=== PATIENT | female | born 1940 | race Caucasian/White ===

== ENCOUNTER → 2016-09-11 | Outpatient (CLI) | payer MEDICARE ==
[~2016-09-11] MED LIST: /FERG32TA PO; /METO25TAB PO; /WARF2TA PO; ACET50TA PO; ASCO500T PO; ASPI81TA PO; CALCIUM PO; CLOP75TA2 PO; CRES5TAB PO; DOCU100C PO; DOXY-197 PO; ELOCON TOP; FOLI1TAB86 PO; LOSA25TA8 PO; LOVE0.8I SC; MAG 64 PO; MAGN64TASA PO; METFORMIN PO; MULTTAB4 PO; NORCOBULK PO; OMEP40CA2 PO; PRED20TA PO; ZETI10TA21 PO; [UNRECOGNIZED DRUG - OTHER] PO
--- NOTE | 2016-09-11 14:21 | REPMRS ---
Patient History The patient states she has not had a clinical breast exam in over a year. Patient is postmenopausal. Family history of colorectal cancer in mother at age 85. Benign excisional biopsy of the right breast, 1997. Digital Woman Screen Mammo: September 11, 2016 - Exam #: [id number] Bilateral CC and MLO view(s) were taken. Technologist: Belen Alva, Technologist Prior study comparison: September 08, 2015, digital woman screen mammo performed at [facility] to [facility]. September 08, 2014, digital woman screen mammo performed at [facility]. August 22, 2013, digital woman screen mammo performed at [facility]. FINDINGS: There are scattered fibroglandular densities. There has been no change in the appearance of the mammogram from the prior studies. There is a mild amount of scattered fibroglandular density which is fairly symmetric. There is no interval development of dominant mass, architectural distortion, or clustered microcalcification suggestive of malignancy. ASSESSMENT: BI-RADS/ACR category 1 mammogram. Negative. Recommendation Routine screening mammogram in 1 year (for women over age 40). This mammogram was interpreted with the aid of an FDA-approved computer-aided dectection system. Electronically Signed By: Eduardo Gonzalez MD 09/11/16 [id number]
== END ==
LOC: M WHC 12:47
PROVIDERS: ATTEND Family Medicine
DX: Z12.31 Encounter for screening mammogram for malignant neoplasm of breast (principal); Z78.0 Asymptomatic menopausal state

== ENCOUNTER → 2016-11-06 | Outpatient (REF) | payer MEDICARE | LOC: M LAB REF 17:01 | PROVIDERS: ATTEND Surgery | DX: L57.0 Actinic keratosis (principal) ==

== ENCOUNTER → 2016-12-04 | Outpatient (REF) | payer MEDICARE ==
[2016-12-04 13:48] LABS: MEAN CORPUSCULAR HGB CONC 31.5 g/dl (32.0-36.5); MEAN CORPUSCULAR VOLUME 88.9 fl (80.0-96.0); RED CELL DISTRIBUTION WIDTH 13.4 % (11.5-14.5); WHITE BLOOD COUNT 7.8 K/mm3 (4.0-10.0)
[2016-12-04 13:52] LABS: CALCIUM LEVEL 9.3 MG/DL (8.8-10.2); CREATININE FOR GFR 1.57 MG/DL (0.55-1.02); GLOMERULAR FILTRATION RATE 34.2 (>39); POTASSIUM SERUM 4.3 MEQ/L (3.5-5.1)
== END ==
LOC: M SFHCPLAZ 10:03
PROVIDERS: ATTEND Family Medicine
DX: N18.3 Chronic kidney disease, stage 3 (moderate) (principal); E11.9 Type 2 diabetes mellitus without complications

== ENCOUNTER → 2017-03-19 | Outpatient (REF) | payer MEDICARE ==
[2017-03-19 13:11] LABS: MEAN CORPUSCULAR HEMOGLOBIN 28.7 pg (27.0-33.0); MEAN CORPUSCULAR HGB CONC 31.9 g/dl (32.0-36.5); RED CELL DISTRIBUTION WIDTH 13.4 % (11.5-14.5); WHITE BLOOD COUNT 7.7 K/mm3 (4.0-10.0)
[2017-03-19 13:51] LABS: ALBUMIN 3.5 GM/DL (3.2-5.2); ALKALINE PHOSPHATASE 63 U/L (45-117); ALT/SGPT 17 U/L (12-78); ANION GAP 10 MEQ/L (8-16); AST/SGOT 13 U/L (15-37); BILIRUBIN,DIRECT < 0.1 MG/DL (0.0-0.2); BILIRUBIN,TOTAL 0.4 MG/DL (0.2-1.0); BLOOD UREA NITROGEN 22 MG/DL (7-18); CALCIUM LEVEL 9.2 MG/DL (8.8-10.2); CARBON DIOXIDE LEVEL 27 MEQ/L (21-32); CHLORIDE LEVEL 103 MEQ/L (98-107); CHOLESTEROL LEVEL 159 MG/DL (<200); CREATININE FOR GFR 1.32 MG/DL (0.55-1.02); GLOMERULAR FILTRATION RATE 41.8 (>39); GLUCOSE, FASTING 159 MG/DL (83-110); POTASSIUM SERUM 4.3 MEQ/L (3.5-5.1); SODIUM LEVEL 140 MEQ/L (136-145); TRIGLYCERIDES LEVEL 139 MG/DL (<150)
== END ==
LOC: M LABDRAWP 12:08
PROVIDERS: ATTEND Internal Medicine Cardiovascular Disease
DX: E78.00 Pure hypercholesterolemia, unspecified (principal); R60.0 Localized edema; N18.9 Chronic kidney disease, unspecified; E11.9 Type 2 diabetes mellitus without complications; I12.9 Hypertensive chronic kidney disease with stage 1 through stage 4 chronic kidney disease, or unspecified chronic kidney disease; Z95.5 Presence of coronary angioplasty implant and graft

== ENCOUNTER → 2017-04-20 | Outpatient (REF) | payer MEDICARE ==
[2017-04-20 12:10] LABS: CALCIUM LEVEL 9.8 MG/DL (8.8-10.2); CREATININE FOR GFR 1.6 MG/DL (0.55-1.02); GLOMERULAR FILTRATION RATE 33.5 (>39); POTASSIUM SERUM 4.3 MEQ/L (3.5-5.1)
== END ==
LOC: M SFHCPLAZ 09:58
PROVIDERS: ATTEND Family Medicine
DX: I50.32 Chronic diastolic (congestive) heart failure (principal)

== ENCOUNTER → 2017-07-11 | Outpatient (REF) | payer MEDICARE ==
[2017-07-11 16:32] LABS: ALBUMIN 3.6 GM/DL (3.2-5.2); ALBUMIN/GLOBULIN RATIO 0.97 (1.00-1.93); BILIRUBIN,DIRECT 0.1 MG/DL (0.0-0.2); BILIRUBIN,TOTAL 0.3 MG/DL (0.2-1.0); TOTAL PROTEIN 7.3 GM/DL (6.4-8.2)
== END ==
LOC: M LABDRAWP 15:35
PROVIDERS: ATTEND Internal Medicine Cardiovascular Disease
DX: R60.0 Localized edema (principal); R80.9 Proteinuria, unspecified

== ENCOUNTER → 2017-08-08 | Outpatient (REF) | payer MEDICARE ==
[2017-08-08 11:02] LABS: MEAN CORPUSCULAR HEMOGLOBIN 27.6 pg (27.0-33.0); MEAN CORPUSCULAR HGB CONC 30.8 g/dl (32.0-36.5); MEAN CORPUSCULAR VOLUME 89.5 fl (80.0-96.0); PLATELET COUNT, AUTOMATED 250 10^3/uL (150-450); RED CELL DISTRIBUTION WIDTH 13.3 % (11.5-14.5); WHITE BLOOD COUNT 7.4 10^3/uL (4.0-10.0)
[2017-08-08 11:26] LABS: ALBUMIN 3.4 GM/DL (3.2-5.2); ALBUMIN/GLOBULIN RATIO 0.89 (1.00-1.93); ALKALINE PHOSPHATASE 72 U/L (45-117); ALT/SGPT 16 U/L (12-78); ANION GAP 10 MEQ/L (8-16); AST/SGOT 9 U/L (7-37); BILIRUBIN,TOTAL 0.4 MG/DL (0.2-1.0); BLOOD UREA NITROGEN 27 MG/DL (7-18); CALCIUM LEVEL 9.1 MG/DL (8.8-10.2); CARBON DIOXIDE LEVEL 28 MEQ/L (21-32); CHLORIDE LEVEL 103 MEQ/L (98-107); CHOLESTEROL LEVEL 158 MG/DL (<200); CREATININE FOR GFR 1.41 MG/DL (0.55-1.02); GLOMERULAR FILTRATION RATE 38.6 (>39); GLUCOSE, FASTING 157 MG/DL (83-110); POTASSIUM SERUM 4.5 MEQ/L (3.5-5.1); SODIUM LEVEL 141 MEQ/L (136-145); TOTAL PROTEIN 7.2 GM/DL (6.4-8.2); TRIGLYCERIDES LEVEL 131 MG/DL (<150)
[2017-08-09 11:06] LABS: ALBUMIN 3.74 GM/DL (3.29-5.55); GAMMA GLOBULIN % 17.4 % (11.1-18.8)
== END ==
LOC: M SFHCPLAZ 08:58
PROVIDERS: ATTEND Family Medicine
DX: D47.2 Monoclonal gammopathy (principal); E11.9 Type 2 diabetes mellitus without complications; E78.2 Mixed hyperlipidemia; E55.9 Vitamin D deficiency, unspecified

== ENCOUNTER → 2017-08-14 | Outpatient (REF) | payer MEDICARE | LOC: M SFHCPLAZ 08:47 | PROVIDERS: ATTEND Family Medicine | DX: R35.0 Frequency of micturition (principal); Z53.8 Procedure and treatment not carried out for other reasons ==

== ENCOUNTER → 2017-08-17 | Outpatient (REF) | payer MEDICARE ==
[2017-08-17 18:09] LABS: MICROSCOPIC INDICATED? MAN YES (NO)
[2017-08-17 18:44] LABS: SQUAMOUS EPITHELIAL CELL URINE MOD AMOUNT /hpf (SMALL AMT); WBC, URINE TNTC /hpf (0-3)
[2017-08-17 18:45] LABS: BACTERIA, URINE MOD AMOUNT
[2017-08-17 18:46] LABS: HYALINE CAST, URINE NONE SEEN /lpf (0-1); MICROSCOPIC EXAM PERFORMED
== END ==
LOC: M SFHCPLAZ 16:28
PROVIDERS: ATTEND Family Medicine
DX: R35.0 Frequency of micturition (principal)

== ENCOUNTER 2017-08-31 23:44 | Inpatient (IN) | payer MEDICARE ==
[2017-09-01] MEDS: PANTOPRAZOLE 40MG INJ (PROTONIX) (C9113) IV (00:45)
[2017-09-01 01:02] LABS: BASO # 0.1 10^3/uL (0.0-0.2); BASO % 0.6 % (0.0-1.0); EOS # 0.3 10^3/uL (0.0-0.50); EOS % 3.3 % (0.0-3.0); HEMATOCRIT 40.5 % (36.0-47.0); HEMOGLOBIN 12.8 g/dl (12.0-16.0); IMMATURE GRANULOCYTE % 0.3 % (0-0); LYMPH # 2.1 10^3/uL (1.5-4.5); LYMPH % 21.1 % (24.0-44.0); MEAN CORPUSCULAR HEMOGLOBIN 27.8 pg (27.0-33.0); MEAN CORPUSCULAR HGB CONC 31.6 g/dl (32.0-36.5); MONO # 1.1 10^3/uL (0.0-0.8); MONO % 10.5 % (0.0-5.0); NEUTROPHILS # 6.5 10^3/uL (1.8-7.7); NEUTROPHILS % 64.2 % (36.0-66.0); PLATELET COUNT, AUTOMATED 258 10^3/uL (150-450); RED CELL DISTRIBUTION WIDTH 13.2 % (11.5-14.5); WHITE BLOOD COUNT 10.1 10^3/uL (4.0-10.0)
[2017-09-01 01:14] LABS: ALBUMIN 3.4 GM/DL (3.2-5.2); ALBUMIN/GLOBULIN RATIO 0.87 (1.00-1.93); ALKALINE PHOSPHATASE 72 U/L (45-117); ALT/SGPT 17 U/L (12-78); ANION GAP 7 MEQ/L (8-16); AST/SGOT 14 U/L (7-37); BILIRUBIN,DIRECT < 0.1 MG/DL (0.0-0.2); BILIRUBIN,TOTAL 0.2 MG/DL (0.2-1.0); BLOOD UREA NITROGEN 28 MG/DL (7-18); CALCIUM LEVEL 9.2 MG/DL (8.8-10.2); CARBON DIOXIDE LEVEL 28 MEQ/L (21-32); CHLORIDE LEVEL 104 MEQ/L (98-107); CREATININE FOR GFR 1.55 MG/DL (0.55-1.02); GLOMERULAR FILTRATION RATE 34.6 (>39); GLUCOSE, FASTING 174 MG/DL (83-110); LIPASE 105 U/L (73-393); POTASSIUM SERUM 4.2 MEQ/L (3.5-5.1); SODIUM LEVEL 139 MEQ/L (136-145); TOTAL PROTEIN 7.3 GM/DL (6.4-8.2)
[2017-09-01 01:24] LABS: INR 0.91; PROTHROMBIN TIME 12.4 SECONDS (12.4-14.5)
[2017-09-01] MEDS ORDERED: ISOVUE-370 76% 100ML VIAL (Q9967) As Ordered (01:35)
[2017-09-01 02:42] LABS: HEMATOCRIT 36.4 % (36.0-47.0); HEMOGLOBIN 11.5 g/dl (12.0-16.0)
[2017-09-01] MEDS: NS 1,000 ML IV ×2 (03:45→09:01)
[2017-09-01 04:39] LABS: HEMATOCRIT 35.5 % (36.0-47.0); HEMOGLOBIN 11.2 g/dl (12.0-16.0)
[2017-09-01] MEDS ORDERED: DEXTROSE 50% 50 ML SYRINGE IV (05:00)
[2017-09-01] MEDS ORDERED: GLUCAGON FOR INJ 1 MG VIAL (J1610) SC (05:00)
[2017-09-01] MEDS ORDERED: GLUCOSE 4 GM CHEW TABLET PO (05:00)
[2017-09-01] MEDS: CIPROFLOXACIN 250 MG TAB PO ×2 (06:05→17:38)
[2017-09-01 06:33] LABS: HEMATOCRIT 34.7 % (36.0-47.0); HEMOGLOBIN 11.1 g/dl (12.0-16.0); MEAN CORPUSCULAR HEMOGLOBIN 28.1 pg (27.0-33.0); MEAN CORPUSCULAR VOLUME 87.8 fl (80.0-96.0); PLATELET COUNT, AUTOMATED 212 10^3/uL (150-450); RED BLOOD COUNT 3.95 10^6/uL (4.00-5.40); RED CELL DISTRIBUTION WIDTH 13.3 % (11.5-14.5); WHITE BLOOD COUNT 8.5 10^3/uL (4.0-10.0)
[2017-09-01 06:38] LABS: BEDSIDE GLUCOSE 135 MG/DL (83-110)
[2017-09-01] MEDS: HumaLOG INSULIN (NovoLOG) PER UNIT SC ×4 (07:30→21:00)
[2017-09-01 07:41] LABS: ANION GAP 8 MEQ/L (8-16); BLOOD UREA NITROGEN 27 MG/DL (7-18); CALCIUM LEVEL 8.6 MG/DL (8.8-10.2); CARBON DIOXIDE LEVEL 27 MEQ/L (21-32); CHLORIDE LEVEL 107 MEQ/L (98-107); CREATININE FOR GFR 1.44 MG/DL (0.55-1.02); GLOMERULAR FILTRATION RATE 37.7 (>39); GLUCOSE, FASTING 132 MG/DL (83-110); POTASSIUM SERUM 4.3 MEQ/L (3.5-5.1); SODIUM LEVEL 142 MEQ/L (136-145)
[2017-09-01] MEDS: SPIRONOLACTONE 25 MG TAB PO (09:00)
[2017-09-01] MEDS ORDERED: LOSARTAN 50 MG TAB PO (09:00)
[2017-09-01] MEDS: PANTOPRAZOLE 40MG TAB (PROTONIX) PO (09:00)
[2017-09-01] MEDS: MULTIVITAMINS/MINERALS THERAP 1 TAB PO (09:00)
[2017-09-01] MEDS: DOCUSATE SODIUM 100 MG CAP PO ×2 (09:00→21:54)
[2017-09-01] MEDS: METOPROLOL TART 12.5 MG PER 1/2 TAB PO ×2 (09:01→21:53)
[2017-09-01] MEDS: hydroCHLOROthiazide 25 MG TAB PO (09:01)
[2017-09-01 12:38] LABS: HEMATOCRIT 33.7 % (36.0-47.0); HEMOGLOBIN 10.9 g/dl (12.0-16.0)
[2017-09-01 12:54] LABS: BEDSIDE GLUCOSE 158 MG/DL (83-110)
[2017-09-01] MEDS: ACETAMINOPHEN 500 MG TAB PO (17:38)
[2017-09-01 18:09] LABS: HEMATOCRIT 34.5 % (36.0-47.0); HEMOGLOBIN 11.1 g/dl (12.0-16.0)
[2017-09-01 19:18] LABS: BEDSIDE GLUCOSE 126 MG/DL (83-110)
[2017-09-01 21:15] LABS: BEDSIDE GLUCOSE 135 MG/DL (83-110)
[2017-09-01] MEDS: ROSUVASTATIN 10 MG TAB (CRESTOR) PO (21:52)
[2017-09-02 00:41] LABS: HEMATOCRIT 34.5 % (36.0-47.0)
[2017-09-02] MEDS: CIPROFLOXACIN 250 MG TAB PO (05:18)
[2017-09-02 06:15] LABS: HEMATOCRIT 37.1 % (36.0-47.0); HEMOGLOBIN 11.7 g/dl (12.0-16.0); MEAN CORPUSCULAR HEMOGLOBIN 27.7 pg (27.0-33.0); MEAN CORPUSCULAR HGB CONC 31.5 g/dl (32.0-36.5); MEAN CORPUSCULAR VOLUME 87.7 fl (80.0-96.0); PLATELET COUNT, AUTOMATED 216 10^3/uL (150-450); RED BLOOD COUNT 4.23 10^6/uL (4.00-5.40); RED CELL DISTRIBUTION WIDTH 13.3 % (11.5-14.5); WHITE BLOOD COUNT 6.5 10^3/uL (4.0-10.0)
[2017-09-02 06:33] LABS: ANION GAP 10 MEQ/L (8-16); BLOOD UREA NITROGEN 20 MG/DL (7-18); CALCIUM LEVEL 8.7 MG/DL (8.8-10.2); CARBON DIOXIDE LEVEL 27 MEQ/L (21-32); CHLORIDE LEVEL 105 MEQ/L (98-107); CREATININE FOR GFR 1.26 MG/DL (0.55-1.02); GLUCOSE, FASTING 159 MG/DL (83-110); SODIUM LEVEL 142 MEQ/L (136-145)
[2017-09-02] MEDS: DOCUSATE SODIUM 100 MG CAP PO (09:00)
[2017-09-02] MEDS: MULTIVITAMINS/MINERALS THERAP 1 TAB PO (09:28)
[2017-09-02] MEDS: HumaLOG INSULIN (NovoLOG) PER UNIT SC ×2 (09:28→13:11)
[2017-09-02] MEDS: PANTOPRAZOLE 40MG TAB (PROTONIX) PO (09:29)
[2017-09-02] MEDS: hydroCHLOROthiazide 25 MG TAB PO (09:30)
[2017-09-02] MEDS: SPIRONOLACTONE 25 MG TAB PO (09:31)
[2017-09-02] MEDS: METOPROLOL TART 12.5 MG PER 1/2 TAB PO (09:32)
[2017-09-02 11:54] LABS: BEDSIDE GLUCOSE 147 MG/DL (83-110)
[2017-09-02 12:05] LABS: HEMATOCRIT 38.4 % (36.0-47.0); HEMOGLOBIN 12.3 g/dl (12.0-16.0)
== END 2017-09-02 15:35 | disposition home or self-care (01) | DRG 372 ==
LOC: M ED 23:44 → M ED INP 09-01 05:54 → M MSPAV 09-01 06:19
DX: A04.4 Other intestinal Escherichia coli infections (principal); K62.5 Hemorrhage of anus and rectum; I50.32 Chronic diastolic (congestive) heart failure; Z68.41 Body mass index [BMI] 40.0-44.9, adult; I13.0 Hypertensive heart and chronic kidney disease with heart failure and stage 1 through stage 4 chronic kidney disease, or unspecified chronic kidney disease; E66.01 Morbid (severe) obesity due to excess calories; N18.3 Chronic kidney disease, stage 3 (moderate); E11.9 Type 2 diabetes mellitus without complications; E78.5 Hyperlipidemia, unspecified; I25.10 Atherosclerotic heart disease of native coronary artery without angina pectoris; K21.9 Gastro-esophageal reflux disease without esophagitis; Z79.82 Long term (current) use of aspirin; Z79.84 Long term (current) use of oral hypoglycemic drugs; Z79.899 Other long term (current) drug therapy; Z91.018 Allergy to other foods; Z88.1 Allergy status to other antibiotic agents; Z88.8 Allergy status to other drugs, medicaments and biological substances; Z88.6 Allergy status to analgesic agent; Z95.5 Presence of coronary angioplasty implant and graft; Z86.73 Personal history of transient ischemic attack (TIA), and cerebral infarction without residual deficits; Z90.710 Acquired absence of both cervix and uterus; Z90.722 Acquired absence of ovaries, bilateral; Z90.49 Acquired absence of other specified parts of digestive tract

== ENCOUNTER → 2017-09-13 | Outpatient (CLI) | payer MEDICARE | LOC: M WHC 13:23 | DX: Z12.31 Encounter for screening mammogram for malignant neoplasm of breast (principal) | CPT/HCPCS: 77067 ==

== ENCOUNTER → 2018-03-21 | Outpatient (REF) | payer MEDICARE ==
[2018-03-21 12:36] LABS: ALBUMIN 3.4 GM/DL (3.2-5.2); ALBUMIN/GLOBULIN RATIO 0.92 (1.00-1.93); ALKALINE PHOSPHATASE 65 U/L (45-117); ALT/SGPT 18 U/L (12-78); ANION GAP 9 MEQ/L (8-16); AST/SGOT 12 U/L (7-37); BILIRUBIN,TOTAL 0.4 MG/DL (0.2-1.0); BLOOD UREA NITROGEN 34 MG/DL (7-18); CALCIUM LEVEL 9.7 MG/DL (8.8-10.2); CARBON DIOXIDE LEVEL 27 MEQ/L (21-32); CHLORIDE LEVEL 106 MEQ/L (98-107); CHOLESTEROL LEVEL 139 MG/DL (<200); CHOLESTEROL RISK RATIO 2.622 (<5); CREATININE FOR GFR 1.39 MG/DL (0.55-1.30); GLOMERULAR FILTRATION RATE 39.2 (>39); GLUCOSE, FASTING 142 MG/DL (70-100); HDL CHOLESTEROL 53 MG/DL (>40); LDL CHOLESTEROL 67.4 MG/DL (<100); NON-HDL-C 86 MG/DL; POTASSIUM SERUM 4.7 MEQ/L (3.5-5.1); SODIUM LEVEL 142 MEQ/L (136-145); TOTAL PROTEIN 7.1 GM/DL (6.4-8.2); TRIGLYCERIDES LEVEL 93 MG/DL (<150)
[2018-03-21 13:52] LABS: ESTIMATED AVERAGE GLUCOSE 166 MG/DL (60-110); HEMOGLOBIN A1c 7.4 %
== END ==
LOC: M SFHCPLAZ 08:53
DX: E11.9 Type 2 diabetes mellitus without complications (principal); E78.2 Mixed hyperlipidemia
CPT/HCPCS: 80053

== ENCOUNTER → 2018-06-18 | Outpatient (REF) | payer MEDICARE ==
[2018-06-18 16:23] LABS: APPEARANCE, URINE HAZY (CLEAR); BACTERIA, URINE AUTO 1+ (NEGATIVE); BILIRUBIN, URINE AUTO NEGATIVE (NEGATIVE); BLOOD, URINE BLOOD NEGATIVE (NEGATIVE); COLOR, URINE YELLOW (YELLOW); GLUCOSE, URINE (UA) AUTO NEGATIVE (NEGATIVE); KETONE, URINE AUTO NEGATIVE (NEGATIVE); LEUKOCYTE ESTERASE, URINE AUTO 1+ (NEGATIVE); NITRITE, URINE AUTO NEGATIVE (NEGATIVE); PROTEIN, URINE AUTO NEGATIVE (NEGATIVE); RBC, URINE AUTO 3 /HPF (0-3); SPECIFIC GRAVITY URINE AUTO 1.009 (1.002-1.035); SQUAMOUS EPITHELIAL CELL UR AU 3 /HPF (0-6); UROBILINOGEN, URINE AUTO 0.2 mg/dL (0.0-2.0); WBC, URINE AUTO 3 /HPF (0-3)
== END ==
LOC: M SFHCPLAZ 13:07
DX: R30.0 Dysuria (principal)
CPT/HCPCS: 81001

== ENCOUNTER → 2018-07-29 | Outpatient (REF) | payer MEDICARE ==
[2018-07-29 12:51] LABS: ANION GAP 6 MEQ/L (8-16); BLOOD UREA NITROGEN 32 MG/DL (7-18); CALCIUM LEVEL 9.8 MG/DL (8.8-10.2); CARBON DIOXIDE LEVEL 31 MEQ/L (21-32); CHLORIDE LEVEL 101 MEQ/L (98-107); CREATININE FOR GFR 1.33 MG/DL (0.55-1.30); GLOMERULAR FILTRATION RATE 41.2 (>39); GLUCOSE, FASTING 180 MG/DL (70-100); POTASSIUM SERUM 4.5 MEQ/L (3.5-5.1); SODIUM LEVEL 138 MEQ/L (136-145)
[2018-07-29 12:55] LABS: MALB URINE SIEMENS 42.5 MG/L; MAU/CREAT RATIO 38.2 MCG/MG (0.0-30.0)
[2018-07-29 14:17] LABS: ESTIMATED AVERAGE GLUCOSE 163 MG/DL (60-110); HEMOGLOBIN A1c 7.3 %
== END ==
LOC: M SFHCPLAZ 09:05
DX: E11.9 Type 2 diabetes mellitus without complications (principal)
CPT/HCPCS: 83036

== ENCOUNTER 2018-08-10 08:53 | Inpatient (IN) | payer MEDICARE ==
[2018-08-10] MEDS: NS 1,000 ML IV ×3 (10:32→20:13)
[2018-08-10 10:42] LABS: BASO # 0.1 10^3/uL (0.0-0.2); BASO % 0.6 % (0.0-1.0); EOS # 0.2 10^3/uL (0.0-0.50); EOS % 1.9 % (0.0-3.0); HEMOGLOBIN 13.2 g/dl (12.0-15.5); IMMATURE GRANULOCYTE % 0.2 % (0-3.0); LYMPH # 1.4 10^3/uL (1.5-4.5); LYMPH % 16.2 % (24.0-44.0); MEAN CORPUSCULAR HEMOGLOBIN 27.3 pg (27.0-33.0); MEAN CORPUSCULAR HGB CONC 31.4 g/dl (32.0-36.5); MONO # 0.8 10^3/uL (0.0-0.8); MONO % 8.7 % (0.0-5.0); NEUTROPHILS # 6.3 10^3/uL (1.8-7.7); NEUTROPHILS % 72.4 % (36.0-66.0); PLATELET COUNT, AUTOMATED 258 10^3/uL (150-450); RED BLOOD COUNT 4.83 10^6/uL (4.00-5.40); RED CELL DISTRIBUTION WIDTH 13.4 % (11.5-14.5); WHITE BLOOD COUNT 8.7 10^3/uL (4.0-10.0)
[2018-08-10 10:52] LABS: INR 0.88
[2018-08-10 11:05] LABS: ALBUMIN 3.4 GM/DL (3.2-5.2); ALBUMIN/GLOBULIN RATIO 0.92 (1.00-1.93); ALKALINE PHOSPHATASE 82 U/L (45-117); ALT/SGPT 16 U/L (12-78); AMYLASE 42 U/L (25-115); ANION GAP 7 MEQ/L (8-16); AST/SGOT 14 U/L (7-37); BILIRUBIN,DIRECT < 0.1 MG/DL (0.0-0.2); BILIRUBIN,TOTAL 0.3 MG/DL (0.2-1.0); BLOOD UREA NITROGEN 25 MG/DL (7-18); CALCIUM LEVEL 9.4 MG/DL (8.8-10.2); CARBON DIOXIDE LEVEL 28 MEQ/L (21-32); CHLORIDE LEVEL 104 MEQ/L (98-107); CREATININE FOR GFR 1.33 MG/DL (0.55-1.30); GLOMERULAR FILTRATION RATE 41.2 (>39); GLUCOSE, FASTING 173 MG/DL (70-100); LIPASE 78 U/L (73-393); POTASSIUM SERUM 4.6 MEQ/L (3.5-5.1); SODIUM LEVEL 139 MEQ/L (136-145); TOTAL PROTEIN 7.1 GM/DL (6.4-8.2)
[2018-08-10] MEDS ORDERED: GLUCAGON FOR INJ 1 MG VIAL (J1610) SC (13:15)
[2018-08-10] MEDS ORDERED: DEXTROSE 50% 50 ML SYRINGE IV (13:15)
[2018-08-10] MEDS ORDERED: GLUCOSE 4 GM CHEW TABLET PO (13:15)
[2018-08-10] MEDS: SPIRONOLACTONE 25 MG TAB PO (13:47)
[2018-08-10 16:34] LABS: BEDSIDE GLUCOSE 155 MG/DL (83-110)
[2018-08-10 17:32] LABS: HEMATOCRIT 34.8 % (36.0-47.0); MEAN CORPUSCULAR HEMOGLOBIN 27.3 pg (27.0-33.0); MEAN CORPUSCULAR HGB CONC 31.3 g/dl (32.0-36.5); MEAN CORPUSCULAR VOLUME 87.2 fl (80.0-96.0); PLATELET COUNT, AUTOMATED 246 10^3/uL (150-450); RED BLOOD COUNT 3.99 10^6/uL (4.00-5.40); RED CELL DISTRIBUTION WIDTH 13.6 % (11.5-14.5); WHITE BLOOD COUNT 9.3 10^3/uL (4.0-10.0)
[2018-08-10 17:33] LABS: HEMOGLOBIN 10.9 g/dl (12.0-15.5)
[2018-08-10] MEDS: HumaLOG INSULIN (NovoLOG) PER UNIT SC ×2 (18:18→20:12)
[2018-08-10 20:09] LABS: BEDSIDE GLUCOSE 227 MG/DL (83-110)
[2018-08-10] MEDS: CALCIUM/VITAMIN D 500 MG TAB PO (20:10)
[2018-08-10] MEDS: OMEPRAZOLE 20 MG CAP PO (20:10)
[2018-08-10] MEDS: MAGNESIUM OXIDE 400 MG TAB (MAG-OX) PO (20:10)
[2018-08-10] MEDS: METOPROLOL TART 12.5 MG PER 1/2 TAB PO (20:11)
[2018-08-10] MEDS: ACETAMINOPHEN 325 MG TAB PO (20:12)
[2018-08-10] MEDS: DOCUSATE SODIUM 100 MG CAP PO (20:13)
[2018-08-10 22:21] LABS: HEMATOCRIT 30.3 % (36.0-47.0); HEMOGLOBIN 9.4 g/dl (12.0-15.5); MEAN CORPUSCULAR VOLUME 87.1 fl (80.0-96.0); PLATELET COUNT, AUTOMATED 215 10^3/uL (150-450); RED BLOOD COUNT 3.48 10^6/uL (4.00-5.40); RED CELL DISTRIBUTION WIDTH 13.6 % (11.5-14.5); WHITE BLOOD COUNT 8.2 10^3/uL (4.0-10.0)
[2018-08-11 05:00] LABS: HEMATOCRIT 29.4 % (36.0-47.0); HEMOGLOBIN 9.2 g/dl (12.0-15.5); MEAN CORPUSCULAR HEMOGLOBIN 26.5 pg (27.0-33.0); MEAN CORPUSCULAR HGB CONC 31.3 g/dl (32.0-36.5); MEAN CORPUSCULAR VOLUME 84.7 fl (80.0-96.0); PLATELET COUNT, AUTOMATED 205 10^3/uL (150-450); RED BLOOD COUNT 3.47 10^6/uL (4.00-5.40); RED CELL DISTRIBUTION WIDTH 13.5 % (11.5-14.5); WHITE BLOOD COUNT 6.6 10^3/uL (4.0-10.0)
[2018-08-11 05:28] LABS: ALBUMIN 2.4 GM/DL (3.2-5.2); ALKALINE PHOSPHATASE 54 U/L (45-117); ALT/SGPT 12 U/L (12-78); ANION GAP 8 MEQ/L (8-16); AST/SGOT 12 U/L (7-37); BILIRUBIN,TOTAL 0.3 MG/DL (0.2-1.0); BLOOD UREA NITROGEN 23 MG/DL (7-18); CALCIUM LEVEL 8.2 MG/DL (8.8-10.2); CARBON DIOXIDE LEVEL 25 MEQ/L (21-32); CHLORIDE LEVEL 109 MEQ/L (98-107); CREATININE FOR GFR 1.13 MG/DL (0.55-1.30); GLOMERULAR FILTRATION RATE 49.7 (>39); GLUCOSE, FASTING 167 MG/DL (70-100); MAGNESIUM LEVEL 1.5 MG/DL (1.8-2.4); POTASSIUM SERUM 3.8 MEQ/L (3.5-5.1); SODIUM LEVEL 142 MEQ/L (136-145); TOTAL PROTEIN 5.4 GM/DL (6.4-8.2)
[2018-08-11] MEDS: NS 1,000 ML IV (06:21)
[2018-08-11] MEDS: OMEPRAZOLE 20 MG CAP PO ×2 (06:30→20:32)
[2018-08-11] MEDS: HumaLOG INSULIN (NovoLOG) PER UNIT SC ×4 (08:13→21:37)
[2018-08-11] MEDS: METOPROLOL TART 12.5 MG PER 1/2 TAB PO ×2 (08:13→20:33)
[2018-08-11] MEDS: CALCIUM/VITAMIN D 500 MG TAB PO ×2 (08:14→20:36)
[2018-08-11] MEDS: MULTIVITAMINS/MINERALS THERAP 1 TAB PO (08:14)
[2018-08-11] MEDS: MAGNESIUM OXIDE 400 MG TAB (MAG-OX) PO ×2 (08:15→20:33)
[2018-08-11] MEDS: DOCUSATE SODIUM 100 MG CAP PO ×2 (08:15→20:33)
[2018-08-11] MEDS: SPIRONOLACTONE 25 MG TAB PO (08:15)
[2018-08-11 10:45] LABS: HEMATOCRIT 28.3 % (36.0-47.0); HEMOGLOBIN 8.9 g/dl (12.0-15.5); MEAN CORPUSCULAR HEMOGLOBIN 27.5 pg (27.0-33.0); MEAN CORPUSCULAR HGB CONC 31.4 g/dl (32.0-36.5); MEAN CORPUSCULAR VOLUME 87.3 fl (80.0-96.0); PLATELET COUNT, AUTOMATED 209 10^3/uL (150-450); RED BLOOD COUNT 3.24 10^6/uL (4.00-5.40); RED CELL DISTRIBUTION WIDTH 13.5 % (11.5-14.5); WHITE BLOOD COUNT 6.7 10^3/uL (4.0-10.0)
[2018-08-11 11:38] LABS: BEDSIDE GLUCOSE 150 MG/DL (83-110)
[2018-08-11 16:30] LABS: HEMATOCRIT 30.5 % (36.0-47.0); HEMOGLOBIN 9.5 g/dl (12.0-15.5); MEAN CORPUSCULAR HEMOGLOBIN 27.1 pg (27.0-33.0); MEAN CORPUSCULAR HGB CONC 31.1 g/dl (32.0-36.5); MEAN CORPUSCULAR VOLUME 86.9 fl (80.0-96.0); PLATELET COUNT, AUTOMATED 217 10^3/uL (150-450); RED BLOOD COUNT 3.51 10^6/uL (4.00-5.40); RED CELL DISTRIBUTION WIDTH 13.5 % (11.5-14.5); WHITE BLOOD COUNT 6.8 10^3/uL (4.0-10.0)
[2018-08-11 16:59] LABS: BEDSIDE GLUCOSE 174 MG/DL (83-110)
[2018-08-11] MEDS: ROSUVASTATIN 10 MG TAB (CRESTOR) PO (20:33)
[2018-08-11 21:34] LABS: BEDSIDE GLUCOSE 161 MG/DL (83-110)
[2018-08-12 05:57] LABS: HEMATOCRIT 29.2 % (36.0-47.0); HEMOGLOBIN 9.1 g/dl (12.0-15.5); MEAN CORPUSCULAR HEMOGLOBIN 26.5 pg (27.0-33.0); MEAN CORPUSCULAR HGB CONC 31.2 g/dl (32.0-36.5); MEAN CORPUSCULAR VOLUME 85.1 fl (80.0-96.0); PLATELET COUNT, AUTOMATED 219 10^3/uL (150-450); RED BLOOD COUNT 3.43 10^6/uL (4.00-5.40); RED CELL DISTRIBUTION WIDTH 13.3 % (11.5-14.5); WHITE BLOOD COUNT 7.3 10^3/uL (4.0-10.0)
[2018-08-12] MEDS: OMEPRAZOLE 20 MG CAP PO (06:20)
[2018-08-12 06:26] LABS: ANION GAP 7 MEQ/L (8-16); BLOOD UREA NITROGEN 15 MG/DL (7-18); CALCIUM LEVEL 8.6 MG/DL (8.8-10.2); CARBON DIOXIDE LEVEL 27 MEQ/L (21-32); CHLORIDE LEVEL 108 MEQ/L (98-107); CREATININE FOR GFR 1.14 MG/DL (0.55-1.30); GLOMERULAR FILTRATION RATE 49.2 (>39); GLUCOSE, FASTING 169 MG/DL (70-100); POTASSIUM SERUM 3.8 MEQ/L (3.5-5.1); SODIUM LEVEL 142 MEQ/L (136-145)
[2018-08-12] MEDS: HumaLOG INSULIN (NovoLOG) PER UNIT SC (08:50)
[2018-08-12] MEDS: SPIRONOLACTONE 25 MG TAB PO (08:51)
[2018-08-12] MEDS: CALCIUM/VITAMIN D 500 MG TAB PO (08:51)
[2018-08-12] MEDS: MAGNESIUM OXIDE 400 MG TAB (MAG-OX) PO (08:51)
[2018-08-12] MEDS: DOCUSATE SODIUM 100 MG CAP PO (08:51)
[2018-08-12] MEDS: MULTIVITAMINS/MINERALS THERAP 1 TAB PO (08:52)
[2018-08-12] MEDS: METOPROLOL TART 12.5 MG PER 1/2 TAB PO (08:52)
== END 2018-08-12 11:12 | disposition home or self-care (01) | DRG 378 ==
LOC: M ED 08:53 → M ED INP 13:14 → M MSPAV 14:10
DX: K92.2 Gastrointestinal hemorrhage, unspecified (principal); D62 Acute posthemorrhagic anemia; I50.32 Chronic diastolic (congestive) heart failure; I13.0 Hypertensive heart and chronic kidney disease with heart failure and stage 1 through stage 4 chronic kidney disease, or unspecified chronic kidney disease; I25.10 Atherosclerotic heart disease of native coronary artery without angina pectoris; K21.9 Gastro-esophageal reflux disease without esophagitis; E11.9 Type 2 diabetes mellitus without complications; N18.3 Chronic kidney disease, stage 3 (moderate); E78.5 Hyperlipidemia, unspecified; Z79.82 Long term (current) use of aspirin; Z79.84 Long term (current) use of oral hypoglycemic drugs; Z79.899 Other long term (current) drug therapy; Z91.018 Allergy to other foods; Z88.1 Allergy status to other antibiotic agents; Z88.6 Allergy status to analgesic agent; Z88.8 Allergy status to other drugs, medicaments and biological substances

== ENCOUNTER → 2018-08-15 | Outpatient (REF) | payer MEDICARE ==
[~2018-08-15] MED LIST changes: +ASPI1TAB PO; +BYET10IN2 SC; +CALC600T57 PO; +CALCTAB6 PO; +CIPR250T3 PO; +COCOOIL6 PO; +COQ1200C2 PO; +CRES10TA32 PO; +DOCU100C16 PO; +EPIN0.3I11 INJ; +GLIM2TAB; +GLIM2TAB PO; +INSULADS INJ; +IRON325T7 PO; +LASI20TA PO; +LOSA100T5 PO; +LUTE1CAP2 PO; +METF500T13 PO; +METO25TA4 PO; +OMEP20CA3 PO; +PROA1AER2 IN; +RANI1SYP PO; +ROSU10TA5 PO; +SITA50TAB PO; +SPIR-10 PO; +SYMB16INH INH; +VITACAP9 PO; +VITMTA PO; +[UNRECOGNIZED DRUG - CODE]
[2018-08-15 14:24] LABS: HEMATOCRIT 30.7 % (36.0-47.0); HEMOGLOBIN 9.4 g/dl (12.0-15.5); MEAN CORPUSCULAR HEMOGLOBIN 27.2 pg (27.0-33.0); MEAN CORPUSCULAR HGB CONC 30.6 g/dl (32.0-36.5); MEAN CORPUSCULAR VOLUME 88.7 fl (80.0-96.0); PLATELET COUNT, AUTOMATED 287 10^3/uL (150-450); RED BLOOD COUNT 3.46 10^6/uL (4.00-5.40); WHITE BLOOD COUNT 9.5 10^3/uL (4.0-10.0)
[2018-08-15 14:51] LABS: ALBUMIN 3.3 GM/DL (3.2-5.2); BILIRUBIN,TOTAL 0.4 MG/DL (0.2-1.0); CALCIUM LEVEL 9.1 MG/DL (8.8-10.2); CREATININE FOR GFR 1.37 MG/DL (0.55-1.30); GLOMERULAR FILTRATION RATE 39.8 (>39); POTASSIUM SERUM 4.5 MEQ/L (3.5-5.1); TOTAL PROTEIN 6.7 GM/DL (6.4-8.2)
== END ==
LOC: M SFHCADAM 10:31
PROVIDERS: ATTEND Family Medicine
DX: K92.2 Gastrointestinal hemorrhage, unspecified (principal); D62 Acute posthemorrhagic anemia; I11.0 Hypertensive heart disease with heart failure
CPT/HCPCS: 80053; 85027; 99496; G0463

== ENCOUNTER → 2018-09-25 | Outpatient (CLI) | payer MEDICARE ==
[~2018-09-25] MED LIST changes: +BYET10IN10 SC; -BYET10IN2 SC; -LASI20TA PO; +LASI20TA3 PO
--- NOTE | 2018-09-25 13:57 | REPMRS ---
Patient History The patient states she has not had a clinical breast exam in over a year. Patient is postmenopausal and is nulliparous. Family history of colorectal cancer at age 85 in mother. Benign excisional biopsy of the right breast, 1997. Digital Woman Screen Mammo: September 25, 2018 - Exam #: [id number] Bilateral CC and MLO view(s) were taken. Technologist: Kirti De Technologist Prior study comparison: September 13, 2017, digital woman screen mammo performed at [facility]. September 11, 2016, digital woman screen mammo performed at [facility]. September 08, 2015, digital woman screen mammo performed at [facility]. FINDINGS: There are scattered fibroglandular densities. There has been no change in the appearance of the mammogram from the prior studies. There is a mild amount of scattered fibroglandular density which is fairly symmetric. There is no interval development of dominant mass, architectural distortion, or clustered microcalcification suggestive of malignancy. 3-D tomosynthesis shows no additional findings. Assessment: BI-RADS/ACR category 1 mammogram. Negative Mammogram. Recommendation Routine screening mammogram of both breasts in 1 year (for women over age 40). This patient's Lifetime Breast Cancer RIsk is estimated at 3.5 %. This mammogram was interpreted with the aid of an FDA-approved computer-aided dectection system. Electronically Signed By: Eduardo Gonzalez MD 09/25/18 [id number]
== END ==
LOC: M WHC 12:40
PROVIDERS: ATTEND Family Medicine
DX: Z12.31 Encounter for screening mammogram for malignant neoplasm of breast (principal)

== ENCOUNTER → 2018-11-13 | Outpatient (REF) | payer MEDICARE ==
[2018-11-13 12:06] LABS: HEMATOCRIT 44.5 % (36.0-47.0); HEMOGLOBIN 13.7 g/dl (12.0-15.5); MEAN CORPUSCULAR HEMOGLOBIN 27.7 pg (27.0-33.0); MEAN CORPUSCULAR HGB CONC 30.8 g/dl (32.0-36.5); MEAN CORPUSCULAR VOLUME 89.9 fl (80.0-96.0); PLATELET COUNT, AUTOMATED 252 10^3/uL (150-450); RED BLOOD COUNT 4.95 10^6/uL (4.00-5.40); WHITE BLOOD COUNT 7.2 10^3/uL (4.0-10.0)
[2018-11-13 12:35] LABS: ALBUMIN 3.5 GM/DL (3.2-5.2); BILIRUBIN,TOTAL 0.3 MG/DL (0.2-1.0); CALCIUM LEVEL 9.5 MG/DL (8.8-10.2); CREATININE FOR GFR 1.34 MG/DL (0.55-1.30); GLOMERULAR FILTRATION RATE 40.8 (>39); POTASSIUM SERUM 4.5 MEQ/L (3.5-5.1)
[2018-11-13 13:48] LABS: HEMOGLOBIN A1c 7.6 %
== END ==
LOC: M SFHCPLAZ 08:39
PROVIDERS: ATTEND Family Medicine
DX: K92.2 Gastrointestinal hemorrhage, unspecified (principal); I11.0 Hypertensive heart disease with heart failure; E11.9 Type 2 diabetes mellitus without complications

== ENCOUNTER → 2019-01-17 | Outpatient (REF) | payer MEDICARE ==
[~2019-01-17] MED LIST changes: -/FERG32TA PO; -/METO25TAB PO; -/WARF2TA PO; -ACET50TA PO; -ASPI1TAB PO; -ASPI81TA PO; +ASPI81TA26 PO; +CHIL1CHW5 PO; +COUM1TAB16 PO; +CRES10TA PO; -CRES10TA32 PO; +FERR1TAB6 PO; +FERR325T82 PO; -IRON325T7 PO; -LUTE1CAP2 PO; +LUTE20CA8 PO; +MAPA500T17 PO; +METO1TAB87 PO
== END ==
LOC: M SFHCPLAZ 19:03
PROVIDERS: ATTEND Dermatology
DX: D23.4 Other benign neoplasm of skin of scalp and neck (principal)
CPT/HCPCS: 11102; 17000; 17003; 88305; G0463

== ENCOUNTER → 2019-04-01 | Outpatient (REF) | payer MEDICARE ==
[~2019-04-01] MED LIST changes: -GLIM2TAB; -GLIM2TAB PO; +GLIM2TAB4; +GLIM2TAB4 PO; +OMEP1CAP73 PO; -OMEP20CA3 PO; -ROSU10TA5 PO; +ROSU10TA6 PO
== END ==
LOC: M SFHCPLAZ 10:36
PROVIDERS: ATTEND Dermatology
DX: C44.629 Squamous cell carcinoma of skin of left upper limb, including shoulder (principal)

== ENCOUNTER → 2019-04-05 | Outpatient (REF) | payer MEDICARE ==
[~2019-04-05] MED LIST changes: +GLIM2TAB; +GLIM2TAB PO; -GLIM2TAB4; -GLIM2TAB4 PO; -OMEP1CAP73 PO; +OMEP20CA4 PO
[2019-04-05 10:40] LABS: HEMATOCRIT 45.5 % (36.0-47.0); HEMOGLOBIN 14.2 g/dl (12.0-15.5); MEAN CORPUSCULAR HEMOGLOBIN 28.9 pg (27.0-33.0); MEAN CORPUSCULAR HGB CONC 31.2 g/dl (32.0-36.5); MEAN CORPUSCULAR VOLUME 92.5 fl (80.0-96.0); PLATELET COUNT, AUTOMATED 222 10^3/uL (150-450); RED BLOOD COUNT 4.92 10^6/uL (4.00-5.40); WHITE BLOOD COUNT 8.2 10^3/uL (4.0-10.0)
[2019-04-05 11:22] LABS: ALBUMIN 3.6 GM/DL (3.2-5.2); ALT/SGPT 21 U/L (12-78); BILIRUBIN,TOTAL 0.3 MG/DL (0.2-1.0); BLOOD UREA NITROGEN 31 MG/DL (7-18); CARBON DIOXIDE LEVEL 35 MEQ/L (21-32); CHLORIDE LEVEL 100 MEQ/L (98-107); CHOLESTEROL LEVEL 162 MG/DL (<200); CHOLESTEROL RISK RATIO 2.842 (<5); CREATININE FOR GFR 1.37 MG/DL (0.55-1.30); FERRITIN 35 NG/ML (8-252); GLOMERULAR FILTRATION RATE 39.8 (>39); GLUCOSE, FASTING 157 MG/DL (70-100); HDL CHOLESTEROL 57 MG/DL (>40); IRON (FE) 57 UG/DL (50-170); LDL CHOLESTEROL 75 MG/DL (<100); NON-HDL-C 105 MG/DL; PERCENT SATURATION 16.5 % (13.2-45.0); POTASSIUM SERUM 4.3 MEQ/L (3.5-5.1); SODIUM LEVEL 141 MEQ/L (136-145); TOTAL IRON BINDING CAPACITY 346 UG/DL (250-450); TOTAL PROTEIN 7.4 GM/DL (6.4-8.2); TRIGLYCERIDES LEVEL 152 MG/DL (<150)
[2019-04-08 14:04] LABS: ALBUMIN 4.09 GM/DL (3.29-5.55); ALBUMIN % 55.3 % (55.8-66.1); ALPHA-1-GLOBULIN % 4.5 % (2.9-4.9); ALPHA-1-GLOBULINS 0.33 GM/DL (0.17-0.41); ALPHA-2-GLOBULINS 0.84 GM/DL (0.42-0.99); ALPHA-2-GLOBULINS % 11.3 % (7.1-11.8); BETA-1-GLOBULINS % 6.8 % (4.7-7.2); BETA-2-GLOBULINS 0.44 GM/DL (0.19-0.55); GAMMA GLOBULIN % 16.1 % (11.1-18.8); GAMMA GLOBULINS 1.19 GM/DL (0.65-1.58)
[2019-04-08 14:16] LABS: IMMUNOTYPING SERUM IGG ABNORMAL (NORMAL); IMMUNOTYPING SERUM LAMBDA ABNORMAL (NORMAL)
== END ==
LOC: M SFHCADAM 08:51
PROVIDERS: ATTEND Family Medicine
DX: N18.3 Chronic kidney disease, stage 3 (moderate) (principal); D62 Acute posthemorrhagic anemia; E78.2 Mixed hyperlipidemia; E11.9 Type 2 diabetes mellitus without complications; D47.2 Monoclonal gammopathy

== ENCOUNTER → 2019-05-02 | Outpatient (CLI) | payer MEDICARE ==
[~2019-05-02] MED LIST changes: -GLIM2TAB; -GLIM2TAB PO; +GLIM2TAB4; +GLIM2TAB4 PO; +OMEP1CAP73 PO; -OMEP20CA4 PO
--- NOTE | 2019-05-02 15:16 | REP ---
Left elbow for views: There are no fractures or dislocations. There is an osteophyte at the coronoid process of the olecranon. The anterior fat pad is elevated. This may represent a joint effusion. There are degenerative ligamentous calcifications medial to the distal humeral medial epicondyle. Impression: Questionable joint effusion. No fracture or dislocation. Degenerative calcifications medial to the medial epicondyle. Electronically Signed by Mik Hernandez MD 05/02/2019 03:07 P
== END ==
LOC: M WUC 12:47
PROVIDERS: ATTEND Nurse Practitioner Family
DX: M25.522 Pain in left elbow (principal)

== ENCOUNTER → 2019-05-06 | Outpatient (REF) | payer MEDICARE ==
[~2019-05-06] MED LIST changes: +GLIM2TAB; +GLIM2TAB PO; -GLIM2TAB4; -GLIM2TAB4 PO; -OMEP1CAP73 PO; +OMEP20CA4 PO
== END ==
LOC: M SFHCPLAZ 10:14
PROVIDERS: ATTEND Dermatology
DX: L90.5 Scar conditions and fibrosis of skin (principal)

== ENCOUNTER → 2019-06-09 | Outpatient (REF) | payer MEDICARE ==
[~2019-06-09] MED LIST changes: -GLIM2TAB; -GLIM2TAB PO; +GLIM2TAB4; +GLIM2TAB4 PO; +OMEP1CAP73 PO; -OMEP20CA4 PO
== END ==
LOC: M SFHCWAGY 15:26
PROVIDERS: ATTEND Nurse Practitioner Family
DX: R30.0 Dysuria (principal)
CPT/HCPCS: 81002; 87070; 87077; 87086; 87186; G0463

== ENCOUNTER → 2019-07-14 | Outpatient (REF) | payer MEDICARE ==
[~2019-07-14] MED LIST changes: +GLIM2TAB2; +GLIM2TAB2 PO; -GLIM2TAB4; -GLIM2TAB4 PO; -OMEP1CAP73 PO; +OMEP20CA4 PO
== END ==
LOC: M LAB REF 19:31
PROVIDERS: ATTEND Dermatology
DX: L57.0 Actinic keratosis (principal)

== ENCOUNTER → 2019-09-17 | Outpatient (REF) | payer MEDICARE ==
[~2019-09-17] MED LIST changes: -GLIM2TAB2; -GLIM2TAB2 PO; +GLIM2TAB4; +GLIM2TAB4 PO; +OMEP1CAP73 PO; -OMEP20CA4 PO
[2019-09-17 12:49] LABS: HEMATOCRIT 44.6 % (36.0-47.0); HEMOGLOBIN 13.8 g/dl (12.0-15.5); MEAN CORPUSCULAR HEMOGLOBIN 27.7 pg (27.0-33.0); MEAN CORPUSCULAR HGB CONC 30.9 g/dl (32.0-36.5); MEAN CORPUSCULAR VOLUME 89.6 fl (80.0-96.0); PLATELET COUNT, AUTOMATED 271 10^3/uL (150-450); RED BLOOD COUNT 4.98 10^6/uL (4.00-5.40); WHITE BLOOD COUNT 7.3 10^3/uL (4.0-10.0)
[2019-09-17 13:04] LABS: CALCIUM LEVEL 10.1 MG/DL (8.8-10.2); CREATININE FOR GFR 1.34 MG/DL (0.55-1.30); GLOMERULAR FILTRATION RATE 40.7 (>39); POTASSIUM SERUM 4.3 MEQ/L (3.5-5.1)
[2019-09-17 14:57] LABS: HEMOGLOBIN A1c 8.3 %
== END ==
LOC: M SFHCADAM 08:32
PROVIDERS: ATTEND Family Medicine
DX: N18.3 Chronic kidney disease, stage 3 (moderate) (principal); D47.2 Monoclonal gammopathy; E11.9 Type 2 diabetes mellitus without complications

== ENCOUNTER → 2019-10-21 | Outpatient (CLI) | payer MEDICARE ==
--- NOTE | 2019-10-21 15:39 | REPMRS ---
Patient History The patient states she has not had a clinical breast exam in over a year. Family history of colorectal cancer at age 85 in mother. Benign excisional biopsy of the right breast, 1997. Digital Woman Screen Mammo: October 21, 2019 - Exam #: [id number] Bilateral CC and MLO view(s) were taken. Technologist: Bela Uribe, Technologist Prior study comparison: September 25, 2018, bilateral digital woman screen mammo performed at [facility]. September 13, 2017, digital woman screen mammo performed at [facility]. September 11, 2016, digital woman screen mammo performed at [facility]. FINDINGS: There are scattered fibroglandular densities. There has been no change in the appearance of the mammogram from the prior studies. There is a mild amount of scattered fibroglandular density which is fairly symmetric. There is no interval development of dominant mass, architectural distortion, or grouped microcalcification suggestive of malignancy. 3-D tomosynthesis shows no additional findings. Assessment: BI-RADS/ACR category 1 mammogram. Negative Mammogram. Recommendation Routine screening mammogram of both breasts in 1 year (for women over age 40). This patient's Lifetime Breast Cancer Risk is estimated at 3.1 %. This mammogram was interpreted with the aid of an FDA-approved computer-aided dectection system. Electronically Signed By: Eduardo Gonzalez MD 10/21/19 [id number]
== END ==
LOC: M WHC 13:53
PROVIDERS: ATTEND Family Medicine
DX: Z12.31 Encounter for screening mammogram for malignant neoplasm of breast (principal); Z80.0 Family history of malignant neoplasm of digestive organs

== ENCOUNTER → 2019-11-03 | Outpatient (REF) | payer MEDICARE | LOC: M LAB REF 19:55 | PROVIDERS: ATTEND Physician Assistant | DX: S31.819A Unspecified open wound of right buttock, initial encounter (principal); X58.XXXA Exposure to other specified factors, initial encounter; Y92.9 Unspecified place or not applicable ==

== ENCOUNTER → 2019-11-21 | Outpatient (REF) | payer MEDICARE ==
[2019-11-21 15:40] LABS: APPEARANCE, URINE HAZY (CLEAR); BACTERIA, URINE AUTO 2+ (NEGATIVE); BILIRUBIN, URINE AUTO NEGATIVE (NEGATIVE); BLOOD, URINE BLOOD NEGATIVE (NEGATIVE); COLOR, URINE YELLOW (YELLOW); GLUCOSE, URINE (UA) AUTO NEGATIVE (NEGATIVE); KETONE, URINE AUTO NEGATIVE (NEGATIVE); LEUKOCYTE ESTERASE, URINE AUTO 3+ (NEGATIVE); NITRITE, URINE AUTO NEGATIVE (NEGATIVE); PROTEIN, URINE AUTO NEGATIVE (NEGATIVE); RBC, URINE AUTO 1 /HPF (0-3); SPECIFIC GRAVITY URINE AUTO 1.013 (1.002-1.035); SQUAMOUS EPITHELIAL CELL UR AU 1 /HPF (0-6); UROBILINOGEN, URINE AUTO 0.2 mg/dL (0.0-2.0); WBC, URINE AUTO 106 /HPF (0-3)
== END ==
LOC: M SFHCADAM 10:44
PROVIDERS: ATTEND Family Medicine
DX: R32 Unspecified urinary incontinence (principal)

== ENCOUNTER → 2020-01-30 | Outpatient (REF) | payer MEDICARE ==
[~2020-01-30] MED LIST changes: +BRONCHW PO; +METF-877 PO; +OMEG1CAP16 PO; +OYST500C PO; +[UNRECOGNIZED DRUG - CODE] TOP
[2020-01-30 13:41] LABS: CALCIUM LEVEL 9.5 MG/DL (8.8-10.2); CREATININE FOR GFR 1.37 MG/DL (0.55-1.30); GLOMERULAR FILTRATION RATE 39.7 (>39); POTASSIUM SERUM 4.3 MEQ/L (3.5-5.1)
[2020-01-30 14:08] LABS: HEMOGLOBIN A1c 8.1 %
== END ==
LOC: M SFHCADAM 08:43
PROVIDERS: ATTEND Family Medicine
DX: E11.9 Type 2 diabetes mellitus without complications (principal)

== ENCOUNTER 2020-02-11 09:51 | Inpatient (IN) | payer MEDICARE ==
[~2020-02-11] VITALS: Ht 162.6 cm; Wt 104.2 kg
[~2020-02-11 09:51] MED LIST changes: -BRONCHW PO; -METF-877 PO; -OMEG1CAP16 PO; -OYST500C PO; -[UNRECOGNIZED DRUG - CODE] TOP
[2020-02-11] MEDS ORDERED: OMEG1CAP16 PO (10:11)
[2020-02-11] MEDS: NS 1,000 ML IV SCH ×2 (10:42→18:40)
[2020-02-11 10:49] LABS: BASO # 0.1 10^3/uL (0.0-0.2); BASO % 0.6 % (0.0-1.0); EOS # 0.3 10^3/uL (0.0-0.5); EOS % 3.2 % (0.0-3.0); HEMATOCRIT 41.7 % (36.0-47.0); HEMOGLOBIN 13.1 g/dl (12.0-15.5); LYMPH # 1.4 10^3/uL (1.5-5.0); LYMPH % 18.1 % (24.0-44.0); MEAN CORPUSCULAR HEMOGLOBIN 27.7 pg (27.0-33.0); MEAN CORPUSCULAR HGB CONC 31.4 g/dl (32.0-36.5); MEAN CORPUSCULAR VOLUME 88.2 fl (80.0-96.0); MONO # 0.7 10^3/uL (0.0-0.8); MONO % 8.9 % (0.0-5.0); NEUTROPHILS # 5.4 10^3/uL (1.5-8.5); NEUTROPHILS % 68.9 % (36.0-66.0); PLATELET COUNT, AUTOMATED 265 10^3/uL (150-450); RED BLOOD COUNT 4.73 10^6/uL (4.00-5.40); WHITE BLOOD COUNT 7.8 10^3/uL (4.0-10.0)
[2020-02-11 11:04] LABS: INR 0.94; PARTIAL THROMBOPLASTIN TIME 26.6 SECONDS (25.0-38.4); PROTHROMBIN TIME 12.3 SECONDS (11.8-14.0)
[2020-02-11 11:27] LABS: ALBUMIN 3.4 GM/DL (3.2-5.2); ALT/SGPT 24 U/L (12-78); BILIRUBIN,DIRECT < 0.1 MG/DL (0.0-0.2); BILIRUBIN,TOTAL 0.3 MG/DL (0.2-1.0); LIPASE 62 U/L (73-393); TOTAL PROTEIN 7.5 GM/DL (6.4-8.2)
--- NOTE | 2020-02-11 12:52 | HPEPDOC ---
[facility] Medical History & Physical Date of Admission Feb 11, 2020 Date of Service: Feb 11, 2020 Primary Care Physician: Joni Shabazz MD Attending Physician: ANTHONY SANDERS MD History and Physical TIME OF SERVICE: 2:20 PM CHIEF COMPLAINT: Bloody stools HISTORY OF PRESENT ILLNESS: This is a 79 old female who came to the hospital because of bloody stools. Yesterday she had one episode and today she had 6 episodes of maroon stools. She also reported having transient abdominal pain just this prior to having the bowel movements. She denies vomiting, or chest pain, but admits to feeling dizzy when she stands up. She has chronic dyspnea which is not changed. She has had similar episodes of bloody stools in 2017, and and was found to have diverticulitis after having acolonoscopy in 2019. Received IV fluids in the ER . REVIEW OF SYSTEMS: 12 point review of systems negative except as listed in HPI PAST MEDICAL/ SURGICAL HISTORY: NIDDM CAD, status post triple bypass / dyslipidemia Chronic hypertension / chronic diastolic CHF History of CVA MGUS PFO Osteoarthritis GERD Vitamin D deficiency Total hysterectomy with BSO. Cholecystectomy SOCIAL HISTORY: doesnt't smoke FAMILY HISTORY: CAD CA ALLERGIES: Please see below. HOME MEDICATIONS: Please see below. PHYSICAL EXAMINATION: Vital Signs Date Time Temp Pulse Resp B/P (MAP) Pulse Ox O2 Delivery O2 Flow Rate FiO2 02/11/20 09:52 97.6 87 20 200/98 (132) 97 Room Air GEN: well-nourished / well developed/ NAD INTEGUMENT: Has generalized pallor HEENT: NCAT / lips acyanotic /mucus membranes moist and pink CVS: RRR/NMRG/ radial pulses intact LUNGS: lungs are clear to auscultation bilaterally on room air ABDOMEN: Contour (flat) / there are no masses or lesions / soft & not tender with palpation NEURO: CN 2-12 are grossly intact / speech is not dysarthric PSYCH: alert and oriented to person place and time/ able to understand and follow all commands LABORATORY DATA: Laboratory Tests 02/11/20 10:37 02/11/20 16:05 Immature Granulocyte % (Auto) 0.3, Neutrophils (%) (Auto) 68.9H, Lymphocytes (%) (Auto) 18.1L, Monocytes (%) (Auto) 8.9H, Eosinophils (%) (Auto) 3.2H, Basophils (%) (Auto) 0.6, Neutrophils # (Auto) 5.4, Lymphocytes # (Auto) 1.4L, Monocytes # (Auto) 0.7, Eosinophils # (Auto) 0.3, Basophils # (Auto) 0.1, Nucleated Red Blood Cells % (auto) 0.0, Prothrombin Time 12.3, Prothromb Time International Ratio 0.94, Activated Partial Thromboplast Time 26.6, Total Bilirubin 0.3, Direct Bilirubin < 0.1, Aspartate Amino Transf (AST/SGOT) 22, Alanine Aminotransferase (ALT/SGPT) 24, Alkaline Phosphatase 71, Total Protein 7.5, Albumin 3.4, Albumin/Globulin Ratio 0.8L, Lipase 62L 02/11/20 10:44: POC Glucose (Misc Panel) 170H, POC Sodium (Misc Panel) 138, POC Potassium (Misc Panel) 3.9, POC Chloride (Misc Panel) 99, POC Total CO2 (Misc Panel) 25.0, POC Blood Urea Nitrogen (Misc Panel 27H, POC Ionized Calcium (Misc Panel) 4.7, POC Creatinine (Misc Panel) 1.3, POC Hematocrit (Misc Panel) 42.0 IMAGING: n/a ASSESSMENT: Ms. Man is a 79 showed with history of NIDDM, chronic CAD, HTN, diastolic CHF, CVA, MGUS, PFO, osteoarthritis, and multiple surgeries, who is admitted for management of lower GI bleed. PLAN: 1. GI Bleed (Lower) Likely due to recurrent diverticulosis Plan: admit to PCU / CLD w IVF pending general surgery consult / follow-up serial Hg /check orthostatics/fall precautions IV fluids 2. Uncontrolled hypertension / chronic diastolic CHF - metoprolol, losartan, hydrochlorothiazide 3. NIDDM - f/u accuchecks & A1C / hypoglycemia protocol / sliding scale insulin / hold oral anti-glycemics 4. CAD, status post triple bypass - metoprolol, statin 5. Obesity , BMI 39.4, complicates care DVT PROPHYLAXIS: SCDs because of acute anemia DISPOSITION: Home pending clinical course Home Medications Scheduled Calcium Carbonate/Vitamin D3 (Calcium 500+D Tablet Chew) 1 Each Tab.chew, 1 CHW PO BID Docusate Sodium (Docusate Sodium) 100 Mg Cap, 100 MG PO BID Glimepiride (Glimepiride) 2 Mg Tab, 2 MG PO BID Losartan/Hydrochlorothiazide (Losartan-Hctz 100-25 mg Tab) 1 Tab Tab, 1 TAB PO DAILY Magnesium Chloride (Mag64) 64 Mg Tabcr, 64 MG PO BID Metformin HCl (Metformin HCl) 1,000 Mg Tablet, 1,000 MG PO BID Metoprolol Tartrate (Metoprolol Tartrate) 25 Mg Tab, 12.5 MG PO BID Multivitamin (Chewable-Agusto) 1 Each Tab.chew, 1 CHW PO DAILY Omeprazole (Omeprazole) 20 Mg Cap, 20 MG PO BID Rosuvastatin Calcium (Rosuvastatin Calcium) 10 Mg Tab, 10 MG PO Q2D EVERY OTHER DAY AT 1700 Scheduled PRN Methyl Salicylate/Menthol (Pain Relieving 1%-15% Cream) 85 Gm Cream..g., 1 APLCT TOP DAILY PRN for BACK PAIN Allergies Coded Allergies: Cephalosporins (Verified Adverse Reaction, Unknown, headache, 02/11/20) atorvastatin (Verified Adverse Reaction, Unknown, myalgia, 02/11/20) benzonatate (Verified Adverse Reaction, Unknown, headache, 02/11/20) diclofenac (Verified Adverse Reaction, Unknown, RUEDA/UPSET STOMACH, 02/11/20) ibuprofen (Verified Adverse Reaction, Unknown, GI upset, 02/11/20) linagliptin (Verified Adverse Reaction, Unknown, joint pain, 02/11/20) lisinopril (Verified Adverse Reaction, Unknown, cough, 02/11/20) A-FIB/CHADSVASC A-FIB History Current/History of A-Fib/PAF?: No Current PO Anticoag Therapy: No ANTHONY SANDERS MD Feb 11, 2020 12:52
[2020-02-11] MEDS ORDERED: METF-877 PO (13:17)
[2020-02-11] MEDS ORDERED: [UNRECOGNIZED DRUG - CODE] TOP (13:17)
[2020-02-11] MEDS ORDERED: BRONCHW PO (13:17)
[2020-02-11] MEDS ORDERED: OYST500C PO (13:18)
[2020-02-11 14:00] VITALS: BP 138/76
[2020-02-11 14:05] VITALS: BP_SYST 138; BP_SYST 140; BP_SYST 150; BP_DIAS 76; BP_DIAS 80; BP_DIAS 85
[2020-02-11 16:00] VITALS: BP 145/82
[2020-02-11] MEDS ORDERED: GLUCAGON INJ 1MG VIAL SC PRN (17:00)
[2020-02-11] MEDS ORDERED: DEXTROSE 50% 50 ML SYRINGE IV PRN (17:00)
[2020-02-11] MEDS ORDERED: GLUCOSE 4GM CHEW TABLET PO PRN (17:00)
[2020-02-11] MEDS: HumaLOG INSULIN (NovoLOG) PER UNIT SC SCH (17:37)
[2020-02-11] MEDS: OCTREOTIDE ACETATE 100MCG/ML VIAL (J2354 PER 25MCG) IV SCH (18:08)
[2020-02-11] MEDS ORDERED: ONDANSETRON 4 MG TAB PO PRN (19:30)
[2020-02-11 20:00] VITALS: BP 140/73
[2020-02-11] MEDS: DOCUSATE SODIUM 100 MG CAP PO SCH (20:51)
[2020-02-11] MEDS: MAGNESIUM CHLORIDE 64 MG TABCR (SLO MAG) PO SCH (20:56)
[2020-02-11] MEDS: OMEPRAZOLE 20 MG CAP PO SCH (20:56)
[2020-02-11] MEDS: METOPROLOL TART 12.5 MG PER 1/2 TAB PO SCH (20:56)
[2020-02-11] MEDS: CALCIUM/VITAMIN D 500 MG TAB PO SCH (20:56)
[2020-02-12] VITALS: BP 169/72
[2020-02-12] MEDS: HumaLOG INSULIN (NovoLOG) PER UNIT SC SCH ×5 (00:03→23:58)
[2020-02-12] MEDS: OCTREOTIDE ACETATE 100MCG/ML VIAL (J2354 PER 25MCG) IV SCH ×3 (02:31→17:39)
[2020-02-12 04:00] VITALS: BP 167/71
[2020-02-12] MEDS: NS 1,000 ML IV SCH (04:22)
[2020-02-12 04:32] LABS: HEMATOCRIT 31.2 % (36.0-47.0); HEMOGLOBIN 9.9 g/dl (12.0-15.5); MEAN CORPUSCULAR HEMOGLOBIN 28.1 pg (27.0-33.0); MEAN CORPUSCULAR HGB CONC 31.7 g/dl (32.0-36.5); MEAN CORPUSCULAR VOLUME 88.6 fl (80.0-96.0); PLATELET COUNT, AUTOMATED 213 10^3/uL (150-450); RED BLOOD COUNT 3.52 10^6/uL (4.00-5.40); WHITE BLOOD COUNT 8.2 10^3/uL (4.0-10.0)
[2020-02-12 04:53] LABS: CREATININE FOR GFR 1.15 MG/DL (0.55-1.30); GLOMERULAR FILTRATION RATE 48.6 (>39); MAGNESIUM LEVEL 1.5 MG/DL (1.8-2.4); POTASSIUM SERUM 3.7 MEQ/L (3.5-5.1)
[2020-02-12] MEDS ORDERED: MAG SULF 1GM/100ML (MAG RUN) 1 GM in IV 1 EA IV ONE (07:30)
--- NOTE | 2020-02-12 07:30 | CR ---
DATE OF CONSULTATION: 02/11/2020 REASON FOR CONSULTATION: Gastrointestinal (G)I bleeding/sustainability project coordinator not available for consultation today. HISTORY OF PRESENT ILLNESS: The patient is a 79-year-old female who presents to the hospital because of bloody stools. She states this is very similar to previous episodes of bloody stools where she has been diagnosed with diverticulosis and diverticular bleeding. These have happened almost on a yearly basis. At the beginning of last year, Dr. Nicholas performed a colonoscopy which revealed diverticulosis and some hemorrhoids. She states that she has had five colonoscopies previously because of a family history of colon cancer and is not desiring an additional colonoscopy at this time feeling that it is most likely secondary to diverticular bleeding. She has not been on any anticoagulation. She states that she had multiple bowel movements earlier and it seems to have slowed down to some extent this afternoon. She is not having any significant abdominal pain, although before she had some crampy abdominal pain and the bowel movements. She does feel somewhat nauseated. PAST MEDICAL HISTORY: Significant for history of [id number] diabetes mellitus, history of coronary artery disease status post coronary artery bypass grafting, history of dyslipidemia, history of hypertension, history of congestive heart failure, history of CVA, history of monoclonal gammopathy of undetermined significance (MGUS), history of patent foramen ovale (PFO), history of osteoarthritis, gastroesophageal reflux disease, vitamin D deficiency, total hysterectomy with bilateral salpingo-oophorectomy, and history of cholecystectomy. MEDICATIONS: - calcium - Colace - glimepiride - losartan - magnesium 64 - metformin - metoprolol - multivitamin - omeprazole - rosuvastatin PHYSICAL EXAMINATION: Reveals a 79-year-old female who looks stated age. HEENT is unremarkable. Neck: Supple without adenopathy. Lungs are clear anteriorly. Heart is regular with multiple irregular beats. Abdomen is soft, obese, nontender. No guarding. No rebound. No peritoneal signs are appreciated. IMPRESSION AND PLAN: The patient has evidence of bright red blood per rectum consistent with a lower GI bleed and also consistent with previous episodes of lower GI bleed. At this point, I would agree with current treatment of decreasing her diet/bowel rest, although I would be a little more aggressive and I have encouraged her only to take sips of clears instead of full clear tray at this point. I have also started her on some octreotide, although this may not significantly impact the stool output. Once again, we had a discussion about repeat colonoscopy and need for a colonoscopy if she has ongoing bleeding or bleeding which requires transfusions may encourage us to proceed with a repeat colonoscopy. At this point, she would prefer not to have a colonoscopy unless absolutely necessary. Thus, will be providing supportive care at this time.
[2020-02-12 08:00] VITALS: BP 123/69
[2020-02-12] MEDS: CALCIUM/VITAMIN D 500 MG TAB PO SCH ×2 (08:05→20:51)
[2020-02-12] MEDS: METOPROLOL TART 12.5 MG PER 1/2 TAB PO SCH ×2 (08:05→20:51)
[2020-02-12] MEDS: OMEPRAZOLE 20 MG CAP PO SCH ×2 (08:05→20:51)
[2020-02-12] MEDS: DOCUSATE SODIUM 100 MG CAP PO SCH ×3 (08:05→20:51)
[2020-02-12] MEDS: hydroCHLOROthiazide 25 MG TAB PO SCH (08:06)
[2020-02-12] MEDS: LOSARTAN 50MG TABLET PO SCH (08:06)
[2020-02-12] MEDS: MAGNESIUM CHLORIDE 64 MG TABCR (SLO MAG) PO SCH ×2 (08:11→20:50)
--- NOTE | 2020-02-12 11:07 | IPN ---
DATE: 02/12/2020 The patient has not had any bloody bowel movement since yesterday when I saw her and has been doing well overnight, nothing in the middle of night, nothing this morning, is feeling well, has had no nausea or vomiting. Her most recent colonoscopies revealed diverticulosis, no evidence of angiodysplasias or angioectasias, and no evidence of polyps, masses, etc. Thus, with this bright red blood per rectum and a benign abdominal exam today my impression is that she is resolving/resolved her gastrointestinal (GI) bleeding. We can progress her diet as tolerated. If she tolerates this, she can be discharged to home. Whether to proceed with a colonoscopy as an inpatient or outpatient, she has had a recent colonoscopy and thus, the likelihood of having a colon polyp, colon cancer or any angioectasia/dysplasia or arteriovenous abnormality is very low and thus, the overwhelming likelihood is that there is a diverticular bleed. Treatment for a diverticular bleed that has stopped is essentially no intervention and thus, given this is the most likely etiology I do feel that from a surgical standpoint we can progress her diet as tolerated. It is not unreasonable to have a second opinion from her veterinary surgery technician, Dr. Nicholas, as an outpatient in a couple weeks and he can determine what he would like to do next for her.
[2020-02-12 11:41] VITALS: BP 122/68
[2020-02-12 16:00] VITALS: BP 132/66
[2020-02-12] MEDS: ROSUVASTATIN 10 MG TAB (CRESTOR) PO SCH (16:16)
--- NOTE | 2020-02-12 17:29 | IPNPDOC ---
Subjective Date Seen The patient was seen on 02/12/20. Subjective Chief Complaint/HPI Pt was examined on the chair. She reported last bloody BM was last evening; pt reported she is unsure when her last actual bowel movement was; reported blood when she went. Denies any abdominal pain, fever, chills. Pt is still resistant to colonoscopy/procedures as she does not want to drink bowel prep. Denies any dizziness, lightheadedness, nausea or vomiting General: Denies: Chills Constitutional: Denies: Chills, Fever Pulmonary: Denies: Dyspnea Cardiovascular: Denies: Chest Pain Gastrointestinal: Reports: Other Symptoms (blood from rectum); Denies: Nausea, Vomiting, Abdominal Pain Objective Physical Examination General Exam: Positive: Alert, Cooperative, No Acute Distress Eye Exam: Positive: Conjunctiva & lids normal; Negative: Sclera icteric ENT Exam: Positive: Atraumatic, Mucous membr. moist/pink Neck Exam: Positive: Supple Chest Exam: Positive: Normal air movement, Diminished; Negative: Rales, Rhonchi, Wheezing Heart Exam: Positive: Rate Normal, Regular Rhythm, Normal S1, Normal S2; Negative: Murmurs Abdomen Exam: Positive: Normal bowel sounds, Soft; Negative: Tenderness Skin Exam: Positive: Nl turgor and temperature; Negative: Rash Neuro Exam: Positive: Normal Speech, Normal Tone Psych Exam: Positive: Memory Intact, Oriented x 3; Negative: Anxiety Assessment /Plan Assessment Pt is a 79 showed with history of diverticulosis, NIDDM, chronic CAD, HTN, diastolic CHF, and CVA presented to [facility] d/t lower GI bleed determined to be d/t diverticulosis 1. Lower GI bleed d/t diverticulosis. Reported no more GI bleed since last night. Surgery following. Would trend H&H. If H&H stable, pt may follow up outpt as she defers procedure/colonoscopy inpatient 2. Diverticulosis. Hx of diverticulosis shown on prior colonoscopy. Pwas started on Octreotide and advanced to full liquid diet per surgery. Pt would like to defer colonoscopy/procedure at this point. On full liquid diet. Would trend H&H. Surgery following. pt may follow up outpt 3, Anemia 2/2 acute GI bleed 2/2 diverticulosis. Trend H&H. Hg 9.1 02/12/2020 PM. Pt is deferring colonoscopy/procedure for diverticulosis. Iron studies, b12, and folate levels. Start ferrous sulfate after iron studies are obtained. 4. Uncontrolled hypertension, resolved. BP now wnl. Cont home med metoprolol, losartan, hydrochlorothiazide 5. Chronic diastolic CHF, appears compensated. Cont home med metoprolol, losartan, hydrochlorothiazide 6. NIDDM. Glucose checks, hypoglycemia protocol. sliding scale insulin. Hold home PO DM meds. 7. CAD, status post triple bypass. Cont home med metoprolol, statin 8. Obesity , BMI 39.4, complicates care 9. Hypomagnesemia. Mg 1.5. 1 Mag run with 1 Mag Ox 400mg ordered. Recheck Mg level 02/13/2020 AM DVT PROPHYLAXIS: SCDs GI prophylaxis:Omeprazole As preceptor for this patient I was fully available. All aspects of the patient interview, examination, medical decision making process, and medical care plan development were reviewed and approved. Aware and concur with the plan as stated in the body of this note and will attest to such by my cosignature. Plan/VTE VTE Prophylaxis Ordered?: Yes Plan Diet: Advance Activity: Continue Current Diagnostics: Repeat Labs in AM Anticipated Discharge: Home Disposition Iron studies with B12 and folate level; start ferrous sulfate. If H&H stable, follow up outpt for diverticulosis VS, I&O, 24H, Ziggy Vital Signs/I&O Vital Signs Date Time Temp Pulse Resp B/P (MAP) Pulse Ox O2 Delivery O2 Flow Rate FiO2 02/12/20 16:00 97.7 74 18 132/66 (88) 95 Room Air I&O- Last 24 Hours up to 6 AM 02/12/20 06:00 Intake Total 2570 ml Output Total 1070 ml Balance 1500 ml Laboratory Data 24H LABS Laboratory Tests 2 02/11/20 23:58: Bedside Glucose (Misc Panel) 157H 02/12/20 04:20: Nucleated Red Blood Cells % (auto) 0.0, Anion Gap 4L, Glomerular Filtration Rate 48.6, Calcium Level 8.0L, Magnesium Level 1.5L 02/12/20 05:52: Bedside Glucose (Misc Panel) 131H 02/12/20 11:48: Bedside Glucose (Misc Panel) 193H 02/12/20 16:37: Bedside Glucose (Misc Panel) 225H CBC/BMP Laboratory Tests 02/11/20 22:30 6/11/20 04:20 02/12/20 09:45 02/12/20 15:43 LB HOLT DO Feb 12, 2020 17:29 GABRIELA BOWLES MD Feb 16, 2020 14:12
[2020-02-12] MEDS ORDERED: MAGNESIUM OXIDE 400 MG TAB (MAG-OX) PO ONE (18:30)
[2020-02-12 18:54] LABS: FERRITIN 34 NG/ML (8-252); IRON (FE) 41 UG/DL (50-170); TOTAL IRON BINDING CAPACITY 274 UG/DL (250-450)
[2020-02-12 19:05] LABS: VITAMIN B12 LEVEL 733 PG/ML (247-911)
[2020-02-12 19:07] LABS: FOLATE > 24.0 NG/ML (>5.4)
[2020-02-12 20:00] VITALS: BP 128/56
[2020-02-12 20:33] LABS: HEMATOCRIT 29.5 % (36.0-47.0); HEMOGLOBIN 9.4 g/dl (12.0-15.5)
[2020-02-12] MEDS: FERROUS SULFATE 325MG TAB PO SCH (20:50)
--- NOTE | 2020-02-12 21:18 | ECGEPIP ---
[facility] - ED Test Date: 2020-02-11 Pat Name: MISA TINSLEY Department: Room: - Gender: Female [facility]: grant : [id number] Requested By: Lor Palomino Order Number: [id number] Reading MD: Chau Huerta Measurements Intervals [place] Rate: 73 P: 30 NE: 138 QRS: -49 QRSD: 135 T: 60 QT: 422 QTc: 467 Interpretive Statements SINUS RHYTHM RIGHT BUNDLE BRANCH BLOCK LEFT ANTERIOR FASCICULAR BLOCK VOLTAGE CRITERIA FOR LVH POSSIBLE SEPTAL MYOCARDIAL INFARCTION, OF INDETERMINATE AGE SIMILAR TO 08/10/18 Electronically Signed on 02-12-2020 21:18:19 EDT by Chau Huerta
[2020-02-13] VITALS: BP 150/70
[2020-02-13] MEDS: OCTREOTIDE ACETATE 100MCG/ML VIAL (J2354 PER 25MCG) IV SCH ×3 (02:37→18:16)
[2020-02-13 04:00] VITALS: BP 130/68
[2020-02-13 04:47] LABS: HEMOGLOBIN 9.4 g/dl (12.0-15.5); MEAN CORPUSCULAR HEMOGLOBIN 28.7 pg (27.0-33.0); MEAN CORPUSCULAR HGB CONC 32.4 g/dl (32.0-36.5); MEAN CORPUSCULAR VOLUME 88.4 fl (80.0-96.0); PLATELET COUNT, AUTOMATED 210 10^3/uL (150-450); RED BLOOD COUNT 3.28 10^6/uL (4.00-5.40); WHITE BLOOD COUNT 7.5 10^3/uL (4.0-10.0)
[2020-02-13 05:08] LABS: CALCIUM LEVEL 8.1 MG/DL (8.8-10.2); CREATININE FOR GFR 1.15 MG/DL (0.55-1.30); GLOMERULAR FILTRATION RATE 48.6 (>39); MAGNESIUM LEVEL 1.8 MG/DL (1.8-2.4); POTASSIUM SERUM 3.6 MEQ/L (3.5-5.1)
[2020-02-13] MEDS: HumaLOG INSULIN (NovoLOG) PER UNIT SC SCH ×3 (05:49→17:45)
[2020-02-13 08:00] VITALS: BP 139/74
[2020-02-13] MEDS: FERROUS SULFATE 325MG TAB PO SCH ×2 (08:28→21:17)
[2020-02-13] MEDS: LOSARTAN 50MG TABLET PO SCH (08:28)
[2020-02-13] MEDS: DOCUSATE SODIUM 100 MG CAP PO SCH ×2 (08:28→21:17)
[2020-02-13] MEDS: CALCIUM/VITAMIN D 500 MG TAB PO SCH ×2 (08:29→21:17)
[2020-02-13] MEDS: METOPROLOL TART 12.5 MG PER 1/2 TAB PO SCH ×2 (08:29→21:17)
[2020-02-13] MEDS: OMEPRAZOLE 20 MG CAP PO SCH ×2 (08:29→21:17)
[2020-02-13] MEDS: MAGNESIUM CHLORIDE 64 MG TABCR (SLO MAG) PO SCH ×2 (08:29→21:17)
[2020-02-13] MEDS: hydroCHLOROthiazide 25 MG TAB PO SCH (08:29)
[2020-02-13] MEDS ORDERED: ONDANSETRON 4MG/2ML VIAL IV ONE (09:00)
[2020-02-13] MEDS: NS 1,000 ML IV SCH ×2 (09:11→21:00)
[2020-02-13 09:31] LABS: HEMATOCRIT 29.8 % (36.0-47.0); HEMOGLOBIN 9.2 g/dl (12.0-15.5)
[2020-02-13] MEDS ORDERED: ONDANSETRON 4MG/2ML VIAL IV PRN (11:15)
--- NOTE | 2020-02-13 11:47 | IPN ---
DATE: 02/13/2020 The patient had been doing well overnight until this morning when she developed a bloody bowel movement. Had a followup hematocrit about an hour and half after starting developing some bloody bowel movements and her hematocrit is stable, but she continues to have some bright red blood per rectum. She does not complain of any abdominal pain or tenderness on physical exam and otherwise, her vitals are stable. She has been afebrile. Her blood pressure has been stable. She has not been tachycardiac. IMPRESSION/PLAN: The patient has a lower gastrointestinal (GI) bleed. Given that previous endoscopies have been negative, I do feel that a bleeding scan is reasonable at this point to identify the location of bleeding source, which is most likely diverticular bleeding. If a bleeding scan is not available, then I would recommend proceeding with angiogram if possible. Otherwise, she will need a bowel prep and colonoscopy, but with active bleeding it is very difficult to get a clear view with a significant amount of blood intraluminal. Thus, will see if we get further information from the bleeding scan and determine our next course of action based on that.
--- NOTE | 2020-02-13 12:01 | IPNPDOC ---
Subjective Date Seen The patient was seen on 02/13/20. Subjective Chief Complaint/HPI Pt was examined at bedside. She indicated that she is open to procedures now. She reported bloody bowel movement this morning with bright red blood. Reported mild b/l lower quadrant abdominal pain. Denies fever or chills. Pt was noted to be mildly dizziness/nauseous this morning but resolved after receiving Zofran General: Denies: Chills Constitutional: Denies: Chills, Fever Pulmonary: Denies: Dyspnea Cardiovascular: Denies: Chest Pain, Palpitations Gastrointestinal: Reports: Nausea, Abdominal Pain, Hematochezia; Denies: Vomiting, Melena Objective Physical Examination General Exam: Positive: Alert, Cooperative, No Acute Distress Eye Exam: Positive: Conjunctiva & lids normal; Negative: Sclera icteric ENT Exam: Positive: Atraumatic, Mucous membr. moist/pink Neck Exam: Positive: Supple Chest Exam: Positive: Normal air movement, Diminished; Negative: Rales, Rhonchi, Wheezing Heart Exam: Positive: Rate Normal, Regular Rhythm, Normal S1, Normal S2; Negative: Murmurs Abdomen Exam: Positive: Normal bowel sounds, Soft, Tenderness (minimal in b/l lower quadrant), Other (soft, obese) Skin Exam: Positive: Nl turgor and temperature; Negative: Rash Neuro Exam: Positive: Normal Speech, Normal Tone Psych Exam: Positive: Mental status NL, Mood NL, Memory Intact, Oriented x 3; Negative: Anxiety Assessment /Plan Assessment Pt is a 79 showed with history of diverticulosis, NIDDM, chronic CAD, HTN, diastolic CHF, and CVA presented to [facility] d/t lower GI bleed determined to be d/t diverticulosis scheduled for bleeding scan today 1. Lower GI bleed d/t diverticulosis. Reported GI bleed this morning. Surgery following. Pt is scheduled for bleeding scan today. Zofran PRN 2. Diverticulosis. Hx of diverticulosis shown on prior colonoscopy. On Octreotide. Surgery team following. Would trend H&H. Pt scheduled for bleeding scan today. 3, Anemia 2/2 acute GI bleed 2/2 diverticulosis. H&H stabilized. B12 and folate within normal range. Iron studies only showed low iron. Cont PO ferrous sulfate. Recheck H&H in the afternoon. F/u with CBC 4. Uncontrolled hypertension, resolved. BP now wnl. Cont home med metoprolol, losartan, hydrochlorothiazide 5. Chronic diastolic CHF, appears compensated. Cont home med metoprolol, losartan, hydrochlorothiazide 6. NIDDM. Glucose checks, hypoglycemia protocol. sliding scale insulin. Hold home PO DM meds. 7. CAD, status post triple bypass. Cont home med metoprolol, statin 8. Obesity , BMI 39.4, complicates care 9. Hypomagnesemia, resolved. Mg 1.5 on 02/12/2020, 1 Mag run with 1 Mag Ox 400mg ordered. Currently wnl. Recheck Mg level tmrw morning DVT PROPHYLAXIS: SCDs GI prophylaxis:Omeprazole As preceptor for this patient I was fully available. All aspects of the patient interview, examination, medical decision making process, and medical care plan development were reviewed and approved. Aware and concur with the plan as stated in the body of this note and will attest to such by my cosignature. Plan/VTE VTE Prophylaxis Ordered?: Yes Plan Diet: Advance Activity: Continue Current Diagnostics: Repeat Labs in AM Anticipated Discharge: Home VS, I&O, 24H, [facility] Vital Signs/I&O Vital Signs Date Time Temp Pulse Resp B/P (MAP) Pulse Ox O2 Delivery O2 Flow Rate FiO2 02/13/20 08:28 130/68 02/13/20 08:00 97.8 75 18 97 Room Air I&O- Last 24 Hours up to 6 AM 02/13/20 05:59 Intake Total 2110 ml Output Total 3175 ml Balance -1065 ml Laboratory Data 24H LABS Laboratory Tests 2 02/12/20 16:37: Bedside Glucose (Misc Panel) 225H 02/12/20 18:02: Iron Level 41L, Total Iron Binding Capacity 274, Transferrin % Saturation 15.0, Ferritin 34, Vitamin B12 Level 733, Folate > 24.0 02/12/20 23:54: Bedside Glucose (Misc Panel) 144H 02/13/20 04:29: Nucleated Red Blood Cells % (auto) 0.0, Anion Gap 7L, Glomerular Filtration Rate 48.6, Calcium Level 8.1L, Magnesium Level 1.8 CBC/BMP Laboratory Tests 02/12/20 15:43 02/12/20 20:24 02/13/20 04:29 02/13/20 09:00 GME ATTESTATION GME ATTESTATION My faculty preceptor for this patient encounter was physically present during the encounter and was fully available. All aspects of the patient interview, examination, medical decision making process, and medical care plan development were reviewed and approved by the faculty preceptor. The faculty preceptor is aware and concurs with the plan as stated in the body of this note and will attest to such by his/her cosignature. LB HOLT DO Feb 13, 2020 12:00 GABRIELA BOWLES MD Feb 16, 2020 14:14
[2020-02-13 13:30] VITALS: BP 144/67
[2020-02-13 14:30] LABS: HEMATOCRIT 27.3 % (36.0-47.0); HEMOGLOBIN 8.5 g/dl (12.0-15.5)
--- NOTE | 2020-02-13 14:53 | REP ---
REASON FOR EXAM: History of gastrointestinal bleeding. Bleeding scintiscan was performed after the intravenous administration of 24.3 millicuries of technetium 99m UltraTag. The flow study shows no abnormal accumulation of radionuclide in the abdomen or pelvis. Dynamic scintigraphy of the abdomen and pelvis shows the no abnormal focal increased radionuclide accumulation with movement over time. IMPRESSION: Negative GI bleeding scintiscan. Electronically Signed by Chetan Miller DO 02/13/2020 03:07 P
[2020-02-13 16:00] VITALS: BP 120/82
[2020-02-13] MEDS ORDERED: LIDOCAINE 1% MDV 20ML VIAL As Ordered ONE (16:12)
[2020-02-13] MEDS ORDERED: SODIUM CHLORIDE 0.9% INJ 10 ML SYR IV PRN (17:45)
[2020-02-13] MEDS: SODIUM CHLORIDE 0.9% INJ 10 ML SYR IV SCH (18:16)
[2020-02-13 20:00] VITALS: BP 160/68
[2020-02-14] VITALS (12 sets, daily range): BP systolic 135–180; BP diastolic 60–84
[2020-02-14] MEDS: OCTREOTIDE ACETATE 100MCG/ML VIAL (J2354 PER 25MCG) IV SCH ×3 (02:57→17:18)
[2020-02-14] MEDS: HumaLOG INSULIN (NovoLOG) PER UNIT SC SCH ×4 (05:48→17:18)
[2020-02-14] MEDS: SODIUM CHLORIDE 0.9% INJ 10 ML SYR IV SCH ×2 (05:48→17:18)
[2020-02-14 06:45] LABS: HEMATOCRIT 25.3 % (36.0-47.0); HEMOGLOBIN 7.8 g/dl (12.0-15.5); MEAN CORPUSCULAR HGB CONC 30.8 g/dl (32.0-36.5); MEAN CORPUSCULAR VOLUME 90.7 fl (80.0-96.0); PLATELET COUNT, AUTOMATED 193 10^3/uL (150-450); RED BLOOD COUNT 2.79 10^6/uL (4.00-5.40); WHITE BLOOD COUNT 7.1 10^3/uL (4.0-10.0)
[2020-02-14 07:29] LABS: CREATININE FOR GFR 1.08 MG/DL (0.55-1.30); GLOMERULAR FILTRATION RATE 52.2 (>39); MAGNESIUM LEVEL 1.8 MG/DL (1.8-2.4); POTASSIUM SERUM 3.5 MEQ/L (3.5-5.1)
[2020-02-14] MEDS: METOPROLOL TART 12.5 MG PER 1/2 TAB PO SCH ×2 (08:26→20:46)
[2020-02-14] MEDS: FERROUS SULFATE 325MG TAB PO SCH ×2 (08:26→20:46)
[2020-02-14] MEDS: CALCIUM/VITAMIN D 500 MG TAB PO SCH ×2 (08:26→20:46)
[2020-02-14] MEDS: NS 1,000 ML IV SCH (08:27)
[2020-02-14] MEDS: MAGNESIUM CHLORIDE 64 MG TABCR (SLO MAG) PO SCH ×2 (08:27→20:46)
[2020-02-14] MEDS: LOSARTAN 50MG TABLET PO SCH (08:27)
[2020-02-14] MEDS: OMEPRAZOLE 20 MG CAP PO SCH ×2 (08:27→20:46)
[2020-02-14] MEDS: hydroCHLOROthiazide 25 MG TAB PO SCH (08:32)
[2020-02-14] MEDS: DOCUSATE SODIUM 100 MG CAP PO SCH (09:00)
--- NOTE | 2020-02-14 11:46 | IPNPDOC ---
Subjective Date Seen The patient was seen on 02/14/20. Subjective Chief Complaint/HPI Pt last BM was noted to be 02/13/2020 morning with bright red blood. No new BM/bloody stool was reported. Pt denies any fever, chills, dizziness, lightheadedness, abdominal pain. Reported only transient dizziness when she stool up but resolved afterwards. It was noted that he was advanced to regular diet by surgery this morning. It was noted that pt lost IV access yesterday, and with repetitive attempt IV access was not able to be re-established thus a PICC line was placed yesterday afternoon. General: Denies: Chills Constitutional: Denies: Chills, Fever, Weakness Pulmonary: Denies: Dyspnea Cardiovascular: Denies: Chest Pain, Palpitations Gastrointestinal: Denies: Abdominal Pain Objective Physical Examination General Exam: Positive: Alert, Cooperative, No Acute Distress Eye Exam: Positive: Conjunctiva & lids normal; Negative: Sclera icteric ENT Exam: Positive: Atraumatic, Mucous membr. moist/pink Neck Exam: Positive: Supple Chest Exam: Positive: Normal air movement, Diminished; Negative: Rales, Rhonchi, Wheezing Heart Exam: Positive: Rate Normal, Regular Rhythm, Normal S1, Normal S2; Negative: Murmurs Abdomen Exam: Positive: Normal bowel sounds, Soft, Other (soft, obese); Negative: Tenderness Skin Exam: Positive: Nl turgor and temperature; Negative: Rash Neuro Exam: Positive: Normal Speech, Normal Tone Psych Exam: Positive: Mental status NL, Mood NL, Memory Intact, Oriented x 3; Negative: Anxiety Assessment /Plan Assessment Pt is a 79 showed with history of diverticulosis, NIDDM, chronic CAD, HTN, diastolic CHF, and CVA presented to [facility] d/t lower GI bleed determined to be d/t diverticulosis ;bleeding scan was neg. PICC line placed 02/13/2020 afternoon as IV access was lost. H&H mildly trending down. 1. Lower GI bleed d/t diverticulosis. Reported GI bleed this morning. Surgery following. Pt bleeding scan is neg. Cont to trend H&H; cont ferrous sulfate. Possible transfusion if Hg<8. Zofran PRN 2. Diverticulosis. Hx of diverticulosis shown on prior colonoscopy. On Octreotide. Pt would like to defer colonoscopy/procedure at this point. Cont to trend H&H with possible PRBC transfusion. Pt bleeding scan 02/13/2020 was neg. D/C IVF as pt was advanced to oral diet per surgery. 3, Anemia 2/2 acute GI bleed 2/2 diverticulosis. H&H stabilized. B12 and folate within normal range. Iron studies only showed low iron. Cont PO ferrous sulfate. Hg went down from 9.2 today to 7.5 on 02/13/2020 AM. As pt has hx of CAD, will repeat H&H now, and if Hg level still <8, transfused PRBC. 4. Uncontrolled hypertension, resolved. BP now wnl. Cont home med metoprolol, losartan, hydrochlorothiazide 5. Chronic diastolic CHF, appears compensated. Cont home med metoprolol, losartan, hydrochlorothiazide. 6. NIDDM. Glucose checks changed to ACHS now pt is on PO diet, hypoglycemia protocol. sliding scale insulin. Hold home PO DM meds. 7. CAD, status post triple bypass. Cont home med metoprolol, statin. Changed diet to low fat low cholesterol diet. 8. Obesity , BMI 39.4, complicates care 9. Hypomagnesemia, resolved. Mg 1.5 on 02/12/2020, 1 Mag run with 1 Mag Ox 400mg given. Mg level wnl since 02/13/2020 DVT PROPHYLAXIS: SCDs GI prophylaxis:Omeprazole Plan/VTE VTE Prophylaxis Ordered?: Yes Plan Diet: Advance Activity: Continue Current Diagnostics: Repeat Labs in AM Anticipated Discharge: Home VS, I&O, 24H, [facility] Vital Signs/I&O Vital Signs Date Time Temp Pulse Resp B/P (MAP) Pulse Ox O2 Delivery O2 Flow Rate FiO2 02/14/20 08:26 73 158/78 02/14/20 08:00 98.1 18 99 Room Air I&O- Last 24 Hours up to 6 AM 02/14/20 06:00 Intake Total 880 ml Output Total 1325 ml Balance -445 ml Laboratory Data 24H LABS Laboratory Tests 2 02/13/20 14:03: Bedside Glucose (Misc Panel) 176H 02/13/20 17:37: Bedside Glucose (Misc Panel) 173H 02/14/20 01:34: Bedside Glucose (Misc Panel) 166H 02/14/20 05:41: Bedside Glucose (Misc Panel) 168H 02/14/20 06:30: Nucleated Red Blood Cells % (auto) 0.0, Anion Gap 6L, Glomerular Filtration Rate 52.2, Calcium Level 8.0L, Magnesium Level 1.8 CBC/BMP Laboratory Tests 02/13/20 14:19 02/14/20 06:30 LB HOLT DO Feb 14, 2020 11:46
[2020-02-14 12:55] LABS: HEMATOCRIT 24.8 % (36.0-47.0); HEMOGLOBIN 7.7 g/dl (12.0-15.5)
[2020-02-14] MEDS: ROSUVASTATIN 10 MG TAB (CRESTOR) PO SCH (17:17)
[2020-02-14 19:52] LABS: HEMATOCRIT 30.7 % (36.0-47.0); HEMOGLOBIN 9.6 g/dl (12.0-15.5)
[2020-02-14] MEDS ORDERED: HumaLOG INSULIN (NovoLOG) PER UNIT SC SCH (21:00)
--- NOTE | 2020-02-14 21:19 | IPNPDOC ---
Text Note Date of Service The patient was seen on 02/14/20. NOTE No acute events overnight. She denies any bloody BM since yesterday AM prior to the bleeding scan. Denies nausea, emesis, fevers, or pain. VSSAF NAD labs - below A) 79y/o female with GI likely secondary to diverticulosis that has resolved P) reg diet ambulate ck labs in am, and if stable she can d/c and follow up as needed outpatient. Jerardo Epps DO VS,Ziggy, I+O VSZiggy, I+O Laboratory Tests 02/14/20 06:30 02/14/20 12:38 02/14/20 19:36 Vital Signs Date Time Temp Pulse Resp B/P (MAP) Pulse Ox O2 Delivery O2 Flow Rate FiO2 02/14/20 20:46 88 158/80 02/14/20 20:00 98.0 18 98 Room Air I&O- Last 24 Hours up to 6 AM 02/14/20 05:59 Intake Total 880 ml Output Total 1550 ml Balance -670 ml WILBUR EPPS DO Feb 14, 2020 21:19
[2020-02-15] VITALS: BP 150/78
[2020-02-15] MEDS: OCTREOTIDE ACETATE 100MCG/ML VIAL (J2354 PER 25MCG) IV SCH (02:29)
[2020-02-15 04:00] VITALS: BP 138/72
[2020-02-15 04:19] LABS: HEMATOCRIT 31.4 % (36.0-47.0); HEMOGLOBIN 10.1 g/dl (12.0-15.5); MEAN CORPUSCULAR HEMOGLOBIN 28.9 pg (27.0-33.0); MEAN CORPUSCULAR HGB CONC 32.2 g/dl (32.0-36.5); MEAN CORPUSCULAR VOLUME 89.7 fl (80.0-96.0); PLATELET COUNT, AUTOMATED 219 10^3/uL (150-450); WHITE BLOOD COUNT 9.3 10^3/uL (4.0-10.0)
[2020-02-15 04:42] LABS: CALCIUM LEVEL 8.1 MG/DL (8.8-10.2); CREATININE FOR GFR 1.2 MG/DL (0.55-1.30); GLOMERULAR FILTRATION RATE 46.3 (>39); POTASSIUM SERUM 3.5 MEQ/L (3.5-5.1)
[2020-02-15] MEDS: SODIUM CHLORIDE 0.9% INJ 10 ML SYR IV SCH (05:26)
[2020-02-15 08:00] VITALS: BP 138/72
[2020-02-15] MEDS: HumaLOG INSULIN (NovoLOG) PER UNIT SC SCH ×2 (08:49→12:46)
[2020-02-15] MEDS: MAGNESIUM CHLORIDE 64 MG TABCR (SLO MAG) PO SCH (10:01)
--- NOTE | 2020-02-15 10:01 | IPNPDOC ---
Text Note Date of Service The patient was seen on 02/15/20. NOTE Subjective: patient seen and examined at bedside. No acute overnight events reported. No new medical complaints this morning. Stated she had one BM yesterday, with no blood. Denies chest pain, shortness of breath, dizzines, headaches, abdominal pain, N/V/D. Objective: General: NAD, sitting comfortably in chair eating breakfast HEENT: NC/AT, EOMI Lungs: CTA B/L Heart: +S1S2, RRR Abd: soft, obese, NT, +BS Ext: no edema A/P: 79 yo female with PMHx of diverticulosis, NIDDM, CAD, HTN, HFpEF, CVA presented to [facility] d/t LGIB determined to be d/t diverticulosis;bleeding scan was neg. PICC line placed 02/13/2020 afternoon as IV access was lost. H&H mildly trending down. #LGIB - surgical c/s appreciated - bleeding scan unrevealing - s/p 2PRBC - Hgb has now been stable - serial H/H - no further episodes of bleeding so far - tolerating diet - d/c octreotide - anticipating o/p follow up for possible colonoscopy - follow as per surgery # Diverticulosis. Hx of diverticulosis shown on prior colonoscopy. Pt would like to defer colonoscopy/procedure at this point. Cont to trend H&H with possible PRBC transfusion. Pt bleeding scan 02/13/2020 was neg. #acute blood loss anemia - 2/2 acute GI bleed 2/2 diverticulosis - as above - B12 and folate within normal range. Iron studies only showed low iron. Cont PO ferrous sulfate #HTN - Cont home med metoprolol, losartan, hydrochlorothiazide #HFpEF - compensated - continue home meds # NIDDM. Glucose checks changed to ACHS now pt is on PO diet, hypoglycemia protocol. sliding scale insulin. Hold home PO DM meds. #CAD, status post triple bypass. Cont home meds #Obesity , BMI 39.4, complicates care #Hypomagnesemia, resolved. Mg 1.5 on 02/12/2020, 1 Mag run with 1 Mag Ox 400mg given. Mg level wnl since 02/13/2020 DVT PROPHYLAXIS: SCDs GI prophylaxis:Omeprazole Dispo: anticipating d/c in 24 hours pending stable H/H, d/c IV octreotide today VS,Fishbone, I+O VS, Fishbone, I+O Laboratory Tests 02/14/20 12:38 02/14/20 19:36 02/15/20 03:59 Vital Signs Date Time Temp Pulse Resp B/P (MAP) Pulse Ox O2 Delivery O2 Flow Rate FiO2 02/15/20 08:00 98.0 70 18 138/72 (94) 97 Room Air I&O- Last 24 Hours up to 6 AM 02/15/20 05:59 Intake Total 2100 ml Output Total 2800 ml Balance -700 ml GABRIELA BOWLES MD Feb 15, 2020 10:01
[2020-02-15 10:02] VITALS: BP 138/72
[2020-02-15] MEDS: FERROUS SULFATE 325MG TAB PO SCH (10:02)
[2020-02-15] MEDS: CALCIUM/VITAMIN D 500 MG TAB PO SCH (10:02)
[2020-02-15] MEDS: hydroCHLOROthiazide 25 MG TAB PO SCH (10:02)
[2020-02-15] MEDS: OMEPRAZOLE 20 MG CAP PO SCH (10:02)
[2020-02-15] MEDS: METOPROLOL TART 12.5 MG PER 1/2 TAB PO SCH (10:02)
[2020-02-15] MEDS: LOSARTAN 50MG TABLET PO SCH (10:03)
[2020-02-15 12:00] VITALS: BP 146/82
[2020-02-15] MEDS ORDERED: FERR325T18 PO (12:12)
--- NOTE | 2020-02-15 15:44 | DS.PDOC ---
Discharge Summary General Date of Admission Feb 11, 2020 at 13:03 Date of Discharge 02/15/20 Discharge Summary PROCEDURES PERFORMED DURING STAY: GI bleeding scan - negative ADMITTING DIAGNOSES: 1. GI bleed SECONDARY DIAGNOSES: NIDDM CAD, status post triple bypass / dyslipidemia Chronic hypertension / chronic diastolic CHF History of CVA MGUS PFO Osteoarthritis GERD Vitamin D deficiency Total hysterectomy with BSO. Cholecystectomy COMPLICATIONS/CHIEF COMPLAINT: Hypertensive Urgency,Lower Gi Bleeding. HISTORY OF PRESENT ILLNESS: This is a 79 old female who came to the hospital because of bloody stools. Yesterday she had one episode and today she had 6 episodes of maroon stools. She also reported having transient abdominal pain just this prior to having the bowel movements. She denies vomiting, or chest pain, but admits to feeling dizzy when she stands up. She has chronic dyspnea which is not changed. She has had similar episodes of bloody stools in 2016, and and was found to have diverticulitis after having a colonoscopy in 2019. HOSPITAL COURSE: Seen in consultation by surgery. Her Hgb stabilized without any blood in her stools. The following day, she had another bowel movement with blood, and a drop in her hemoglobin. She underwent a nuclear medicine bleeding scan of the GI tract, with no acute findings. She did require transfusion of 2 units PRBC as her Hgb dropped below 8. She was not interested in an inpatient colonoscopy. Further directions as per surgery, with recs for outpatient follow up. Seen and evaluated by PT. Patient voiced full understanding of instructions to follow up with GI Dr. Nicholas for further evaluation for a colonoscopy. She was anxious to return home. DISCHARGE MEDICATIONS: Please see below. ALLERGIES: Please see below. PHYSICAL EXAMINATION ON DISCHARGE: VITAL SIGNS: Please see below. GENERAL: NAD HEENT: NC/AT Lungs: CTA B/L Heart: +S1S2, RRR Abd: soft, obese, NT, +BS Ext: trace edema LABORATORY DATA: Please see below. ACTIVITY: [As tolerated]. DIET: 2 gram sodium, heart healthy, carb consistent, low residue DISPOSITION: 01 Home, Self-Care. DISCHARGE INSTRUCTIONS: 1. PCP in 3-5 days 2. GI possible colonoscopy in 3-7 days. DISCHARGE CONDITION: [Stable]. TIME SPENT ON DISCHARGE: 35 minutes. Vital Signs/I&Os Vital Signs Date Time Temp Pulse Resp B/P (MAP) Pulse Ox O2 Delivery O2 Flow Rate FiO2 02/15/20 12:00 97.9 69 20 146/82 (103) 97 Room Air I&O- Last 24 Hours up to 6 AM 02/15/20 06:00 Intake Total 2100 ml Output Total 2800 ml Balance -700 ml Laboratory Data Labs 24H Laboratory Tests 2 02/14/20 16:48: Bedside Glucose (Misc Panel) 154H 02/14/20 19:38: Bedside Glucose (Misc Panel) 139H 02/15/20 03:59: Nucleated Red Blood Cells % (auto) 0.0, Anion Gap 6L, Glomerular Filtration Rate 46.3, Calcium Level 8.1L 02/15/20 07:30: Bedside Glucose (Misc Panel) 177H 02/15/20 11:45: Bedside Glucose (Misc Panel) 158H CBC/BMP Laboratory Tests 02/14/20 19:36 02/15/20 03:59 FSBS Laboratory Tests Test 02/14/20 16:48 02/14/20 19:38 02/15/20 07:30 02/15/20 11:45 Range/Units Bedside Glucose (Misc Panel) 154 139 177 158 83-110 MG/DL Discharge Medications Scheduled Calcium Carbonate/Vitamin D3 (Calcium 500+D Tablet Chew) 1 Each Tab.chew, 1 CHW PO BID, (Reported) Docusate Sodium (Docusate Sodium) 100 Mg Cap, 100 MG PO BID, (Reported) Ferrous Sulfate (Ferrous Sulfate) 325 Mg Tablet, 325 MG PO BID Glimepiride (Glimepiride) 2 Mg Tab, 2 MG PO BID, (Reported) Losartan/Hydrochlorothiazide (Losartan-Hctz 100-25 mg Tab) 1 Tab Tab, 1 TAB PO DAILY, (Reported) Magnesium Chloride (Mag64) 64 Mg Tabcr, 64 MG PO BID, (Reported) Metformin HCl (Metformin HCl) 1,000 Mg Tablet, 1,000 MG PO BID, (Reported) Metoprolol Tartrate (Metoprolol Tartrate) 25 Mg Tab, 12.5 MG PO BID, (Reported) Multivitamin (Chewable-Agusto) 1 Each Tab.chew, 1 CHW PO DAILY, (Reported) Omeprazole (Omeprazole) 20 Mg Cap, 20 MG PO BID, (Reported) Rosuvastatin Calcium (Rosuvastatin Calcium) 10 Mg Tab, 10 MG PO Q2D, (Reported) EVERY OTHER DAY AT 1700 Scheduled PRN Methyl Salicylate/Menthol (Pain Relieving 1%-15% Cream) 85 Gm Cream..g., 1 APLCT TOP DAILY PRN for BACK PAIN, (Reported) Allergies Coded Allergies: Cephalosporins (Verified Adverse Reaction, Unknown, headache, 02/11/20) atorvastatin (Verified Adverse Reaction, Unknown, myalgia, 02/11/20) benzonatate (Verified Adverse Reaction, Unknown, headache, 02/11/20) diclofenac (Verified Adverse Reaction, Unknown, RUEDA/UPSET STOMACH, 02/11/20) ibuprofen (Verified Adverse Reaction, Unknown, GI upset, 02/11/20) linagliptin (Verified Adverse Reaction, Unknown, joint pain, 02/11/20) lisinopril (Verified Adverse Reaction, Unknown, cough, 02/11/20) GABRIELA BOWLES MD Feb 15, 2020 15:44
--- NOTE | 2020-02-17 17:44 | REP ---
Procedure: PICC line insertion with Rafael The procedure was performed under the direct supervision of Dr. Smith. The risks and benefits of the procedure were explained to the patient and informed consent was obtained. The right basilic vein was localized using ultrasound guidance. The skin was prepped and draped in a sterile fashion. 2% lidocaine was used as a local anesthetic. Using ultrasound guidance the basilic vein was cannulated and a 0.018 guidewire was inserted and advanced to the SVC using fluoroscopic guidance. The needle was removed and a 5.5 Anguillan dilator and peel-away sheath was inserted over the guide wire. A 5.5 Anguillan dual lumen catheter was cut to length of 44 cm. The dilator was removed and the catheter was inserted over the guide wire with the tip ending in the SVC. The peel-away sheath was removed and the catheter was flushed with heparinized saline as per Hospital protocol. The catheter was affixed to the skin and a sterile dressing was applied. The patient tolerated the procedure well and there were no immediate complications. 0.5 minutes of fluoro time was utilized for this procedure. Electronically Signed by BRI Moulton 02/13/2020 05:07 P Electronically Signed by Mik Smith MD 02/17/2020 05:36 P
== END 2020-02-15 14:15 | disposition home or self-care (01) | DRG 378 ==
LOC: M ED 09:51 → M ED INP 13:03 → ENRESERV 13:20 → M PCU 14:05
PROVIDERS: ADMIT Internal Medicine; ATTEND Internal Medicine
PROC: 02HV33Z Insertion of Infusion Device into Superior Vena Cava, Percutaneous Approach (ICD-10-PCS; 2020-02-13)
PROC: 30233N1 Transfusion of Nonautologous Red Blood Cells into Peripheral Vein, Percutaneous Approach (ICD-10-PCS; principal; 2020-02-14)
DX: K57.91 Diverticulosis of intestine, part unspecified, without perforation or abscess with bleeding (principal); I50.32 Chronic diastolic (congestive) heart failure; D62 Acute posthemorrhagic anemia; E11.9 Type 2 diabetes mellitus without complications; I11.0 Hypertensive heart disease with heart failure; Z86.73 Personal history of transient ischemic attack (TIA), and cerebral infarction without residual deficits; K21.9 Gastro-esophageal reflux disease without esophagitis; M19.90 Unspecified osteoarthritis, unspecified site; I25.10 Atherosclerotic heart disease of native coronary artery without angina pectoris; E55.9 Vitamin D deficiency, unspecified; E78.5 Hyperlipidemia, unspecified; I16.0 Hypertensive urgency; Z79.899 Other long term (current) drug therapy; Z88.6 Allergy status to analgesic agent; Z88.8 Allergy status to other drugs, medicaments and biological substances; E66.9 Obesity, unspecified; Z68.39 Body mass index [BMI] 39.0-39.9, adult; Z95.1 Presence of aortocoronary bypass graft; E83.42 Hypomagnesemia

== ENCOUNTER → 2020-02-26 | Outpatient (REF) | payer MEDICARE ==
[~2020-02-26] MED LIST changes: +BRONCHW PO; +FERR325T18 PO; +METF-877 PO; +OMEG1CAP16 PO; +OYST500C PO; +[UNRECOGNIZED DRUG - CODE] TOP
[2020-02-26 14:20] LABS: CALCIUM LEVEL 9.4 MG/DL (8.8-10.2); CREATININE FOR GFR 1.21 MG/DL (0.55-1.30); GLOMERULAR FILTRATION RATE 45.8 (>39); POTASSIUM SERUM 4.2 MEQ/L (3.5-5.1)
[2020-02-26 14:22] LABS: HEMATOCRIT 35.6 % (36.0-47.0); HEMOGLOBIN 11.1 g/dl (12.0-15.5); MEAN CORPUSCULAR HEMOGLOBIN 28.7 pg (27.0-33.0); MEAN CORPUSCULAR HGB CONC 31.2 g/dl (32.0-36.5); PLATELET COUNT, AUTOMATED 293 10^3/uL (150-450); RED BLOOD COUNT 3.87 10^6/uL (4.00-5.40); WHITE BLOOD COUNT 7.8 10^3/uL (4.0-10.0)
== END ==
LOC: M SFHCADAM 09:34
PROVIDERS: ATTEND Family Medicine
DX: K92.2 Gastrointestinal hemorrhage, unspecified (principal); I11.0 Hypertensive heart disease with heart failure
CPT/HCPCS: 17000; 17003; 80048; 85027; 99495; G0463

== ENCOUNTER → 2020-05-26 | Outpatient (REF) | payer MEDICARE ==
[~2020-05-26] MED LIST changes: +CALC600T63 PO; -CALCTAB6 PO
== END ==
LOC: M LAB REF 18:53
PROVIDERS: ATTEND Dermatology
DX: L57.0 Actinic keratosis (principal); L57.8 Other skin changes due to chronic exposure to nonionizing radiation
CPT/HCPCS: 11102; 17000; 17003; 88305; G0463

== ENCOUNTER → 2020-07-02 | Outpatient (REF) | payer MEDICARE ==
[2020-07-02 17:14] LABS: HEMATOCRIT 38.5 % (36.0-47.0); MEAN CORPUSCULAR HEMOGLOBIN 22.8 pg (27.0-33.0); MEAN CORPUSCULAR HGB CONC 28.6 g/dl (32.0-36.5); MEAN CORPUSCULAR VOLUME 79.7 fl (80.0-96.0); PLATELET COUNT, AUTOMATED 329 10^3/uL (150-450); RED BLOOD COUNT 4.83 10^6/uL (4.00-5.40); WHITE BLOOD COUNT 9.8 10^3/uL (4.0-10.0)
[2020-07-02 17:39] LABS: ALBUMIN 3.5 GM/DL (3.2-5.2); ALT/SGPT 18 U/L (12-78); BILIRUBIN,TOTAL 0.3 MG/DL (0.2-1.0); BLOOD UREA NITROGEN 22 MG/DL (7-18); CALCIUM LEVEL 9.4 MG/DL (8.8-10.2); CARBON DIOXIDE LEVEL 30 MEQ/L (21-32); CHLORIDE LEVEL 98 MEQ/L (98-107); CHOLESTEROL LEVEL 156 MG/DL (<200); CHOLESTEROL RISK RATIO 2.557 (<5); CREATININE FOR GFR 1.22 MG/DL (0.55-1.30); GLOMERULAR FILTRATION RATE 45.3 (>39); GLUCOSE, FASTING 105 MG/DL (70-100); HDL CHOLESTEROL 61 MG/DL (>40); LDL CHOLESTEROL 72 MG/DL (<100); NON-HDL-C 95 MG/DL; POTASSIUM SERUM 4.7 MEQ/L (3.5-5.1); SODIUM LEVEL 136 MEQ/L (136-145); TOTAL PROTEIN 7.6 GM/DL (6.4-8.2); TRIGLYCERIDES LEVEL 116 MG/DL (<150)
[2020-07-02 18:18] LABS: HEMOGLOBIN A1c 7.6 %
[2020-07-06 14:08] LABS: ALBUMIN 3.95 GM/DL (3.29-5.55); ALPHA-1-GLOBULIN % 4.9 % (2.9-4.9); ALPHA-1-GLOBULINS 0.37 GM/DL (0.17-0.41); ALPHA-2-GLOBULINS 0.89 GM/DL (0.42-0.99); ALPHA-2-GLOBULINS % 11.7 % (7.1-11.8); BETA-1-GLOBULINS 0.56 GM/DL (0.28-0.60); BETA-1-GLOBULINS % 7.4 % (4.7-7.2); BETA-2-GLOBULINS 0.49 GM/DL (0.19-0.55); BETA-2-GLOBULINS % 6.4 % (3.2-6.5); GAMMA GLOBULIN % 17.6 % (11.1-18.8); GAMMA GLOBULINS 1.34 GM/DL (0.65-1.58)
[2020-07-06 14:38] LABS: IMMUNOTYPING SERUM IGG ABNORMAL (NORMAL); IMMUNOTYPING SERUM LAMBDA ABNORMAL (NORMAL)
== END ==
LOC: M SFHCADAM 14:28
PROVIDERS: ATTEND Family Medicine
DX: N18.30 Chronic kidney disease, stage 3 unspecified (principal); E11.9 Type 2 diabetes mellitus without complications; E78.2 Mixed hyperlipidemia; D47.2 Monoclonal gammopathy; R35.0 Frequency of micturition; Z23 Encounter for immunization
CPT/HCPCS: 80053; 80061; 83036; 84165; 85027; 86335; 87086; 90682; G0008; G0463

== ENCOUNTER → 2020-09-14 | Outpatient (REF) | payer MEDICARE ==
[~2020-09-14] MED LIST changes: +ANIMCHW9 PO; +ASPI81CH33 PO; +CIPR-249 PO; +D31000TA2 PO; +FLAG500T PO; +vitamin d3
[2020-09-14 13:52] LABS: APPEARANCE, URINE CLEAR (CLEAR); BACTERIA, URINE AUTO 1+ (NEGATIVE); BILIRUBIN, URINE AUTO NEGATIVE (NEGATIVE); BLOOD, URINE BLOOD NEGATIVE (NEGATIVE); COLOR, URINE YELLOW (YELLOW); GLUCOSE, URINE (UA) AUTO NEGATIVE (NEGATIVE); KETONE, URINE AUTO TRACE mg/dL (NEGATIVE); LEUKOCYTE ESTERASE, URINE AUTO TRACE (NEGATIVE); NITRITE, URINE AUTO NEGATIVE (NEGATIVE); PROTEIN, URINE AUTO 2+ mg/dL (NEGATIVE); RBC, URINE AUTO 2 /HPF (0-3); SPECIFIC GRAVITY URINE AUTO 1.012 (1.002-1.035); SQUAMOUS EPITHELIAL CELL UR AU 1 /HPF (0-6); UROBILINOGEN, URINE AUTO 0.2 mg/dL (0.0-2.0); WBC, URINE AUTO 2 /HPF (0-3)
== END ==
LOC: M SFHCADAM 11:59
PROVIDERS: ATTEND Physician Assistant Medical
DX: R30.0 Dysuria (principal); R51.9 Headache, unspecified; R19.7 Diarrhea, unspecified; Z11.52 Encounter for screening for COVID-19
CPT/HCPCS: 81001; 81002; 87086; U0003

== ENCOUNTER 2020-09-22 08:53 | Emergency (ER) | payer MEDICARE ==
[~2020-09-22] VITALS: Ht 165.1 cm; Wt 101.4 kg
[~2020-09-22 08:53] MED LIST changes: -ANIMCHW9 PO; -ASPI81CH33 PO; -CIPR-249 PO; -D31000TA2 PO; -FLAG500T PO; -vitamin d3
[2020-09-22] MEDS ORDERED: ASPI81CH33 PO (09:33)
[2020-09-22] MEDS ORDERED: vitamin d3 (09:33)
[2020-09-22] MEDS ORDERED: NS 1,000 ML IV ONE (09:45)
--- OUTSIDE RECORDS SUMMARY | 2020-09-22 10:03 | CCD | Continuity of Care Document ---
Author Bri Santos DPM-PC Organization Unknown Address [address] [place] [address] Phone [phone] Care Team Providers Care Import/Export Administrator Name Role Phone Joni Shabazz Unavailable Problems Active Problems Provider Date Type 2 diabetes mellitus with peripheral angiopathy Kirti penny DPM-pc Onset: 02/25/2020 Corns and callosities Kirti Marroquin DPM-pc Onset: 12/16/19 20 Other synovitis and tenosynovitis, left ankle and foot Kirti Marroquin DPM-pc Onset: 12/16/2019 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 mellitus Lynne Robledo PM-pc Onset: 12/16/2019 Pain in limb TREVA RobledoM-pc Onset: 12/16/2019 Dystrophia unguium Kirti Marroquin DPM-pc Onset: 12/16/2019 Localized, primary osteoarthritis of the ankle and/or foot Kirti Marroquin DPM-pc Onset: 12/16/2019 Metatarsalgia Kirti Marroquin DPM-pc Onset: 12/16/2019 Social History Type Date Description Comments Sex Unknown Tobacco Use Start: Unknown Never Smoked Cigarettes Tobacco Use Start: Unknown Never Smoked Cigars Tobacco Use Start: Unknown Never Smoked A Pipe Smoking Status Reviewed: 07/27/20 Never Smoked A Pipe Tobacco Use Start: Unknown Never Used Smokeless Tobacco Tobacco Use Start: Unknown Patient has never smoked Allergies, Adverse Reactions, Alerts Active Allergies Reaction Severity Comments Date Bananas Hives, Itching 12/16/2019 Benzonatate headache 05/18/2020 Tradjenta joint pain 05/18/2020 Inactive Allergies NKDA 12/16/2019 Medications Active Medications SIG Qnty Indications Ordering Provide r Date Losartan Potassium/Hydrochlorothiazide 100-25mg Tablets Take 1 Tablet By Mouth Every Day Unknown Metoprolol Tartrate 25mg Tablets Take 1/2 Tablet By Mouth Twice A Day Unknown Metformin HCL 1000mg Tablets Take 1 Tablet By Mouth Twice A Day With Meals Unknown Glimepiride 2mg Tablets 1 tab bid Unknown Rosuvastatin Calcium 10mg Tablets Take 1 Tablet By Mouth Every Other Day Unknown Aspirin 81 Low Dose 81mg Chewtabs take one by mouth daily with food Unknown Mag64 64mg Tablets DR by mout h daily Unknown Omeprazole 20mg Capsules DR 1 by mouth every day Unknown Multivitamin Tablets 1 by mouth every day Unknown Vitamin D3 Adult Gummies 25mcg (1000 Ut) Chewtabs 1 by mouth every day Unknown Stool Softener 100mg Capsules take one capsule by mouth twice a day Unknown [place] 3 1000mg Capsules 2 by mouth twice a day Unknown Calcium 500 + D [id number] Tablets Unknown Immunizations Description No Information Available Vital Signs Description No Information Available Results Description No Information Available Procedures Date Code Description Status 05/18/2020 42367 Pare Hyperkeratotic Lesion, 2-4 Completed 02/25/2020 49848 Pare Hyperkeratotic Lesion, 2-4 Completed Medical Devices Description No Information Available Encounters Description No Information Available Assessments Date Code Description Provider 07/27/2020 E11.51 Type 2 diabetes roma itus with diabetic peripheral angiopathy without gangrene El Robledo 07/27/2020 L60.3 Nail dystrophy NYA Robledo 07/27/2020 L84 Corns and callosities [facility] 05/18/2020 E11.51 Type 2 diabetes roma itus with diabetic peripheral angiopathy without gangrene El Robledo 05/18/2020 L60.3 Nail dystrophy NYA Robledo 05/18/2020 L84 Corns and callosities [facility] 02/25/2020 E11.51 Type 2 diabetes roma itus with diabetic peripheral angiopathy without gangrene El Robledo 02/25/2020 L60.3 Nail dystrophy El Robledo 02/25/2020 L84 Corns and callosities El Sullivan Plan of Treatment Future Appointment(s):* 10/05/2020 1:30 pm - El Robledo at [facility] Podiatry 07/27/2020 - El Robledo* E11.51 Type 2 diabetes mellitus with diabetic peripheral angiopathy without gangrene * L60.3 Nail dystrophy * L84 Corns and callosities Functional Status Description No Information Available Mental Status Description No Information Available Referrals Description No Information Available
--- OUTSIDE RECORDS SUMMARY | 2020-09-22 10:03 | CCD ---
Author Author [facility] Organization [facility] Address Unknown Phone Unavailable Care Team Providers Care Track Man Name Role Phone Nichole Rose Unavailable PROBLEMS Type Condition ICD9-CM Code [id number] Code Onset Dates Condition S tatus SNOMED Code Notes Problem Primary generalized (osteo)arthritis M15.0 Act bruce 810309029 Problem Mixed hyperlipidemia E78.2 Active 390987169 Problem Gastro-esophageal reflux disease without esophagitis K21.9 Active 895002017 Problem Deficiency of other specified B group vitamins E53 .8 Active 57738830 Problem Vitamin D deficiency, unspecified E55.9 Active 22387554 Problem Cerebral infarction due to u nspecified occlusion or stenosis of unspecified cerebral artery I63.50 Active 51667581 8176034 Problem Type 2 diabetes mellitus without complications E11 .9 Active 668472602 Problem NANY (obstructive sleep apnea) G47.33 Active 78 773519 Problem Chronic renal insufficiency, stage III (moderate) N18.3 Active 947048139 Problem Monoclonal gammopathy D47.2 Active 230626135 Problem Hypertensive heart disease with heart failure I11.0 Active 50604930 Problem Screening mammogram, encounter for Z12.31 Activ e 104337328 Problem Type 2 diabetes mellitus with diabetic chronic kidney disease E11.22 Active 751855616778 Problem Adjustment disorder with depressed mood F43.21 Active 52772467 Problem Venous insufficiency (chronic) (peripheral) I87.2 Active 75652635314692226 Problem Chronic kidney disease, stage III (moderate) N18.3 Active 971741386 Problem PFO (patent foramen ovale) Q21.1 Active 03212 7008 Problem Medicare annual wellness visit, subsequent Z00.00 Active 699509531 Problem Actinic keratoses L57.0 Active 736252667 Problem 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 Act bruce 915658264 Problem 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 Activ e 842832491 Problem Pressure injury of buttock, stage 2, unspecified lateralit y L89.302 Active 38715483335080553 Problem Atherosclerotic heart diseas e of [place] coronary artery without angina pectoris I25.10 Active 729208175298664 Problem Urinary incontinence in female R32 Active 1 26318876 Problem Chronic diastolic (congestive) heart failure I50.3 2 Active 990118742 Problem Nocturnal leg cramps G47.62 Active 257015544 Problem 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 Active 570162349 Problem Chronic vulvitis N76.3 Active 9373446 Problem History of nonmelanoma skin cancer Z85.828 Activ e 292929709 Problem Unstable gait R26.81 Active 450760293 ALLERGIES Allergen (clinical drug ingredient) Drug/Non Drug Allergy do cumented on EMR Reaction Allergy Type Onset Date Status cephalexin Keflex([facility] Code:[address]-23) H/A Drug Allergy Active Bydureon GI, RUEDA (see 02/18) Non Drug Allergy A ctive Motrin GI Drug Allergy Active lisinopril Lisinopril([facility]C Code:[address]-29) cough Drug Allergy Active statins myalgias Non Drug Allergy Active flozins recurrent UTIs Non Drug Allergy Acti ve metformin (at 1000 mg dose) GI Non Drug Allergy Active diclofenac Voltaren(NDC Code:[address]-48) upset stomach Drug Allerg y Active ENCOUNTERS from 1941 to 2020-09-14 Encounter Location Date Provider Diagnosis [address] [address] Sep, Nichole Rose IMMUNIZATIONS Vaccine Route Administration Date Status Influenza (Pharmacy Given) Unknown Jun 25, 2018 Admin istered Influenza (High Dose 65 & up) Unknown Aug 14, 2017 Re fused Influenza (High Dose 65 & up) IM Intramuscular Aug 29, 2017 A dministered Influenza (18 yrs & older) Flublok IM Intramuscular Jul 02, 2020 Administered Influenza (High Dose 65 & up) IM Intramuscular Jul 17, 2016 A dministered Zoster 50mcg/0.5mL (Shingrix) Unknown December 03, 2017 Ad ministered Zoster 50mcg/0.5mL (Shingrix) Unknown Jun 03, 2018 Ad ministered Influenza (6mo & up) Fluzone IM Intramuscular Aug 10, 2010 Ad ministered Influenza (High Dose 65 & up) IM Intramuscular Jun 01, 2015 A dministered Zoster 0.65mL (Zostavax) Unknown January 28, 2013 Adminis tered Pneumococcal Adult 0.5mL (Pneumovax 23) Unknown Jul 11, 2006 Administered Pneumococcal 0.5mL (Prevnar 13) IM Intramuscular Sep 25, 2014 Administered Influenza (6mo & up) Fluzone IM Intramuscular Jun 04, 2014 Ad ministered Influenza (6mo & up) Fluzone IM Intramuscular Jun 24, 2013 Ad ministered Influenza (6mo & up) Fluzone IM Intramuscular Jul 04, 2012 Ad ministered Influenza (6mo & up) Fluzone IM Intramuscular Jul 04, 2011 Ad ministered SOCIAL HISTORY Tobacco Use: Social History Observation Description Date Details (start date - stop date) Never Smoker Sex Assigned At : Social History Observation Description Sex Assigned At Unknown Education: Question Answer Notes Level of Education: Finished High School Audit Question Answer Notes Total Score: 0 Interpretation: Alcohol Education Language: Question Answer Notes Languages spoken: Yoruba Quaker: Question Answer Notes Quaker 13 Sikh Sexual Hx: Question Answer Notes Had sex in the last 12 months (vaginal, oral, or anal)? No Have you ever had an STD? No Drug and Alcohol Question Answer Notes Total Score: 0 Interpretation: No problems reported Alcohol Screening: Question Answer Notes Did you have a drink containing alcohol in the past year? Ye s Points 1 Interpretation Negative How often did you have six or more drinks on one occas ion in the past year? Never (0 points) How many drinks did you have on a typica l day when you were drinking in the past year? 1 or 2 (0 points) How often did you have a drink containing alcohol in t he past year? Monthly or less (1 point) BMI Care Goal Follow-Up Question Answer Notes Above Normal BMI Follow-Up Giving encouragement to exercise Tobacco Use: Question Answer Notes Are you a: never smoker never smoker REASON FOR REFERRAL No Information VITAL SIGNS No information MEDICATIONS Medication SIG (Take, Route, Frequency, Duration) Notes Start Da te End Date Status Ferrous Sulfate 325 (65 Fe) MG 1 tablet Orally Once a day Active Metoprolol Tartrate 25 MG 1/2 tablet Orally twice a day for 90 day(s) Active Glimepiride 2 MG 1 tablet with breakfast or t he first main meal of the day Orally Once a day for 90 Active Pain Relieving Rub 10-15 % as directed topically as needed for b ack pain Feb, Active Walker - as directed for 99 days Sep, Active Iron 325 (65 Fe) MG 1 tablet Orally Once a day for 30 day(s) Active Nitrofurantoin Monohyd Macro 100 MG 1 cap Orally bid for 7 day(s ) Jun, Active Stool Softener 100 MG 1 capsule as needed Orally twice daily Active Multivitamins OTC 1 tablet Orally daily Active Citracal Calcium+D Active Ferrous Sulfate 325 (65 Fe) MG 1 tablet Orally daily 2019 Active Aspirin 81 MG 1 tablet Orally Once a day Active Crestor 10 MG 1 tablet Orally Every other day for 90 days Active Magnesium Chloride-Calcium 64-106 MG 1 tablet Orally twice a day Active Losartan Potassium-HCTZ 100-25 MG 1 tablet Orally Once a day for 90 day(s) Jun, Active Walker - as directed 4 wheeled zita g walker,with seat,and brakes DX: R26.81 for 99 days Sep, Active Metformin HCl 1000 MG 1 tablet with a meal Orally bid 17 M 2019 Active Omeprazole 20 mg 1 capsule Orally twice a day for 90 days Active Hydrochlorothiazide 25 MG TAKE 1 TABLET BY MOUTH EVERY DAY IN THE MORNING Oral for 90 Active PROCEDURES No Information RESULTS No Results REASON FOR VISIT ? 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-- was on anticoagulation - Dr Burton recommended/OK'ed stopping of coumadin 05/01/13 - as pt had been on for over 6 months Medical History MGUS-- needs yearly labs, la st done 03/15--per 03/15 onco note, refer back if M-spike doubles or gets inc Ca++/anemia/renal decline; 2014 M- spike stable at 0.27 g/dl; 04/21 IgGl lambda, M spike 0.4 (stable from 2012) Medical History nocturnal leg cramps Medical History CKD 3, GFR 30s (08/19) Medical History e coli UTI x several (not a good vidhya te for flozin tx) Medical History lower GI bleed admitted 08/20 Medical History [facility] Surgical History hysterectomy, total with BSO 11/1999 Surgical History arthroscopic knee surgery Surgical History cholecystectomy 05/08 Surgical History colonoscopy 05/04, 09/07, 2008, 2018 Surgical History cyst removal lower back of neck 02/2012 Surgical History CABGX 3 09/13/2012 Hospitalization History small R lacunar infarct with plaque aortic arch with mobile thrombus, on chr Coumadin 09/28 - 10/07/12 Hospitalization History Card Cath, CABG x 3 - Dr Corbin 09/10 - 09/18/12 Hospitalization History colitis and GI bleeding seco ndary to enteroaggrative E. coli 09/01- Goals Section No Information Health Concerns No Information MEDICAL EQUIPMENT No Information MENTAL STATUS No Information FUNCTIONAL STATUS No Information ASSESSMENTS No Information PLAN OF TREATMENT Medication Medication Name Sig Start Date Stop Date Nitrofurantoin Monohyd Macro 100 MG 1 cap Orally bid for 7 day(s ) Jun, Glimepiride 2 MG 1 tablet with breakfast or t he first main meal of the day Orally Once a day for 90 Next Appt Details Provider Name:Nichole Rose, 2020-09-14 11:30:00 AM, [address] [place] [address], [address], Provider Name:Joni Shabazz, 2020-11 01:15:00 PM, [address], [address], Insurance Providers Payer Name Payer Address Payer Phone Insured Name Patient Relati onship to Insured Coverage Start Date [facility]age End Date [facility] [address] [address] [facility] [id number] [phone] MISA TINSLEY self
--- OUTSIDE RECORDS SUMMARY | 2020-09-22 10:03 | CCD ---
Author Author [facility] Organization [facility] Address Unknown Phone Unavailable Care Team Providers Care Stacker Driver Name Role Phone Nichole Rose Unavailable PROBLEMS Type Condition ICD9-CM Code [id number] Code Onset Dates Condition S tatus SNOMED Code Notes Problem Primary generalized (osteo)arthritis M15.0 Act bruce 322366110 Problem Mixed hyperlipidemia E78.2 Active 074183390 Problem Gastro-esophageal reflux disease without esophagitis K21.9 Active 999872217 Problem Deficiency of other specified B group vitamins E53 .8 Active 19562977 Problem Vitamin D deficiency, unspecified E55.9 Active 71348179 Problem Cerebral infarction due to u nspecified occlusion or stenosis of unspecified cerebral artery I63.50 Active 86772849 2910913 Problem Type 2 diabetes mellitus without complications E11 .9 Active 629223394 Problem NANY (obstructive sleep apnea) G47.33 Active 78 002813 Problem Chronic renal insufficiency, stage III (moderate) N18.3 Active 235984106 Problem Monoclonal gammopathy D47.2 Active 657925522 Problem Hypertensive heart disease with heart failure I11.0 Active 29645622 Problem Screening mammogram, encounter for Z12.31 Activ e 618156350 Problem Type 2 diabetes mellitus with diabetic chronic kidney disease E11.22 Active 804535650637 Problem Adjustment disorder with depressed mood F43.21 Active 13861051 Problem Venous insufficiency (chronic) (peripheral) I87.2 Active 04603309523274238 Problem Chronic kidney disease, stage III (moderate) N18.3 Active 704020473 Problem PFO (patent foramen ovale) Q21.1 Active 12667 7008 Problem Medicare annual wellness visit, subsequent Z00.00 Active 467571592 Problem Actinic keratoses L57.0 Active 942776385 Problem 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 Act bruce 011314431 Problem 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 Activ e 124282393 Problem Pressure injury of buttock, stage 2, unspecified lateralit y L89.302 Active 03745318146904720 Problem Atherosclerotic heart diseas e of [place] coronary artery without angina pectoris I25.10 Active 488158199590412 Problem Urinary incontinence in female R32 Active 1 82193415 Problem Chronic diastolic (congestive) heart failure I50.3 2 Active 518225766 Problem Nocturnal leg cramps G47.62 Active 465339144 Problem 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 Active 810257784 Problem Chronic vulvitis N76.3 Active 3035232 Problem History of nonmelanoma skin cancer Z85.828 Activ e 779528168 Problem Unstable gait R26.81 Active 140214648 ALLERGIES Allergen (clinical drug ingredient) Drug/Non Drug Allergy do cumented on EMR Reaction Allergy Type Onset Date Status cephalexin Keflex([facility]C Code:[address]-89) H/A Drug Allergy Active Bydureon GI, RUEDA (see 02/18) Non Drug Allergy A ctive Motrin GI Drug Allergy Active lisinopril Lisinopril([facility]C Code:[address]-00) cough Drug Allergy Active statins myalgias Non Drug Allergy Active flozins recurrent UTIs Non Drug Allergy Acti ve metformin (at 1000 mg dose) GI Non Drug Allergy Active diclofenac Voltaren([facility] Code:[address]-86) upset stomach Drug Allerg y Active ENCOUNTERS from 1941 to 2020-09-17 Encounter Location Date Provider Diagnosis [facility] [address] [place] [address] 12 Sep, 2020 Mar ia Rose Viral URI with cough J06.9 ; Dysuria R30.0 ; Nonintractable headache, unspecified chronicity pattern, unspecified headache type R51.9 and Diarrhea, unspecified type R19.7 IMMUNIZATIONS Vaccine Route Administration Date Status Zoster 50mcg/0.5mL (Shingrix) Unknown Jun 03, 2018 Ad ministered Influenza (Pharmacy Given) Unknown Jun 25, 2018 Admin istered Influenza (High Dose 65 & up) IM Intramuscular Aug 29, 2017 A dministered Influenza (18 yrs & older) Flublok IM Intramuscular Jul 02, 2020 Administered Influenza (High Dose 65 & up) IM Intramuscular Jul 17, 2016 A dministered Influenza (High Dose 65 & up) Unknown Aug 14, 2017 Re fused Zoster 50mcg/0.5mL (Shingrix) Unknown December 03, 2017 Ad ministered Influenza (6mo & up) Fluzone [...] Education Language: Question Answer Notes Languages spoken: Spanish Cheondoism: Question Answer Notes Cheondoism 13 Gnosticism Sexual Hx: Question Answer Notes Had sex [...] REASON FOR REFERRAL No Information VITAL SIGNS Weight 223 lbs Sep, Height 64 in Sep, BMI 38.27 kg/m2 Sep, Heart Rate 117 /min Sep, Respiratory Rate 18 /min Sep, Temperature 98.4 degrees Fahrenheit Sep, Oximetry 94 Sep, Blood pressure systolic 175 mm Hg Sep, Blood pressure diastolic 84 mm Hg Sep, MEDICATIONS Medication SIG (Take, Route, Frequency, Duration) Notes Start Da te End Date Status Multivitamins OTC 1 tablet Orally daily Active Glimepiride 2 MG 1 tablet with breakfast or t he first main meal of the day Orally Once a day for 90 Active Stool Softener 100 MG 1 capsule as needed Orally twice daily Active Ferrous Sulfate 325 (65 Fe) MG 1 tablet Orally daily 2019 Active Iron 325 (65 Fe) MG 1 tablet Orally Once a day for 30 day(s) Active Metoprolol Tartrate 25 MG 1/2 tablet Orally twice a day for 90 day(s) Active Losartan Potassium-HCTZ 100-25 MG 1 tablet Orally Once a day for 90 day(s) Jun, Active Crestor 10 MG 1 tablet Orally Every other day for 90 days Active Citracal Calcium+D Active Walker - as directed for 99 days Sep, Active Pain Relieving Rub 10-15 % as directed topically as needed for b ack pain Feb, Active Walker - as directed 4 wheeled zita g walker,with seat,and brakes DX: R26.81 for 99 days Sep, Active Ferrous Sulfate 325 (65 Fe) MG 1 tablet Orally Once a day Active Omeprazole 20 mg 1 capsule Orally twice a day for 90 days Active Hydrochlorothiazide 25 MG TAKE 1 TABLET BY MOUTH EVERY DAY IN THE MORNING Oral for 90 Active Aspirin 81 MG 1 tablet Orally Once a day Active Metformin HCl 1000 MG 1 tablet with a meal Orally bid 17 M 2019 Active Magnesium Chloride-Calcium 64-106 MG 1 tablet Orally twice a day Active Nitrofurantoin Monohyd Macro 100 MG 1 cap Orally bid for 7 day(s ) Jun, Active PROCEDURES No Information RESULTS Component Value Reference Range Urinalysis, no micro Reviewed date:09/14/2020 15:47:34 Interpretation: Performing Lab:[facility], [place] [address] Spec gravity 1.010 1.002 - 1.035 pH 6 5.0 - 9.0 Leukocyte trace Negative - Nitrate neg Negative - Protein trace Negative - mg/dl Glucose normal Negative - mg/dl Ketones + Negative - mg/dl Urobili normal Normal - mg/dl Bilirubin + Negative - Blood 50 Negative - Internal QC Acceptable (Y/N) UA URINALYSIS Reviewed date:09/14/2020 15:47:05 Interpretation: Performing Lab:[facility], [facility] [address] [facility] [id number] , ,[place] [address] REASON FOR VISIT ? UTI [phone] MEDICAL (GENERAL) HISTORY Type Description Date Medical [...] History cholecystectomy 05/08 Surgical History colonoscopy 05/04, 2008, 2018 Surgical History cyst removal lower [...] No Information FUNCTIONAL STATUS No Information ASSESSMENTS Encounter Date Diagnosis Assessment Notes Treatment Notes Treatm ent Clinical Notes Sep, Viral URI with cough (ICD-10 - J06.9) We talked about her symptoms the concern for COVID, testing obtained today, pt was advised to quarantine along with her and son with who she resides, until results are available. UA sent for further testing. Counseled on symptomatic relief. Call with change in symptoms. Sep, Dysuria (ICD-10 - R30.0) Sep, Nonintractable headache, uns pecified chronicity pattern, unspecified headache type (ICD-10 - R51.9) Sep, Diarrhea, unspecified type (ICD-10 - R19.7) PLAN OF TREATMENT Treatment Notes Assessment Notes Clinical Notes Viral URI with cough We talked about her symptoms the concern for COVID, testing obtained today, pt was advised to quarantine along with her and son with who she resides, until results are available. UA sent for further testing. Counseled on symptomatic relief. Call with change in symptoms. Next Appt Details prn Reason: Provider Name:Joni Shabazz, 2020-11 01:15:00 PM, [address], [place], [address], Insurance Providers Payer Name Payer Address Payer Phone Insured Name Patient Relati onship to Insured Coverage Start Date Coverage End Date [facility] [employer] [address] [address] [facility] [address] [phone] MISA TINSLEY self
--- OUTSIDE RECORDS SUMMARY | 2020-09-22 10:03 | CCD ---
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 Name Role Phone Joni Shabazz Unavailable PROBLEMS Type Condition ICD9-CM Code OIH89-XL Code Onset Dates Condition S tatus SNOMED Code Notes Problem Primary generalized (osteo)arthritis M15.0 Act bruce 963636165 Problem Mixed hyperlipidemia E78.2 Active 986197881 Problem Gastro-esophageal reflux disease without esophagitis K21.9 Active 384663231 Problem Deficiency of other specified B group vitamins E53 .8 Active 77038062 Problem Vitamin D deficiency, unspecified E55.9 Active 19304917 Problem Cerebral infarction due to u nspecified occlusion or stenosis of unspecified cerebral artery I63.50 Active 23664346 9060980 Problem Type 2 diabetes mellitus without complications E11 .9 Active 449897561 Problem NANY (obstructive sleep apnea) G47.33 Active 78 145652 Problem Chronic renal insufficiency, stage III (moderate) N18.3 Active 449684892 Problem Monoclonal gammopathy D47.2 Active 602109077 Problem Hypertensive heart disease with heart failure I11.0 Active 09133186 Problem Screening mammogram, encounter for Z12.31 Activ e 546650317 Problem Type 2 diabetes mellitus with diabetic chronic kidney disease E11.22 Active 038803112013 Problem Adjustment disorder with depressed mood F43.21 Active 93129331 Problem Venous insufficiency (chronic) (peripheral) I87.2 Active 88010027747132352 Problem Chronic kidney disease, stage III (moderate) N18.3 Active 454875700 Problem PFO (patent foramen ovale) Q21.1 Active 26609 7008 Problem Medicare annual wellness visit, subsequent Z00.00 Active 422233456 Problem Actinic keratoses L57.0 Active 877639846 Problem 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 Act bruce 048318830 Problem 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 Activ e 860356880 Problem Pressure injury of buttock, stage 2, unspecified lateralit y L89.302 Active 59068719175131868 Problem Atherosclerotic heart diseas e of [place] coronary artery without angina pectoris I25.10 Active 012599234498169 Problem Urinary incontinence in female R32 Active 1 25304706 Problem Chronic diastolic (congestive) heart failure I50.3 2 Active 013106678 Problem Nocturnal leg cramps G47.62 Active 931494837 Problem 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 Active 060037717 Problem Chronic vulvitis N76.3 Active 6018392 Problem History of nonmelanoma skin cancer Z85.828 Activ e 328676214 Problem Unstable gait R26.81 Active 915677657 ALLERGIES Allergen (clinical drug ingredient) Drug/Non Drug Allergy do cumented on EMR Reaction Allergy Type Onset Date Status cephalexin Keflex([facility] Code:[address]-62) H/A Drug Allergy Active Bydureon GI, RUEDA (see 02/18) Non Drug Allergy A ctive Motrin GI Drug Allergy Active lisinopril Lisinopril([facility] Code:[address]-97) cough Drug Allergy Active statins myalgias Non Drug Allergy Active flozins recurrent UTIs Non Drug Allergy Acti ve metformin (at 1000 mg dose) GI Non Drug Allergy Active diclofenac Voltaren([facility] Code:[address]-83) upset stomach Drug Allerg y Active ENCOUNTERS from 1940 to 2020-07-13 Encounter Location Date Provider Diagnosis [facility] [place] [address] [place] [address] Jun, Fletcher Shabazz Type 2 diabetes mellitus without complications E11.9 ; Chronic kidney disease, stage III (moderate) N18.3 ; Mixed hyperlipidemia E78.2 ; Monoclonal gammopathy D47.2 ; Urine frequency R35.0 and Encounter for immunization Z23 IMMUNIZATIONS Vaccine Route Administration Date Status Zoster 50mcg/0.5mL (Shingrix) Unknown December 03, 2017 Ad ministered Zoster 50mcg/0.5mL (Shingrix) Unknown Jun 03, 2018 Ad ministered Influenza (Pharmacy Given) Unknown Jun 25, 2018 Admin istered Influenza (18 yrs & older) Flublok IM Intramuscular Jul 02, 2020 Administered Influenza (High Dose 65 & up) IM Intramuscular Jul 17, 2016 A dministered Influenza (High Dose 65 & up) Unknown Aug 14, 2017 Re fused Influenza (High Dose 65 & up) IM Intramuscular Aug 29, 2017 A dministered Influenza (6mo & up) Fluzone IM Intramuscular [...] Education Language: Question Answer Notes Languages spoken: Cymro Jew: Question Answer Notes Jew 13 Jew Sexual Hx: Question Answer Notes Had sex [...] FOR REFERRAL No Information VITAL SIGNS Weight 224 lbs Jun, Height 64 in Jun, BMI 38.45 kg/m2 Jun, Heart Rate 89 /min Jun, Respiratory Rate 18 /min Jun, Temperature 97.6 degrees Fahrenheit Jun, Oximetry 94 Jun, Blood pressure systolic 144 mm Hg Jun, Blood pressure diastolic 86 mm Hg Jun, MEDICATIONS Medication SIG (Take, Route, Frequency, Duration) Start Date En d Date Status Metoprolol Tartrate 25 MG 1/2 tablet Orally twice a day for 90 day( s) Active Hydrochlorothiazide 25 MG TAKE 1 TABLET BY MOUTH EVERY DAY IN THE MORNING Oral for 90 Active Walker - as directed for 99 days Sep, Acti ve Losartan Potassium-HCTZ 100-25 MG 1 tablet Orally Once a day for 90 day(s) Jun, Active Ferrous Sulfate 325 (65 Fe) MG 1 tablet Orally Once a day Active Multivitamins OTC 1 tablet Orally daily A ctive Nitrofurantoin Monohyd Macro 100 MG 1 cap Orally bid for 7 day(s ) Jun, Active Stool Softener 100 MG 1 capsule as needed Orally twice daily Active Glimepiride 2 MG 1 tab Orally bid for 90 days Active Citracal Calcium+D Active Aspirin 81 MG 1 tablet Orally Once a day Active Pain Relieving Rub 10-15 % as directed topically as needed f or back pain Feb, Active Iron 325 (65 Fe) MG 1 tablet Orally Once a day for 30 day(s) Active Walker - as directed 4 wheeled zita g walker,with seat,and brakes DX: R26.81 for 99 days Sep, Active Omeprazole 20 mg 1 capsule Orally twice a day for 90 days Active Ferrous Sulfate 325 (65 Fe) MG 1 tablet Orally daily Feb, Active Metformin HCl 1000 MG 1 tablet with a meal Orally bid Nov, Active Crestor 10 MG 1 tablet Orally Every other day for 90 days Active Magnesium Chloride-Calcium 64-106 MG 1 tablet Orally twice a day Active PROCEDURES Procedure Date Ordered Result Body Site Immunization: Flublok Quadrivalent (18 years & older) 0.5mL IM (Influenza) 2020-07-02 N/A RESULTS Component Value Reference Range CBC - Complete Blood Count Reviewed date:07/06/2020 13:17:39 Interpretation: Performing Lab:[facility] [address] [facility] [address] , ,[place] [address] WHITE BLOOD COUNT 9.8 4.0-10.0 RED BLOOD COUNT 4.83 4.00-5.40 HEMOGLOBIN 11.0 12.0-15.5 HEMATOCRIT 38.5 36.0-47.0 MEAN CORPUSCULAR VOLUME 79.7 80.0-96.0 MEAN CORPUSCULAR HEMOGLOBIN 22.8 27.0-33.0 MEAN CORPUSCULAR HGB CONC 28.6 32.0-36.5 RED CELL DISTRIBUTION WIDTH 17.1 11.5-14.5 PLATELET COUNT, AUTOMATED 329 150-450 HEMOGLOBIN A1c Reviewed date:07/06/2020 13:17:39 Interpretation: Performing Lab:[facility] [address] [place] [id number] , ,[place] [address] HEMOGLOBIN A1c 7.6 ESTIMATED AVERAGE GLUCOSE 171 60-110 URINE CULTURE Reviewed date:07/06/2020 13:17:39 Interpretation: Performing Lab:[facility] [address] [facility] [address] , ,[place] [address] Comprehensive Metabolic Profile (CMP) Reviewed date:07/07/2020 16:55:36 Interpretation: Performing Lab:[facility] [address] [facility] [address] , ,[facility] GLUCOSE, FASTING 105 70-100 BLOOD UREA NITROGEN 22 7-18 CREATININE FOR GFR 1.22 0.55-1.30 GLOMERULAR FILTRATION RATE 45.3 >39 SODIUM LEVEL 136 136-145 POTASSIUM SERUM 4.7 3.5-5.1 CHLORIDE LEVEL 98 98-107 CARBON DIOXIDE LEVEL 30 21-32 CALCIUM LEVEL 9.4 8.8-10.2 AST/SGOT 15 7-37 ALT/SGPT 18 12-78 ALKALINE PHOSPHATASE 68 45-117 BILIRUBIN,TOTAL 0.3 0.2-1.0 TOTAL PROTEIN 7.6 6.4-8.2 ALBUMIN 3.5 3.2-5.2 ALBUMIN/GLOBULIN RATIO 0.9 1.2-2.2 LIPID PANEL (CARDIAC RISK) Reviewed date:07/07/2020 16:55:36 Interpretation: Performing Lab:[facility], [facility] [address] [facility] [address] , ,[facility] TRIGLYCERIDES LEVEL 116 <150 CHOLESTEROL LEVEL 156 <200 HDL CHOLESTEROL 61 >40 LDL CHOLESTEROL 72 <100 NON-HDL-C 95 CHOLESTEROL RISK RATIO 2.557 <5 Ser Prot Electro RFX ITS Reviewed date:07/07/2020 16:55:36 Interpretation: Performing Lab:[facility] [address] [facility] [id number] , ,[place] [address] ALBUMIN % 52.0 55.8-66.1 PDUVR-8-VJYDAKAP % 4.9 2.9-4.9 IQLGV-7-PPOFPCBFD % 11.7 7.1-11.8 OBYE-2-KFGRTHSFK % 7.4 4.7-7.2 YPTJ-3-PVGMCEPDR % 6.4 3.2-6.5 GAMMA GLOBULIN % 17.6 11.1-18.8 ALBUMIN 3.95 3.29-5.55 EVZZS-9-STARRBSHL 0.37 0.17-0.41 ERLIX-9-DDUZRLDNP 0.89 0.42-0.99 SUXH-5-YXARNQDEY 0.56 0.28-0.60 AEAL-5-BNOOLQCRO 0.49 0.19-0.55 GAMMA GLOBULINS 1.34 0.65-1.58 TOTAL PROTEIN 7.6 6.4-8.2 SPEP INTERPRETATION FOR RFX SEE COMMENT REASON FOR VISIT UTI, unable to give urine samplle MEDICAL (GENERAL) HISTORY Type Description Date Medical [...] STATUS No Information ASSESSMENTS Encounter Date Diagnosis Notes Jun, Encounter for immunization (ICD-10 - Z23 ) Jun, Urine frequency (ICD-10 - R35.0) Jun, Chronic kidney disease, stage III (moder ate) (ICD-10 - N18.3) Jun, Type 2 diabetes mellitus without complic ations (ICD-10 - E11.9) Jun, Monoclonal gammopathy (ICD-10 - D47.2) Jun, Mixed hyperlipidemia (ICD-10 - E78.2) PLAN OF TREATMENT Medication Medication Name Sig Start Date Stop Date Nitrofurantoin Monohyd Macro 100 MG 1 cap Orally bid for 7 day(s ) 30 Jun, 2020 Treatment Notes Assessment Notes Clinical Notes Urine frequency suspect UTI, confirm with cx Next Appt Details 4 Months MAW Reason: Provider Name:Joni Shabazz, 2020-11 01:15:00 PM, [address], [place], [address], Insurance Providers Payer Name Payer Address Payer Phone Insured Name Patient Relati onship to Insured Coverage Start Date Coverage End Date [facility] [address] [address] [facility] [id number] [phone] MISA TINSLEY self
--- OUTSIDE RECORDS SUMMARY | 2020-09-22 10:04 | CCD ---
Author Author [facility] Organization [facility] Address Unknown Phone Unavailable Care Team Providers Care Deburrer Machine Name Role Phone Nell Nicholas MD Unavailable Unavailable Nell Nicholas MD Unavailable Unavailable Nell Nicholas MD Unavailable Unavailable Nell Nicholas MD Unavailable Unavailable Nell Nicholas MD Unavailable Unavailable Nell Nicholas MD Unavailable Unavailable Nell Nicholas MD Unavailable Unavailable Nell Nicholas MD Unavailable Unavailable Nell Nicholas MD Unavailable Unavailable Nell Nicholas MD Unavailable Unavailable Nell Nicholas MD Unavailable Unavailable Nell Nicholas MD Unavailable Unavailable Nell Nicholas MD Unavailable Unavailable Nell Nicholas MD Unavailable Unavailable Nell Nicholas MD Unavailable Unavailable Nell Nicholas MD Unavailable Unavailable Nell Nicholas MD Unavailable Unavailable Nell Nicholas MD Unavailable Unavailable Nell Nicholas MD Unavailable Unavailable Nell Nicholas MD Unavailable Unavailable Nell Nicholas MD Unavailable Unavailable Nell Nicholas MD Unavailable Unavailable Nell Nicholas MD Unavailable Unavailable Nell Nicholas MD Unavailable Unavailable Nell Nicholas MD Unavailable Unavailable Nell Nicholas MD Unavailable Unavailable Nell Nicholas MD Unavailable Unavailable Nell Nicholas MD Unavailable Unavailable Nell Nicholas MD Unavailable Unavailable Nell Nicholas MD Unavailable Unavailable Nlel Nicholas MD Unavailable Unavailable Nell Nicholas MD Unavailable Unavailable Nell Nicholas MD Unavailable Unavailable Nell Nicholas MD Unavailable Unavailable Nell Nicholas MD Unavailable Unavailable Nell Nicholas MD Unavailable Unavailable Nell Nicholas MD Unavailable Unavailable Nell Nicholas MD Unavailable Unavailable Nell Nicholas MD Unavailable Unavailable Nell Nicholas MD Unavailable Unavailable Nell Nicholas MD Unavailable Unavailable Nell Nicholas MD Unavailable Unavailable Nell Nicholas MD Unavailable Unavailable Nell Nicholas MD Unavailable Unavailable Nell Nicholas MD Unavailable Unavailable Nell Nicholas MD Unavailable Unavailable Nell Nicholas MD Unavailable Unavailable Nell Nicholas MD Unavailable Unavailable HERNANDEZ, ELYSIA Unavailable Unavailable HERNANDEZ, ELYSIA Unavailable Unavailable HERNANDEZ, ELYSIA Unavailable Unavailable HERNANDEZ, ELYSIA Unavailable Unavailable HERNANDEZ, ELYSIA Unavailable Unavailable HERNANDEZ, ELYSIA Unavailable Unavailable HERNANDEZ, ELYSIA Unavailable Unavailable HERNANDEZ, ELYSIA Unavailable Unavailable HERNANDEZ, ELYSIA Unavailable Unavailable HERNANDEZ, ELYSIA Unavailable Unavailable HERNANDEZ, ELYSIA Unavailable Unavailable HERNANDEZ, ELYSIA Unavailable Unavailable HERNANDEZ, ELYSIA Unavailable Unavailable HERNANDEZ, ELYSIA Unavailable Unavailable HERNANDEZ, ELYSIA Unavailable Unavailable HERNANDEZ, ELYSIA Unavailable Unavailable HERNANDEZ, ELYSIA Unavailable Unavailable HERNANDEZ, ELYSIA Unavailable Unavailable HERNANDEZ, ELYSIA Unavailable Unavailable HERNANDEZ, ELYSIA Unavailable Unavailable HERNANDEZ, ELYSIA Unavailable Unavailable HERNANDEZ, ELYSIA Unavailable Unavailable HERNANDEZ, ELYSIA Unavailable Unavailable HERNANDEZ, ELYSIA Unavailable Unavailable HERNANDEZ, ELYSIA Unavailable Unavailable KELECHI, J REJI [facility] Unavailable Unavailable KELECHI, J REJI [facility] Unavailable Unavailable KELECHI, J REJI [facility] Unavailable Unavailable KELECHI, J REJI [facility] Unavailable Unavailable KELECHI, J REJI [facility] Unavailable Unavailable KELECHI, J REJI [facility] Unavailable Unavailable KELECHI, J REJI [facility] Unavailable Unavailable KELECHI, J REJI D[facility] Unavailable Unavailable KELECHI, J REJI [facility] Unavailable Unavailable KELECHI, J REJI [facility] Unavailable Unavailable KELECHI, J REJI [facility] Unavailable Unavailable KELECHI, J REJI [facility] Unavailable Unavailable KELECHI, J REJI [facility] Unavailable Unavailable KELECHI, J REJI [facility] Unavailable Unavailable KELECHI, J REJI D[facility] Unavailable Unavailable KELECHI, J REJI [facility] Unavailable Unavailable KELECHI, J REJI D[facility] Unavailable Unavailable KELECHI, J REJI [facility] Unavailable Unavailable KELECHI, J REJI D[facility] Unavailable Unavailable KELECHI, J REJI D[facility] Unavailable Unavailable KELECHI, J ERJI DPM [facility] Unavailable Unavailable KELECHI, J REJI [facility] Unavailable Unavailable KELECHI, J REJI [facility] Unavailable Unavailable KELECHI, J REJI [facility] Unavailable Unavailable KELECHI, J REJI [facility] Unavailable Unavailable Campanaro, Mare Priya PA Unavailable Unavailable Campanaro, Mare Priya PA Unavailable Unavailable Campanaro, Mare Priya PA Unavailable Unavailable Campanaro, Mare Priya PA Unavailable Unavailable Campanaro, Mare Priya PA Unavailable Unavailable Campanaro, Mare Priya PA Unavailable Unavailable Campanaro, Mare Priya PA Unavailable Unavailable Campanaro, Mare Priya PA Unavailable Unavailable Campanaro, Mare Priya PA Unavailable Unavailable Campanaro, Mare Priya PA Unavailable Unavailable Campanaro, Mare Priya PA Unavailable Unavailable Campanaro, Mare Priya PA Unavailable Unavailable Campanaro, Mare Priya PA Unavailable Unavailable Campanaro, Mare Priya PA Unavailable Unavailable Campanaro, Mare Priya PA Unavailable Unavailable Campanaro, Mare Priya PA Unavailable Unavailable Campanaro, Mare Priya PA Unavailable Unavailable Campanaro, Mare Priya PA Unavailable Unavailable James, N Mihir SUPERVISOR [employer] Unavailable Unavailable Fortine, N Mihir SUPERVISOR [employer] Unavailable Unavailable James, N Mihir SUPERVISOR [employer] Unavailable Unavailable James, N Mihir SUPERVISOR [employer] Unavailable Unavailable Fortine, N Mihir SUPERVISOR [employer] Unavailable Unavailable Fortine, N Mihir SUPERVISOR [employer] Unavailable Unavailable Fortine, N Mihir SUPERVISOR [employer] Unavailable Unavailable James, N Mihir SUPERVISOR [employer] Unavailable Unavailable James, N Mihir SUPERVISOR [employer] Unavailable Unavailable Fortine, N Mihir SUPERVISOR [employer] Unavailable Unavailable Fortine, N Mihir SUPERVISOR [employer] Unavailable Unavailable James, N Mihir SUPERVISOR [employer] Unavailable Unavailable James, N Mihir SUPERVISOR [employer] Unavailable Unavailable James, N Mihir SUPERVISOR [employer] Unavailable Unavailable James, N Mihir SUPERVISOR [employer] Unavailable Unavailable James, N Mihir SUPERVISOR [employer] Unavailable Unavailable Fortine, N Mihir SUPERVISOR [employer] Unavailable Unavailable Fortine, N Mihir SUPERVISOR [employer] Unavailable Unavailable Fortine, N Mihir SUPERVISOR [employer] Unavailable Unavailable James, N Mihir SUPERVISOR [employer] Unavailable Unavailable James, N Mihir SUPERVISOR [employer] Unavailable Unavailable James, N Mihir SUPERVISOR [employer] Unavailable Unavailable Fortine, N Mihir SUPERVISOR [employer] Unavailable Unavailable James, N Mihir SUPERVISOR [employer] Unavailable Unavailable Fortine, N Mihir SUPERVISOR [employer] Unavailable Unavailable James, N Mihir SUPERVISOR [employer] Unavailable Unavailable James, N Mihir SUPERVISOR [employer] Unavailable Unavailable Fortine, N Mihir SUPERVISOR [employer] Unavailable Unavailable James, N Mihir SUPERVISOR [employer] Unavailable Unavailable Fortine, N Mihir SUPERVISOR [employer] Unavailable Unavailable Re-disclosure Warning The records that you are about to access may contain information from federally-assisted alcohol or drug abuse programs. If such information is present, then the following federally mandated warning applies: This information has been disclosed to you from records protected by federal confidentiality rules (42 CFR part 2). The federal rules prohibit you from making any further disclosure of this information unless further disclosure is expressly permitted by the written consent of the person to whom it pertains or as otherwise permitted by 42 CFR part 2. A general authorization for the release of medical or other information is NOT sufficient for this purpose. The Federal rules restrict any use of the information to criminally investigate or prosecute any alcohol or drug abuse patient.The records that you are about to access may contain highly sensitive health information, the redisclosure of which is protected by Article 27-F of the [facility] Public Health law. If you continue you may have access to information: Regarding HIV / AIDS; Provided by facilities licensed or operated by the [facility] Office of Mental Health; or Provided by the [facility] Office for People With Developmental Disabilities. If such information is present, then the following [facility] mandated warning applies: This information has been disclosed to you from confidential records which are protected by state law. State law prohibits you from making any further disclosure of this information without the specific written consent of the person to whom it pertains, or as otherwise permitted by law. Any unauthorized further disclosure in violation of state law may result in a fine or long-term sentence or both. A general authorization for the release of medical or other information is NOT sufficient authorization for further disc losure. Allergies and Adverse Reactions Type Description Substance Reaction Status Data Source(s ) lisinopril Lisinopril Lisinopril cough Active eCW1 ([facility]) Drug allergy Keflex Cephalexin H/A Active eCW1 ([facility]) Bydureon Bydureon 0.65 ML exenatide 3.08 MG/ML Pen Injector [Bydureon] GI, RUEDA (see 6/18) Active eCW1 ([facility]) Motrin Motrin Motrin GI Active eCW1 ([facility]) flozins flozins flozins recurrent UTIs Active eCW1 ([facility]) statins statins statins myalgias Active eCW1 ([facility]) metformin (at 1000 mg dose) metformin (at 1000 mg dose) metf ormin (at 1000 mg dose) GI Active eCW1 ([facility]) Diclofenac Voltaren Diclofenac upset stomach Active eCW1 ([facility]) Bydureon Bydureon 0.65 ML exenatide 3.08 MG/ML Pen Injector [Bydureon] GI, RUEDA (see 02/18) Active eCW1 ([facility]) Motrin Motrin Motrin GI Active eCW1 ([facility]) flozins flozins flozins recurrent UTIs Active eCW1 ([facility]) statins statins statins myalgias Active eCW1 ([facility]) metformin (at 1000 mg dose) metformin (at 1000 mg dose) metf ormin (at 1000 mg dose) GI Active eCW1 ([facility]) Drug Allergy Drug Allergy NKDA MEDENT ([facility]) Family History Family Member Name Family Member Gender Family Member Status Date o f Status Description Data Source(s) Unknown Unknown Problem MEDENT ([facility]) Unknown Male Problem MEDENT ([facility]) Unknown Male Problem MEDENT ([facility]) Unknown Female Encounters Encounter Providers Location Date Indications Data Source(s ) Office Visit, Est Pt., Level 4 PC [address] [place] [address] 09/14/2020 12:00:00 AM EST eCW1 ([facility]) Unknown [address] [facility] [facility], [facility] [address] 09/13/2020 12:00:00 AM EST eCW1 ([facility]) Outpatient Attender: REJI LORENZ DPM PC 07/27/2020 02:17:00 PM EST - 07/27/2020 02:17:00 PM EST [facility] Outpatient [address] [facility], [facility] [address] 07/02/2020 12:00:00 AM EDT eCW1 ([facility]) Outpatient Attender: Mihir [email or web address] [email or web address] 12:00:00 AM EDT - 06/22/2020 03:34:49 PM EDT [facility] [place] [address] [facility] [facility] [address] 06/17/2020 12:00:00 AM EDT eCW1 ([facility]) Unknown [address] [facility], [facility] [address] 06/16/2020 12:00:00 AM EDT eCW1 ([facility]) Outpatient Attender: Priya vidal 06/07/2020 04:45:00 PM EDT MEDENT ([facility] [address] [place] [address] 05/26/2020 12:00:00 AM EDT eCW1 ([facility]) Outpatient Attender: REJI LORENZ DPM PC 05/18/2020 02:15:00 PM EDT - 05/18/2020 02:15:00 PM EDT [facility] Outpatient Attender: Mihir [email or web address] 020 12:00:00 AM EDT - 03/16/2020 02:23:18 PM EDT [facility] Office Visit, Est Pt., Level 2 FC [address] [place] [address] 02/26/2020 12:00:00 AM EDT eCW1 ([facility]) Outpatient Attender: REJI LORENZ DPM PC 02/25/2020 01:15:00 PM EDT - 02/25/2020 01:15:00 PM EDT [facility] Outpatient Attender: Gal Nicholas MD Main Office 02/19/2020 11:45:00 AM EDT MEDENT ([facility]) [place] [address] [facility] [address] [address] 02/16/2020 12:00:00 AM EDT eCW1 ([facility]) [place] [address] [facility] [address] 02/04/2020 12:00:00 AM EDT eCW1 ([facility]) Office Visit, Est Pt., Level 4 PC [address] [place] [address] 02/04/2020 12:00:00 AM EDT eCW1 ([facility]) [facility] [address] [facility] [place] [address] 01/01/2020 12:00:00 AM EDT eCW1 ([facility]) Outpatient Attender: REJI LORENZ DPM PC 12/16/2019 01:47:00 PM EDT - 12/16/2019 01:47:00 PM EDT [facility] Outpatient Attender: Mihir Ramirez NP [email or web address] 020 12:00:00 AM EDT - 12/09/2019 01:38:42 PM EDT [facility] [place] [address] [facility] [address] 12/09/2019 12:00:00 AM EDT eCW1 ([facility]) [facility] Teddy [address] [facility] [place] [address] 11/25/2019 12:00:00 AM EDT eCW1 ([facility]) [facility] [address] [facility] [address] [address] 11/18/2019 12:00:00 AM EDT eCW1 ([facility]) [facility] [address] [facility] [address] [address] 11/13/2019 12:00:00 AM EDT eCW1 ([facility]) Outpatient Referrer: ELYSIA HERNANDEZ 10/28/2019 02:18:00 P M EST [facility] [address] [facility] [address] [address] 10/24/2019 12:00:00 AM EST [facility]CW1 [facility]) [facility] [address] [facility] [address] [address] 10/07/2019 12:00:00 AM EST eCW1 ([facility]) [facility] [address] [facility] [address] [address] 10/02/2019 12:00:00 AM EST eCW1 ([facility]) [facility] [address] [place] [address], [place] [address] 09/30/2019 12:00:00 AM EST eCW1 ([facility]) [facility] [address] [place] [address], [place] [address] 09/29/2019 12:00:00 AM EST eCW1 ([facility]) [facility] [address] [place] [address], [place] [address] 09/25/2019 12:00:00 AM EST eCW1 ([facility]) [facility] [address] [place] [address], [place] [address] 09/16/2019 12:00:00 AM EST eCW1 ([facility]) [place] [address] [facility] [address] 09/10/2019 12:00:00 AM EST eCW1 ([facility]) [facility] [address] [place] [address] 09/01/2019 12:00:00 AM EST [facility]CW1 [facility]) Immunizations Vaccine Date Status Description Data Source(s) influenza, recombinant, quadrIvalent,injectable, prese rvative free 07/02/2020 02:10:00 PM EDT completed eCW1 ([facility]) influenza, recombinant, quadrIvalent,injectable, prese rvative free 07/02/2020 02:10:00 PM EDT completed eCW1 ([facility]) influenza, recombinant, quadrIvalent,injectable, prese rvative free 07/02/2020 02:10:00 PM EDT completed eCW1 ([facility]) Medications Medication Brand Name Start Date Product Form Dose Route Admi nistrative Instructions Pharmacy Instructions Status Indications Reaction Description Data Source(s) NITROFURANTOIN, MACROCRYSTALS 25 MG / Ni trofurantoin, Monohydrate 75 MG Oral Capsule Nitrofurantoin Monohyd Macro 100 MG Nitrofurantoin Monohyd Macro 100 MG 07/02/2020 12:00:00 AM EDT active Nitrofurantoin Monohyd Macro 100 MG eCW1 ([facility]) NITROFURANTOIN, MACROCRYSTALS 25 MG / Ni trofurantoin, Monohydrate 75 MG Oral Capsule Nitrofurantoin Monohyd Macro 100 MG Nitrofurantoin Monohyd Macro 100 MG 07/02/2020 12:00:00 AM EDT active Nitrofurantoin Monohyd Macro 100 MG eCW1 ([facility]) NITROFURANTOIN, MACROCRYSTALS 25 MG / Ni trofurantoin, Monohydrate 75 MG Oral Capsule Nitrofurantoin Monohyd Macro 100 MG Nitrofurantoin Monohyd Macro 100 MG 07/02/2020 12:00:00 AM EDT active Nitrofurantoin Monohyd Macro 100 MG eCW1 ([facility]) Hydrochlorothiazide 25 MG / Losartan Pot assium 100 MG Oral Tablet Losartan Potassium-HCTZ 100-25 MG Losartan Potassium-HCTZ 100-25 MG 06/17/2020 12:00:00 AM EDT 1.0 {tablet} active Losartan Po tassium-HCTZ 100-25 MG eCW1 ([facility]) Hydrochlorothiazide 25 MG / Losartan Pot assium 100 MG Oral Tablet Losartan Potassium-HCTZ 100-25 MG Losartan Potassium-HCTZ 100-25 MG 06/17/2020 12:00:00 AM EDT 1.0 {tablet} active Losartan Po tassium-HCTZ 100-25 MG eCW1 ([facility]) Hydrochlorothiazide 25 MG / Losartan Pot assium 100 MG Oral Tablet Losartan Potassium-HCTZ 100-25 MG Losartan Potassium-HCTZ 100-25 MG 06/17/2020 12:00:00 AM EDT 1.0 {tablet} active Losartan Po tassium-HCTZ 100-25 MG eCW1 ([facility]) Hydrochlorothiazide 25 MG / Losartan Pot assium 100 MG Oral Tablet Losartan Potassium-HCTZ 100-25 MG Losartan Potassium-HCTZ 100-25 MG 06/17/2020 12:00:00 AM EDT 1.0 {tablet} active Losartan Po tassium-HCTZ 100-25 MG eCW1 ([facility]) Hydrochlorothiazide 25 MG / Losartan Pot assium 100 MG Oral Tablet Losartan Potassium-HCTZ 100-25 MG Losartan Potassium-HCTZ 100-25 MG 06/17/2020 12:00:00 AM EDT 1.0 {tablet} active Losartan Po tassium-HCTZ 100-25 MG eCW1 ([facility]) Metronidazole 500 MG Oral Tablet Metronidazole 06/07/2020 12:00:00 AM EDT ORAL active MEDENT ([facility]) Fluconazole 150 MG Oral Tablet Fluconazole 06/07/2020 12:00:00 AM EDT ORAL active MEDENT ([facility]) ferrous sulfate 325 MG Oral Tablet Ferrous Sulfate 325 (65 Fe) MG Ferrous Sulfate 325 (65 Fe) MG 02/15/2020 12:00:00 AM EDT 1.0 {tablet} active Ferrous Sulfate 325 (65 Fe) MG eCW1 ([facility]) Pain Relieving Rub 10-15 % UNK 02/15/2020 12:00:00 AM EDT active Pain Relieving Rub 10-15 % eCW1 ([facility]) Pain Relieving Rub 10-15 % UNK 02/15/2020 12:00:00 AM EDT active Pain Relieving Rub 10-15 % eCW1 ([facility]) Pain Relieving Rub 10-15 % UNK 02/15/2020 12:00:00 AM EDT active Pain Relieving Rub 10-15 % eCW1 ([facility]) ferrous sulfate 325 MG Oral Tablet Ferrous Sulfate 325 (65 Fe) MG Ferrous Sulfate 325 (65 Fe) MG 02/15/2020 12:00:00 AM EDT 1.0 {tablet} active Ferrous Sulfate 325 (65 Fe) MG eCW1 ([facility]) Pain Relieving Rub 10-15 % UNK 02/15/2020 12:00:00 AM EDT active Pain Relieving Rub 10-15 % eCW1 ([facility]) ferrous sulfate 325 MG Oral Tablet Ferrous Sulfate 325 (65 Fe) MG Ferrous Sulfate 325 (65 Fe) MG 02/15/2020 12:00:00 AM EDT 1.0 {tablet} active Ferrous Sulfate 325 (65 Fe) MG eCW1 ([facility]) Pain Relieving Rub 10-15 % UNK 02/15/2020 12:00:00 AM EDT active Pain Relieving Rub 10-15 % eCW1 ([facility]) ferrous sulfate 325 MG Oral Tablet Ferrous Sulfate 325 (65 Fe) MG Ferrous Sulfate 325 (65 Fe) MG 02/15/2020 12:00:00 AM EDT 1.0 {tablet} active Ferrous Sulfate 325 (65 Fe) MG eCW1 ([facility]) Pain Relieving Rub 10-15 % UNK 02/15/2020 12:00:00 AM EDT active Pain Relieving Rub 10-15 % eCW1 ([facility]) ferrous sulfate 325 MG Oral Tablet Ferrous Sulfate 325 (65 Fe) MG Ferrous Sulfate 325 (65 Fe) MG 02/15/2020 12:00:00 AM EDT 1.0 {tablet} active Ferrous Sulfate 325 (65 Fe) MG eCW1 ([facility]) ferrous sulfate 325 MG Oral Tablet Ferrous Sulfate 325 (65 Fe) MG Ferrous Sulfate 325 (65 Fe) MG 02/15/2020 12:00:00 AM EDT 1.0 {tablet} active Ferrous Sulfate 325 (65 Fe) MG eCW1 ([facility]) ferrous sulfate 325 MG Oral Tablet Ferrous Sulfate 325 (65 Fe) MG Ferrous Sulfate 325 (65 Fe) MG 02/15/2020 12:00:00 AM EDT 1.0 {tablet} active Ferrous Sulfate 325 (65 Fe) MG eCW1 ([facility]) Pain Relieving Rub 10-15 % UNK 02/15/2020 12:00:00 AM EDT active Pain Relieving Rub 10-15 % eCW1 ([facility]) NITROFURANTOIN, MACROCRYSTALS 25 MG / Ni trofurantoin, Monohydrate 75 MG Oral Capsule Nitrofurantoin Monohyd Macro 100 MG Nitrofurantoin Monohyd Macro 100 MG 11/25/2019 12:00:00 AM EDT suspended Nitrofurantoin Monohyd Macro 100 MG eCW1 ([facility]) NITROFURANTOIN, MACROCRYSTALS 25 MG / Ni trofurantoin, Monohydrate 75 MG Oral Capsule Nitrofurantoin Monohyd Macro 100 MG Nitrofurantoin Monohyd Macro 100 MG 11/25/2019 12:00:00 AM EDT suspended Nitrofurantoin Monohyd Macro 100 MG eCW1 ([facility]) Metformin hydrochloride 1000 MG Oral Tablet Metformin HCl 1000 MG Metformin HCl 1000 MG 11/18/2019 12:00:00 AM EDT 1.0 {tablet_with_a_meal} active Metformin HCl 1000 MG eCW1 ([facility]) Metformin hydrochloride 1000 MG Oral Tablet Metformin HCl 1000 MG Metformin HCl 1000 MG 11/18/2019 12:00:00 AM EDT active 1 tablet with a meal eCW1 ([facility]) Metformin hydrochloride 1000 MG Oral Tablet Metformin HCl 1000 MG Metformin HCl 1000 MG 11/18/2019 12:00:00 AM EDT 1.0 {tablet_with_a_meal} active Metformin HCl 1000 MG eCW1 ([facility]) Metformin hydrochloride 1000 MG Oral Tablet Metformin HCl 1000 MG Metformin HCl 1000 MG 11/18/2019 12:00:00 AM EDT 1.0 {tablet_with_a_meal} active Metformin HCl 1000 MG eCW1 ([facility]) Metformin hydrochloride 1000 MG Oral Tablet Metformin HCl 1000 MG Metformin HCl 1000 MG 11/18/2019 12:00:00 AM EDT 1.0 {tablet_with_a_meal} active Metformin HCl 1000 MG eCW1 ([facility]) Metformin hydrochloride 1000 MG Oral Tablet Metformin HCl 1000 MG Metformin HCl 1000 MG 11/18/2019 12:00:00 AM EDT 1.0 {tablet_with_a_meal} active Metformin HCl 1000 MG eCW1 ([facility]) Metformin hydrochloride 1000 MG Oral Tablet Metformin HCl 1000 MG Metformin HCl 1000 MG 11/18/2019 12:00:00 AM EDT 1.0 {tablet_with_a_meal} active Metformin HCl 1000 MG eCW1 ([facility]) Metformin hydrochloride 1000 MG Oral Tablet Metformin HCl 1000 MG Metformin HCl 1000 MG 11/18/2019 12:00:00 AM EDT 1.0 {tablet_with_a_meal} active Metformin HCl 1000 MG eCW1 ([facility]) Metformin hydrochloride 1000 MG Oral Tablet Metformin HCl 1000 MG Metformin HCl 1000 MG 11/18/2019 12:00:00 AM EDT 1.0 {tablet_with_a_meal} active Metformin HCl 1000 MG eCW1 ([facility]) Metformin hydrochloride 1000 MG Oral Tablet Metformin HCl 1000 MG Metformin HCl 1000 MG 11/18/2019 12:00:00 AM EDT 1.0 {tablet_with_a_meal} active Metformin HCl 1000 MG eCW1 ([facility]) Walker - Walker - 09/11/2019 12:00:00 AM EST activ e Walker - eCW1 ([facility]) Walker - Walker - 09/11/2019 12:00:00 AM EST activ e Walker - eCW1 ([facility]) Walker - Walker - 09/11/2019 12:00:00 AM EST activ e Walker - eCW1 ([facility]) Walker - Walker - 09/11/2019 12:00:00 AM EST suspe nded Walker - eCW1 ([facility]) Walker - Walker - 09/11/2019 12:00:00 AM EST activ e Walker - eCW1 ([facility]) Walker - Walker - 09/11/2019 12:00:00 AM EST activ e as directed eCW1 ([facility]) Walker - Walker - 09/11/2019 12:00:00 AM EST activ e as directed eCW1 ([facility]) Walker - Walker - 09/11/2019 12:00:00 AM EST activ e as directed eCW1 ([facility]) Walker - Walker - 09/11/2019 12:00:00 AM EST activ e Walker - eCW1 ([facility]) Walker - Walker - 09/11/2019 12:00:00 AM EST activ e Walker - eCW1 ([facility]) Walker - Walker - 09/11/2019 12:00:00 AM EST activ e Walker - eCW1 ([facility]) Walker - Walker - 09/11/2019 12:00:00 AM EST suspe nded Walker - eCW1 ([facility]) Walker - Walker - 09/11/2019 12:00:00 AM EST activ e Walker - eCW1 ([facility]) Walker - Walker - 09/11/2019 12:00:00 AM EST activ e Walker - eCW1 ([facility]) Walker - Walker - 09/11/2019 12:00:00 AM EST suspe nded Walker - eCW1 ([facility]) Walker - Walker - 09/11/2019 12:00:00 AM EST activ e Walker - eCW1 ([facility]) Walker - Walker - 09/11/2019 12:00:00 AM EST activ e Walker - eCW1 ([facility]) Walker - Walker - 09/11/2019 12:00:00 AM EST activ e as directed eCW1 ([facility]) Walker - Walker - 09/11/2019 12:00:00 AM EST activ e as directed eCW1 ([facility]) Walker - Walker - 09/11/2019 12:00:00 AM EST suspe nded Walker - eCW1 ([facility]) Walker - Walker - 09/11/2019 12:00:00 AM EST activ e Walker - eCW1 ([facility]) Walker - Walker - 09/11/2019 12:00:00 AM EST activ e Walker - eCW1 ([facility]) Walker - Walker - 09/11/2019 12:00:00 AM EST activ e Walker - eCW1 ([facility]) Walker - Walker - 09/11/2019 12:00:00 AM EST activ e as directed eCW1 ([facility]) Walker - Walker - 09/11/2019 12:00:00 AM EST activ e as directed eCW1 ([facility]) Insurance Providers Payer name Policy type / Coverage type Policy ID Covered green party ID Covered green party's relationship to willson Policy Willson Plan Information [employer] [id number] SP [id number] [facility] [place] [id number] 18 [id number] WELLCARE MEDICARE [id number] [facility] 23 [id number] MEDICARE [id number] SP [id number] [facility] O [id number] S [id number] ANSI-Commercial [id number] ANSI-Health Maintenance Organization ( O) [id number] ANSI-Health Maintenance Organization ( O) [id number] ANSI-Commercial [id number] MEDICARE [id number] SP [id number] [facility] HEALTH CARE OPTIONS [id number] SP [id number] ANSI-Commercial [id number] ANSI-Medicare Part B [id number] ANSI-Medicare Part B [id number] ANSI-Commercial [id number] ANSI-Medicare Part B [id number] ANSI-Commercial [id number] ANSI-Medicare Part B [id number] ANSI-Commercial [id number] ANSI-Commercial [id number] ANSI-Medicare Part B [id number] ANSI-Medicare Part B [id number] ANSI-Commercial [id number] ANSI-Medicare Part B [id number] ANSI-Commercial [id number] [facility] HEALTH CARE OPTIONS [id number] SP [id number] ANSI-Commercial [id number] ANSI-Medicare Part B [id number] ANSI-Medicare Part B [id number] ANSI-Commercial [id number] [facility] Health Care Options [facility] Part B [id number] Self [id number] [place] Primary [id number] Self [id number] ANSI-Medicare Part B [id number] ANSI-Commercial [id number] ANSI-Medicare Part B [id number] ANSI-Commercial [id number] ANSI-Medicare Part B [id number] ANSI-Commercial [id number] ANSI-Medicare Part B [id number] ANSI-Commercial [id number] [employer] HE[employer] CARE OPTIONS [id number] SP [id number] ANSI-Medicare Part B [id number] ANSI-Commercial [id number] ANSI-Commercial [id number] ANSI-Medicare Part B [id number] MEDICARE [id number] SP [id number] A Medicare [place] Medigap Part B [id number] Self [id number] Ghi/Emblem HLTH (pr) Medigap Part B [id number] Self [id number] [employer] (pr) Medigap Part B [id number] Self [id number] Todays Options/Amer Progress Medigap Part B [id number] Self [id number] Todays Options Medigap Part B [id number] Self [id number] [place] Medigap Part B [id number] Self [id number] [facility] Options Medigap Part B [id number] Self [id number] Medicare [place] Medicare Primary [id number] Self [id number] ANSI-Medicare Part B [id number] ANSI-Commercial [id number] [facility] Options Medigap Part B [id number] Self [id number] Medicare Natl Gov't Servi Medicare Primary [id number] Self [id number] AARP O [id number] S [id number] MEDICARE C [id number] S [id number] A [place] MEDICARE PART B C [id number] S [id number] AARP O [id number] S [id number] [place] Medigap Part B Self Ghi/Emblem HLTH (pr) Medigap Part B Self [employer] (pr) Medigap Part B Self Todays Options/[employer] Progress Medigap Part B Self Todays Options Medigap Part B Self [facility] Options Medigap Part B Self [place] Medicare Primary Self [facility] Options Medigap Part B Self Medicare [place] Medicare Primary 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 [id number] MEDICARE 4 [id number] 1 [id number] A SELF PAY 2 UNAVAILABLE 1 UNAVAILA BLE TODAYS OPT MEDICARE 11 [id number] 1 [id number] TODAYS OPTIONS/SAUDI ARABIAN P [id number] S [id number] TODAYS OPTIONS [id number] SP [id number] Problems, Conditions, and Diagnoses Code Display Name Description Problem Type Effective Dates Data Source(s) 822628249 Type 2 diabetes mellitus with peripheral angiopathy Type 2 diabetes mellitus with peripheral angiopathy Problem 02/25/2020 12:00:00 AM E DT MEDENT ([facility]) [id number] Metatarsalgia Metatarsalgia Problem 12/16/2019 12:00:00 AM EDT MEDENT ([facility]) [id number] Localized, 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, primary osteoarthritis of the ankle and/or foot Problem 2019 12:00:00 AM EDT MEDENT ([facility]) 17230820 Dystrophia unguium Dystrophia unguium Problem 12:00:00 AM EDT MEDENT ([facility]) 30529250 Pain in limb Pain in limb Problem 12/16/2019 12:00:00 A M EDT MED[facility] ([facility]) [id number] 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 [facility] 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 mellitus Problem 12/16/2019 12:00:00 AM EDT MEDENT ( [facility]) Other synovitis and tenosynovitis, left ankle and foot Other synovitis and tenosynovitis, left ankle and foot Problem 12/16/2019 12:00:00 AM ED T MEDENT ([facility]) Corns and callosities Corns and callosities Problem 12/16/2019 12:00:00 AM EDT MEDENT ([facility]) R32 [id number] Urinary incontinence in female Problem 11/17 12:00:00 AM EDT eCW1 ([facility]) L89.302 [id number] Pressure injury of b uttock, stage 2, unspecified laterality Problem 11/18/2019 12:00:00 AM EDT eCW1 ([facility]) R32 [id number] Urinary incontinence in female Problem 11/17 12:00:00 AM EDT eCW1 ([facility]) L89.302 [id number] Pressure injury of b uttock, stage 2, unspecified laterality Problem 11/18/2019 12:00:00 AM EDT eCW1 ([facility]) R26.81 [id number] Unstable gait Problem 10/08/2019 12:00:00 AM EST eCW1 ([facility]) R26.81 [id number] Unstable gait Problem 10/08/2019 12:00:00 AM EST eCW1 ([facility]) N18.9 Chronic kidney disease, unspecified Chronic kidn ey disease, unspecified Diagnosis 06/22/2020 01:47:21 PM EDT [facility] I10 Essential (primary) hypertension Essential (primary) h ypertension Diagnosis 06/22/2020 01:47:21 PM EDT [facility] I25.810 Atherosclerosis of coronary artery bypass graft(s) without angina pectoris Atherosclerosis of coronary artery bypas Diagnosis 06/22/2020 01:47:21 PM EDT [facility] E78.2 Mixed hyperlipidemia Mixed hyperlipidemia Diagnosis 06/22/2020 01:47:21 PM EDT [facility] L89.151 Pressure ulcer of sacral region, stage 1 Pressure ulcer of sacral region, stage 1 Diagnosis 06/22/2020 01:47:21 PM EDT [facility] L84 Corns and callosities Corns and callosities Diagnosis 05/18/2020 02:15:00 PM EDT [facility] 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 Diagnosis 05/18/2020 02:15: 00 PM EDT [facility] E1151 Type 2 diabetes mellitus wit h diabetic peripheral angiopathy without gangrene Type 2 diabetes mellitus with diabetic p eripheral angiopathy without gangrene Diagnosis 05/18/2020 02:15:00 PM EDT [facility] R60.0 Localized edema Localized edema Diagnosis 03/16/2020 01:3 1:27 PM EDT [facility] V19627 Other synovitis and tenosynovitis, left ankle and foot Other synovitis and tenosynovitis, left ankle and foot Diagnosis 12/16/2019 01:47:00 P M EDT [facility] Q28350 Primary osteoarthritis, unspecified ankl e and foot Primary osteoarthritis, unspecified ankle and foot Diagnosis 12/16/2019 01:47: 00 PM EDT [facility] M7741 Metatarsalgia, right foot Metatarsalgia, right foot Di agnosis 12/16/2019 01:47:00 PM EDT [facility] T47705 Pain in right foot Pain in right foot Diagnosis 01:47:00 PM EDT [facility] E1149 Type 2 diabetes mellitus with other diab etic neurological complication Type 2 diabetes mellitus with other diabetic neurological complication Diagnosis 12/16/2019 01:47:00 PM EDT [facility] Surgeries/Procedures Procedure Description Date Indications Data Source(s) Immunization: Flublok Quadrivalent (18 years & older) 0.5mL IM (Influenza) 07/02/2020 12:00:00 AM EDT eCW1 ([facility]) Pare Hyperkeratotic Lesion, 2-4 05/18/2020 12:00:00 AM EDT MEDENT ([facility]) Pare Hyperkeratotic Lesion, 2-4 02/25/2020 12:00:00 AM EDT MED[facility] ([facility]) PARING/CUTTING BENIGN HYPERKERATOTIC LESION >4 020 12:00:00 AM EDT MED[facility] ([facility]) Strapping Ankle/foot 12/16/2019 12:00:00 AM EDT MED[facility] ([facility]) Annual wellness visit, includes a person alized prevention plan of service (pps), subsequent visit 11/18/2019 12:00:00 AM EDT eCW 1 ([facility]) Office Visit, Est Pt., Level 3 PC 09/01/2019 12:00:00 AM EST eCW1 ([facility]) Results ID Date Data Source [id number] 09/14/2020 11:59:00 AM EST [facility] Name Value Range Interpretation Code Description Data Crystal rce(s) Supporting Document(s) SARS coronavirus 2 RNA Detected [facility] This lab was ordered by [facility] and reported by [facility]. ID Date Data Source UA URINALYSIS 09/14/2020 12:00:00 AM EST eCW1 ([facility]) Name Value Range Interpretation Code Description Data Crystal rce(s) Supporting Document(s) UA URINALYSIS eCW1 ([facility]) ID Date Data Source Ser Prot Electro RFX ITS 07/07/2020 05:55:36 AM EST eCW1 ([facility]) Name Value Range Interpretation Code Description Data Crystal rce(s) Supporting Document(s) 4.9 VPZHZ-6-GEEJSBSG % eCW1 ([facility]) 7.4 RMSM-9-BAQRZOWUA % eCW1 ([facility]) 52.0 ALBUMIN % eCW1 ([facility]) 11.7 KIRPM-9-EGBCUSYIF % eCW1 ([facility]) 0.37 YMWUH-1-OIDULTICB eCW1 ([facility]) 17.6 GAMMA GLOBULIN % eCW1 ([facility]) 3.95 ALBUMIN eCW1 ([facility]) 6.4 NEQI-7-ZHJTPZMKX % eCW1 ([facility]) 0.56 GYGX-3-PFROISIFH eCW1 ([facility]) 0.89 BCYCT-1-IKABAYCDS eCW1 ([facility]) 0.49 YUJU-7-LBFLXYTPL eCW1 ([facility]) 1.34 GAMMA GLOBULINS eCW1 ([facility]) SEE COMMENT SPEP INTERPRETATION FOR RFX eCW1 ([facility]) 7.6 TOTAL PROTEIN eCW1 ([facility]) ID Date Data Source LIPID PANEL (CARDIAC RISK) 07/07/2020 05:55:36 AM EST eCW1 ( [facility]) Name Value Range Interpretation Code Description Data Crystal rce(s) Supporting Document(s) Triglyceride [Mass/volume] in Serum or Plasma by calculation 116 TRIGLYCERIDES LEVEL eCW1 ([facility]) Cholesterol [Moles/volume] in Serum or Plasma 156 CHOLESTEROL LEVEL eCW1 ([facility]) Cholesterol in HDL [Moles/volume] in Serum or Plasma 61 HDL CHOLESTEROL eCW1 ([facility]) Cholesterol in LDL [Mass/volume] in Serum or Plasma by calculation 72 LDL CHOLESTEROL eCW1 ([facility]) 95 NON-HDL-C eCW1 ([facility]) 2.557 CHOLESTEROL RISK RATIO eCW1 ([facility]) ID Date Data Source Comprehensive Metabolic Profile (CMP) 07/07/2020 05:55:36 AM EST eCW1 ([facility]) Name Value Range Interpretation Code Description Data Crystal rce(s) Supporting Document(s) 1.22 CREATININE FOR GFR eCW1 ([facility]) 105 GLUCOSE, FASTING eCW1 ([facility]) 22 BLOOD UREA NITROGEN eCW1 ([facility]) 4.7 POTASSIUM SERUM eCW1 ([facility]) 45.3 GLOMERULAR FILTRATION RATE eCW 1 ([facility]) 136 SODIUM LEVEL eCW1 ([facility]) 15 AST/SGOT eCW1 ([facility]) 30 CARBON DIOXIDE LEVEL eCW1 ([facility]) 9.4 CALCIUM LEVEL eCW1 ([facility]) 98 CHLORIDE LEVEL eCW1 ([facility]) 68 ALKALINE PHOSPHATASE eCW1 ([facility]) 18 ALT/SGPT eCW1 ([facility]) 0.3 BILIRUBIN,TOTAL eCW1 ([facility]) 7.6 TOTAL PROTEIN eCW1 ([facility]) 3.5 ALBUMIN eCW1 ([facility]) 0.9 ALBUMIN/GLOBULIN RATIO eCW1 ([facility]) ID Date Data Source URINE CULTURE 07/06/2020 02:17:39 AM EST eCW1 ([facility]) Name Value Range Interpretation Code Description Data Crystal rce(s) Supporting Document(s) URINE CULTURE eCW1 ([facility]) ID Date Data Source [id number] 07/06/2020 02:17:39 AM EST eCW1 ([facility]) Name Value Range Interpretation Code Description Data Crystal rce(s) Supporting Document(s) Hemoglobin A1c/Hemoglobin.total in Blood 7.6 HEMOGLOBIN A1c eCW1 ([facility]) ID Date Data Source CBC - Complete Blood Count 07/06/2020 02:17:39 AM EST eCW1 ( [facility]) Name Value Range Interpretation Code Description Data Crystal rce(s) Supporting Document(s) 9.8 WHITE BLOOD COUNT eCW1 ([facility]) 11.0 HEMOGLOBIN eCW1 ([facility]) 38.5 HEMATOCRIT eCW1 ([facility]) 79.7 MEAN CORPUSCULAR VOLUME eCW1 ( [facility]) 4.83 RED BLOOD COUNT eCW1 ([facility]) 17.1 RED CELL DISTRIBUTION WIDTH eC W1 ([facility]) 22.8 MEAN CORPUSCULAR HEMOGLOBIN eC W1 ([facility]) 28.6 MEAN CORPUSCULAR HGB CONC eCW1 ([facility]) 329 PLATELET COUNT, AUTOMATED eCW1 ([facility]) ID Date Data Source Basic Metabolic Profile (BMP) 02/26/2020 05:56:41 AM EDT eCW 1 ([facility]) Name Value Range Interpretation Code Description Data Crystal rce(s) Supporting Document(s) 25 BLOOD UREA NITROGEN eCW1 ([facility]) 144 GLUCOSE, FASTING eCW1 ([facility]) 45.8 GLOMERULAR FILTRATION RATE eCW 1 ([facility]) 4.2 POTASSIUM SERUM eCW1 ([facility]) 138 SODIUM LEVEL eCW1 ([facility]) 1.21 CREATININE FOR GFR eCW1 ([facility]) 29 CARBON DIOXIDE LEVEL eCW1 ([facility]) 103 CHLORIDE LEVEL eCW1 ([facility]) 9.4 CALCIUM LEVEL eCW1 ([facility]) Procedure Social History Code Duration Value Status Description Data Source(s ) Smoking 09/14/2020 12:00:00 AM EST Never Smoker completed Never S moker eCW1 ([facility]) Smoking 07/27/2020 12:00:00 AM EST Never Smoked A Pipe complet ed Never Smoked A Pipe MEDENT ([facility]) Smoking 07/02/2020 12:00:00 AM EDT Never Smoker completed Never S moker eCW1 ([facility]) Smoking 07/02/2020 12:00:00 AM EDT Never Smoker completed Never S moker eCW1 ([facility]) Smoking 06/07/2020 12:00:00 AM EDT Patient has never smoked co mpleted Patient has never smoked MEDENT ([facility]) Smoking 02/26/2020 12:00:00 AM EDT Never Smoker completed Never S moker eCW1 ([facility]) Smoking 02/26/2020 12:00:00 AM EDT Never Smoker completed Never S moker eCW1 ([facility]) Smoking 02/26/2020 12:00:00 AM EDT Never Smoker completed Never S moker eCW1 ([facility]) Smoking 02/04/2020 12:00:00 AM EDT Never Smoker completed Never S moker eCW1 ([facility]) Smoking 02/04/2020 12:00:00 AM EDT Never Smoker completed Never S moker eCW1 ([facility]) Smoking 02/04/2020 12:00:00 AM EDT Never Smoker completed Never S moker eCW1 ([facility]) Vital Signs ID Date Data Source UNK Name Value Range Interpretation Code Description Data Source(s) Diastolic blood pressure 84 mm[Hg] 84 mm[Hg] eCW1 ([facility]) Systolic blood pressure 175 mm[Hg] 175 mm[Hg] e CW1 ([facility]) Body temperature 98.4 [degF] 98.4 [degF] eCW1 ( [facility]) Respiratory rate 18 /min 18 /min eCW1 ([facility]) Heart rate 117 /min 117 /min eCW1 ([facility]) Body mass index (BMI) [Ratio] 38.27 kg/m2 38.27 kg/m2 W1 ([facility]) Body height 64 [in_i] 64 [in_i] eCW1 ([facility]) Body weight 223 [lb_av] 223 [lb_av] eCW1 ([facility]) Diastolic blood pressure 86 mm[Hg] 86 mm[Hg] eCW1 ([facility]) Systolic blood pressure 144 mm[Hg] 144 mm[Hg] e CW1 ([facility]) Body temperature 97.6 [degF] 97.6 [degF] eCW1 ( [facility]) Respiratory rate 18 /min 18 /min eCW1 ([facility]) Heart rate 89 /min 89 /min eCW1 ([facility]) Body mass index (BMI) [Ratio] 38.45 kg/m2 38.45 kg/m2 W1 ([facility]) Body height 64 [in_i] 64 [in_i] eCW1 ([facility]) Body weight 224 [lb_av] 224 [lb_av] eCW1 ([facility]) Body mass index (BMI) [Ratio] 42.0 kg/m2 42.0 k g/m2 MEDENT ([facility]) Body height 64 [in_i] 64 [in_i] MEDENT ([facility] 5'4" Body weight 245.00 [lb_av] 245.00 [lb_av] MEDEN T ([facility]) Body temperature 98.1 [degF] 98.1 [degF] MEDENT ([facility]) Oxygen saturation in Arterial blood by Pulse oximetry 96 % 96 % MEDENT ([facility]) Respiratory rate 20 /min 20 /min MEDENT ( [facility]) Heart rate 74 /min 74 /min MEDENT ([facility]) Diastolic blood pressure 72 mm[Hg] 72 mm[Hg] MEDENT ([facility]) Systolic blood pressure 128 mm[Hg] 128 mm[Hg] M EDENT ([facility]) Diastolic blood pressure 80 mm[Hg] 80 mm[Hg] eCW1 ([facility]) Systolic blood pressure 148 mm[Hg] 148 mm[Hg] e CW1 ([facility]) Body temperature 97.0 [degF] 97.0 [degF] eCW1 ( [facility]) Respiratory rate 18 /min 18 /min eCW1 ([facility]) Heart rate 104 /min 104 /min eCW1 ([facility]) Body mass index (BMI) [Ratio] 37.93 kg/m2 37.93 kg/m2 W1 ([facility]) Body height 64 [in_i] 64 [in_i] eCW1 ([facility]) Body weight 221 [lb_av] 221 [lb_av] eCW1 ([facility]) Body weight 101.606 kg 101.606 kg [facility] ([facility]) Body mass index (BMI) [Ratio] 38.4 kg/m2 38.4 k g/m2 MEDENT ([facility]) Heart rate 96 /min 96 /min MED[facility] ([facility]) Diastolic blood pressure 77 mm[Hg] 77 mm[Hg] MEDENT ([facility]) Systolic blood pressure 132 mm[Hg] 132 mm[Hg] M EDENT ([facility]) Body weight 224.00 [lb_av] 224.00 [lb_av] MEDEN T ([facility]) Body height 64 [in_i] 64 [in_i] [facility]) 5'4" Tem;P 97.3 Body temperature 96.0 [degF] 96.0 [degF] eCW1 ( [facility]) Respiratory rate 18 /min 18 /min eCW1 ([facility]) Heart rate 108 /min 108 /min eCW1 ([facility]) Body mass index (BMI) [Ratio] 39.30 kg/m2 39.30 kg/m2 [facility] ([facility]) Body height 64 [in_i] 64 [in_i] eCW1 ([facility]) Body weight 229 [lb_av] 229 [lb_av] eCW1 ([facility]) Body mass index (BMI) [Ratio] 40.3 kg/m2 40.3 k g/m2 [facility] ([facility], [facility]) Body height 64 [in_i] 64 [in_i] MEDENT ([facility], [facility]) 5'4" Body weight 235.00 [lb_av] 235.00 [lb_av] MEDEN T ([facility], [facility]) Body temperature 98.4 [degF] 98.4 [degF] [facility]ENT ([facility], [facility]) Oxygen saturation in Arterial blood by Pulse oximetry 97 % 97 % [facility] ([facility], [facility]) Respiratory rate 20 /min 20 /min MED[facility] ( [facility], [facility]) Heart rate 87 /min 87 /min MEDENT ([facility], [facility]) Diastolic blood pressure 94 mm[Hg] 94 mm[Hg] [facility] ([facility], [facility]) manual Systolic blood pressure 180 mm[Hg] 180 mm[Hg] M EDENT ([facility], [facility]) manual Diastolic blood pressure 86 mm[Hg] 86 mm[Hg] [facility]CW1 [facility] [facility] Systolic blood pressure 126 mm[Hg] 126 mm[Hg] e CW1 ([facility]) Body temperature 97.8 [degF] 97.8 [degF] eCW1 ( [facility]) Respiratory rate 18 /min 18 /min eCW1 ([facility]) Heart rate 76 /min 76 /min eCW1 ([facility]) Body mass index (BMI) [Ratio] 40.13 kg/m2 40.13 kg/m2 eCW1 ([facility]) Body height 64 [in_us] 64 [in_us] eCW1 ([facility]) Body weight Measured 233.8 [lb_av] 233.8 [lb_av ] eCW1 ([facility]) Patient Treatment Plan of Care Planned Activity Planned Date Details Description Data Source (s) NITROFURANTOIN, MACROCRYSTALS 25 MG / Ni trofurantoin, Monohydrate 75 MG Oral Capsule 07/02/2020 12:00:00 AM EDT eCW1 ([facility]) NITROFURANTOIN, MACROCRYSTALS 25 MG / Ni trofurantoin, Monohydrate 75 MG Oral Capsule 07/02/2020 12:00:00 AM EDT eCW1 ([facility]) Hydrochlorothiazide 25 MG / Losartan Potassium 100 MG Oral Tablet 06/17/2020 12:00:00 AM EDT eCW1 ([facility]) Hydrochlorothiazide 25 MG / Losartan Potassium 100 MG Oral Tablet 06/17/2020 12:00:00 AM EDT eCW1 ([facility]) Metformin hydrochloride 1000 MG Oral Tablet 11/18/2019 12:00:00 AM EDT eCW1 ([facility]) Metformin hydrochloride 1000 MG Oral Tablet 11/18/2019 12:00:00 AM EDT eCW1 ([facility]) Metformin hydrochloride 1000 MG Oral Tablet 11/18/2019 12:00:00 AM EDT eCW1 ([facility]) Walker - 09/11/2019 12:00:00 AM EST e CW1 ([facility]) - 09/11/2019 12:00:00 AM EST e CW1 ([facility]) - 09/11/2019 12:00:00 AM EST e CW1 ([facility]) - 09/11/2019 12:00:00 AM EST e CW1 ([facility]) - 09/11/2019 12:00:00 AM EST e CW1 ([facility])
--- NOTE | 2020-09-22 10:21 | REP ---
INDICATION: Coronavirus workup COMPARISON: 01/24/2016 TECHNIQUE: Portable AP view of the chest FINDINGS: The mediastinum and cardiac silhouette are stable and within normal limits for portable technique. Evidence for prior sternotomy and CABG noted. The lung [place] are clear without acute consolidation, effusion, or pneumothorax. Skeletal structures are intact. IMPRESSION: No acute cardiopulmonary process appreciated. <Electronically signed by Danish Garcia > 09/22/20 1011
[2020-09-22] MEDS ORDERED: NS 1,000 ML IV SCH (10:28)
[2020-09-22] MEDS ORDERED: diphenhydrAMINE 50MG/ML VIAL (J1200) IV PRN (10:30)
[2020-09-22] MEDS ORDERED: methylPREDNISolone 125MG 2ML VIAL IV PRN (10:30)
[2020-09-22] MEDS ORDERED: EPINEPHrine INJ 1 MG/ML 1ML AMP IM PRN (10:30)
[2020-09-22] MEDS ORDERED: diphenhydrAMINE 50MG CAP PO ONE (10:30)
[2020-09-22] MEDS ORDERED: ALBUTEROL 90 MCG/ACT 8GM HFA INHALER INH PRN (10:30)
[2020-09-22] MEDS ORDERED: ACETAMINOPHEN TAB 650MG DOSE (2X325MG) PO ONE (10:30)
[2020-09-22] MEDS ORDERED: BAMLANIVIMAB 700 MG in NS 250 ML IV ONE (10:30)
[2020-09-22] MEDS ORDERED: D31000TA2 PO (10:43)
[2020-09-22] MEDS ORDERED: ANIMCHW9 PO (10:43)
[2020-09-22 10:46] VITALS: BP 190/83
--- NOTE | 2020-09-22 10:57 | IPNPDOC ---
Date Seen The patient was seen on 09/22/20. Progress Note SUBJECTIVE: 80-year-old female sent from [facility] for monoclonal antibody after testing positive for coronavirus 19. She complained of nausea without vomiting and diarrhea. OBJECTIVE PHYSICAL EXAMINATION: VITAL SIGNS: Please see below. GENERAL: Awake, alert, oriented 3, no respiratory distress, saturating 97% on room air with ambulation HEENT: Pupils equally round, reactive to light and accommodation. Moist mucous membranes. No cervical lymphadenopathy, thyromegaly or cervical lymphadenopathy No JVD CARDIOVASCULAR: S1, S2, sinus rhythm RESPIRATORY: Air entry is equal bilaterally. Clear to auscultation. Wheezing or rales ABDOMINAL: Obese, soft, nontender, nondistended, positive bowel sounds EXTREMITIES: No cyanosis, clubbing or pitting edema LABORATORY DATA, IMAGING STUDIES, MICROBIOLOGY: Please see below. ASSESSMENT AND PLAN: 80 -year-old female with past medical history significant for gov-azjavod-kaygxqmiv diabetes type 2, CAD status post CABG, dyslipidemia, chronic hypertensive heart disease, chronic diastolic heart failure, CVA, monoclonal gammopathy of unknown significance, patent foramen ovale, osteoarthritis, reflux, vitamin D deficiency total hysterectomy with bilateral fallopian tube oophorectomy, cholecystectomy, presented to the emergency room for monoclonal antibodies after being found positive for coronary virus. 19. Last Sunday. Patient says that last Sunday she she thought that she had a urinary tract infection and when to Dr. Shabazz's office and saw Nichole Paulson who swabbed her for coronavirus 19 on Sunday with the results coming back positive on Sunday. She was sent to the emergency room for monoclonal antibody. Patient had had some loss of appetite but without loss of smell or taste and also complained of One episode of watery stool without fever, chills, shortness of breath, chest pain, pressure, tightness, vomiting, paroxysmal nocturnal dyspnea, weight loss or abdominal pain. She admits to having some nausea without vomiting. Coronavirus 19. Positive -Monoclonal antibody per protocol. Discharge home after monoclonal antibody infusion if no adverse effect to follow up with primary care physician within 5 days of hospital discharge VS, I&O, 24H, Fishbone Vital Signs/I&O Vital Signs Date Time Temp Pulse Resp B/P (MAP) Pulse Ox O2 Delivery O2 Flow Rate FiO2 09/22/20 09:26 98.3 83 20 155/61 (92) 97 Room Air JAVID VELIZ MD Sep 22, 2020 10:57
== END 2020-09-22 11:10 | disposition home or self-care (01) ==
LOC: EDBD 08:53 → M ED 08:53
DX: U07.1 COVID-19 (principal); Z88.1 Allergy status to other antibiotic agents; Z88.8 Allergy status to other drugs, medicaments and biological substances; I25.10 Atherosclerotic heart disease of native coronary artery without angina pectoris; E11.9 Type 2 diabetes mellitus without complications; I10 Essential (primary) hypertension; K21.9 Gastro-esophageal reflux disease without esophagitis; Z86.73 Personal history of transient ischemic attack (TIA), and cerebral infarction without residual deficits; N18.9 Chronic kidney disease, unspecified; Z95.5 Presence of coronary angioplasty implant and graft; Z79.82 Long term (current) use of aspirin; Z79.84 Long term (current) use of oral hypoglycemic drugs; Z79.899 Other long term (current) drug therapy; Z88.6 Allergy status to analgesic agent
CPT/HCPCS: 71045; 99284; M0239

== ENCOUNTER 2020-09-22 11:25 | Outpatient (CLI) | payer MEDICARE ==
[2020-09-22] VITALS (10 sets, daily range): BP systolic 142–190; BP diastolic 64–81
[~2020-09-22 11:25] MED LIST changes: +ACETAMINOPHEN TAB 650MG DOSE (2X325MG) PO ONE; +ALBUTEROL 90 MCG/ACT 8GM HFA INHALER INH PRN; +ALBUTEROL SULFATE 2.5 MG/0.5 ML INH NEB SOLN INH PRN; +ANIMCHW9 PO; +ASPI81CH33 PO; +D31000TA2 PO; +EPINEPHrine INJ 1 MG/ML 1ML AMP IM PRN; +NS 1,000 ML IV SCH; +diphenhydrAMINE 50MG CAP PO ONE; +diphenhydrAMINE 50MG/ML VIAL (J1200) IV PRN; +methylPREDNISolone 125MG 2ML VIAL IV PRN; +vitamin d3
--- NOTE | 2020-09-22 11:43 | IPNPDOC ---
Date Seen The patient was seen on 09/22/20. Progress Note SUBJECTIVE: 80-year-old female sent from [facility] for monoclonal antibody after testing positive for coronavirus 19. She complained of nausea without vomiting and diarrhea. OBJECTIVE PHYSICAL EXAMINATION: VITAL SIGNS: Please see below. GENERAL: Awake, alert, oriented 3, no respiratory distress, saturating 97% on room air with ambulation HEENT: Pupils equally round, reactive to light and accommodation. Moist mucous membranes. No cervical lymphadenopathy, thyromegaly or cervical lymphadenopathy No JVD CARDIOVASCULAR: S1, S2, sinus rhythm RESPIRATORY: Air entry is equal bilaterally. Clear to auscultation. Wheezing or rales ABDOMINAL: Obese, soft, nontender, nondistended, positive bowel sounds EXTREMITIES: No cyanosis, clubbing or pitting edema LABORATORY DATA, IMAGING STUDIES, MICROBIOLOGY: Please see below. ASSESSMENT AND PLAN: 80 -year-old female with past medical history significant for wgi-jhfsegm-upgxoaepv diabetes type 2, CAD status post CABG, dyslipidemia, chronic hypertensive heart disease, chronic diastolic heart failure, CVA, monoclonal gammopathy of unknown significance, patent foramen ovale, osteoarthritis, reflux, vitamin D deficiency total hysterectomy with bilateral fallopian tube oophorectomy, cholecystectomy, presented to the emergency room for monoclonal antibodies after being found positive for coronary virus. 19. Last Sunday. Patient says that last Sunday she she thought that she had a urinary tract infection and when to Dr. Shabazz's office and saw Nichole Paulson who swabbed her for coronavirus 19 on Sunday with the results coming back positive on Sunday. She was sent to the emergency room for monoclonal antibody. Patient had had some loss of appetite but without loss of smell or taste and also complained of One episode of watery stool without fever, chills, shortness of breath, chest pain, pressure, tightness, vomiting, paroxysmal nocturnal dyspnea, weight loss or abdominal pain. She admits to having some nausea without vomiting. Coronavirus 19. Positive -Monoclonal antibody per protocol. HTN,uncontrolled -one time dose of norvasc and clonidine hold for sbp<120 -recheck bp in 2 hrs and prior to dc home. Discharge home after monoclonal antibody infusion if no adverse effect to follow up with primary care physician within 5 days of hospital discharge VS, I&O, 24H, Fishbone Vital Signs/I&O Vital Signs Date Time Temp Pulse Resp B/P (MAP) Pulse Ox O2 Delivery O2 Flow Rate FiO2 09/22/20 11:36 80 18 177/78 (482) 97 Room Air JAVID VELIZ MD Sep 22, 2020 11:43
[2020-09-22] MEDS ORDERED: amLODIPine 5 MG TAB PO ONE (12:00)
[2020-09-22] MEDS ORDERED: BAMLANIVIMAB 700 MG in NS 250 ML IV ONE (12:00)
[2020-09-22] MEDS ORDERED: cloNIDine 0.1MG TABLET PO ONE (12:00)
== END 2020-09-22 15:15 ==
LOC: M OPCLIICU 11:25 → M ICU 11:25 → M OPCLIICU 15:15
PROVIDERS: ATTEND General Practice
DX: U07.1 COVID-19 (principal); Z88.1 Allergy status to other antibiotic agents; Z88.8 Allergy status to other drugs, medicaments and biological substances

== ENCOUNTER 2020-09-30 13:37 | Inpatient (IN) | payer MEDICARE ==
[~2020-09-30] VITALS: Ht 165.1 cm; Wt 93.1 kg
[~2020-09-30 13:37] MED LIST changes: -ACETAMINOPHEN TAB 650MG DOSE (2X325MG) PO ONE; -ALBUTEROL 90 MCG/ACT 8GM HFA INHALER INH PRN; -ALBUTEROL SULFATE 2.5 MG/0.5 ML INH NEB SOLN INH PRN; -EPINEPHrine INJ 1 MG/ML 1ML AMP IM PRN; -NS 1,000 ML IV SCH; -diphenhydrAMINE 50MG CAP PO ONE; -diphenhydrAMINE 50MG/ML VIAL (J1200) IV PRN; -methylPREDNISolone 125MG 2ML VIAL IV PRN
[2020-09-30 14:50] LABS: INR 0.99; PARTIAL THROMBOPLASTIN TIME 25.6 SECONDS (24.2-38.5); PROTHROMBIN TIME 13.3 SECONDS (12.5-14.3)
--- OUTSIDE RECORDS SUMMARY | 2020-09-30 14:59 | CCD ---
Author Author [facility] Organization [facility] Address Unknown Phone Unavailable Care Team Providers Care Agriculture Laborer Name Role Phone Joni Shabazz Unavailable PROBLEMS Type Condition ICD9-CM Code [id number] Code Onset Dates Condition S tatus SNOMED Code Notes Problem Gastro-esophageal reflux disease without esophagitis K21.9 Active 631932387 Problem Vitamin D deficiency, unspecified E55.9 Active 19039874 Problem Mixed hyperlipidemia E78.2 Active 799479085 Problem Type 2 diabetes mellitus without complications E11 .9 Active 234298839 Problem Deficiency of other specified B group vitamins E53 .8 Active 17724063 Problem Chronic diastolic (congestive) heart failure I50.3 2 Active 170005514 Problem Cerebral infarction due to u nspecified occlusion or stenosis of unspecified cerebral artery I63.50 Active 45173706 5903980 Problem Actinic keratoses L57.0 Active 330547288 Problem NANY (obstructive sleep apnea) G47.33 Active 78 590822 Problem Primary generalized (osteo)arthritis M15.0 Act bruce 767070821 Problem Monoclonal gammopathy D47.2 Active 103170927 Problem Adjustment disorder with depressed mood F43.21 Active 79406051 Problem Hypertensive heart disease with heart failure I11.0 Active 20818231 Problem Chronic kidney disease, stage III (moderate) N18.3 Active 854284416 Problem Type 2 diabetes mellitus with diabetic chronic kidney disease E11.22 Active 657635355118 Problem Medicare annual wellness visit, subsequent Z00.00 Active 309077051 Problem Venous insufficiency (chronic) (peripheral) I87.2 Active 77533978545759815 Problem Chronic renal insufficiency, stage III (moderate) N18.3 Active 023742172 Problem PFO (patent foramen ovale) Q21.1 Active 33774 7008 Problem 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 Act bruce 230736070 Problem 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 Activ e 885373044 Problem 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 Active 860945915 Problem Urinary incontinence in female R32 Active 1 01102824 Problem Nocturnal leg cramps G47.62 Active 741353794 Problem COVID-19 U07.1 Active 929439918 Problem Atherosclerotic heart diseas e of [place] coronary artery without angina pectoris I25.10 Active 494289934857225 Problem Screening mammogram, encounter for Z12.31 Activ e 504410990 Problem Chronic vulvitis N76.3 Active 2192486 Problem History of nonmelanoma skin cancer Z85.828 Activ e 502667603 Problem Unstable gait R26.81 Active 124729034 Problem Pressure injury of buttock, stage 2, unspecified lateralit y L89.302 Active 80699723260274019 ALLERGIES Allergen (clinical drug ingredient) Drug/Non Drug Allergy do cumented on EMR Reaction Allergy Type Onset Date Status cephalexin Keflex(NDC Code:[address]-62) H/A Drug Allergy Active Bydureon GI, RUEDA (see 02/18) Non Drug Allergy A ctive Motrin GI Drug Allergy Active lisinopril Lisinopril(NDC Code:[address]-57) cough Drug Allergy Active statins myalgias Non Drug Allergy Active flozins recurrent UTIs Non Drug Allergy Acti ve metformin (at 1000 mg dose) GI Non Drug Allergy Active diclofenac Voltaren(NDC Code:[address]-88) upset stomach Drug Allerg y Active ENCOUNTERS from 1940 to 2020-09-28 Encounter Location Date Provider Diagnosis [facility] [address] [place] [address] Sep, Fletcher Shabazz IMMUNIZATIONS Vaccine Route Administration Date Status Influenza [...] Education Language: Question Answer Notes Languages spoken: Albanian Latter Day: Question Answer Notes Latter Day 13 Jewish Sexual Hx: Question Answer Notes Had sex [...] ) Jun, Active PROCEDURES No Information RESULTS No Results REASON FOR VISIT Hospital follow up COVID + MEDICAL (GENERAL) HISTORY Type Description Date Medical [...] Information ASSESSMENTS No Information PLAN OF TREATMENT Next Appt Details Provider Name:Joni Shabazz, 2020-09 02:30:00 PM, [address] [place] [address], [id number], Provider Name:Joni Shabazz, 2020-11 01:15:00 PM, [address] [place] [address], [id number], Insurance Providers Payer Name Payer Address Payer Phone Insured Name Patient Relati onship to Insured Coverage Start Date Coverage End Date [facility] [address] [address] [facility] [address] [phone] MISA TINSLEY self
--- OUTSIDE RECORDS SUMMARY | 2020-09-30 14:59 | CCD ---
Author Author [facility] Organization [facility] Address Unknown Phone Unavailable Care Team Providers Care Pharmacy Messenger Name Role Phone Joni Shabazz Unavailable PROBLEMS Type Condition ICD9-CM Code [id number] Code Onset Dates Condition S tatus SNOMED Code Notes Problem Gastro-esophageal reflux disease without esophagitis K21.9 Active 804631866 Problem Vitamin D deficiency, unspecified E55.9 Active 81688744 Problem Mixed hyperlipidemia E78.2 Active 406493920 Problem Type 2 diabetes mellitus without complications E11 .9 Active 145668933 Problem Deficiency of other specified B group vitamins E53 .8 Active 06402918 Problem Chronic diastolic (congestive) heart failure I50.3 2 Active 943688647 Problem Cerebral infarction due to u nspecified occlusion or stenosis of unspecified cerebral artery I63.50 Active 64321065 1891200 Problem Actinic keratoses L57.0 Active 733054639 Problem NANY (obstructive sleep apnea) G47.33 Active 78 168538 Problem Primary generalized (osteo)arthritis M15.0 Act bruce 185025910 Problem Monoclonal gammopathy D47.2 Active 277749872 Problem Adjustment disorder with depressed mood F43.21 Active 76873379 Problem Hypertensive heart disease with heart failure I11.0 Active 97940385 Problem Chronic kidney disease, stage III (moderate) N18.3 Active 068935059 Problem Type 2 diabetes mellitus with diabetic chronic kidney disease E11.22 Active 631945956120 Problem Medicare annual wellness visit, subsequent Z00.00 Active 812530889 Problem Venous insufficiency (chronic) (peripheral) I87.2 Active 18286416480075843 Problem Chronic renal insufficiency, stage III (moderate) N18.3 Active 014354182 Problem PFO (patent foramen ovale) Q21.1 Active 85569 7008 Problem 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 Act bruce 032602303 Problem 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 Activ e 257442569 Problem 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 Active 400369732 Problem Urinary incontinence in female R32 Active 1 36969249 Problem Nocturnal leg cramps G47.62 Active 284467407 Problem COVID-19 U07.1 Active 378553946 Problem Atherosclerotic heart diseas e of [place] coronary artery without angina pectoris I25.10 Active 870354879421398 Problem Screening mammogram, encounter for Z12.31 Activ e 726870107 Problem Chronic vulvitis N76.3 Active 6773428 Problem History of nonmelanoma skin cancer Z85.828 Activ e 142017035 Problem Unstable gait R26.81 Active 295672733 Problem Pressure injury of buttock, stage 2, unspecified lateralit y L89.302 Active 48075883068446400 ALLERGIES Allergen (clinical drug ingredient) Drug/Non Drug Allergy do cumented on EMR Reaction Allergy Type Onset Date Status cephalexin Keflex(NDC Code:[address]-70) H/A Drug Allergy Active Bydureon GI, RUEDA (see 02/18) Non Drug Allergy A ctive Motrin GI Drug Allergy Active lisinopril Lisinopril(NDC Code:[address]-83) cough Drug Allergy Active statins myalgias Non Drug Allergy Active flozins recurrent UTIs Non Drug Allergy Acti ve metformin (at 1000 mg dose) GI Non Drug Allergy Active diclofenac Voltaren(NDC Code:[address]-36) upset stomach Drug Allerg y Active ENCOUNTERS from 1941 to 2020-09-22 Encounter Location Date Provider Diagnosis [facility] [address] [facility] [place] [address] Sep, Fletcher Shabazz IMMUNIZATIONS Vaccine Route Administration Date Status Zoster [...] IM Intramuscular Jun 01, 2015 A dministered Pneumococcal 0.5mL (Prevnar 13) IM Intramuscular Sep 25, 2014 Administered Influenza (6mo & up) Fluzone IM Intramuscular Jun 04, 2014 Ad ministered Zoster 0.65mL (Zostavax) Unknown January 28, 2013 Adminis tered Pneumococcal Adult 0.5mL (Pneumovax 23) Unknown Jul 11, 2006 Administered Influenza (6mo & up) Fluzone IM [...] Education Language: Question Answer Notes Languages spoken: [place] Islander Adventism: Question Answer Notes Adventism 13 Oriental Orthodox Sexual Hx: Question Answer Notes Had sex [...] Information RESULTS No Results REASON FOR VISIT COVID MEDICAL (GENERAL) HISTORY Type Description Date Medical [...] TREATMENT Next Appt Details Provider Name:Joni Shabazz, 2020-11 01:15:00 PM, [address], [place], [address], Insurance Providers Payer Name Payer Address Payer Phone Insured Name Patient Relati onship to Insured Coverage Start Date Coverage End Date [facility] [facility] [address] [address] [facility] [address] MISA TINSLEY self
--- OUTSIDE RECORDS SUMMARY | 2020-09-30 15:00 | CCD ---
Author Author [facility] Organization [facility] Address Unknown Phone Unavailable Care Team Providers Care Detective Precinct Name Role Phone Nell Nicholas MD Unavailable [...] [facility] Unavailable Unavailable Campanaro, Mare Pryia PA Unavailable Unavailable Campanaro, Mare Priya PA [...] Mare Priya PA Unavailable Unavailable Campanaro, Mare Pirya PA Unavailable Unavailable Platinum, N Mihir DREDGE BOAT ENGINEER Unavailable Unavailable James, N Mihir DREDGE BOAT ENGINEER Unavailable Unavailable James, N Mihir DREDGE BOAT ENGINEER Unavailable Unavailable James, N Mihir DREDGE BOAT ENGINEER Unavailable Unavailable Platinum, N Mihir DREDGE BOAT ENGINEER Unavailable Unavailable Platinum, N Mihir DREDGE BOAT ENGINEER Unavailable Unavailable Platinum, N Mihir DREDGE BOAT ENGINEER Unavailable Unavailable James, N Mihir DREDGE BOAT ENGINEER Unavailable Unavailable James, N Miihr DREDGE BOAT ENGINEER Unavailable Unavailable Platinum, N Mihir DREDGE BOAT ENGINEER Unavailable Unavailable James, N Mihir DREDGE BOAT ENGINEER Unavailable Unavailable Platinum, N Mihir DREDGE BOAT ENGINEER Unavailable Unavailable Platinum, N Mihir DREDGE BOAT ENGINEER Unavailable Unavailable James, N Mihir DREDGE BOAT ENGINEER Unavailable Unavailable Platinum, N Mihir DREDGE BOAT ENGINEER Unavailable Unavailable Platinum, N Mihir DREDGE BOAT ENGINEER Unavailable Unavailable James, N Mihir DREDGE BOAT ENGINEER Unavailable Unavailable Platinum, N Mihir DREDGE BOAT ENGINEER Unavailable Unavailable Platinum, N Mihir DREDGE BOAT ENGINEER Unavailable Unavailable James, N Mihir DREDGE BOAT ENGINEER Unavailable Unavailable James, N Mihir DREDGE BOAT ENGINEER Unavailable Unavailable James, N Mihir DREDGE BOAT ENGINEER Unavailable Unavailable Platinum, N Mihir DREDGE BOAT ENGINEER Unavailable Unavailable Platinum, N Mihir DREDGE BOAT ENGINEER Unavailable Unavailable James, N Mihir DREDGE BOAT ENGINEER Unavailable Unavailable Platinum, N Mihir DREDGE BOAT ENGINEER Unavailable Unavailable James, N Mihir DREDGE BOAT ENGINEER Unavailable Unavailable Platinum, N Mihir DREDGE BOAT ENGINEER Unavailable Unavailable James, N Mihir DREDGE BOAT ENGINEER Unavailable Unavailable Platinum, N Mihir DREDGE BOAT ENGINEER Unavailable Unavailable Platinum, N Mihir DREDGE BOAT ENGINEER Unavailable Unavailable Re-disclosure Warning The records that [...] is protected by Article 27-F of the [facility] Public Health law. If you continue you may have access to information: Regarding HIV / AIDS; Provided by facilities licensed or operated by the [facility] Office of Mental Health; or Provided by the [facility] Office for People With Developmental Disabilities. If such information is present, then the following [facility] mandated warning applies: This information has been [...] law may result in a fine or senior care sentence or both. A general authorization for the release of medical or other information is NOT sufficient authorization for further disc losure. Allergies and Adverse Reactions Type Description Substance Reaction Status Data Source(s ) lisinopril Lisinopril Lisinopril cough Active eCW1 ([facility]) Drug allergy Keflex Cephalexin H/A Active eCW1 ([facility]) Bydureon Bydureon 0.65 ML exenatide 3.08 MG/ML Pen Injector [Bydureon] GI, RUEDA (see 02/18) Active eCW1 ([facility]) Motrin Motrin Motrin GI Active eCW1 ([facility]) flozins flozins flozins recurrent UTIs Active eCW1 ([facility]) statins statins statins myalgias Active eCW1 ([facility]) metformin (at 1000 mg dose) metformin (at 1000 mg dose) metf ormin (at 1000 mg dose) GI Active eCW1 ([facility]) Diclofenac Voltaren Diclofenac upset stomach Active eCW1 ([facility]) Bydureon Bydureon 0.65 ML exenatide 3.08 MG/ML Pen Injector [Bydureon] GI, RUEDA (see 02/18) Active eCW1 ([facility]) Motrin Motrin Motrin GI Active eCW1 ([facility]) flozins flozins flozins recurrent UTIs Active eCW1 ([facility]) statins statins statins myalgias Active eCW1 ([facility]) metformin (at 1000 mg dose) metformin (at 1000 mg dose) metf ormin (at 1000 mg dose) GI Active eCW1 ([facility]) Drug Allergy Drug Allergy NKDA MEDENT ([facility]) Family History Family Member Name Family Member Gender Family Member Status Date o f Status Description Data Source(s) Unknown Unknown Problem MEDENT ([facility]) Unknown Male Problem MEDENT ([facility]) Unknown Male Problem MEDENT ([facility]) Unknown Female Encounters Encounter Providers Location Date Indications Data Source(s ) Unknown [address] [facility] [place] [address] 09/28/2020 12:00:00 AM EST eCW1 ([facility]) Unknown [address] [facility] [place] [address] 09/21/2020 12:00:00 AM EST eCW1 ([facility]) Office Visit, Est Pt., Level 4 PC [address] [place] [address] 09/14/2020 12:00:00 AM EST eCW1 ([facility]) Unknown [address] [facility] [place] [address] 09/13/2020 12:00:00 AM EST eCW1 ([facility]) Outpatient Attender: REJI LORENZ DPM PC 07/27/2020 02:17:00 PM EST - 07/27/2020 02:17:00 PM EST [facility] [address] [facility] [place] [address] 07/02/2020 12:00:00 AM EDT eCW1 ([facility]) Outpatient Attender: Mihir FITZPATRICK-SJPJeffTEMO 020 12:00:00 AM EDT - 06/22/2020 03:34:49 PM EDT [facility] Unknown [address] [facility] [place] [address] 06/17/2020 12:00:00 AM EDT eCW1 ([facility]) Unknown [address] [facility] [address] 06/16/2020 12:00:00 AM EDT eCW1 ([facility]) Outpatient Attender: Priya vidal 06/07/2020 04:45:00 PM EDT MEDENT ([facility]erm[facility] [address] [place] [address] 05/26/2020 12:00:00 AM EDT eCW1 ([facility]) Outpatient Attender: REJI LORENZ DPM PC 05/18/2020 02:15:00 PM EDT - 05/18/2020 02:15:00 PM EDT [facility] Outpatient Attender: Mihir FITZPATRICK-SJPJeffTEMO 020 12:00:00 AM EDT - 03/16/2020 02:23:18 PM EDT [facility] Office Visit, Est Pt., Level 2 FC [address] [place] [address] 02/26/2020 12:00:00 AM EDT eCW1 ([facility]) Outpatient Attender: REJI LORENZ DPM PC 02/25/2020 01:15:00 PM EDT - 02/25/2020 01:15:00 PM EDT [facility] Outpatient Attender: Gal Nicholas MD Main Office 02/19/2020 11:45:00 AM EDT MEDENT ([facility]) Unknown [address] [facility] [address] 02/16/2020 12:00:00 AM EDT eCW1 ([facility]) Unknown [address] [place] [address] 02/04/2020 12:00:00 AM EDT eCW1 ([facility]) Office Visit, Est Pt., Level 4 PC [address] [place] [address] 02/04/2020 12:00:00 AM EDT eCW1 ([facility]) [address] [address] 01/01/2020 12:00:00 AM EDT eCW1 ([facility]) Outpatient Attender: REJI LORENZ DPM 12/16/2019 01:47:00 PM EDT - 12/16/2019 01:47:00 PM EDT [facility] Outpatient Attender: Mihir LIGHT.TEMO-SJRomelTEMO 020 12:00:00 AM EDT - 12/09/2019 01:38:42 PM EDT [facility] Unknown [address] [place] [address] 12/09/2019 12:00:00 AM EDT eCW1 ([facility]) [facility] [address] [facility] [place] [address] 11/25/2019 12:00:00 AM EDT eCW1 ([facility]) [facility] [address] [place] [address] [place] [address] 11/18/2019 12:00:00 AM EDT eCW1 ([facility]) [facility] [address] [facility] [place] [address] 11/13/2019 12:00:00 AM EDT eCW1 ([facility]) Outpatient Referrer: ELYSIA HERNANDEZ 10/28/2019 02:18:00 P M EST [facility] [address] [place] [address], [place] [address] 10/24/2019 12:00:00 AM EST eCW1 ([facility]) [address] [address] 10/07/2019 12:00:00 AM EST eCW1 ([facility]) [address] [address] 10/02/2019 12:00:00 AM EST eCW1 ([facility]) [address] [address] 09/30/2019 12:00:00 AM EST eCW1 ([facility]) [address] [address] 09/29/2019 12:00:00 AM EST eCW1 ([facility]) [address] [address] 09/25/2019 12:00:00 AM EST eCW1 ([facility]) [address] [address] 09/16/2019 12:00:00 AM EST eCW1 ([facility]) [address] [address] 09/10/2019 12:00:00 AM EST eCW1 ([facility]) [facility] Dermatology [address] [place] [address] 09/01/2019 12:00:00 AM EST eCW1 ([facility]) Immunizations Vaccine Date Status Description Data Source(s) influenza, recombinant, quadrIvalent,injectable, prese rvative free 07/02/2020 02:10:00 PM EDT completed eCW1 ([facility]) influenza, recombinant, quadrIvalent,injectable, prese rvative free 07/02/2020 02:10:00 PM EDT completed eCW1 ([facility]) influenza, recombinant, quadrIvalent,injectable, prese rvative free 07/02/2020 02:10:00 PM EDT completed eCW1 ([facility]) influenza, recombinant, quadrIvalent,injectable, prese rvative free 07/02/2020 02:10:00 PM EDT completed eCW1 ([facility]) influenza, recombinant, quadrIvalent,injectable, prese rvative free 07/02/2020 02:10:00 PM EDT completed eCW1 ([facility]) Medications Medication Brand Name Start Date Product Form Dose Route Admi nistrative Instructions Pharmacy Instructions Status Indications Reaction Description Data Source(s) NITROFURANTOIN, MACROCRYSTALS 25 MG / Ni trofurantoin, Monohydrate 75 MG Oral Capsule Nitrofurantoin Monohyd Macro 100 MG Nitrofurantoin Monohyd Macro 100 MG 07/02/2020 12:00:00 AM EDT active Nitrofurantoin Monohyd Macro 100 MG eCW1 ([facility]) NITROFURANTOIN, MACROCRYSTALS 25 MG / Ni trofurantoin, Monohydrate 75 MG Oral Capsule Nitrofurantoin Monohyd Macro 100 MG Nitrofurantoin Monohyd Macro 100 MG 07/02/2020 12:00:00 AM EDT active Nitrofurantoin Monohyd Macro 100 MG eCW1 ([facility]) NITROFURANTOIN, MACROCRYSTALS 25 MG / Ni trofurantoin, Monohydrate 75 MG Oral Capsule Nitrofurantoin Monohyd Macro 100 MG Nitrofurantoin Monohyd Macro 100 MG 07/02/2020 12:00:00 AM EDT active Nitrofurantoin Monohyd Macro 100 MG eCW1 ([facility]) NITROFURANTOIN, MACROCRYSTALS 25 MG / Ni trofurantoin, Monohydrate 75 MG Oral Capsule Nitrofurantoin Monohyd Macro 100 MG Nitrofurantoin Monohyd Macro 100 MG 07/02/2020 12:00:00 AM EDT active Nitrofurantoin Monohyd Macro 100 MG eCW1 ([facility]) NITROFURANTOIN, MACROCRYSTALS 25 MG / Ni trofurantoin, Monohydrate 75 MG Oral Capsule Nitrofurantoin Monohyd Macro 100 MG Nitrofurantoin Monohyd Macro 100 MG 07/02/2020 12:00:00 AM EDT active Nitrofurantoin Monohyd Macro 100 MG eCW1 ([facility]) Hydrochlorothiazide 25 MG / Losartan Pot assium 100 MG Oral Tablet Losartan Potassium-HCTZ 100-25 MG Losartan Potassium-HCTZ 100-25 MG 06/17/2020 12:00:00 AM EDT 1.0 {tablet} active Losartan Po tassium-HCTZ 100-25 MG eCW1 ([facility]) Hydrochlorothiazide 25 MG / Losartan Pot assium 100 MG Oral Tablet Losartan Potassium-HCTZ 100-25 MG Losartan Potassium-HCTZ 100-25 MG 06/17/2020 12:00:00 AM EDT 1.0 {tablet} active Losartan Po tassium-HCTZ 100-25 MG eCW1 ([facility]) Hydrochlorothiazide 25 MG / Losartan Pot assium 100 MG Oral Tablet Losartan Potassium-HCTZ 100-25 MG Losartan Potassium-HCTZ 100-25 MG 06/17/2020 12:00:00 AM EDT 1.0 {tablet} active Losartan Po tassium-HCTZ 100-25 MG eCW1 ([facility]) Hydrochlorothiazide 25 MG / Losartan Pot assium 100 MG Oral Tablet Losartan Potassium-HCTZ 100-25 MG Losartan Potassium-HCTZ 100-25 MG 06/17/2020 12:00:00 AM EDT 1.0 {tablet} active Losartan Po tassium-HCTZ 100-25 MG eCW1 ([facility]) Hydrochlorothiazide 25 MG / Losartan Pot assium 100 MG Oral Tablet Losartan Potassium-HCTZ 100-25 MG Losartan Potassium-HCTZ 100-25 MG 06/17/2020 12:00:00 AM EDT 1.0 {tablet} active Losartan Po tassium-HCTZ 100-25 MG eCW1 ([facility]) Hydrochlorothiazide 25 MG / Losartan Pot assium 100 MG Oral Tablet Losartan Potassium-HCTZ 100-25 MG Losartan Potassium-HCTZ 100-25 MG 06/17/2020 12:00:00 AM EDT 1.0 {tablet} active Losartan Po tassium-HCTZ 100-25 MG eCW1 ([facility]) Hydrochlorothiazide 25 MG / Losartan Pot assium 100 MG Oral Tablet Losartan Potassium-HCTZ 100-25 MG Losartan Potassium-HCTZ 100-25 MG 06/17/2020 12:00:00 AM EDT 1.0 {tablet} active Losartan Po tassium-HCTZ 100-25 MG eCW1 ([facility]) Metronidazole 500 MG Oral Tablet Metronidazole 06/07/2020 12:00:00 AM EDT ORAL active MEDENT ([facility], [facility]) Fluconazole 150 MG Oral Tablet Fluconazole 06/07/2020 12:00:00 AM EDT ORAL active MEDENT ([facility], [facility]) ferrous sulfate 325 MG Oral Tablet Ferrous Sulfate 325 (65 Fe) MG Ferrous Sulfate 325 (65 Fe) MG 02/15/2020 12:00:00 AM EDT 1.0 {tablet} active Ferrous Sulfate 325 (65 Fe) MG eCW1 ([facility]) Pain Relieving Rub 10-15 % UNK 02/15/2020 12:00:00 AM EDT active Pain Relieving Rub 10-15 % eCW1 ([facility]) Pain Relieving Rub 10-15 % UNK 02/15/2020 12:00:00 AM EDT active Pain Relieving Rub 10-15 % eCW1 ([facility]) Pain Relieving Rub 10-15 % UNK 02/15/2020 12:00:00 AM EDT active Pain Relieving Rub 10-15 % eCW1 ([facility]) ferrous sulfate 325 MG Oral Tablet Ferrous Sulfate 325 (65 Fe) MG Ferrous Sulfate 325 (65 Fe) MG 02/15/2020 12:00:00 AM EDT 1.0 {tablet} active Ferrous Sulfate 325 (65 Fe) MG eCW1 ([facility]) Pain Relieving Rub 10-15 % UNK 02/15/2020 12:00:00 AM EDT active Pain Relieving Rub 10-15 % eCW1 ([facility]) Pain Relieving Rub 10-15 % UNK 02/15/2020 12:00:00 AM EDT active Pain Relieving Rub 10-15 % eCW1 ([facility]) ferrous sulfate 325 MG Oral Tablet Ferrous Sulfate 325 (65 Fe) MG Ferrous Sulfate 325 (65 Fe) MG 02/15/2020 12:00:00 AM EDT 1.0 {tablet} active Ferrous Sulfate 325 (65 Fe) MG eCW1 ([facility]) Pain Relieving Rub 10-15 % UNK 02/15/2020 12:00:00 AM EDT active Pain Relieving Rub 10-15 % eCW1 ([facility]) ferrous sulfate 325 MG Oral Tablet Ferrous Sulfate 325 (65 Fe) MG Ferrous Sulfate 325 (65 Fe) MG 02/15/2020 12:00:00 AM EDT 1.0 {tablet} active Ferrous Sulfate 325 (65 Fe) MG eCW1 ([facility]) Pain Relieving Rub 10-15 % UNK 02/15/2020 12:00:00 AM EDT active Pain Relieving Rub 10-15 % eCW1 ([facility]) ferrous sulfate 325 MG Oral Tablet Ferrous Sulfate 325 (65 Fe) MG Ferrous Sulfate 325 (65 Fe) MG 02/15/2020 12:00:00 AM EDT 1.0 {tablet} active Ferrous Sulfate 325 (65 Fe) MG eCW1 ([facility]) ferrous sulfate 325 MG Oral Tablet Ferrous Sulfate 325 (65 Fe) MG Ferrous Sulfate 325 (65 Fe) MG 02/15/2020 12:00:00 AM EDT 1.0 {tablet} active Ferrous Sulfate 325 (65 Fe) MG eCW1 ([facility]) ferrous sulfate 325 MG Oral Tablet Ferrous Sulfate 325 (65 Fe) MG Ferrous Sulfate 325 (65 Fe) MG 02/15/2020 12:00:00 AM EDT 1.0 {tablet} active Ferrous Sulfate 325 (65 Fe) MG eCW1 ([facility]) ferrous sulfate 325 MG Oral Tablet Ferrous Sulfate 325 (65 Fe) MG Ferrous Sulfate 325 (65 Fe) MG 02/15/2020 12:00:00 AM EDT 1.0 {tablet} active Ferrous Sulfate 325 (65 Fe) MG eCW1 ([facility]) Pain Relieving Rub 10-15 % UNK 02/15/2020 12:00:00 AM EDT active Pain Relieving Rub 10-15 % eCW1 ([facility]) ferrous sulfate 325 MG Oral Tablet Ferrous Sulfate 325 (65 Fe) MG Ferrous Sulfate 325 (65 Fe) MG 02/15/2020 12:00:00 AM EDT 1.0 {tablet} active Ferrous Sulfate 325 (65 Fe) MG eCW1 ([facility]) Pain Relieving Rub 10-15 % UNK 02/15/2020 12:00:00 AM EDT active Pain Relieving Rub 10-15 % eCW1 ([facility]) NITROFURANTOIN, MACROCRYSTALS 25 MG / Ni trofurantoin, Monohydrate 75 MG Oral Capsule Nitrofurantoin Monohyd Macro 100 MG Nitrofurantoin Monohyd Macro 100 MG 11/25/2019 12:00:00 AM EDT suspended Nitrofurantoin Monohyd Macro 100 MG eCW1 ([facility]) NITROFURANTOIN, MACROCRYSTALS 25 MG / Ni trofurantoin, Monohydrate 75 MG Oral Capsule Nitrofurantoin Monohyd Macro 100 MG Nitrofurantoin Monohyd Macro 100 MG 11/25/2019 12:00:00 AM EDT suspended Nitrofurantoin Monohyd Macro 100 MG eCW1 ([facility]) Metformin hydrochloride 1000 MG Oral Tablet Metformin HCl 1000 MG Metformin HCl 1000 MG 11/18/2019 12:00:00 AM EDT 1.0 {tablet_with_a_meal} active Metformin HCl 1000 MG eCW1 ([facility]) Metformin hydrochloride 1000 MG Oral Tablet Metformin HCl 1000 MG Metformin HCl 1000 MG 11/18/2019 12:00:00 AM EDT active 1 tablet with a meal eCW1 ([facility]) Metformin hydrochloride 1000 MG Oral Tablet Metformin HCl 1000 MG Metformin HCl 1000 MG 11/18/2019 12:00:00 AM EDT 1.0 {tablet_with_a_meal} active Metformin HCl 1000 MG eCW1 ([facility]) Metformin hydrochloride 1000 MG Oral Tablet Metformin HCl 1000 MG Metformin HCl 1000 MG 11/18/2019 12:00:00 AM EDT 1.0 {tablet_with_a_meal} active Metformin HCl 1000 MG eCW1 ([facility]) Metformin hydrochloride 1000 MG Oral Tablet Metformin HCl 1000 MG Metformin HCl 1000 MG 11/18/2019 12:00:00 AM EDT 1.0 {tablet_with_a_meal} active Metformin HCl 1000 MG eCW1 ([facility]) Metformin hydrochloride 1000 MG Oral Tablet Metformin HCl 1000 MG Metformin HCl 1000 MG 11/18/2019 12:00:00 AM EDT 1.0 {tablet_with_a_meal} active Metformin HCl 1000 MG eCW1 ([facility]) Metformin hydrochloride 1000 MG Oral Tablet Metformin HCl 1000 MG Metformin HCl 1000 MG 11/18/2019 12:00:00 AM EDT 1.0 {tablet_with_a_meal} active Metformin HCl 1000 MG eCW1 ([facility]) Metformin hydrochloride 1000 MG Oral Tablet Metformin HCl 1000 MG Metformin HCl 1000 MG 11/18/2019 12:00:00 AM EDT 1.0 {tablet_with_a_meal} active Metformin HCl 1000 MG eCW1 ([facility]) Metformin hydrochloride 1000 MG Oral Tablet Metformin HCl 1000 MG Metformin HCl 1000 MG 11/18/2019 12:00:00 AM EDT 1.0 {tablet_with_a_meal} active Metformin HCl 1000 MG eCW1 ([facility]) Metformin hydrochloride 1000 MG Oral Tablet Metformin HCl 1000 MG Metformin HCl 1000 MG 11/18/2019 12:00:00 AM EDT 1.0 {tablet_with_a_meal} active Metformin HCl 1000 MG eCW1 ([facility]) Metformin hydrochloride 1000 MG Oral Tablet Metformin HCl 1000 MG Metformin HCl 1000 MG 11/18/2019 12:00:00 AM EDT 1.0 {tablet_with_a_meal} active Metformin HCl 1000 MG eCW1 ([facility]) Metformin hydrochloride 1000 MG Oral Tablet Metformin HCl 1000 MG Metformin HCl 1000 MG 11/18/2019 12:00:00 AM EDT 1.0 {tablet_with_a_meal} active Metformin HCl 1000 MG eCW1 ([facility]) David Hernandez - 09/11/2019 12:00:00 AM EST activ krupa Hernandez - eCW1 ([facility]) David Hernandez - 09/11/2019 12:00:00 AM EST activ e Walker - eCW1 ([facility]) Walker - Walker - 09/11/2019 12:00:00 AM EST activ e Walker - eCW1 ([facility]) Walker - Walker - 09/11/2019 12:00:00 AM EST activ e Walker - eCW1 ([facility]) Walker - Walker - 09/11/2019 12:00:00 AM EST suspe nded Walker - eCW1 ([facility]) Walker - Walker - 09/11/2019 12:00:00 AM EST activ e Walker - eCW1 ([facility]) Walker - Walker - 09/11/2019 12:00:00 AM EST activ e Walker - eCW1 ([facility]) Walker - Walker - 09/11/2019 12:00:00 AM EST activ e as directed eCW1 ([facility]) Walker - Walker - 09/11/2019 12:00:00 AM EST activ e as directed eCW1 ([facility]) Walker - Walker - 09/11/2019 12:00:00 AM EST activ e as directed eCW1 ([facility]) Walker - Walker - 09/11/2019 12:00:00 AM EST activ e Walker - eCW1 ([facility]) Walker - Walker - 09/11/2019 12:00:00 AM EST activ e Walker - eCW1 ([facility]) Walker - Walker - 09/11/2019 12:00:00 AM EST activ e Walker - eCW1 ([facility]) Walker - Walker - 09/11/2019 12:00:00 AM EST activ e Walker - eCW1 ([facility]) Walker - Walker - 09/11/2019 12:00:00 AM EST suspe nded Walker - eCW1 ([facility]) Walker - Walker - 09/11/2019 12:00:00 AM EST activ e Walker - eCW1 ([facility]) Walker - Walker - 09/11/2019 12:00:00 AM EST suspe nded Walker - eCW1 ([facility]) Walker - Walker - 09/11/2019 12:00:00 AM EST activ e Walker - eCW1 ([facility]) Walker - Walker - 09/11/2019 12:00:00 AM EST activ e Walker - eCW1 ([facility]) Walker - Walker - 09/11/2019 12:00:00 AM EST activ e Walker - eCW1 ([facility]) Walker - Walker - 09/11/2019 12:00:00 AM EST activ e as directed eCW1 ([facility]) Walker - Walker - 09/11/2019 12:00:00 AM EST activ e Walker - eCW1 ([facility]) Walker - Walker - 09/11/2019 12:00:00 AM EST activ e as directed eCW1 ([facility]) Walker - Walker - 09/11/2019 12:00:00 AM EST suspe nded Walker - eCW1 ([facility]) Walker - Walker - 09/11/2019 12:00:00 AM EST activ e Walker - eCW1 ([facility]) Walker - Walker - 09/11/2019 12:00:00 AM EST activ e Walker - eCW1 ([facility]) Walker - Walker - 09/11/2019 12:00:00 AM EST activ e Walker - eCW1 ([facility]) Walker - Walker - 09/11/2019 12:00:00 AM EST activ e as directed eCW1 ([facility]) Walker - Walker - 09/11/2019 12:00:00 AM EST activ e as directed eCW1 ([facility]) Insurance Providers Payer name Policy type / Coverage type Policy ID Covered democrat ID Covered democrat's relationship to willson Policy Willson Plan Information [employer] [id number] SP [id number] [facility] [place] [id number] [employer] MEDICARE [id number] Jennifer [id number] MEDICARE [id number] SP [id number] [employer] O [id number] S [id number] ANSI-Commercial [id number] ANSI-Health Maintenance Organization ( O) [id number] ANSI-Health Maintenance Organization ( O) [id number] ANSI-Commercial [id number] MEDICARE [id number] SP [id number] [facility] OPTIONS [id number] SP [id number] ANSI-Commercial [id number] ANSI-Medicare Part B [id number] ANSI-Medicare Part B [id number] ANSI-Commercial [id number] ANSI-Medicare Part B [id number] ANSI-Commercial [id number] ANSI-Medicare Part B [id number] ANSI-Commercial [id number] ANSI-Commercial [id number] ANSI-Medicare Part B [id number] ANSI-Medicare Part B [id number] ANSI-Commercial [id number] ANSI-Medicare Part B [id number] ANSI-Commercial [id number] [facility] HEALTH CARE OPTIONS [id number] SP [id number] ANSI-Commercial [id number] ANSI-Medicare Part B [id number] ANSI-Medicare Part B [id number] ANSI-Commercial [id number] [facility] Health Care Options [facility] Part B [id number] Self [id number] [place] Primary [id number] Self [id number] ANSI-Medicare Part B [id number] ANSI-Commercial [id number] ANSI-Medicare Part B [id number] ANSI-Commercial [id number] ANSI-Medicare Part B [id number] ANSI-Commercial [id number] ANSI-Medicare Part B [id number] ANSI-Commercial [id number] [employer] HE[employer] CARE OPTIONS [id number] SP [id number] ANSI-Medicare Part B [id number] ANSI-Commercial [id number] ANSI-Commercial [id number] ANSI-Medicare Part B [id number] MEDICARE [id number] SP [id number] A [place] Medigap Part B [id number] Self [id number] Ghi/Emblem HLTH (pr) Medigap Part B [id number] Self [id number] [place] (pr) Medigap Part B [id number] Self [id number] Todays Options/Amer Progress Medigap Part B [id number] Self [id number] Todays Options Medigap Part B [id number] Self [id number] [place] Medigap Part B [id number] Self [id number] [facility] Options Medigap Part B [id number] Self [id number] [place] Primary [id number] Self [id number] ANSI-Medicare Part B [id number] ANSI-Commercial [id number] [facility] Health Care Options Medigap Part B [id number] Self [id number] Medicare Natl Gov't Servi Medicare Primary [id number] Self [id number] AARP O [id number] S [id number] MEDICARE C [id number] S [id number] A [place] MEDICARE PART B C [id number] S [id number] AARP O [id number] S [id number] [place] Medigap Part B Self Ghi/Emblem HLTH (pr) Medigap Part B Self [place] (pr) Medigap Part B Self Todays Options/Amer Progress Medigap Part B Self Todays Options Medigap Part B Self [facility] Options Medigap Part B Self [place] Medicare Primary Self [facility] Options Medigap Part B Self [place] Medicare Primary Self [employer] 12 [id number] MEDICARE 4 [id number] 1 [id number] A SELF PAY 2 UNAVAILABLE 1 UNAVAILA BLE TODAYS OPT MEDICARE 11 [id number] 1 [id number] TODAYS OPTIONS/SPANISH P [id number] S [id number] TODAYS OPTIONS [id number] SP [id number] Problems, Conditions, and Diagnoses Code Display Name Description Problem Type Effective Dates Data Source(s) U07.1 329928203 COVID-19 Problem 09/21/2020 12:00:00 AM LEXY Morgan eCW1 ([facility]) 816302411 Type 2 diabetes mellitus with peripheral angiopathy Type 2 diabetes mellitus with peripheral angiopathy Problem 02/25/2020 12:00:00 AM E DT MEDENT ([facility]) 52563439 Metatarsalgia Metatarsalgia Problem 12/16/2019 12:00:00 AM EDT MEDENT ([facility]) [id number] Localized, 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, primary osteoarthritis of the ankle and/or foot Problem 2019 12:00:00 AM EDT MEDENT ([facility]) 12745084 Dystrophia unguium Dystrophia unguium Problem 12:00:00 AM EDT MEDENT ([facility]) 71198277 Pain in limb Pain in limb Problem 12/16/2019 12:00:00 A M EDT MEDENT ([facility]) [id number] 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 Problem 12/16/2019 12:00:00 AM EDT MEDENT ( [facility]) Other synovitis and tenosynovitis, left ankle and foot Other synovitis and tenosynovitis, left ankle and foot Problem 12/16/2019 12:00:00 AM ED T MEDENT ([facility]) Corns and callosities Corns and callosities Problem 12/16/2019 12:00:00 AM EDT MEDENT ([facility]) L89.302 [id number] Pressure injury of b uttock, stage 2, unspecified laterality Problem 11/18/2019 12:00:00 AM EDT eCW1 ([facility]) R32 [id number] Urinary incontinence in female Problem 11/17 12:00:00 AM EDT eCW1 ([facility]) R32 [id number] Urinary incontinence in female Problem 11/17 12:00:00 AM EDT eCW1 ([facility]) L89.302 [id number] Pressure injury of b uttock, stage 2, unspecified laterality Problem 11/18/2019 12:00:00 AM EDT eCW1 ([facility]) R26.81 583099227 Unstable gait Problem 10/08/2019 12:00:00 AM EST eCW1 ([facility]) R26.81 [id number] Unstable gait Problem 10/08/2019 12:00:00 AM EST eCW1 ([facility]) N18.9 Chronic kidney disease, unspecified Chronic kidn ey disease, unspecified Diagnosis 06/22/2020 01:47:21 PM EDT [facility] I10 Essential (primary) hypertension Essential (primary) h ypertension Diagnosis 06/22/2020 01:47:21 PM EDT [facility] I25.810 Atherosclerosis of coronary artery bypass graft(s) without angina pectoris Atherosclerosis of coronary artery bypas Diagnosis 06/22/2020 01:47:21 PM EDT [facility] E78.2 Mixed hyperlipidemia Mixed hyperlipidemia Diagnosis 06/22/2020 01:47:21 PM EDT [facility] L89.151 Pressure ulcer of sacral region, stage 1 Pressure ulcer of sacral region, stage 1 Diagnosis 06/22/2020 01:47:21 PM EDT [facility] L84 Corns and callosities Corns and callosities Diagnosis 05/18/2020 02:15:00 PM EDT [facility] 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 Diagnosis 05/18/2020 02:15: 00 PM EDT [facility] E1151 Type 2 diabetes mellitus wit h diabetic peripheral angiopathy without gangrene Type 2 diabetes mellitus with diabetic p eripheral angiopathy without gangrene Diagnosis 05/18/2020 02:15:00 PM EDT [facility] R60.0 Localized edema Localized edema Diagnosis 03/16/2020 01:3 1:27 PM EDT [facility] L07460 Other synovitis and tenosynovitis, left ankle and foot Other synovitis and tenosynovitis, left ankle and foot Diagnosis 12/16/2019 01:47:00 P M EDT [facility] Y08162 Primary osteoarthritis, unspecified ankl e and foot Primary osteoarthritis, unspecified ankle and foot Diagnosis 12/16/2019 01:47: 00 PM EDT [facility] M7741 Metatarsalgia, right foot Metatarsalgia, right foot Di agnosis 12/16/2019 01:47:00 PM EDT [facility] I34225 Pain in right foot Pain in right foot Diagnosis 01:47:00 PM EDT [facility] E1149 Type 2 diabetes mellitus with other diab etic neurological complication Type 2 diabetes mellitus with other diabetic neurological complication Diagnosis 12/16/2019 01:47:00 PM EDT [facility] Surgeries/Procedures Procedure Description Date Indications Data Source(s) Immunization: Flublok Quadrivalent (18 years & older) 0.5mL IM (Influenza) 07/02/2020 12:00:00 AM EDT eCW1 ([facility]) Pare Hyperkeratotic Lesion, 2-4 05/18/2020 12:00:00 AM EDT MEDENT ([facility]) Pare Hyperkeratotic Lesion, 2-4 02/25/2020 12:00:00 AM EDT MEDENT ([facility]) PARING/CUTTING BENIGN HYPERKERATOTIC LESION >4 020 12:00:00 AM EDT MEDENT ([facility]) Strapping Ankle/foot 12/16/2019 12:00:00 AM EDT MEDENT ([facility]) Annual wellness visit, includes a person alized prevention plan of service (pps), subsequent visit 11/18/2019 12:00:00 AM EDT eCW 1 ([facility]) Office Visit, Est Pt., Level 3 PC 09/01/2019 12:00:00 AM EST eCW1 ([facility]) Results ID Date Data Source [id number] 09/14/2020 11:59:00 AM EST [facility] Name Value Range Interpretation Code Description Data Crystal rce(s) Supporting Document(s) SARS coronavirus [address] [facility] This lab was ordered by [facility] and reported by [facility]. ID Date Data Source UA URINALYSIS 09/14/2020 12:00:00 AM EST eCW1 ([facility]) Name Value Range Interpretation Code Description Data Crystal rce(s) Supporting Document(s) UA URINALYSIS eCW1 ([facility]) ID Date Data Source Ser Prot Electro RFX ITS 07/07/2020 05:55:36 AM EST eCW1 ([facility]) Name Value Range Interpretation Code Description Data Crystal rce(s) Supporting Document(s) 4.9 URMCR-2-HICRXGNB % eCW1 ([facility]) 7.4 ELYB-0-IJRCWEZJK % eCW1 ([facility]) 52.0 ALBUMIN % eCW1 ([facility]) 11.7 FNBED-4-DEMGMCDTC % eCW1 ([facility]) 0.37 FJCRE-4-IFJJWUWVW eCW1 ([facility]) 17.6 GAMMA GLOBULIN % eCW1 ([facility]) 3.95 ALBUMIN eCW1 ([facility]) 6.4 QOJV-6-FBGKIWIMW % eCW1 ([facility]) 0.56 TSOH-1-UKDHXZDXX eCW1 ([facility]) 0.89 HWYIM-8-QZKRYRBII eCW1 ([facility]) 0.49 NDWW-9-KPINGCLXQ eCW1 ([facility]) 1.34 GAMMA GLOBULINS eCW1 ([facility]) SEE COMMENT SPEP INTERPRETATION FOR RFX eCW1 ([facility]) 7.6 TOTAL PROTEIN eCW1 ([facility]) ID Date Data Source LIPID PANEL (CARDIAC RISK) 07/07/2020 05:55:36 AM EST eCW1 ( [facility]) Name Value Range Interpretation Code Description Data Crystal rce(s) Supporting Document(s) Triglyceride [Mass/volume] in Serum or Plasma by calculation 116 TRIGLYCERIDES LEVEL eCW1 ([facility]) Cholesterol [Moles/volume] in Serum or Plasma 156 CHOLESTEROL LEVEL eCW1 ([facility]) Cholesterol in HDL [Moles/volume] in Serum or Plasma 61 HDL CHOLESTEROL eCW1 ([facility]) Cholesterol in LDL [Mass/volume] in Serum or Plasma by calculation 72 LDL CHOLESTEROL eCW1 ([facility]) 95 NON-HDL-C eCW1 ([facility]) 2.557 CHOLESTEROL RISK RATIO eCW1 ([facility]) ID Date Data Source Comprehensive Metabolic Profile (CMP) 07/07/2020 05:55:36 AM EST eCW1 ([facility]) Name Value Range Interpretation Code Description Data Crystal rce(s) Supporting Document(s) 1.22 CREATININE FOR GFR eCW1 ([facility]) 105 GLUCOSE, FASTING eCW1 ([facility]) 22 BLOOD UREA NITROGEN eCW1 ([facility]) 4.7 POTASSIUM SERUM eCW1 ([facility]) 45.3 GLOMERULAR FILTRATION RATE eCW 1 ([facility]) 136 SODIUM LEVEL eCW1 ([facility]) 15 AST/SGOT eCW1 ([facility]) 30 CARBON DIOXIDE LEVEL eCW1 ([facility]) 9.4 CALCIUM LEVEL eCW1 ([facility]) 98 CHLORIDE LEVEL eCW1 ([facility]) 68 ALKALINE PHOSPHATASE eCW1 ([facility]) 18 ALT/SGPT eCW1 ([facility]) 0.3 BILIRUBIN,TOTAL eCW1 ([facility]) 7.6 TOTAL PROTEIN eCW1 ([facility]) 3.5 ALBUMIN eCW1 ([facility]) 0.9 ALBUMIN/GLOBULIN RATIO eCW1 ([facility]) ID Date Data Source URINE CULTURE 07/06/2020 02:17:39 AM EST eCW1 ([facility]) Name Value Range Interpretation Code Description Data Crystal rce(s) Supporting Document(s) URINE CULTURE eCW1 ([facility]) ID Date Data Source [id number] 07/06/2020 02:17:39 AM EST eCW1 ([facility]) Name Value Range Interpretation Code Description Data Crystal rce(s) Supporting Document(s) Hemoglobin A1c/Hemoglobin.total in Blood 7.6 HEMOGLOBIN A1c eCW1 ([facility]) ID Date Data Source CBC - Complete Blood Count 07/06/2020 02:17:39 AM EST eCW1 ( [facility]) Name Value Range Interpretation Code Description Data Crystal rce(s) Supporting Document(s) 9.8 WHITE BLOOD COUNT eCW1 ([facility]) 11.0 HEMOGLOBIN eCW1 ([facility]) 38.5 HEMATOCRIT eCW1 ([facility]) 79.7 MEAN CORPUSCULAR VOLUME eCW1 ( [facility]) 4.83 RED BLOOD COUNT eCW1 ([facility]) 17.1 RED CELL DISTRIBUTION WIDTH eC W1 ([facility]) 22.8 MEAN CORPUSCULAR HEMOGLOBIN eC W1 ([facility]) 28.6 MEAN CORPUSCULAR HGB CONC eCW1 ([facility]) 329 PLATELET COUNT, AUTOMATED eCW1 ([facility]) ID Date Data Source Basic Metabolic Profile (BMP) 02/26/2020 05:56:41 AM EDT eCW 1 ([facility]) Name Value Range Interpretation Code Description Data Crystal rce(s) Supporting Document(s) 25 BLOOD UREA NITROGEN eCW1 ([facility]) 144 GLUCOSE, FASTING eCW1 ([facility]) 45.8 GLOMERULAR FILTRATION RATE eCW 1 ([facility]) 4.2 POTASSIUM SERUM eCW1 ([facility]) 138 SODIUM LEVEL eCW1 ([facility]) 1.21 CREATININE FOR GFR eCW1 ([facility]) 29 CARBON DIOXIDE LEVEL eCW1 ([facility]) 103 CHLORIDE LEVEL eCW1 ([facility]) 9.4 CALCIUM LEVEL eCW1 ([facility]) Procedure Social History Code Duration Value Status Description Data Source(s ) Smoking 09/14/2020 12:00:00 AM EST Never Smoker completed Never S moker eCW1 ([facility]) Smoking 09/14/2020 12:00:00 AM EST Never Smoker completed Never S moker eCW1 ([facility]) Smoking 09/14/2020 12:00:00 AM EST Never Smoker completed Never S moker eCW1 ([facility]) Smoking 07/27/2020 12:00:00 AM EST Never Smoked A Pipe complet ed Never Smoked A Pipe MEDENT ([facility]) Smoking 07/02/2020 12:00:00 AM EDT Never Smoker completed Never S moker eCW1 ([facility]) Smoking 07/02/2020 12:00:00 AM EDT Never Smoker completed Never S moker eCW1 ([facility]) Smoking 06/07/2020 12:00:00 AM EDT Patient has never smoked co mpleted Patient has never smoked MEDENT ([facility]) Smoking 02/26/2020 12:00:00 AM EDT Never Smoker completed Never S moker eCW1 ([facility]) Smoking 02/26/2020 12:00:00 AM EDT Never Smoker completed Never S moker eCW1 ([facility]) Smoking 02/26/2020 12:00:00 AM EDT Never Smoker completed Never S moker eCW1 ([facility]) Smoking 02/04/2020 12:00:00 AM EDT Never Smoker completed Never S moker eCW1 ([facility]) Smoking 02/04/2020 12:00:00 AM EDT Never Smoker completed Never S moker eCW1 ([facility]) Smoking 02/04/2020 12:00:00 AM EDT Never Smoker completed Never S moker eCW1 ([facility]) Vital Signs ID Date Data Source UNK Name Value Range Interpretation Code Description Data Source(s) Diastolic blood pressure 84 mm[Hg] 84 mm[Hg] eCW1 ([facility]) Systolic blood pressure 175 mm[Hg] 175 mm[Hg] e CW1 ([facility]) Body temperature 98.4 [degF] 98.4 [degF] eCW1 ( [facility]) Respiratory rate 18 /min 18 /min eCW1 ([facility]) Heart rate 117 /min 117 /min eCW1 ([facility]) Body mass index (BMI) [Ratio] 38.27 kg/m2 38.27 kg/m2 W1 ([facility]) Body height 64 [in_i] 64 [in_i] eCW1 ([facility]) Body weight 223 [lb_av] 223 [lb_av] eCW1 ([facility]) Diastolic blood pressure 86 mm[Hg] 86 mm[Hg] eCW1 ([facility]) Systolic blood pressure 144 mm[Hg] 144 mm[Hg] e CW1 ([facility]) Body temperature 97.6 [degF] 97.6 [degF] eCW1 ( [facility]) Respiratory rate 18 /min 18 /min eCW1 ([facility]) Heart rate 89 /min 89 /min eCW1 ([facility]) Body mass index (BMI) [Ratio] 38.45 kg/m2 38.45 kg/m2 eCW1 ([facility]) Body height 64 [in_i] 64 [in_i] eCW1 ([facility]) Body weight 224 [lb_av] 224 [lb_av] eCW1 ([facility]) Body mass index (BMI) [Ratio] 42.0 kg/m2 42.0 k g/m2 MEDENT ([facility], [facility]) Body height 64 [in_i] 64 [in_i] MEDENT ([facility], [facility]) 5'4" Body weight 245.00 [lb_av] 245.00 [lb_av] MEDEN T ([facility], [facility]) Body temperature 98.1 [degF] 98.1 [degF] MEDENT ([facility], [facility]) Oxygen saturation in Arterial blood by Pulse oximetry 96 % 96 % MEDENT ([facility], [facility]) Respiratory rate 20 /min 20 /min MEDENT ( [facility], [facility]) Heart rate 74 /min 74 /min MEDENT ([facility], [facility]) Diastolic blood pressure 72 mm[Hg] 72 mm[Hg] MEDENT ([facility], [facility]) Systolic blood pressure 128 mm[Hg] 128 mm[Hg] M EDENT ([facility], [facility]) Diastolic blood pressure 80 mm[Hg] 80 mm[Hg] eCW1 ([facility]) Systolic blood pressure 148 mm[Hg] 148 mm[Hg] e CW1 ([facility]) Body temperature 97.0 [degF] 97.0 [degF] eCW1 ( [facility]) Respiratory rate 18 /min 18 /min eCW1 ([facility]) Heart rate 104 /min 104 /min eCW1 ([facility]) Body mass index (BMI) [Ratio] 37.93 kg/m2 37.93 kg/m2 eCW1 ([facility]) Body height 64 [in_i] 64 [in_i] eCW1 ([facility]) Body weight 221 [lb_av] 221 [lb_av] eCW1 ([facility]) Body weight 101.606 kg 101.606 kg MEDENT ([facility]) Body mass index (BMI) [Ratio] 38.4 kg/m2 38.4 k g/m2 MEDENT ([facility]) Heart rate 96 /min 96 /min MEDENT ([facility]) Diastolic blood pressure 77 mm[Hg] 77 mm[Hg] MEDENT ([facility]) Systolic blood pressure 132 mm[Hg] 132 mm[Hg] M EDENT ([facility]) Body weight 224.00 [lb_av] 224.00 [lb_av] MEDEN T ([facility]) Body height 64 [in_i] 64 [in_i] MEDENT ([facility] 5'4" Tem;P 97.3 Body temperature 96.0 [degF] 96.0 [degF] eCW1 ( [facility]) Respiratory rate 18 /min 18 /min eCW1 ([facility]) Heart rate 108 /min 108 /min eCW1 ([facility]) Body mass index (BMI) [Ratio] 39.30 kg/m2 39.30 kg/m2 eCW1 ([facility]) Body height 64 [in_i] 64 [in_i] eCW1 ([facility]) Body weight 229 [lb_av] 229 [lb_av] eCW1 ([facility]) Body mass index (BMI) [Ratio] 40.3 kg/m2 40.3 k g/m2 MEDENT ([facility], [facility]) Body height 64 [in_i] 64 [in_i] MEDENT ([facility], [facility]) 5'4" Body weight 235.00 [lb_av] 235.00 [lb_av] MEDEN T ([facility], [facility]) Body temperature 98.4 [degF] 98.4 [degF] MEDENT ([facility], [facility]) Oxygen saturation in Arterial blood by Pulse oximetry 97 % 97 % MEDENT ([facility], [facility]) Respiratory rate 20 /min 20 /min MEDENT ( [facility], [facility]) Heart rate 87 /min 87 /min MEDENT ([facility], [facility]) Diastolic blood pressure 94 mm[Hg] 94 mm[Hg] MEDENT ([facility], [facility]) manual Systolic blood pressure 180 mm[Hg] 180 mm[Hg] M EDENT ([facility], [facility]) manual Diastolic blood pressure 86 mm[Hg] 86 mm[Hg] eCW1 ([facility]) Systolic blood pressure 126 mm[Hg] 126 mm[Hg] e CW1 ([facility]) Body temperature 97.8 [degF] 97.8 [degF] eCW1 ( [facility]) Respiratory rate 18 /min 18 /min eCW1 ([facility]) Heart rate 76 /min 76 /min eCW1 ([facility]) Body mass index (BMI) [Ratio] 40.13 kg/m2 40.13 kg/m2 eCW1 ([facility]) Body height 64 [in_us] 64 [in_us] eCW1 ([facility]) Body weight Measured 233.8 [lb_av] 233.8 [lb_av ] eCW1 ([facility]) Patient Treatment Plan of Care Planned Activity Planned Date Details Description Data Source (s) NITROFURANTOIN, MACROCRYSTALS 25 MG / Ni trofurantoin, Monohydrate 75 MG Oral Capsule 07/02/2020 12:00:00 AM EDT eCW1 ([facility]) NITROFURANTOIN, MACROCRYSTALS 25 MG / Ni trofurantoin, Monohydrate 75 MG Oral Capsule 07/02/2020 12:00:00 AM EDT eCW1 ([facility]) Hydrochlorothiazide 25 MG / Losartan Potassium 100 MG Oral Tablet 06/17/2020 12:00:00 AM EDT eCW1 ([facility]) Hydrochlorothiazide 25 MG / Losartan Potassium 100 MG Oral Tablet 06/17/2020 12:00:00 AM EDT eCW1 ([facility]) Metformin hydrochloride 1000 MG Oral Tablet 11/18/2019 12:00:00 AM EDT eCW1 ([facility]) Metformin hydrochloride 1000 MG Oral Tablet 11/18/2019 12:00:00 AM EDT eCW1 ([facility]) Metformin hydrochloride 1000 MG Oral Tablet 11/18/2019 12:00:00 AM EDT eCW1 ([facility]) Walker - 09/11/2019 12:00:00 AM EST e CW1 ([facility]) Walker - 09/11/2019 12:00:00 AM EST e CW1 ([facility]) Walker - 09/11/2019 12:00:00 AM EST e CW1 ([facility]) Walker - 09/11/2019 12:00:00 AM EST e CW1 ([facility]) Walker - 09/11/2019 12:00:00 AM EST e CW1 ([facility])
[2020-09-30 15:15] LABS: BASO # 0.1 10^3/uL (0.0-0.2); BASO % 0.4 % (0.0-1.0); EOS % 0.3 % (0.0-3.0); HEMATOCRIT 32.5 % (36.0-47.0); HEMOGLOBIN 9.9 g/dl (12.0-15.5); LYMPH # 1.1 10^3/uL (1.5-5.0); LYMPH % 7.8 % (24.0-44.0); MEAN CORPUSCULAR HEMOGLOBIN 23.3 pg (27.0-33.0); MEAN CORPUSCULAR HGB CONC 30.5 g/dl (32.0-36.5); MEAN CORPUSCULAR VOLUME 76.5 fl (80.0-96.0); MONO # 1.2 10^3/uL (0.0-0.8); NEUTROPHILS # 11.1 10^3/uL (1.5-8.5); NEUTROPHILS % 81.7 % (36.0-66.0); PLATELET COUNT, AUTOMATED 424 10^3/uL (150-450); RED BLOOD COUNT 4.25 10^6/uL (4.00-5.40); WHITE BLOOD COUNT 13.5 10^3/uL (4.0-10.0)
[2020-09-30 15:33] LABS: ALBUMIN 3.3 GM/DL (3.2-5.2); BILIRUBIN,DIRECT 0.2 MG/DL (0.0-0.2); BILIRUBIN,TOTAL 0.4 MG/DL (0.2-1.0); CALCIUM LEVEL 9.8 MG/DL (8.8-10.2); CREATININE FOR GFR 1.52 MG/DL (0.55-1.30); GLOMERULAR FILTRATION RATE 35.1 (>39); POTASSIUM SERUM 4.1 MEQ/L (3.5-5.1); TOTAL PROTEIN 6.6 GM/DL (6.4-8.2)
[2020-09-30] MEDS ORDERED: NS 1,000 ML IV ONE (15:45)
[2020-09-30] MEDS ORDERED: ISOVUE-370 76% 100ML VIAL As Ordered ONE (15:46)
[2020-09-30 16:53] LABS: RSV AMPLIFICATION NEGATIVE (NEGATIVE)
--- NOTE | 2020-09-30 17:05 | REP ---
INDICATION: lower abdominal pain, lower gi bleed. COMPARISON: 09/01/2017 the latest prior TECHNIQUE: 100 cc Isovue 370 intravenously without oral bowel preparatory contrast administration. FINDINGS: There is no significant change in lung bases. Mild subsegmental atelectatic changes are present. The liver, spleen, pancreas, adrenal glands, and kidneys are unchanged. The abdominal aorta and para-regions are unchanged. The bowel loops and the mesenteries are unchanged. There is colonic diverticulosis status quo. There is no mass or adenopathy. There is no free fluid or free air. The osseous structures are stable. Chronic spinal, hip, and sacroiliac joint degenerative changes are again noted. IMPRESSION: No evidence of acute disease or significant change compared to the prior exam with findings as described above. <Electronically signed by Chetan Miller > 09/30/20 [id number]
[2020-09-30] MEDS ORDERED: ASPI81TA26 PO (17:25)
[2020-09-30] MEDS ORDERED: GLUCAGON INJ 1MG VIAL SC PRN (18:00)
[2020-09-30] MEDS ORDERED: DEXTROSE 50% 50 ML SYRINGE IV PRN (18:00)
[2020-09-30] MEDS ORDERED: GLUCOSE 4GM CHEW TABLET PO PRN (18:00)
--- NOTE | 2020-09-30 18:14 | HPEPDOC ---
[facility] Medical History & Physical Date of Admission Sep 30, 2020 Date of Service: Sep 30, 2020 History and Physical Chief complaint: Who presented to the ER with rectal bleeding that started at 4 AM History of present illness: Patient is a 89-year-old female who presented to the emergency room with complaints of rectal bleeding. Patient reports that her rectal bleeding began at 4AM. Patient has reported greater than 8 bowel movements, all of which have been bloody. Patient reports her most recent bowel movement was in the emergency room and was noted to be bloody. Patient reports some abdominal discomfort occurring in her left lower quadrant reports it as a 3/10, non- radiating without any alleviating or admitting factors. Patient denies any nausea, vomiting, or urinary discomfort. Patient denies any shortness of breath, cough, chest pain or palpitations. She does report lightheadedness and dizziness with standing. She has not experience any fevers or chills Patient reports that she was recently diagnosed with COIVD19 on 09/14 and had received a monoclonal antibody infusion on 09/22. Past Medical History: CAD s/p CABG (2012) Diastolic CHF HTN DLP NIDDM2 CVA (2012) PFO Monoclonal gammopathy OA Vitamin D deficiency GERD Past Surgical History: Hysterectomy Bilateral fallopian tube Cholecystectomy CABG Allergies: See below Medications: See below Family History: - No history of malignancies Social History: - Denies the use of tobacco or illicit drugs; Rare alcohol consumption - Denies recent travel or sick contacts - Lives with ; was recently inpatient for COVID19 - Occupation; used to work at the post [employer] Review of Systems: 10 point review of systems complete, all negative otherwise stated in HPI Physical exam: - Vitals: BP [114/56], HR [95], RR [18], Sat [98%RA], Temp [97.3F] - General: Lying in bed, Speaking in full sentences, AAOx3 - HEENT: NC, AT, PERRLA - CVS: Tachycardic, +S1S2 - Lungs: Fair air entry bilaterally, No appreciable wheezing / rales / rhonchi - Abdomen: Soft, Non-distended, Non-tender - Extremities: No lower extremity edema, No calf tenderness - Neuro: No focal motor or sensory deficit - Skin: No visible rashes Labs: See below Imaging: CT abdomen / pelvis w/ IV contrast 09/30: No evidence of acute disease or significant change compared to the prior exam with findings as described above. EKG: See below Assessment and Plan: Symptomatic anemia / Acute blood loss anemia - likely 2/2 Lower GI bleed, less likely 2/2 upper GI bleed - Patient presented to the emergency room with rectal bleeding since 4 AM; occured at least 8 times - Patients blood pressure is on the lower limits of normal. Reports lightheadedness and dizziness with standing - Hg is lower than baseline of 11; Currently of 9.9 - Continue with IV fluid hydration - Will transfuse 2 units PRBC - Will follow H&H g3tmsab and transfuse as required - Will hold ASA - Will continue with telemetry monitoring / bed rest / fall precautions - NPO for tonight; will evaluate ability to advance diet tomorrow LLQ abdominal pain - Afebrile - Leukocytosis - CT imaging noted above - Will check procalcitonin / Blood cultures - Will start Zosyn Lactic acidosis - Likely 2/2 hypovolemia - Will c/w IV fluid hydration Hyponatremia - Likely 2/2 hypotonic hypovolemic etiology - Currently patient has had significant volume loss from rectal bleeding - Will hold HCTZ - Will continue with IV fluid hydration - Will follow up BNP at 12AM COVID19 - Currently is asymptomatic - Positive on 09/14 - Confirmed with [facility] - c/w Supportive care - Will discuss with infection control for appropriate precautions; will likely not require COVID unit CAD s/p CABG (2012) - c/w Rosuvastatin - Will hold ASA Chronic Diastolic CHF - No evidence of exacerbation currently - Will check ECHO - Not on diuretics at home HTN - BP on lower limits of normal - Will hold HCTZ / Losartan / Metoprolol DLP - c/w Rosuvastatin NIDDM2 - Will start ISS [id number] CVA (2012) - Reported history of possible PFO - c/w Rosuvastatin / ASA on hold Monoclonal gammopathy OA - Will start Tylenol PRN Vitamin D deficiency - Currently not on therapy GERD - c/w Omeprazole DVT prophylaxis - Will start TEDs/Sequentials Vital Signs Vital Signs Date Time Temp Pulse Resp B/P (MAP) Pulse Ox O2 Delivery O2 Flow Rate FiO2 09/30/20 16:08 95 18 114/56 (75) 98 Room Air 09/30/20 14:12 97.3 Laboratory Data Labs 24H Laboratory Tests 2 09/30/20 14:14: Immature Granulocyte % (Auto) 0.8, Neutrophils (%) (Auto) 81.7H, Lymphocytes (%) (Auto) 7.8L, Monocytes (%) (Auto) 9.0H, Eosinophils (%) (Auto) 0.3, Basophils (%) (Auto) 0.4, Neutrophils # (Auto) 11.1H, Lymphocytes # (Auto) 1.1L, Monocytes # (Auto) 1.2H, Eosinophils # (Auto) 0.0, Basophils # (Auto) 0.1, Nucleated Red Blood Cells % (auto) 0.0, Prothrombin Time 13.3, Prothromb Time International Ratio 0.99, Activated Partial Thromboplast Time 25.6, Anion Gap 13, Glomerular Filtration Rate 35.1L, Lactic Acid Level 5.2*H, Calcium Level 9.8, Total Bilirubin 0.4, Direct Bilirubin 0.2, Aspartate Amino Transf (AST/SGOT) 26, Jimmie ine Aminotransferase (ALT/SGPT) 31, Alkaline Phosphatase 57, Total Protein 6.6, Albumin 3.3, Albumin/Globulin Ratio 1.0L, Lipase 75 09/30/20 16:08: Coronavirus (COVID-19)(PCR) POSITIVEA, Influenza Type A (RT-PCR) NEGATIVE, Influenza Type B (RT-PCR) NEGATIVE, Respiratory Syncytial Virus (PCR) NEGATIVE CBC/BMP Laboratory Tests 09/30/20 14:14 Home Medications Scheduled Aspirin (Aspirin EC) 81 Mg Tablet.dr, 81 MG PO DAILY Calcium Carbonate/Vitamin D3 (Calcium 500+D Tablet Chew) 1 Each Tab.chew, 1 CHW PO BID Docusate Sodium (Docusate Sodium) 100 Mg Cap, 100 MG PO BID Glimepiride (Glimepiride) 2 Mg Tab, 2 MG PO BID Losartan/Hydrochlorothiazide (Losartan-Hctz 100-25 mg Tab) 1 Tab Tab, 1 TAB PO DAILY Magnesium Chloride (Mag64) 64 Mg Tabcr, 64 MG PO BID Metformin HCl (Metformin HCl) 1,000 Mg Tablet, 1,000 MG PO BID Metoprolol Tartrate (Metoprolol Tartrate) 25 Mg Tab, 12.5 MG PO BID Multivitamin (Animal Chews) 1 Each Tab.chew, 1 CHW PO DAILY Omeprazole (Omeprazole) 20 Mg Cap, 20 MG PO BID Rosuvastatin Calcium (Rosuvastatin Calcium) 10 Mg Tab, 10 MG PO Q2D EVERY OTHER DAY AT 1700 Allergies Coded Allergies: atorvastatin (Verified Adverse Reaction, Intermediate, myalgia, 09/22/20) linagliptin (Verified Adverse Reaction, Intermediate, joint pain, 09/22/20) lisinopril (Verified Adverse Reaction, Intermediate, cough, 09/22/20) Cephalosporins (Verified Adverse Reaction, Mild, headache, 09/22/20) benzonatate (Verified Adverse Reaction, Mild, headache, 09/22/20) diclofenac (Verified Adverse Reaction, Mild, RUEDA/UPSET STOMACH, 09/22/20) ibuprofen (Verified Adverse Reaction, Mild, GI upset, 09/22/20) ORION GALVIN MD Sep 30, 2020 18:14
[2020-09-30] MEDS: PIPERACILLIN/TAZOBACTAM SOD 3.375 GM in D5W MINI-BAG PLUS 50 ML IV SCH (19:19)
[2020-09-30] MEDS: HumaLOG INSULIN (NovoLOG) PER UNIT SC SCH (19:19)
[2020-09-30] MEDS: NS 1,000 ML IV SCH (19:19)
--- OUTSIDE RECORDS SUMMARY | 2020-09-30 19:21 | CCD ---
Author Author [facility] Organization [facility] Address Unknown Phone Unavailable Care Team Providers Care Raw Hide Trimmer Name Role Phone Nell Nicholas MD Unavailable [...] Unavailable Campanaro, Mare Priya PA Unavailable Unavailable [place], N Mihir MEAT SLICER Unavailable Unavailable James, N Mihir MEAT SLICER Unavailable Unavailable James, N Mihir MEAT SLICER Unavailable Unavailable James, N Mihir MEAT SLICER Unavailable Unavailable [place], N Mihir MEAT SLICER Unavailable Unavailable [place], N Mihir MEAT SLICER Unavailable Unavailable [place], N Mihir MEAT SLICER Unavailable Unavailable James, N Mihir MEAT SLICER Unavailable Unavailable James, N Mihir MEAT SLICER Unavailable Unavailable [place], N Mihir MEAT SLICER Unavailable Unavailable James, N Mihir MEAT SLICER Unavailable Unavailable [place], N Mihir MEAT SLICER Unavailable Unavailable [place], N Mihir MEAT SLICER Unavailable Unavailable James, N Mihir MEAT SLICER Unavailable Unavailable [place], N Mihir MEAT SLICER Unavailable Unavailable [place], N Mihir MEAT SLICER Unavailable Unavailable James, N Mihir MEAT SLICER Unavailable Unavailable [place], N Mihir MEAT SLICER Unavailable Unavailable [place], N Mihir MEAT SLICER Unavailable Unavailable James, N Mihir MEAT SLICER Unavailable Unavailable James, N Mihir MEAT SLICER Unavailable Unavailable James, N Mihir MEAT SLICER Unavailable Unavailable [place], N Mihir MEAT SLICER Unavailable Unavailable [place], N Mihir MEAT SLICER Unavailable Unavailable James, N Mihir MEAT SLICER Unavailable Unavailable [place], N Mihir MEAT SLICER Unavailable Unavailable James, N Mihir MEAT SLICER Unavailable Unavailable [place], N Mihir MEAT SLICER Unavailable Unavailable James, N Mihir MEAT SLICER Unavailable Unavailable [place], N Mihir MEAT SLICER Unavailable Unavailable [place], N Mihir MEAT SLICER Unavailable Unavailable Re-disclosure Warning The records that [...] is protected by Article 27-F of the [facility] Public Health law. If you continue you may have access to information: Regarding HIV / AIDS; Provided by facilities licensed or operated by the [facility] Office of Mental Health; or Provided by the [facility] Office for People With Developmental Disabilities. If such information is present, then the following [facility] mandated warning applies: This information has [...] law may result in a fine or nursing home sentence or both. A general authorization for the release of medical or other information is NOT sufficient authorization for further disc losure. Allergies and Adverse Reactions Type Description Substance Reaction Status Data Source(s ) lisinopril Lisinopril Lisinopril cough Active eCW1 ([facility]) Drug allergy Keflex Cephalexin H/A Active eCW1 ([facility]) Bydureon Bydureon 0.65 ML exenatide 3.08 MG/ML Pen Injector [Bydureon] GI, RUEDA (see 02/18) Active eCW1 ([facility]) Motrin Motrin Motrin GI Active eCW1 ([facility]) flozins flozins flozins recurrent UTIs Active eCW1 ([facility]) statins statins statins myalgias Active eCW1 ([facility]) metformin (at 1000 mg dose) metformin (at 1000 mg dose) metf ormin (at 1000 mg dose) GI Active eCW1 ([facility]) Diclofenac Voltaren Diclofenac upset stomach Active eCW1 ([facility]) Bydureon Bydureon 0.65 ML exenatide 3.08 MG/ML Pen Injector [Bydureon] GI, RUEDA (see 02/18) Active eCW1 ([facility]) Motrin Motrin Motrin GI Active eCW1 ([facility]) flozins flozins flozins recurrent UTIs Active eCW1 ([facility]) statins statins statins myalgias Active eCW1 ([facility]) metformin (at 1000 mg dose) metformin (at 1000 mg dose) metf ormin (at 1000 mg dose) GI Active eCW1 ([facility]) Drug Allergy Drug Allergy NKDA MEDENT ([facility]) Family History Family Member Name Family Member Gender Family Member Status Date o f Status Description Data Source(s) Unknown Unknown Problem MEDENT ([facility]) Unknown Male Problem MEDENT ([facility]) Unknown Male Problem MEDENT ([facility]) Unknown Female Encounters Encounter Providers Location Date Indications Data Source(s ) Unknown [address] [facility] [address] 09/28/2020 12:00:00 AM EST eCW1 ([facility]) [place] [address] [facility] [address] 09/21/2020 12:00:00 AM EST eCW1 ([facility]) Office Visit, Est Pt., Level 4 PC [address] [place] [address] 09/14/2020 12:00:00 AM EST eCW1 ([facility]) Unknown [address] [facility] [address] 09/13/2020 12:00:00 AM EST eCW1 ([facility]) Outpatient Attender: REJI LORENZ DPM PC 07/27/2020 02:17:00 PM EST - 07/27/2020 02:17:00 PM EST [facility] Outpatient [address] [facility] [place] [address] 07/02/2020 12:00:00 AM EDT eCW1 ([facility]) Outpatient Attender: Mihir FITZPATRICK-SJPJeffTEMO 020 12:00:00 AM EDT - 06/22/2020 03:34:49 PM EDT [facility] Unknown [address] [facility] [address] 06/17/2020 12:00:00 AM EDT eCW1 ([facility]) Unknown [address] [facility] [place] [address] 06/16/2020 12:00:00 AM EDT eCW1 ([facility]) Outpatient Attender: Priya vidal 06/07/2020 04:45:00 PM EDT MEDENT ([facility] Dermatology [address] [place] [address] 05/26/2020 12:00:00 AM EDT eCW1 ([facility]) Outpatient Attender: REJI LORENZ DPM PC 05/18/2020 02:15:00 PM EDT - 05/18/2020 02:15:00 PM EDT [facility] Outpatient Attender: Mihir FITZPATRICK-SJPJeffTEMO 020 12:00:00 AM EDT - 03/16/2020 02:23:18 PM EDT [facility] Office Visit, Est Pt., Level 2 FC [address] [place] [address] 02/26/2020 12:00:00 AM EDT eCW1 ([facility]) Outpatient Attender: REJI LORENZ DPM PC 02/25/2020 01:15:00 PM EDT - 02/25/2020 01:15:00 PM EDT [facility] Outpatient Attender: Gal Nicholas MD Main Office 02/19/2020 11:45:00 AM EDT MEDENT ([facility]) Unknown [address] [facility] [address] 02/16/2020 12:00:00 AM EDT eCW1 ([facility]) Unknown [address] [place] [address] 02/04/2020 12:00:00 AM EDT eCW1 ([facility]) Office Visit, Est Pt., Level 4 PC [address] [place] [address] 02/04/2020 12:00:00 AM EDT eCW1 ([facility]) [address] [address] 01/01/2020 12:00:00 AM EDT eCW1 ([facility]) Outpatient Attender: REJI LORENZ DPM 12/16/2019 01:47:00 PM EDT - 12/16/2019 01:47:00 PM EDT [facility] Outpatient Attender: Mihir LIGHT.TEMO-SJRomelTEMO 020 12:00:00 AM EDT - 12/09/2019 01:38:42 PM EDT [facility] Unknown [address] [place] [address] 12/09/2019 12:00:00 AM EDT eCW1 ([facility]) [facility] [address] [facility] [place] [address] 11/25/2019 12:00:00 AM EDT eCW1 ([facility]) [facility] [address] [place] [address] [place] [address] 11/18/2019 12:00:00 AM EDT eCW1 ([facility]) [facility] [address] [facility] [address] 11/13/2019 12:00:00 AM EDT eCW1 ([facility]) Outpatient Referrer: ELYSIA HERNANDEZ 10/28/2019 02:18:00 P M EST [facility] [address] [place] [address], [place] [address] 10/24/2019 12:00:00 AM EST eCW1 ([facility]) [address] [address] 10/07/2019 12:00:00 AM EST eCW1 ([facility]) [address] [address] 10/02/2019 12:00:00 AM EST eCW1 ([facility]) [address] [address] 09/30/2019 12:00:00 AM EST eCW1 ([facility]) [address] [address] 09/29/2019 12:00:00 AM EST eCW1 ([facility]) [address] [address] 09/25/2019 12:00:00 AM EST eCW1 ([facility]) [address] [address] 09/16/2019 12:00:00 AM EST eCW1 ([facility]) [address] [address] 09/10/2019 12:00:00 AM EST eCW1 ([facility]) [facility] Dermatology [address] [place] [address] 09/01/2019 12:00:00 AM EST eCW1 ([facility]) Immunizations Vaccine Date Status Description Data Source(s) influenza, recombinant, quadrIvalent,injectable, prese rvative free 07/02/2020 02:10:00 PM EDT completed eCW1 ([facility]) influenza, recombinant, quadrIvalent,injectable, prese rvative free 07/02/2020 02:10:00 PM EDT completed eCW1 ([facility]) influenza, recombinant, quadrIvalent,injectable, prese rvative free 07/02/2020 02:10:00 PM EDT completed eCW1 ([facility]) influenza, recombinant, quadrIvalent,injectable, prese rvative free 07/02/2020 02:10:00 PM EDT completed eCW1 ([facility]) influenza, recombinant, quadrIvalent,injectable, prese rvative free 07/02/2020 02:10:00 PM EDT completed eCW1 ([facility]) Medications Medication Brand Name Start Date Product Form Dose Route Admi nistrative Instructions Pharmacy Instructions Status Indications Reaction Description Data Source(s) NITROFURANTOIN, MACROCRYSTALS 25 MG / Ni trofurantoin, Monohydrate 75 MG Oral Capsule Nitrofurantoin Monohyd Macro 100 MG Nitrofurantoin Monohyd Macro 100 MG 07/02/2020 12:00:00 AM EDT active Nitrofurantoin Monohyd Macro 100 MG eCW1 ([facility]) NITROFURANTOIN, MACROCRYSTALS 25 MG / Ni trofurantoin, Monohydrate 75 MG Oral Capsule Nitrofurantoin Monohyd Macro 100 MG Nitrofurantoin Monohyd Macro 100 MG 07/02/2020 12:00:00 AM EDT active Nitrofurantoin Monohyd Macro 100 MG eCW1 ([facility]) NITROFURANTOIN, MACROCRYSTALS 25 MG / Ni trofurantoin, Monohydrate 75 MG Oral Capsule Nitrofurantoin Monohyd Macro 100 MG Nitrofurantoin Monohyd Macro 100 MG 07/02/2020 12:00:00 AM EDT active Nitrofurantoin Monohyd Macro 100 MG eCW1 ([facility]) NITROFURANTOIN, MACROCRYSTALS 25 MG / Ni trofurantoin, Monohydrate 75 MG Oral Capsule Nitrofurantoin Monohyd Macro 100 MG Nitrofurantoin Monohyd Macro 100 MG 07/02/2020 12:00:00 AM EDT active Nitrofurantoin Monohyd Macro 100 MG eCW1 ([facility]) NITROFURANTOIN, MACROCRYSTALS 25 MG / Ni trofurantoin, Monohydrate 75 MG Oral Capsule Nitrofurantoin Monohyd Macro 100 MG Nitrofurantoin Monohyd Macro 100 MG 07/02/2020 12:00:00 AM EDT active Nitrofurantoin Monohyd Macro 100 MG eCW1 ([facility]) Hydrochlorothiazide 25 MG / Losartan Pot assium 100 MG Oral Tablet Losartan Potassium-HCTZ 100-25 MG Losartan Potassium-HCTZ 100-25 MG 06/17/2020 12:00:00 AM EDT 1.0 {tablet} active Losartan Po tassium-HCTZ 100-25 MG eCW1 ([facility]) Hydrochlorothiazide 25 MG / Losartan Pot assium 100 MG Oral Tablet Losartan Potassium-HCTZ 100-25 MG Losartan Potassium-HCTZ 100-25 MG 06/17/2020 12:00:00 AM EDT 1.0 {tablet} active Losartan Po tassium-HCTZ 100-25 MG eCW1 ([facility]) Hydrochlorothiazide 25 MG / Losartan Pot assium 100 MG Oral Tablet Losartan Potassium-HCTZ 100-25 MG Losartan Potassium-HCTZ 100-25 MG 06/17/2020 12:00:00 AM EDT 1.0 {tablet} active Losartan Po tassium-HCTZ 100-25 MG eCW1 ([facility]) Hydrochlorothiazide 25 MG / Losartan Pot assium 100 MG Oral Tablet Losartan Potassium-HCTZ 100-25 MG Losartan Potassium-HCTZ 100-25 MG 06/17/2020 12:00:00 AM EDT 1.0 {tablet} active Losartan Po tassium-HCTZ 100-25 MG eCW1 ([facility]) Hydrochlorothiazide 25 MG / Losartan Pot assium 100 MG Oral Tablet Losartan Potassium-HCTZ 100-25 MG Losartan Potassium-HCTZ 100-25 MG 06/17/2020 12:00:00 AM EDT 1.0 {tablet} active Losartan Po tassium-HCTZ 100-25 MG eCW1 ([facility]) Hydrochlorothiazide 25 MG / Losartan Pot assium 100 MG Oral Tablet Losartan Potassium-HCTZ 100-25 MG Losartan Potassium-HCTZ 100-25 MG 06/17/2020 12:00:00 AM EDT 1.0 {tablet} active Losartan Po tassium-HCTZ 100-25 MG eCW1 ([facility]) Hydrochlorothiazide 25 MG / Losartan Pot assium 100 MG Oral Tablet Losartan Potassium-HCTZ 100-25 MG Losartan Potassium-HCTZ 100-25 MG 06/17/2020 12:00:00 AM EDT 1.0 {tablet} active Losartan Po tassium-HCTZ 100-25 MG eCW1 ([facility]) Metronidazole 500 MG Oral Tablet Metronidazole 06/07/2020 12:00:00 AM EDT ORAL active MEDENT ([facility]) Fluconazole 150 MG Oral Tablet Fluconazole 06/07/2020 12:00:00 AM EDT ORAL active MEDENT ([facility]) ferrous sulfate 325 MG Oral Tablet Ferrous Sulfate 325 (65 Fe) MG Ferrous Sulfate 325 (65 Fe) MG 02/15/2020 12:00:00 AM EDT 1.0 {tablet} active Ferrous Sulfate 325 (65 Fe) MG eCW1 ([facility]) Pain Relieving Rub 10-15 % UNK 02/15/2020 12:00:00 AM EDT active Pain Relieving Rub 10-15 % eCW1 ([facility]) Pain Relieving Rub 10-15 % UNK 02/15/2020 12:00:00 AM EDT active Pain Relieving Rub 10-15 % eCW1 ([facility]) Pain Relieving Rub 10-15 % UNK 02/15/2020 12:00:00 AM EDT active Pain Relieving Rub 10-15 % eCW1 ([facility]) ferrous sulfate 325 MG Oral Tablet Ferrous Sulfate 325 (65 Fe) MG Ferrous Sulfate 325 (65 Fe) MG 02/15/2020 12:00:00 AM EDT 1.0 {tablet} active Ferrous Sulfate 325 (65 Fe) MG eCW1 ([facility]) Pain Relieving Rub 10-15 % UNK 02/15/2020 12:00:00 AM EDT active Pain Relieving Rub 10-15 % eCW1 ([facility]) Pain Relieving Rub 10-15 % UNK 02/15/2020 12:00:00 AM EDT active Pain Relieving Rub 10-15 % eCW1 ([facility]) ferrous sulfate 325 MG Oral Tablet Ferrous Sulfate 325 (65 Fe) MG Ferrous Sulfate 325 (65 Fe) MG 02/15/2020 12:00:00 AM EDT 1.0 {tablet} active Ferrous Sulfate 325 (65 Fe) MG eCW1 ([facility]) Pain Relieving Rub 10-15 % UNK 02/15/2020 12:00:00 AM EDT active Pain Relieving Rub 10-15 % eCW1 ([facility]) ferrous sulfate 325 MG Oral Tablet Ferrous Sulfate 325 (65 Fe) MG Ferrous Sulfate 325 (65 Fe) MG 02/15/2020 12:00:00 AM EDT 1.0 {tablet} active Ferrous Sulfate 325 (65 Fe) MG eCW1 ([facility]) Pain Relieving Rub 10-15 % UNK 02/15/2020 12:00:00 AM EDT active Pain Relieving Rub 10-15 % eCW1 ([facility]) ferrous sulfate 325 MG Oral Tablet Ferrous Sulfate 325 (65 Fe) MG Ferrous Sulfate 325 (65 Fe) MG 02/15/2020 12:00:00 AM EDT 1.0 {tablet} active Ferrous Sulfate 325 (65 Fe) MG eCW1 ([facility]) ferrous sulfate 325 MG Oral Tablet Ferrous Sulfate 325 (65 Fe) MG Ferrous Sulfate 325 (65 Fe) MG 02/15/2020 12:00:00 AM EDT 1.0 {tablet} active Ferrous Sulfate 325 (65 Fe) MG eCW1 ([facility]) ferrous sulfate 325 MG Oral Tablet Ferrous Sulfate 325 (65 Fe) MG Ferrous Sulfate 325 (65 Fe) MG 02/15/2020 12:00:00 AM EDT 1.0 {tablet} active Ferrous Sulfate 325 (65 Fe) MG eCW1 ([facility]) ferrous sulfate 325 MG Oral Tablet Ferrous Sulfate 325 (65 Fe) MG Ferrous Sulfate 325 (65 Fe) MG 02/15/2020 12:00:00 AM EDT 1.0 {tablet} active Ferrous Sulfate 325 (65 Fe) MG eCW1 ([facility]) Pain Relieving Rub 10-15 % UNK 02/15/2020 12:00:00 AM EDT active Pain Relieving Rub 10-15 % eCW1 ([facility]) ferrous sulfate 325 MG Oral Tablet Ferrous Sulfate 325 (65 Fe) MG Ferrous Sulfate 325 (65 Fe) MG 02/15/2020 12:00:00 AM EDT 1.0 {tablet} active Ferrous Sulfate 325 (65 Fe) MG eCW1 ([facility]) Pain Relieving Rub 10-15 % UNK 02/15/2020 12:00:00 AM EDT active Pain Relieving Rub 10-15 % eCW1 ([facility]) NITROFURANTOIN, MACROCRYSTALS 25 MG / Ni trofurantoin, Monohydrate 75 MG Oral Capsule Nitrofurantoin Monohyd Macro 100 MG Nitrofurantoin Monohyd Macro 100 MG 11/25/2019 12:00:00 AM EDT suspended Nitrofurantoin Monohyd Macro 100 MG eCW1 ([facility]) NITROFURANTOIN, MACROCRYSTALS 25 MG / Ni trofurantoin, Monohydrate 75 MG Oral Capsule Nitrofurantoin Monohyd Macro 100 MG Nitrofurantoin Monohyd Macro 100 MG 11/25/2019 12:00:00 AM EDT suspended Nitrofurantoin Monohyd Macro 100 MG eCW1 ([facility]) Metformin hydrochloride 1000 MG Oral Tablet Metformin HCl 1000 MG Metformin HCl 1000 MG 11/18/2019 12:00:00 AM EDT 1.0 {tablet_with_a_meal} active Metformin HCl 1000 MG eCW1 ([facility]) Metformin hydrochloride 1000 MG Oral Tablet Metformin HCl 1000 MG Metformin HCl 1000 MG 11/18/2019 12:00:00 AM EDT active 1 tablet with a meal eCW1 ([facility]) Metformin hydrochloride 1000 MG Oral Tablet Metformin HCl 1000 MG Metformin HCl 1000 MG 11/18/2019 12:00:00 AM EDT 1.0 {tablet_with_a_meal} active Metformin HCl 1000 MG eCW1 ([facility]) Metformin hydrochloride 1000 MG Oral Tablet Metformin HCl 1000 MG Metformin HCl 1000 MG 11/18/2019 12:00:00 AM EDT 1.0 {tablet_with_a_meal} active Metformin HCl 1000 MG eCW1 ([facility]) Metformin hydrochloride 1000 MG Oral Tablet Metformin HCl 1000 MG Metformin HCl 1000 MG 11/18/2019 12:00:00 AM EDT 1.0 {tablet_with_a_meal} active Metformin HCl 1000 MG eCW1 ([facility]) Metformin hydrochloride 1000 MG Oral Tablet Metformin HCl 1000 MG Metformin HCl 1000 MG 11/18/2019 12:00:00 AM EDT 1.0 {tablet_with_a_meal} active Metformin HCl 1000 MG eCW1 ([facility]) Metformin hydrochloride 1000 MG Oral Tablet Metformin HCl 1000 MG Metformin HCl 1000 MG 11/18/2019 12:00:00 AM EDT 1.0 {tablet_with_a_meal} active Metformin HCl 1000 MG eCW1 ([facility]) Metformin hydrochloride 1000 MG Oral Tablet Metformin HCl 1000 MG Metformin HCl 1000 MG 11/18/2019 12:00:00 AM EDT 1.0 {tablet_with_a_meal} active Metformin HCl 1000 MG eCW1 ([facility]) Metformin hydrochloride 1000 MG Oral Tablet Metformin HCl 1000 MG Metformin HCl 1000 MG 11/18/2019 12:00:00 AM EDT 1.0 {tablet_with_a_meal} active Metformin HCl 1000 MG eCW1 ([facility]) Metformin hydrochloride 1000 MG Oral Tablet Metformin HCl 1000 MG Metformin HCl 1000 MG 11/18/2019 12:00:00 AM EDT 1.0 {tablet_with_a_meal} active Metformin HCl 1000 MG eCW1 ([facility]) Metformin hydrochloride 1000 MG Oral Tablet Metformin HCl 1000 MG Metformin HCl 1000 MG 11/18/2019 12:00:00 AM EDT 1.0 {tablet_with_a_meal} active Metformin HCl 1000 MG eCW1 ([facility]) Metformin hydrochloride 1000 MG Oral Tablet Metformin HCl 1000 MG Metformin HCl 1000 MG 11/18/2019 12:00:00 AM EDT 1.0 {tablet_with_a_meal} active Metformin HCl 1000 MG eCW1 ([facility]) David Hernandez - 09/11/2019 12:00:00 AM EST activ krupa Hernandez - eCW1 ([facility]) David Hernandez - 09/11/2019 12:00:00 AM EST activ e Walker - eCW1 ([facility]) Walker - Walker - 09/11/2019 12:00:00 AM EST activ e Walker - eCW1 ([facility]) Walker - Walker - 09/11/2019 12:00:00 AM EST activ e Walker - eCW1 ([facility]) Walker - Walker - 09/11/2019 12:00:00 AM EST suspe nded Walker - eCW1 ([facility]) Walker - Walker - 09/11/2019 12:00:00 AM EST activ e Walker - eCW1 ([facility]) Walker - Walker - 09/11/2019 12:00:00 AM EST activ e Walker - eCW1 ([facility]) Walker - Walker - 09/11/2019 12:00:00 AM EST activ e as directed eCW1 ([facility]) Walker - Walker - 09/11/2019 12:00:00 AM EST activ e as directed eCW1 ([facility]) Walker - Walker - 09/11/2019 12:00:00 AM EST activ e as directed eCW1 ([facility]) Walker - Walker - 09/11/2019 12:00:00 AM EST activ e Walker - eCW1 ([facility]) Walker - Walker - 09/11/2019 12:00:00 AM EST activ e Walker - eCW1 ([facility]) Walker - Walker - 09/11/2019 12:00:00 AM EST activ e Walker - eCW1 ([facility]) Walker - Walker - 09/11/2019 12:00:00 AM EST activ e Walker - eCW1 ([facility]) Walker - Walker - 09/11/2019 12:00:00 AM EST suspe nded Walker - eCW1 ([facility]) Walker - Walker - 09/11/2019 12:00:00 AM EST activ e Walker - eCW1 ([facility]) Walker - Walker - 09/11/2019 12:00:00 AM EST suspe nded Walker - eCW1 ([facility]) Walker - Walker - 09/11/2019 12:00:00 AM EST activ e Walker - eCW1 ([facility]) Walker - Walker - 09/11/2019 12:00:00 AM EST activ e Walker - eCW1 ([facility]) Walker - Walker - 09/11/2019 12:00:00 AM EST activ e Walker - eCW1 ([facility]) Walker - Walker - 09/11/2019 12:00:00 AM EST activ e as directed eCW1 ([facility]) Walker - Walker - 09/11/2019 12:00:00 AM EST activ e Walker - eCW1 ([facility]) Walker - Walker - 09/11/2019 12:00:00 AM EST activ e as directed eCW1 ([facility]) Walker - Walker - 09/11/2019 12:00:00 AM EST suspe nded Walker - eCW1 ([facility]) Walker - Walker - 09/11/2019 12:00:00 AM EST activ e Walker - eCW1 ([facility]) Walker - Walker - 09/11/2019 12:00:00 AM EST activ e Walker - eCW1 ([facility]) Walker - Walker - 09/11/2019 12:00:00 AM EST activ e Walker - eCW1 ([facility]) Walker - Walker - 09/11/2019 12:00:00 AM EST activ e as directed eCW1 ([facility]) Walker - Walker - 09/11/2019 12:00:00 AM EST activ e as directed eCW1 ([facility]) Insurance Providers Payer name Policy type / Coverage type Policy ID Covered alliance party ID Covered alliance party's relationship to willson Policy Willson Plan Information [employer] [id number] SP [id number] [place] [id number] [employer] MEDICARE [id number] Jennifer [id number] MEDICARE [id number] SP [id number] WELL[employer]ARE O [id number] S [id number] ANSI-Commercial [id number] ANSI-Health Maintenance Organization ( O) [id number] ANSI-Health Maintenance Organization ( O) [id number] ANSI-Commercial [id number] MEDICARE [id number] SP [id number] [facility] OPTIONS [id number] SP [id number] ANSI-Commercial [id number] ANSI-Medicare Part B [id number] ANSI-Medicare Part B [id number] ANSI-Commercial [id number] ANSI-Medicare Part B [id number] ANSI-Commercial [id number] ANSI-Medicare Part B [id number] ANSI-Commercial [id number] ANSI-Commercial [id number] ANSI-Medicare Part B [id number] ANSI-Medicare Part B [id number] ANSI-Commercial [id number] ANSI-Medicare Part B [id number] ANSI-Commercial [id number] [facility] HEALTH CARE OPTIONS [id number] SP [id number] ANSI-Commercial [id number] ANSI-Medicare Part B [id number] ANSI-Medicare Part B [id number] ANSI-Commercial [id number] [facility] Health Care Options [facility] Part B [id number] Self [id number] [place] Primary [id number] Self [id number] ANSI-Medicare Part B [id number] ANSI-Commercial [id number] ANSI-Medicare Part B [id number] ANSI-Commercial [id number] ANSI-Medicare Part B [id number] ANSI-Commercial [id number] ANSI-Medicare Part B [id number] ANSI-Commercial [id number] [employer] [facility] OPTIONS [id number] SP [id number] ANSI-Medicare Part B [id number] ANSI-Commercial [id number] ANSI-Commercial [id number] ANSI-Medicare Part B [id number] MEDICARE [id number] SP [id number] A [place] Medigap Part B [id number] Self [id number] Ghi/Emblem HLTH (pr) Medigap Part B [id number] Self [id number] [place] (pr) Medigap Part B [id number] Self [id number] Todays Options/Amer Progress Medigap Part B [id number] Self [id number] Todays Options Medigap Part B [id number] Self [id number] [place] Medigap Part B [id number] Self [id number] [facility] Options Medigap Part B [id number] Self [id number] [place] Primary [id number] Self [id number] ANSI-Medicare Part B [id number] ANSI-Commercial [id number] [facility] Options Medigap Part B [id number] Self [id number] Medicare [place] Gov't Servi Medicare Primary [id number] Self [id number] AARP O [id number] S [id number] MEDICARE C [id number] S [id number] A [place] MED[place] PART B C [id number] S [id number] AARP O [id number] S [id number] [place] Medigap Part B Self Ghi/Emblem HLTH (pr) Medigap Part B Self [place] (pr) Medigap Part B Self Todays Options/[employer] Progress Medigap Part B Self [place]ays Options Medigap Part B Self [facility] Options Medigap Part B Self [place] Medicare Primary Self [facility] Options Medigap Part B Self [place] Medicare Primary Self RESEARCH STATISTICIAN 12 [id number] MEDICARE 4 [id number] 1 [id number] A SELF PAY 2 UNAVAILABLE 1 UNAVAILA BLE TODAYS OPT MEDICARE 11 [id number] 1 [id number] TODAYS OPTIONS/BRUNEIAN P [id number] S [id number] TODAYS OPTIONS [id number] SP [id number] Problems, Conditions, and Diagnoses Code Display Name Description Problem Type Effective Dates Data Source(s) U07.1 [id number] COVID-19 Problem 09/21/2020 12:00:00 AM LEXY Morgan eCW1 ([facility]) [id number] Type 2 diabetes mellitus with peripheral angiopathy Type 2 diabetes mellitus with peripheral angiopathy Problem 02/25/2020 12:00:00 AM E DT MEDENT ([facility]) [id number] Metatarsalgia Metatarsalgia Problem 12/16/2019 12:00:00 AM EDT MEDENT ([facility]) [id number] Localized, 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, primary osteoarthritis of the ankle and/or foot Problem 2019 12:00:00 AM EDT MEDENT ([facility]) 64641527 Dystrophia unguium Dystrophia unguium Problem 12:00:00 AM EDT MEDENT ([facility]) 83698821 Pain in limb Pain in limb Problem 12/16/2019 12:00:00 A M EDT MEDENT ([facility]) [id number] 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 Problem 12/16/2019 12:00:00 AM EDT MEDENT ( [facility]) Other synovitis and tenosynovitis, left ankle and foot Other synovitis and tenosynovitis, left ankle and foot Problem 12/16/2019 12:00:00 AM ED T MEDENT ([facility]) Corns and callosities Corns and callosities Problem 12/16/2019 12:00:00 AM EDT MEDENT ([facility]) L89.302 [id number] Pressure injury of b uttock, stage 2, unspecified laterality Problem 11/18/2019 12:00:00 AM EDT eCW1 ([facility]) R32 [id number] Urinary incontinence in female Problem 11/17 12:00:00 AM EDT eCW1 ([facility]) R32 [id number] Urinary incontinence in female Problem 11/17 12:00:00 AM EDT eCW1 ([facility]) L89.302 [id number] Pressure injury of b uttock, stage 2, unspecified laterality Problem 11/18/2019 12:00:00 AM EDT eCW1 ([facility]) R26.81 [id number] Unstable gait Problem 10/08/2019 12:00:00 AM EST eCW1 ([facility]) R26.81 [id number] Unstable gait Problem 10/08/2019 12:00:00 AM EST eCW1 ([facility]) N18.9 Chronic kidney disease, unspecified Chronic kidn ey disease, unspecified Diagnosis 06/22/2020 01:47:21 PM EDT [facility] I10 Essential (primary) hypertension Essential (primary) h ypertension Diagnosis 06/22/2020 01:47:21 PM EDT [facility] I25.810 Atherosclerosis of coronary artery bypass graft(s) without angina pectoris Atherosclerosis of coronary artery bypas Diagnosis 06/22/2020 01:47:21 PM EDT [facility] E78.2 Mixed hyperlipidemia Mixed hyperlipidemia Diagnosis 06/22/2020 01:47:21 PM EDT [facility] L89.151 Pressure ulcer of sacral region, stage 1 Pressure ulcer of sacral region, stage 1 Diagnosis 06/22/2020 01:47:21 PM EDT [facility] L84 Corns and callosities Corns and callosities Diagnosis 05/18/2020 02:15:00 PM EDT [facility] 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 Diagnosis 05/18/2020 02:15: 00 PM EDT [facility] E1151 Type 2 diabetes mellitus wit h diabetic peripheral angiopathy without gangrene Type 2 diabetes mellitus with diabetic p eripheral angiopathy without gangrene Diagnosis 05/18/2020 02:15:00 PM EDT [facility] R60.0 Localized edema Localized edema Diagnosis 03/16/2020 01:3 1:27 PM EDT [facility] L14867 Other synovitis and tenosynovitis, left ankle and foot Other synovitis and tenosynovitis, left ankle and foot Diagnosis 12/16/2019 01:47:00 P M EDT [facility] N14300 Primary osteoarthritis, unspecified ankl e and foot Primary osteoarthritis, unspecified ankle and foot Diagnosis 12/16/2019 01:47: 00 PM EDT [facility] M7741 Metatarsalgia, right foot Metatarsalgia, right foot Di agnosis 12/16/2019 01:47:00 PM EDT [facility] A68955 Pain in right foot Pain in right foot Diagnosis 01:47:00 PM EDT [facility] E1149 Type 2 diabetes mellitus with other diab etic neurological complication Type 2 diabetes mellitus with other diabetic neurological complication Diagnosis 12/16/2019 01:47:00 PM EDT [facility] Surgeries/Procedures Procedure Description Date Indications Data Source(s) Immunization: Flublok Quadrivalent (18 years & older) 0.5mL IM (Influenza) 07/02/2020 12:00:00 AM EDT eCW1 ([facility]) Pare Hyperkeratotic Lesion, 2-4 05/18/2020 12:00:00 AM EDT MEDENT ([facility]) Pare Hyperkeratotic Lesion, 2-4 02/25/2020 12:00:00 AM EDT MEDENT ([facility]) PARING/CUTTING BENIGN HYPERKERATOTIC LESION >4 020 12:00:00 AM EDT MEDENT ([facility]) Strapping Ankle/foot 12/16/2019 12:00:00 AM EDT MEDENT ([facility]) Annual wellness visit, includes a person alized prevention plan of service (pps), subsequent visit 11/18/2019 12:00:00 AM EDT eCW 1 ([facility]) Office Visit, Est Pt., Level 3 PC 09/01/2019 12:00:00 AM EST eCW1 ([facility]) Results ID Date Data Source [id number] 09/14/2020 11:59:00 AM EST [facility] Name Value Range Interpretation Code Description Data Crystal rce(s) Supporting Document(s) SARS coronavirus 2 RNA Detected [facility] This lab was ordered by [facility] and reported by [facility]. ID Date Data Source UA URINALYSIS 09/14/2020 12:00:00 AM EST eCW1 ([facility]) Name Value Range Interpretation Code Description Data Crystal rce(s) Supporting Document(s) UA URINALYSIS eCW1 ([facility]) ID Date Data Source Ser Prot Electro RFX ITS 07/07/2020 05:55:36 AM EST eCW1 ([facility]) Name Value Range Interpretation Code Description Data Crystal rce(s) Supporting Document(s) 4.9 WFDQF-8-MEVGROKR % eCW1 ([facility]) 7.4 VIMG-1-LWNQSZMDB % eCW1 ([facility]) 52.0 ALBUMIN % eCW1 ([facility]) 11.7 MAWEV-3-YWSTRNOEQ % eCW1 ([facility]) 0.37 BAWVH-7-KVYGBYSEL eCW1 ([facility]) 17.6 GAMMA GLOBULIN % eCW1 ([facility]) 3.95 ALBUMIN eCW1 ([facility]) 6.4 FVUZ-9-YPMSXZJYX % eCW1 ([facility]) 0.56 DJRJ-1-CNRERDBCU eCW1 ([facility]) 0.89 RGBKY-1-JINELWVOG eCW1 ([facility]) 0.49 YQOJ-6-MCMYXBHFU eCW1 ([facility]) 1.34 GAMMA GLOBULINS eCW1 ([facility]) SEE COMMENT SPEP INTERPRETATION FOR RFX eCW1 ([facility]) 7.6 TOTAL PROTEIN eCW1 ([facility]) ID Date Data Source LIPID PANEL (CARDIAC RISK) 07/07/2020 05:55:36 AM EST eCW1 ( [facility]) Name Value Range Interpretation Code Description Data Crystal rce(s) Supporting Document(s) Triglyceride [Mass/volume] in Serum or Plasma by calculation 116 TRIGLYCERIDES LEVEL eCW1 ([facility]) Cholesterol [Moles/volume] in Serum or Plasma 156 CHOLESTEROL LEVEL eCW1 ([facility]) Cholesterol in HDL [Moles/volume] in Serum or Plasma 61 HDL CHOLESTEROL eCW1 ([facility]) Cholesterol in LDL [Mass/volume] in Serum or Plasma by calculation 72 LDL CHOLESTEROL eCW1 ([facility]) 95 NON-HDL-C eCW1 ([facility]) 2.557 CHOLESTEROL RISK RATIO eCW1 ([facility]) ID Date Data Source Comprehensive Metabolic Profile (CMP) 07/07/2020 05:55:36 AM EST eCW1 ([facility]) Name Value Range Interpretation Code Description Data Crystal rce(s) Supporting Document(s) 1.22 CREATININE FOR GFR eCW1 ([facility]) 105 GLUCOSE, FASTING eCW1 ([facility]) 22 BLOOD UREA NITROGEN eCW1 ([facility]) 4.7 POTASSIUM SERUM eCW1 ([facility]) 45.3 GLOMERULAR FILTRATION RATE eCW 1 ([facility]) 136 SODIUM LEVEL eCW1 ([facility]) 15 AST/SGOT eCW1 ([facility]) 30 CARBON DIOXIDE LEVEL eCW1 ([facility]) 9.4 CALCIUM LEVEL eCW1 ([facility]) 98 CHLORIDE LEVEL eCW1 ([facility]) 68 ALKALINE PHOSPHATASE eCW1 ([facility]) 18 ALT/SGPT eCW1 ([facility]) 0.3 BILIRUBIN,TOTAL eCW1 ([facility]) 7.6 TOTAL PROTEIN eCW1 ([facility]) 3.5 ALBUMIN eCW1 ([facility]) 0.9 ALBUMIN/GLOBULIN RATIO eCW1 ([facility]) ID Date Data Source URINE CULTURE 07/06/2020 02:17:39 AM EST eCW1 ([facility]) Name Value Range Interpretation Code Description Data Crystal rce(s) Supporting Document(s) URINE CULTURE eCW1 ([facility]) ID Date Data Source [id number] 07/06/2020 02:17:39 AM EST eCW1 ([facility]) Name Value Range Interpretation Code Description Data Crystal rce(s) Supporting Document(s) Hemoglobin A1c/Hemoglobin.total in Blood 7.6 HEMOGLOBIN A1c eCW1 ([facility]) ID Date Data Source CBC - Complete Blood Count 07/06/2020 02:17:39 AM EST eCW1 ( [facility]) Name Value Range Interpretation Code Description Data Crystal rce(s) Supporting Document(s) 9.8 WHITE BLOOD COUNT eCW1 ([facility]) 11.0 HEMOGLOBIN eCW1 ([facility]) 38.5 HEMATOCRIT eCW1 ([facility]) 79.7 MEAN CORPUSCULAR VOLUME eCW1 ( [facility]) 4.83 RED BLOOD COUNT eCW1 ([facility]) 17.1 RED CELL DISTRIBUTION WIDTH eC W1 ([facility]) 22.8 MEAN CORPUSCULAR HEMOGLOBIN eC W1 ([facility]) 28.6 MEAN CORPUSCULAR HGB CONC eCW1 ([facility]) 329 PLATELET COUNT, AUTOMATED eCW1 ([facility]) ID Date Data Source Basic Metabolic Profile (BMP) 02/26/2020 05:56:41 AM EDT eCW 1 ([facility]) Name Value Range Interpretation Code Description Data Crystal rce(s) Supporting Document(s) 25 BLOOD UREA NITROGEN eCW1 ([facility]) 144 GLUCOSE, FASTING eCW1 ([facility]) 45.8 GLOMERULAR FILTRATION RATE eCW 1 ([facility]) 4.2 POTASSIUM SERUM eCW1 ([facility]) 138 SODIUM LEVEL eCW1 ([facility]) 1.21 CREATININE FOR GFR eCW1 ([facility]) 29 CARBON DIOXIDE LEVEL eCW1 ([facility]) 103 CHLORIDE LEVEL eCW1 ([facility]) 9.4 CALCIUM LEVEL eCW1 ([facility]) Procedure Social History Code Duration Value Status Description Data Source(s ) Smoking 09/14/2020 12:00:00 AM EST Never Smoker completed Never S moker eCW1 ([facility]) Smoking 09/14/2020 12:00:00 AM EST Never Smoker completed Never S moker eCW1 ([facility]) Smoking 09/14/2020 12:00:00 AM EST Never Smoker completed Never S moker eCW1 ([facility]) Smoking 07/27/2020 12:00:00 AM EST Never Smoked A Pipe complet ed Never Smoked A Pipe MEDENT ([facility]) Smoking 07/02/2020 12:00:00 AM EDT Never Smoker completed Never S moker eCW1 ([facility]) Smoking 07/02/2020 12:00:00 AM EDT Never Smoker completed Never S moker eCW1 ([facility]) Smoking 06/07/2020 12:00:00 AM EDT Patient has never smoked co mpleted Patient has never smoked MEDENT ([facility]) Smoking 02/26/2020 12:00:00 AM EDT Never Smoker completed Never S moker eCW1 ([facility]) Smoking 02/26/2020 12:00:00 AM EDT Never Smoker completed Never S moker eCW1 ([facility]) Smoking 02/26/2020 12:00:00 AM EDT Never Smoker completed Never S moker eCW1 ([facility]) Smoking 02/04/2020 12:00:00 AM EDT Never Smoker completed Never S moker eCW1 ([facility]) Smoking 02/04/2020 12:00:00 AM EDT Never Smoker completed Never S moker eCW1 ([facility]) Smoking 02/04/2020 12:00:00 AM EDT Never Smoker completed Never S moker eCW1 ([facility]) Vital Signs ID Date Data Source UNK Name Value Range Interpretation Code Description Data Source(s) Diastolic blood pressure 84 mm[Hg] 84 mm[Hg] eCW1 ([facility]) Systolic blood pressure 175 mm[Hg] 175 mm[Hg] e CW1 ([facility]) Body temperature 98.4 [degF] 98.4 [degF] eCW1 ( [facility]) Respiratory rate 18 /min 18 /min eCW1 ([facility]) Heart rate 117 /min 117 /min eCW1 ([facility]) Body mass index (BMI) [Ratio] 38.27 kg/m2 38.27 kg/m2 W1 ([facility]) Body height 64 [in_i] 64 [in_i] eCW1 ([facility]) Body weight 223 [lb_av] 223 [lb_av] eCW1 ([facility]) Diastolic blood pressure 86 mm[Hg] 86 mm[Hg] eCW1 ([facility]) Systolic blood pressure 144 mm[Hg] 144 mm[Hg] e CW1 ([facility]) Body temperature 97.6 [degF] 97.6 [degF] eCW1 ( [facility]) Respiratory rate 18 /min 18 /min eCW1 ([facility]) Heart rate 89 /min 89 /min eCW1 ([facility]) Body mass index (BMI) [Ratio] 38.45 kg/m2 38.45 kg/m2 eCW1 ([facility]) Body height 64 [in_i] 64 [in_i] eCW1 ([facility]) Body weight 224 [lb_av] 224 [lb_av] eCW1 ([facility]) Body mass index (BMI) [Ratio] 42.0 kg/m2 42.0 k g/m2 MEDENT ([facility], [facility]) Body height 64 [in_i] 64 [in_i] MEDENT ([facility]) 5'4" Body weight 245.00 [lb_av] 245.00 [lb_av] MEDEN T ([facility], [facility]) Body temperature 98.1 [degF] 98.1 [degF] MEDENT ([facility], [facility]) Oxygen saturation in Arterial blood by Pulse oximetry 96 % 96 % MEDENT ([facility], [facility]) Respiratory rate 20 /min 20 /min MEDENT ( [facility], [facility]) Heart rate 74 /min 74 /min MEDENT ([facility], [facility]) Diastolic blood pressure 72 mm[Hg] 72 mm[Hg] MEDENT ([facility], [facility]) Systolic blood pressure 128 mm[Hg] 128 mm[Hg] M EDENT ([facility], [facility]) Diastolic blood pressure 80 mm[Hg] 80 mm[Hg] eCW1 ([facility]) Systolic blood pressure 148 mm[Hg] 148 mm[Hg] e CW1 ([facility]) Body temperature 97.0 [degF] 97.0 [degF] eCW1 ( [facility]) Respiratory rate 18 /min 18 /min eCW1 ([facility]) Heart rate 104 /min 104 /min eCW1 ([facility]) Body mass index (BMI) [Ratio] 37.93 kg/m2 37.93 kg/m2 eCW1 ([facility]) Body height 64 [in_i] 64 [in_i] eCW1 ([facility]) Body weight 221 [lb_av] 221 [lb_av] eCW1 ([facility]) Body weight 101.606 kg 101.606 kg MEDENT [...] 64 [in_i] 64 [in_i] MEDENT ([facility]) 5'4" Tem;P 97.3 Body temperature 96.0 [degF] 96.0 [degF] eCW1 ( [facility]) Respiratory rate 18 /min 18 /min eCW1 ([facility]) Heart rate 108 /min 108 /min eCW1 ([facility]) Body mass index (BMI) [Ratio] 39.30 kg/m2 39.30 kg/m2 eCW1 ([facility]) Body height 64 [in_i] 64 [in_i] eCW1 ([facility]) Body weight 229 [lb_av] 229 [lb_av] eCW1 ([facility]) Body mass index (BMI) [Ratio] 40.3 kg/m2 40.3 k g/m2 MEDENT ([facility], [facility]) Body height 64 [in_i] 64 [in_i] MEDENT ([facility], [facility]) 5'4" Body weight 235.00 [lb_av] 235.00 [lb_av] MEDEN T ([facility], [facility]) Body temperature 98.4 [degF] 98.4 [degF] MEDENT ([facility], [facility]) Oxygen saturation in Arterial blood by Pulse oximetry 97 % 97 % MEDENT ([facility], [facility]) Respiratory rate 20 /min 20 /min MEDENT ( [facility], [facility]) Heart rate 87 /min 87 /min MEDENT ([facility], [facility]) Diastolic blood pressure 94 mm[Hg] 94 mm[Hg] MEDENT ([facility], [facility]) manual Systolic blood pressure 180 mm[Hg] 180 mm[Hg] M EDENT ([facility], [facility]) manual Diastolic blood pressure 86 mm[Hg] 86 mm[Hg] eCW1 ([facility]) Systolic blood pressure 126 mm[Hg] 126 mm[Hg] e CW1 ([facility]) Body temperature 97.8 [degF] 97.8 [degF] eCW1 ( [facility]) Respiratory rate 18 /min 18 /min eCW1 ([facility]) Heart rate 76 /min 76 /min eCW1 ([facility]) Body mass index (BMI) [Ratio] 40.13 kg/m2 40.13 kg/m2 eCW1 ([facility]) Body height 64 [in_us] 64 [in_us] eCW1 ([facility]) Body weight Measured 233.8 [lb_av] 233.8 [lb_av ] eCW1 ([facility]) Patient Treatment Plan of Care Planned Activity Planned Date Details Description Data Source (s) NITROFURANTOIN, MACROCRYSTALS 25 MG / Ni trofurantoin, Monohydrate 75 MG Oral Capsule 07/02/2020 12:00:00 AM EDT eCW1 ([facility]) NITROFURANTOIN, MACROCRYSTALS 25 MG / Ni trofurantoin, Monohydrate 75 MG Oral Capsule 07/02/2020 12:00:00 AM EDT eCW1 ([facility]) Hydrochlorothiazide 25 MG / Losartan Potassium 100 MG Oral Tablet 06/17/2020 12:00:00 AM EDT eCW1 ([facility]) Hydrochlorothiazide 25 MG / Losartan Potassium 100 MG Oral Tablet 06/17/2020 12:00:00 AM EDT eCW1 ([facility]) Metformin hydrochloride 1000 MG Oral Tablet 11/18/2019 12:00:00 AM EDT eCW1 ([facility]) Metformin hydrochloride 1000 MG Oral Tablet 11/18/2019 12:00:00 AM EDT eCW1 ([facility]) Metformin hydrochloride 1000 MG Oral Tablet 11/18/2019 12:00:00 AM EDT eCW1 ([facility]) Walker - 09/11/2019 12:00:00 AM EST e CW1 ([facility]) Walker - 09/11/2019 12:00:00 AM EST e CW1 ([facility]) Walker - 09/11/2019 12:00:00 AM EST e CW1 ([facility]) Walker - 09/11/2019 12:00:00 AM EST e CW1 ([facility]) Walker - 09/11/2019 12:00:00 AM EST e CW1 ([facility])
[2020-09-30 20:22] LABS: HEMATOCRIT 29.6 % (36.0-47.0); HEMOGLOBIN 9.1 g/dl (12.0-15.5)
[2020-09-30] MEDS: OMEPRAZOLE 20 MG CAP PO SCH (21:13)
[2020-09-30] MEDS: ACETAMINOPHEN TAB 650MG DOSE (2X325MG) PO PRN (21:13)
[2020-09-30 22:55] VITALS: BP 119/58
[2020-09-30 23:55] VITALS: BP 119/56
[2020-10-01] VITALS (18 sets, daily range): BP systolic 109–149; BP diastolic 48–84
[2020-10-01] MEDS: PIPERACILLIN/TAZOBACTAM SOD 3.375 GM in D5W MINI-BAG PLUS 50 ML IV SCH ×2 (01:47→06:11)
[2020-10-01] MEDS: HumaLOG INSULIN (NovoLOG) PER UNIT SC SCH ×5 (01:47→21:00)
[2020-10-01 02:22] LABS: HEMATOCRIT 27.6 % (36.0-47.0); HEMOGLOBIN 8.5 g/dl (12.0-15.5)
[2020-10-01] MEDS: NS 1,000 ML IV SCH (05:51)
[2020-10-01 07:23] LABS: BASO % 0.5 % (0.0-1.0); EOS # 0.2 10^3/uL (0.0-0.5); HEMATOCRIT 29.7 % (36.0-47.0); HEMOGLOBIN 9.5 g/dl (12.0-15.5); LYMPH % 14.2 % (24.0-44.0); MEAN CORPUSCULAR HEMOGLOBIN 25.4 pg (27.0-33.0); MEAN CORPUSCULAR VOLUME 79.4 fl (80.0-96.0); MONO % 13.5 % (0.0-5.0); NEUTROPHILS % 68.3 % (36.0-66.0); RED BLOOD COUNT 3.74 10^6/uL (4.00-5.40); WHITE BLOOD COUNT 7.3 10^3/uL (4.0-10.0)
[2020-10-01 07:38] LABS: PLATELET COUNT, AUTOMATED 252 10^3/uL (150-450)
[2020-10-01 08:00] LABS: CALCIUM LEVEL 8.6 MG/DL (8.8-10.2); CREATININE FOR GFR 1.41 MG/DL (0.55-1.30); GLOMERULAR FILTRATION RATE 38.3 (>39); MAGNESIUM LEVEL 1.7 MG/DL (1.8-2.4); POTASSIUM SERUM 3.4 MEQ/L (3.5-5.1)
[2020-10-01] MEDS ORDERED: POTASSIUM CHLORIDE 10 MEQ SR TABLET PO ONE (08:45)
[2020-10-01] MEDS ORDERED: MAG SULF 1GM/100ML (MAG RUN) 1 GM in IV 1 EA IV ONE (09:00)
[2020-10-01] MEDS: ACETAMINOPHEN TAB 650MG DOSE (2X325MG) PO PRN (09:30)
[2020-10-01] MEDS: OMEPRAZOLE 20 MG CAP PO SCH ×2 (09:30→21:37)
--- NOTE | 2020-10-01 12:50 | IPNPDOC ---
Text Note Date of Service The patient was seen on 10/01/20. NOTE Subjective: Patient is a 89-year-old female who presented to the emergency room with complaints of rectal bleeding. Patient reports that her rectal bleeding began at 4AM. Patient has reported greater than 8 bowel movements, all of which have been bloody. Patient reports her most recent bowel movement was in the emergency room and was noted to be bloody. Patient reports some abdominal discomfort occurring in her left lower quadrant reports it as a 3/10, non- radiating without any alleviating or admitting factors. Patient was admitted to the hospitalist service for further evaluation and treatment. 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 Patient was seen and examined at the bedside. Currently patient reports that she is feeling well. Denies any chest pain, short of breath or palpitations. Denies any nausea, vomiting, abdominal pain. Reports that she did have a bowel movement with some blood in it overnight. Objective: Vitals (See below) General: Lying in bed, appears comfortable, AAOx3 HEENT: NC, AT CVS: RRR, +S1S2 Lungs: Fair air entry b/l, no appreciable wheezing, rhonchi or rales Abdomen: Soft, nondistended, without tenderness Extremities: - Edema, - Calf tenderness Assessment and plan: Symptomatic anemia / Acute blood loss anemia - likely 2/2 Lower GI bleed, less likely 2/2 upper GI bleed - Presented to the ER with rectal bleeding / Reported light-headedness and dizziness - Hg is lower than baseline of 11; Hg 9.9 on admission and after 2 units of PRBC is essentially unchanged - Will DC IV fluids - s/p 2 units PRBC - Will follow H&H [id number] and transfuse as required - Will continue to hold ASA - Will continue with telemetry monitoring - Will allow ambulation with assistance - Will advance diet to clears today LLQ abdominal pain - Afebrile - s/p Leukocytosis - CT imaging noted above - Procalcitonin of 0.06 / Blood cultures 09/30: Pending - Will start Cipro / Flagyl PO; Will DC Zosyn (Antibiotic day #2) s/p Lactic acidosis Hyponatremia - Likely 2/2 hypotonic hypovolemic etiology - Improving - Will hold HCTZ - Will DC IV fluid hydration COVID19 - Currently is asymptomatic - Positive on 09/14 - Confirmed with [facility] - c/w Supportive care CAD s/p CABG (2012) - c/w Rosuvastatin - Will hold ASA Chronic Diastolic CHF - No evidence of exacerbation currently - ECHO pending - Not on diuretics at home HTN - BP on lower limits of normal - Will hold HCTZ / Losartan / Metoprolol DLP - c/w Rosuvastatin NIDDM2 - c/w ISS CVA (2012) - Reported history of possible PFO - c/w Rosuvastatin / ASA on hold Monoclonal gammopathy OA - c/w Tylenol PRN Vitamin D deficiency - Currently not on therapy GERD - c/w Omeprazole DVT prophylaxis - c/w TEDs/Sequentials Disposition: - Anticipate DC within 24 hours VS,Ziggy, I+O VS, Ziggy, I+O Laboratory Tests 09/30/20 14:14 09/30/20 20:01 10/01/20 02:14 10/01/20 06:43 Vital Signs Date Time Temp Pulse Resp B/P (MAP) Pulse Ox O2 Delivery O2 Flow Rate FiO2 10/01/20 09:08 97.1 80 19 127/60 (82) 96 Room Air 10/01/20 05:40 95.0 I&O- Last 24 Hours up to 6 AM 10/01/20 05:59 Intake Total 1510 ml Output Total 150 ml Balance 1360 ml ORION GALVIN MD Oct 01, 2020 12:50
[2020-10-01 13:15] LABS: HEMATOCRIT 29.9 % (36.0-47.0); HEMOGLOBIN 9.3 g/dl (12.0-15.5)
[2020-10-01] MEDS: metroNIDAZOLE (FLAGYL) 500MG TABLET PO SCH ×2 (16:54→21:37)
[2020-10-01] MEDS: CIPROFLOXACIN 500MG TABLET PO SCH (16:54)
[2020-10-01] MEDS ORDERED: ROSUVASTATIN 10 MG TAB (CRESTOR) PO SCH (17:00)
[2020-10-01 19:02] LABS: HEMATOCRIT 25.4 % (36.0-47.0); HEMOGLOBIN 7.9 g/dl (12.0-15.5)
[2020-10-02 00:51] LABS: HEMATOCRIT 30.6 % (36.0-47.0); HEMOGLOBIN 9.8 g/dl (12.0-15.5)
[2020-10-02 02:00] VITALS: BP 159/69
[2020-10-02 04:00] VITALS: BP 158/70
[2020-10-02] MEDS: CIPROFLOXACIN 500MG TABLET PO SCH ×2 (05:23→17:41)
[2020-10-02 08:00] VITALS: BP 193/79
[2020-10-02 08:14] LABS: BASO % 0.5 % (0.0-1.0); EOS # 0.2 10^3/uL (0.0-0.5); EOS % 2.5 % (0.0-3.0); HEMATOCRIT 30.6 % (36.0-47.0); HEMOGLOBIN 9.8 g/dl (12.0-15.5); LYMPH # 0.9 10^3/uL (1.5-5.0); LYMPH % 12.1 % (24.0-44.0); MEAN CORPUSCULAR HEMOGLOBIN 26.5 pg (27.0-33.0); MEAN CORPUSCULAR VOLUME 82.7 fl (80.0-96.0); MONO # 1.1 10^3/uL (0.0-0.8); NEUTROPHILS # 5.3 10^3/uL (1.5-8.5); NEUTROPHILS % 70.4 % (36.0-66.0); PLATELET COUNT, AUTOMATED 230 10^3/uL (150-450); WHITE BLOOD COUNT 7.5 10^3/uL (4.0-10.0)
[2020-10-02] MEDS: metroNIDAZOLE (FLAGYL) 500MG TABLET PO SCH ×3 (08:20→20:24)
[2020-10-02] MEDS: OMEPRAZOLE 20 MG CAP PO SCH ×2 (08:20→20:24)
[2020-10-02] MEDS: HumaLOG INSULIN (NovoLOG) PER UNIT SC SCH ×4 (08:20→21:00)
[2020-10-02 08:42] LABS: CALCIUM LEVEL 8.1 MG/DL (8.8-10.2); CREATININE FOR GFR 1.16 MG/DL (0.55-1.30); MAGNESIUM LEVEL 1.6 MG/DL (1.8-2.4); POTASSIUM SERUM 3.1 MEQ/L (3.5-5.1)
--- NOTE | 2020-10-02 10:23 | IPNPDOC ---
Text Note Date of Service The patient was seen on 10/02/20. NOTE Subjective: Patient is a 89-year-old female who presented to the emergency room with complaints of rectal bleeding. Patient reports that her rectal bleeding began at 4AM. Patient has reported greater than 8 bowel movements, all of which have been bloody. Patient reports her most recent bowel movement was in the emergency room and was noted to be bloody. Patient reports some abdominal discomfort occurring in her left lower quadrant reports it as a 3/10, non- radiating without any alleviating or admitting factors. Patient was admitted to the hospitalist service for further evaluation and treatment. 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 Patient was seen and examined at the bedside. Patient was seen sitting up in chair, appears to be comfortable. Denies any lightheadedness, dizziness, chest pain, shortness breath, palpitations. Has not experience any nausea, vomiting, abdominal pain, did report having a bowel movement this morning that was slightly bloody as per the nurse. Objective: Vitals (See below) General: Lying in bed, no acute distress, AAOx3 HEENT: NC, AT CVS: RRR, +S1S2 Lungs: Fair air entry b/l, auscultation is free of rhonchi, rales Abdomen: Soft, without any appreciated distention or tenderness Extremities: Trace edema bilaterally, - Calf tenderness Assessment and plan: Symptomatic anemia / Acute blood loss anemia - likely 2/2 Lower GI bleed, less likely 2/2 upper GI bleed - Presented to the ER with rectal bleeding / Reported light-headedness and dizziness - Hg is lower than baseline of 11; Hg 9.9 on admission - Will DC IV fluids - s/p 4 units PRBC - c/w H&H [id number] and transfuse as required - Hold ASA - c/w telemetry monitoring - Ambulation with assistance - c/w clear liquid diet today LLQ abdominal pain - Afebrile - s/p Leukocytosis - CT imaging noted above - Procalcitonin of 0.06 / Blood cultures 09/30: Negative at 24 hours - c/w Cipro / Flagyl PO; s/p Zosyn (Antibiotic day #3) s/p Lactic acidosis s/p Hyponatremia - Likely 2/2 hypotonic hypovolemic etiology COVID19 - Currently is asymptomatic - Positive on 09/14 - Confirmed with [facility] - c/w Supportive care CAD s/p CABG (2012) - c/w Rosuvastatin - Will hold ASA Chronic Diastolic CHF - No evidence of exacerbation currently - ECHO pending - Not on diuretics at home HTN - BP elevated this morning - Will resume Losartan at reduced dose today - Will hold HCTZ / Metoprolol - Will provide small dose of Furosemide DLP - c/w Rosuvastatin NIDDM2 - c/w ISS CVA (2012) - Reported history of possible PFO - c/w Rosuvastatin / ASA on hold Monoclonal gammopathy OA - c/w Tylenol PRN Vitamin D deficiency - Currently not on therapy GERD - c/w Omeprazole DVT prophylaxis - c/w TEDs/Sequentials Disposition: - Anticipate DC within 24 hours VS,Fishbone, I+O VS, Fishbone, I+O Laboratory Tests 10/01/20 12:36 10/01/20 18:22 10/02/20 00:45 10/02/20 07:18 Vital Signs Date Time Temp Pulse Resp B/P (MAP) Pulse Ox O2 Delivery O2 Flow Rate FiO2 10/02/20 08:00 97.8 90 18 193/79 (117) 97 Room Air 10/01/20 20:18 I&O- Last 24 Hours up to 6 AM 10/02/20 06:00 Intake Total 2780 ml Output Total 825 ml Balance 1955 ml ORION GALVIN MD Oct 02, 2020 10:23
[2020-10-02] MEDS ORDERED: POTASSIUM CHLORIDE 10 MEQ SR TABLET PO ONE ×2 (11:00→15:00)
[2020-10-02] MEDS ORDERED: FUROSEMIDE 20MG/2ML VIAL (J1940) IV ONE (11:00)
[2020-10-02] MEDS: LOSARTAN 50MG TABLET PO SCH (11:29)
[2020-10-02 12:00] VITALS: BP 186/79
[2020-10-02 12:52] LABS: HEMATOCRIT 31.2 % (36.0-47.0); HEMOGLOBIN 9.9 g/dl (12.0-15.5)
[2020-10-02 16:24] VITALS: BP 164/74
[2020-10-02 18:34] LABS: HEMATOCRIT 28.7 % (36.0-47.0); HEMOGLOBIN 9.2 g/dl (12.0-15.5)
[2020-10-02 20:00] VITALS: BP 130/58
[2020-10-03] VITALS: BP 133/62
[2020-10-03 00:52] LABS: HEMATOCRIT 27.3 % (36.0-47.0); HEMOGLOBIN 8.9 g/dl (12.0-15.5)
[2020-10-03 04:00] VITALS: BP 145/64
[2020-10-03] MEDS: CIPROFLOXACIN 500MG TABLET PO SCH (05:57)
[2020-10-03] MEDS: OMEPRAZOLE 20 MG CAP PO SCH (08:00)
[2020-10-03] MEDS: HumaLOG INSULIN (NovoLOG) PER UNIT SC SCH ×2 (08:00→12:52)
[2020-10-03] MEDS: metroNIDAZOLE (FLAGYL) 500MG TABLET PO SCH (08:00)
[2020-10-03 08:01] VITALS: BP 180/86
[2020-10-03] MEDS: LOSARTAN 50MG TABLET PO SCH (08:01)
[2020-10-03 08:03] LABS: BASO % 0.4 % (0.0-1.0); EOS # 0.2 10^3/uL (0.0-0.5); EOS % 2.9 % (0.0-3.0); HEMATOCRIT 28.9 % (36.0-47.0); HEMOGLOBIN 9.2 g/dl (12.0-15.5); LYMPH # 1.1 10^3/uL (1.5-5.0); MEAN CORPUSCULAR HEMOGLOBIN 26.7 pg (27.0-33.0); MEAN CORPUSCULAR HGB CONC 31.8 g/dl (32.0-36.5); MEAN CORPUSCULAR VOLUME 83.8 fl (80.0-96.0); MONO % 13.5 % (0.0-5.0); NEUTROPHILS # 4.8 10^3/uL (1.5-8.5); NEUTROPHILS % 66.8 % (36.0-66.0); PLATELET COUNT, AUTOMATED 213 10^3/uL (150-450); RED BLOOD COUNT 3.45 10^6/uL (4.00-5.40); WHITE BLOOD COUNT 7.1 10^3/uL (4.0-10.0)
[2020-10-03 08:22] LABS: CALCIUM LEVEL 8.2 MG/DL (8.8-10.2); CREATININE FOR GFR 0.96 MG/DL (0.55-1.30); GLOMERULAR FILTRATION RATE 59.7 (>39); MAGNESIUM LEVEL 1.3 MG/DL (1.8-2.4); POTASSIUM SERUM 3.6 MEQ/L (3.5-5.1)
[2020-10-03] MEDS ORDERED: MAGNESIUM OXIDE 400MG TAB (MAG-OX) PO SCH (09:00)
[2020-10-03] MEDS ORDERED: METOPROLOL TART 12.5 MG PER 1/2 TAB PO SCH (09:00)
[2020-10-03] MEDS ORDERED: CIPR-249 PO (09:06)
[2020-10-03] MEDS ORDERED: FLAG500T PO (09:06)
[2020-10-03] MEDS: MAG SULF 1GM/100ML (MAG RUN) 1 GM in IV 1 EA IV SCH ×3 (09:37→12:11)
[2020-10-03 09:38] VITALS: BP 180/86
[2020-10-03 12:00] VITALS: BP 160/65
[2020-10-03 12:08] LABS: HEMATOCRIT 28.9 % (36.0-47.0); HEMOGLOBIN 9.2 g/dl (12.0-15.5)
--- NOTE | 2020-10-03 12:32 | DS.PDOC ---
Discharge Summary General Date of Admission Sep 30, 2020 at 17:46 Date of Discharge 10/03/2020 Discharge Summary PROCEDURES PERFORMED DURING STAY: [None]. ADMITTING DIAGNOSES / DISCHARGE DIAGNOSES: Symptomatic anemia / Acute blood loss anemia - likely 2/2 Lower GI bleed - likely 2/2 diverticular bleed s/p LLQ abdominal pain s/p Lactic acidosis s/p Hyponatremia - Likely 2/2 hypotonic hypovolemic etiology COVID19 CAD s/p CABG (2012) Chronic Diastolic CHF HTN DLP NIDDM2 CVA (2012) Monoclonal gammopathy OA Vitamin D deficiency GERD DVT prophylaxis COMPLICATIONS/CHIEF COMPLAINT: Rectal bleeding HISTORY OF PRESENT ILLNESS: Patient is a 89-year-old female who presented to the emergency room with complaints of rectal bleeding. Patient reports that her rectal bleeding began at 4AM. Patient has reported greater than 8 bowel movements, all of which have been bloody. Patient reports her most recent bowel movement was in the emergency room and was noted to be bloody. Patient reports some abdominal discomfort occurring in her left lower quadrant reports it as a 3/10, non- radiating without any alleviating or admitting factors. Patient was admitted to the hospitalist service for further evaluation and treatment. 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 HOSPITAL COURSE: Symptomatic anemia / Acute blood loss anemia - likely 2/2 Lower GI bleed, less likely 2/2 upper GI bleed - Reports no significant blood bowel movement; Denies any light-headedness or dizziness - Colonoscopy 09/[address] Nicholas in the past that has only revealed diverticulosis / internal hemorrhoids - Hg is lower than baseline of 11; Hg 9.9 on admission - has remained stable - s/p IV fluids - s/p 4 units PRBC - Hg has remained stable - Hold ASA; will resume in 7 days from discharge - c/w telemetry monitoring - Ambulating without difficulty - Diet fully advanced and tolerating - Will have outpatient follow up with PCP / Gastroenterology within 7 days s/p LLQ abdominal pain - Afebrile - s/p Leukocytosis - CT imaging noted above - Procalcitonin of 0.06 / Blood cultures 09/30: Negative at 24 hours - c/w Cipro / Flagyl PO; s/p Zosyn (Antibiotic day #4) - will complete antibiotic course as an outpatient s/p Lactic acidosis s/p Hyponatremia - Likely 2/2 hypotonic hypovolemic etiology COVID19 - Currently is asymptomatic - Positive on 09/14 - Confirmed with [facility] - c/w Supportive care CAD s/p CABG (2012) - c/w Rosuvastatin - Will hold ASA; will resume in 7 days from discharge Chronic Diastolic CHF - No evidence of exacerbation currently - ECHO complete; will have outpatient follow up for report - Not on diuretics at home HTN - BP elevated this morning; has improved with PO medications - c/w Losartan / HCTZ / Metoprolol on discharge DLP - c/w Rosuvastatin NIDDM2 - c/w ISS CVA (2012) - Reported history of possible PFO - c/w Rosuvastatin / ASA on hold Monoclonal gammopathy OA - c/w Tylenol PRN Vitamin D deficiency - Currently not on therapy GERD - c/w Omeprazole DVT prophylaxis - c/w TEDs/Sequentials DISCHARGE MEDICATIONS: Please see below. ALLERGIES: Please see below. PHYSICAL EXAMINATION ON DISCHARGE: Vitals (See below) General: Sitting up in bed, appears comfortable, AAOx3 HEENT: NC, AT CVS: RRR, +S1S2 Lungs: Patient is free of any rhonchi, crackles or wheezing and is fair bilaterally Abdomen: Nondistended and nontender, soft and obese Extremities: LE with trace edema, - Calf tenderness LABORATORY DATA: Please see below. ACTIVITY: [As tolerated]. DISCHARGE PLAN: Follow-up with primary care provider within the next 7 days and gastroenterology within the next 7 days DISPOSITION: Home with services DISCHARGE CONDITION: [Stable]. TIME SPENT ON DISCHARGE: 35 minutes. Vital Signs/I&Os Vital Signs Date Time Temp Pulse Resp B/P (MAP) Pulse Ox O2 Delivery O2 Flow Rate FiO2 10/03/20 09:38 108 180/86 10/03/20 08:01 98.0 18 98 Room Air 10/01/20 20:18 I&O- Last 24 Hours up to 6 AM 10/03/20 05:59 Intake Total 120 ml Output Total 700 ml Balance -580 ml Laboratory Data Labs 24H Laboratory Tests 2 10/02/20 12:57: Bedside Glucose (Misc Panel) 148H 10/02/20 17:05: Bedside Glucose (Misc Panel) 148H 10/02/20 20:08: Bedside Glucose (Misc Panel) 161H 10/03/20 07:19: Immature Granulocyte % (Auto) 0.4, Neutrophils (%) (Auto) 66.8H, Lymphocytes (%) (Auto) 16.0L, Monocytes (%) (Auto) 13.5H, Eosinophils (%) (Auto) 2.9, Basophils (%) (Auto) 0.4, Neutrophils # (Auto) 4.8, Lymphocytes # (Auto) 1.1L, Monocytes # (Auto) 1.0H, Eosinophils # (Auto) 0.2, Basophils # (Auto) 0.0, Nucleated Red Blood Cells % (auto) 0.0, Anion Gap 10, Glomerular Filtration Rate 59.7, Calcium Level 8.2L, Magnesium Level 1.3L 10/03/20 07:26: Bedside Glucose (Misc Panel) 150H 10/03/20 12:08: Bedside Glucose (Misc Panel) 203H CBC/BMP Laboratory Tests 10/02/20 18:08 10/03/20 00:13 10/03/20 07:19 10/03/20 11:56 FSBS Laboratory Tests Test 10/02/20 12:57 10/02/20 17:05 10/02/20 20:08 10/03/20 07:26 Range/Units Bedside Glucose (Misc Panel) 148 148 161 150 83-110 MG/DL Test 10/03/20 12:08 Range/Units Bedside Glucose (Misc Panel) 203 83-110 MG/DL Microbiology Microbiology 09/30/20 Blood Culture - Preliminary, Resulted No Growth after 48 hours. All Specime... 09/30/20 Blood Culture - Preliminary, Resulted No Growth after 48 hours. All Specime... Discharge Medications Scheduled Calcium Carbonate/Vitamin D3 (Calcium 500+D Tablet Chew) 1 Each Tab.chew, 1 CHW PO BID, (Reported) Ciprofloxacin HCl (Cipro) 500 Mg Tablet, 500 MG PO BID@,18 Docusate Sodium (Docusate Sodium) 100 Mg Cap, 100 MG PO BID, (Reported) Glimepiride (Glimepiride) 2 Mg Tab, 2 MG PO BID, (Reported) Losartan/Hydrochlorothiazide (Losartan-Hctz 100-25 mg Tab) 1 Tab Tab, 1 TAB PO DAILY, (Reported) Magnesium Chloride (Mag64) 64 Mg Tabcr, 64 MG PO BID, (Reported) Metformin HCl (Metformin HCl) 1,000 Mg Tablet, 1,000 MG PO BID, (Reported) Metoprolol Tartrate (Metoprolol Tartrate) 25 Mg Tab, 12.5 MG PO BID, (Reported) Metronidazole (Flagyl) 500 Mg Tablet, 500 MG PO TID Multivitamin (Animal Chews) 1 Each Tab.chew, 1 CHW PO DAILY, (Reported) Omeprazole (Omeprazole) 20 Mg Cap, 20 MG PO BID, (Reported) Rosuvastatin Calcium (Rosuvastatin Calcium) 10 Mg Tab, 10 MG PO Q2D, (Reported) EVERY OTHER DAY AT 1700 Allergies Coded Allergies: atorvastatin (Verified Adverse Reaction, Intermediate, myalgia, 09/22/20) linagliptin (Verified Adverse Reaction, Intermediate, joint pain, 09/22/20) lisinopril (Verified Adverse Reaction, Intermediate, cough, 09/22/20) Cephalosporins (Verified Adverse Reaction, Mild, headache, 09/22/20) benzonatate (Verified Adverse Reaction, Mild, headache, 09/22/20) diclofenac (Verified Adverse Reaction, Mild, RUEDA/UPSET STOMACH, 09/22/20) ibuprofen (Verified Adverse Reaction, Mild, GI upset, 09/22/20) ORION GALVIN MD Oct 03, 2020 12:32
[2020-10-04] MEDS ORDERED: LOSARTAN 50MG TABLET PO SCH (09:00)
--- NOTE | 2020-10-06 09:36 | ECHO ---
DATE OF PROCEDURE: 10/01/2020 Age: 80 Gender: Female PATIENT LOCATION: Room 4102 REFERRING PROVIDER: Dr. Beni Pabon. REASON FOR THE TESTING: Shortness of breath. MEASUREMENTS: 2D Measurements: IVS 1.5 cm LV 4.0 cm LVPW 1.3 cm LA 3.6 cm Aorta 3.0 cm IVC 1.4 cm Doppler Measurements: Peak velocity across the aortic valve 1.4 m/s Peak velocity across the LVOT 1.2 m/s Mitral E 0.51 Mitral A 0.84 with a ratio of 0.6 Maximum tricuspid valve velocity 2.3 m/s 2D COMMENTS: 1. Normal left ventricular size with mildly increased left ventricular wall thickness. Left ventricular systolic function is normal, estimated at 60-65%. 2. Normal left atrium, normal right atrium and right ventricle. . 3. The atrial septum appeared to be normal without evidence of defect or shunt. 4. Normal aortic root. 5. No pericardial effusion seen. 6. Mildly calcified aortic valve with normal leaflet excursion. Mildly calcified mitral annulus with normal anterior mitral valve leaflet motion. Normal tricuspid valve and pulmonic valve. The proximal pulmonary artery branches were not well visualized. 7. The inferior vena cava was normal in size, central venous pressure is most likely normal. DOPPLER: It detects trace aortic regurgitation, mild mitral regurgitation, mild tricuspid regurgitation, and trace pulmonic regurgitation. The calculated pulmonary artery systolic pressure value is between 30-40 mmHg. Abnormal relaxation pattern was noted across the mitral valve leaflets and the mitral valve annulus consistent with features of grade 1 left ventricular diastolic dysfunction. IMPRESSION: 1. Normal global left ventricular systolic function with mild concentric left ventricular hypertrophy. There are some features of grade 1 left ventricular diastolic dysfunction manifested by abnormal relaxation. 2. Aortic valve sclerosis with trace aortic regurgitation but no aortic stenosis. 3. Mitral annulus calcification with mild mitral regurgitation. 4. Mild tricuspid regurgitation with mild pulmonary hypertension. 5. Patient was noted during the test to be mildly tachycardic, sinus tachycardia. MTDD
== END 2020-10-03 14:50 | disposition home health service (06) | DRG 378 ==
LOC: M ED 13:37 → EDBD 13:37 → M ED INP 17:46 → M 4MAIN 10-01 00:17
PROVIDERS: ADMIT Internal Medicine; ATTEND Internal Medicine
PROC: 30233N1 Transfusion of Nonautologous Red Blood Cells into Peripheral Vein, Percutaneous Approach (ICD-10-PCS; principal; 2020-09-30)
DX: K57.91 Diverticulosis of intestine, part unspecified, without perforation or abscess with bleeding (principal); I50.32 Chronic diastolic (congestive) heart failure; D62 Acute posthemorrhagic anemia; E87.2 Acidosis; I25.10 Atherosclerotic heart disease of native coronary artery without angina pectoris; I11.0 Hypertensive heart disease with heart failure; E78.5 Hyperlipidemia, unspecified; E11.9 Type 2 diabetes mellitus without complications; D47.2 Monoclonal gammopathy; E55.9 Vitamin D deficiency, unspecified; K21.9 Gastro-esophageal reflux disease without esophagitis; M19.90 Unspecified osteoarthritis, unspecified site; Z95.1 Presence of aortocoronary bypass graft; Z90.49 Acquired absence of other specified parts of digestive tract; Z79.82 Long term (current) use of aspirin; Z79.4 Long term (current) use of insulin; Z79.899 Other long term (current) drug therapy; Z88.1 Allergy status to other antibiotic agents; Z88.6 Allergy status to analgesic agent; Z88.8 Allergy status to other drugs, medicaments and biological substances

== ENCOUNTER → 2020-10-12 | Outpatient (REF) | payer MEDICARE ==
[~2020-10-12] MED LIST changes: +CIPR-249 PO; +FLAG500T PO
[2020-10-12 16:38] LABS: HEMATOCRIT 30.7 % (36.0-47.0); HEMOGLOBIN 9.4 g/dl (12.0-15.5); MEAN CORPUSCULAR HGB CONC 30.6 g/dl (32.0-36.5); MEAN CORPUSCULAR VOLUME 84.8 fl (80.0-96.0); PLATELET COUNT, AUTOMATED 407 10^3/uL (150-450); RED BLOOD COUNT 3.62 10^6/uL (4.00-5.40); WHITE BLOOD COUNT 10.6 10^3/uL (4.0-10.0)
[2020-10-12 16:59] LABS: BILIRUBIN,TOTAL 0.2 MG/DL (0.2-1.0); CALCIUM LEVEL 9.3 MG/DL (8.8-10.2); CREATININE FOR GFR 1.46 MG/DL (0.55-1.30); GLOMERULAR FILTRATION RATE 36.8 (>39); PERCENT SATURATION 4.2 % (13.2-45.0); TOTAL PROTEIN 6.7 GM/DL (6.4-8.2)
[2020-10-12 18:05] LABS: HEMOGLOBIN A1c 6.7 %
== END ==
LOC: M SFHCADAM 14:58
PROVIDERS: ATTEND Family Medicine
DX: K92.2 Gastrointestinal hemorrhage, unspecified (principal); E11.9 Type 2 diabetes mellitus without complications; I11.0 Hypertensive heart disease with heart failure; U07.1 COVID-19

== ENCOUNTER → 2020-12-14 | Outpatient (REF) | payer MEDICARE ==
[2020-12-14 18:25] LABS: HEMATOCRIT 35.5 % (36.0-47.0); MEAN CORPUSCULAR HEMOGLOBIN 21.7 pg (27.0-33.0); MEAN CORPUSCULAR HGB CONC 28.2 g/dl (32.0-36.5); PLATELET COUNT, AUTOMATED 331 10^3/uL (150-450); RED BLOOD COUNT 4.61 10^6/uL (4.00-5.40); WHITE BLOOD COUNT 10.5 10^3/uL (4.0-10.0)
[2020-12-14 18:42] LABS: ALBUMIN 3.6 GM/DL (3.2-5.2); BILIRUBIN,TOTAL 0.3 MG/DL (0.2-1.0); CALCIUM LEVEL 9.8 MG/DL (8.8-10.2); CREATININE FOR GFR 1.47 MG/DL (0.55-1.30); GLOMERULAR FILTRATION RATE 36.5 (>39); MAGNESIUM LEVEL 1.4 MG/DL (1.8-2.4); PERCENT SATURATION 4.5 % (13.2-45.0); POTASSIUM SERUM 3.3 MEQ/L (3.5-5.1); TOTAL PROTEIN 7.7 GM/DL (6.4-8.2)
[2020-12-14 19:18] LABS: HEMOGLOBIN A1c 7.4 %
== END ==
LOC: M SFHCADAM 13:55
PROVIDERS: ATTEND Family Medicine
DX: D50.9 Iron deficiency anemia, unspecified (principal); I11.0 Hypertensive heart disease with heart failure; E11.9 Type 2 diabetes mellitus without complications

== ENCOUNTER → 2021-01-03 | Outpatient (REF) | payer MEDICARE ==
[2021-01-03 13:55] LABS: CALCIUM LEVEL 10.4 MG/DL (8.8-10.2); CREATININE FOR GFR 1.42 MG/DL (0.55-1.30); MAGNESIUM LEVEL 1.5 MG/DL (1.8-2.4); POTASSIUM SERUM 4.1 MEQ/L (3.5-5.1)
== END ==
LOC: M SFHCADAM 11:37
PROVIDERS: ATTEND Family Medicine
DX: E87.6 Hypokalemia (principal)

== ENCOUNTER → 2021-02-07 | Outpatient (REF) | payer MEDICARE ==
[2021-02-07 13:23] LABS: HEMATOCRIT 36.7 % (36.0-47.0); HEMOGLOBIN 10.4 g/dl (12.0-15.5); MEAN CORPUSCULAR HEMOGLOBIN 21.6 pg (27.0-33.0); MEAN CORPUSCULAR HGB CONC 28.3 g/dl (32.0-36.5); MEAN CORPUSCULAR VOLUME 76.3 fl (80.0-96.0); PLATELET COUNT, AUTOMATED 353 10^3/uL (150-450); RED BLOOD COUNT 4.81 10^6/uL (4.00-5.40); WHITE BLOOD COUNT 10.1 10^3/uL (4.0-10.0)
[2021-02-07 13:59] LABS: FREE T4 1.13 NG/DL (0.76-1.46); THYROID STIMULATING HORMONE 0.868 uIU/ML (0.358-3.740)
[2021-02-07 14:01] LABS: FOLATE > 24.0 NG/ML (>5.4); VITAMIN B12 LEVEL 610 PG/ML (247-911)
== END ==
LOC: M SFHCADAM 10:54
PROVIDERS: ATTEND Family Medicine
DX: R53.83 Other fatigue (principal)

== ENCOUNTER → 2021-03-16 | Outpatient (REF) | payer MEDICARE ==
[2021-03-16 12:57] LABS: BASO # 0.1 10^3/uL (0.0-0.2); BASO % 0.6 % (0.0-1.0); EOS # 0.2 10^3/uL (0.0-0.5); EOS % 2.7 % (0.0-3.0); HEMATOCRIT 36.5 % (36.0-47.0); HEMOGLOBIN 10.3 g/dl (12.0-15.5); LYMPH # 1.5 10^3/uL (1.5-5.0); LYMPH % 18.8 % (24.0-44.0); MEAN CORPUSCULAR HEMOGLOBIN 21.8 pg (27.0-33.0); MEAN CORPUSCULAR HGB CONC 28.2 g/dl (32.0-36.5); MEAN CORPUSCULAR VOLUME 77.3 fl (80.0-96.0); MONO # 0.8 10^3/uL (0.0-0.8); NEUTROPHILS # 5.5 10^3/uL (1.5-8.5); NEUTROPHILS % 66.8 % (36.0-66.0); PLATELET COUNT, AUTOMATED 299 10^3/uL (150-450); RED BLOOD COUNT 4.72 10^6/uL (4.00-5.40); WHITE BLOOD COUNT 8.2 10^3/uL (4.0-10.0)
[2021-03-16 13:31] LABS: C REACTIVE PROTEIN QUANTITATIV < 0.30 MG/DL (0.00-0.30); RHEUMATOID FACTOR QUANT < 10.0 IU/ML (<15.0); URIC ACID 7.1 MG/DL (2.6-6.0)
[2021-03-16 13:38] LABS: ERYTHROCYTE SEDIMENTATION RATE 27 mm/hr (0-30)
== END ==
LOC: M LABDRWAD 12:42
PROVIDERS: ATTEND Podiatrist
DX: M79.671 Pain in right foot (principal); M79.672 Pain in left foot

== ENCOUNTER → 2021-03-16 | Outpatient (REF) | payer MEDICARE ==
[2021-03-16 12:57] LABS: HEMATOCRIT 36.5 % (36.0-47.0); HEMOGLOBIN 10.4 g/dl (12.0-15.5); MEAN CORPUSCULAR HGB CONC 28.5 g/dl (32.0-36.5); MEAN CORPUSCULAR VOLUME 77.3 fl (80.0-96.0); PLATELET COUNT, AUTOMATED 290 10^3/uL (150-450); RED BLOOD COUNT 4.72 10^6/uL (4.00-5.40); WHITE BLOOD COUNT 8.3 10^3/uL (4.0-10.0)
[2021-03-16 13:32] LABS: ALBUMIN 3.3 GM/DL (3.2-5.2); BILIRUBIN,TOTAL 0.2 MG/DL (0.2-1.0); CALCIUM LEVEL 9.4 MG/DL (8.8-10.2); CREATININE FOR GFR 1.25 MG/DL (0.55-1.30); PERCENT SATURATION 12.6 % (13.2-45.0); POTASSIUM SERUM 4.5 MEQ/L (3.5-5.1)
[2021-03-16 14:00] LABS: HEMOGLOBIN A1c 7.8 %
== END ==
LOC: M SFHCADAM 10:53
PROVIDERS: ATTEND Family Medicine
DX: D50.9 Iron deficiency anemia, unspecified (principal); I11.0 Hypertensive heart disease with heart failure; E11.9 Type 2 diabetes mellitus without complications; M79.671 Pain in right foot; M79.672 Pain in left foot

== ENCOUNTER → 2021-04-29 | Outpatient (REF) | payer MEDICARE | LOC: M SFHCADAM 13:46 | PROVIDERS: ATTEND Family Medicine | DX: R05 Cough (principal) | CPT/HCPCS: G0463; U0003 ==

== ENCOUNTER → 2021-05-17 | Outpatient (REF) | payer MEDICARE ==
[2021-05-17 14:36] LABS: CALCIUM LEVEL 9.9 MG/DL (8.8-10.2); CREATININE FOR GFR 1.2 MG/DL (0.55-1.30); GLOMERULAR FILTRATION RATE 46.1 (>39); POTASSIUM SERUM 4.4 MEQ/L (3.5-5.1)
== END ==
LOC: M SFHCADAM 11:30
PROVIDERS: ATTEND Family Medicine
DX: I11.0 Hypertensive heart disease with heart failure (principal)

== ENCOUNTER → 2021-05-27 | Outpatient (REF) | payer MEDICARE ==
[2021-05-27 18:15] LABS: HEMATOCRIT 40.2 % (36.0-47.0); HEMOGLOBIN 11.9 g/dl (12.0-15.5); MEAN CORPUSCULAR HGB CONC 29.6 g/dl (32.0-36.5); PLATELET COUNT, AUTOMATED 300 10^3/uL (150-450); RED BLOOD COUNT 4.96 10^6/uL (4.00-5.40); WHITE BLOOD COUNT 8.5 10^3/uL (4.0-10.0)
[2021-05-27 18:39] LABS: CALCIUM LEVEL 10.2 MG/DL (8.8-10.2); CREATININE FOR GFR 1.54 MG/DL (0.55-1.30); GLOMERULAR FILTRATION RATE 34.5 (>32); POTASSIUM SERUM 4.5 MEQ/L (3.5-5.1)
[2021-05-27 21:21] LABS: HEMOGLOBIN A1c 7.3 %
== END ==
LOC: M SFHCADAM 15:37
PROVIDERS: ATTEND Family Medicine
DX: N18.30 Chronic kidney disease, stage 3 unspecified (principal); I25.10 Atherosclerotic heart disease of native coronary artery without angina pectoris; E11.9 Type 2 diabetes mellitus without complications
CPT/HCPCS: 80048; 83036; 85027; G0463

== ENCOUNTER → 2021-11-21 | Outpatient (REF) | payer MEDICARE ==
[~2021-11-21] MED LIST changes: -D31000TA2 PO; +VITA100093 PO
[2021-11-21 16:53] LABS: HEMATOCRIT 40.9 % (36.0-47.0); HEMOGLOBIN 12.5 g/dl (12.0-15.5); MEAN CORPUSCULAR HEMOGLOBIN 27.2 pg (27.0-33.0); MEAN CORPUSCULAR HGB CONC 30.6 g/dl (32.0-36.5); MEAN CORPUSCULAR VOLUME 88.9 fl (80.0-96.0); PLATELET COUNT, AUTOMATED 276 10^3/uL (150-450); WHITE BLOOD COUNT 8.7 10^3/uL (4.0-10.0)
[2021-11-21 17:17] LABS: ALBUMIN 3.7 GM/DL (3.2-5.2); BILIRUBIN,TOTAL 0.3 MG/DL (0.2-1.0); CHOLESTEROL RISK RATIO 2.87 (<5); CREATININE FOR GFR 1.46 MG/DL (0.55-1.30); GLOMERULAR FILTRATION RATE 36.7 (>32); PERCENT SATURATION 24.2 % (13.2-45.0); POTASSIUM SERUM 4.3 MEQ/L (3.5-5.1); TOTAL PROTEIN 7.3 GM/DL (6.4-8.2)
[2021-11-21 17:28] LABS: HEMOGLOBIN A1c 7.3 %
== END ==
LOC: M SFHCADAM 11:43
PROVIDERS: ATTEND Family Medicine
DX: I11.0 Hypertensive heart disease with heart failure (principal); E11.9 Type 2 diabetes mellitus without complications; D50.9 Iron deficiency anemia, unspecified; E78.2 Mixed hyperlipidemia

== ENCOUNTER → 2021-11-25 | Outpatient (REF) | payer MEDICARE | LOC: M SFHCADAM 14:05 | PROVIDERS: ATTEND Family Medicine | DX: R30.0 Dysuria (principal) ==

== ENCOUNTER → 2022-03-07 | Outpatient (REF) | payer MEDICARE ==
[2022-03-07 12:58] LABS: HEMOGLOBIN 12.4 g/dl (12.0-15.5); MEAN CORPUSCULAR HEMOGLOBIN 27.4 pg (27.0-33.0); MEAN CORPUSCULAR VOLUME 88.5 fl (80.0-96.0); PLATELET COUNT, AUTOMATED 276 10^3/uL (150-450); RED BLOOD COUNT 4.52 10^6/uL (4.00-5.40); WHITE BLOOD COUNT 9.3 10^3/uL (4.0-10.0)
[2022-03-07 13:34] LABS: CALCIUM LEVEL 9.8 MG/DL (8.8-10.2); CREATININE FOR GFR 1.65 MG/DL (0.55-1.30); GLOMERULAR FILTRATION RATE 31.9 (>32); PERCENT SATURATION 11.2 % (13.2-45.0); POTASSIUM SERUM 4.9 MEQ/L (3.5-5.1)
== END ==
LOC: M SFHCADAM 11:39
PROVIDERS: ATTEND Family Medicine
DX: D50.9 Iron deficiency anemia, unspecified (principal); E11.9 Type 2 diabetes mellitus without complications

== ENCOUNTER → 2022-03-21 | Outpatient (CLI) | payer MEDICARE | LOC: M RAD 13:55 | PROVIDERS: ATTEND Surgery | DX: I73.9 Peripheral vascular disease, unspecified (principal) ==

== ENCOUNTER → 2022-05-03 | Outpatient (REF) | payer MEDICARE ==
[2022-05-03 12:56] LABS: HEMATOCRIT 39.9 % (36.0-47.0); HEMOGLOBIN 12.1 g/dl (12.0-15.5); MEAN CORPUSCULAR HEMOGLOBIN 27.6 pg (27.0-33.0); MEAN CORPUSCULAR HGB CONC 30.3 g/dl (32.0-36.5); MEAN CORPUSCULAR VOLUME 91.1 fl (80.0-96.0); PLATELET COUNT, AUTOMATED 323 10^3/uL (150-450); RED BLOOD COUNT 4.38 10^6/uL (4.00-5.40); WHITE BLOOD COUNT 10.1 10^3/uL (4.0-10.0)
[2022-05-03 13:14] LABS: HEMOGLOBIN A1c 7.1 %
[2022-05-03 13:51] LABS: ALT/SGPT 12 U/L (12-78); BILIRUBIN,TOTAL 0.3 MG/DL (0.2-1.0); BLOOD UREA NITROGEN 36 MG/DL (7-18); CALCIUM LEVEL 9.9 MG/DL (8.8-10.2); CARBON DIOXIDE LEVEL 24 MEQ/L (21-32); CHLORIDE LEVEL 101 MEQ/L (98-107); GLOMERULAR FILTRATION RATE 28.8 (>32); GLUCOSE, FASTING 181 MG/DL (70-100); POTASSIUM SERUM 4.7 MEQ/L (3.5-5.1); SODIUM LEVEL 135 MEQ/L (136-145); TRIGLYCERIDES LEVEL 70 MG/DL (<150)
[2022-05-03 13:52] LABS: ALBUMIN 3.5 GM/DL (3.2-5.2); CHOLESTEROL LEVEL 139 MG/DL (<200); CHOLESTEROL RISK RATIO 2.355 (<5); FERRITIN 28 NG/ML (8-252); HDL CHOLESTEROL 59 MG/DL (>40); LDL CHOLESTEROL 66 MG/DL (<100); MAGNESIUM LEVEL 1.8 MG/DL (1.8-2.4); NON-HDL-C 80 MG/DL; TOTAL PROTEIN 7.6 GM/DL (6.4-8.2)
[2022-05-05 13:01] LABS: ALBUMIN 3.97 GM/DL (3.29-5.55); ALBUMIN % 52.3 % (55.8-66.1); ALPHA-1-GLOBULIN % 4.8 % (2.9-4.9); ALPHA-1-GLOBULINS 0.36 GM/DL (0.17-0.41); ALPHA-2-GLOBULINS 0.92 GM/DL (0.42-0.99); ALPHA-2-GLOBULINS % 12.1 % (7.1-11.8); BETA-1-GLOBULINS 0.52 GM/DL (0.28-0.60); BETA-1-GLOBULINS % 6.9 % (4.7-7.2); BETA-2-GLOBULINS 0.45 GM/DL (0.19-0.55); BETA-2-GLOBULINS % 5.9 % (3.2-6.5)
[2022-05-05 13:02] LABS: GAMMA GLOBULINS 1.37 GM/DL (0.65-1.58)
[2022-05-05 13:12] LABS: IMMUNOTYPING SERUM IGG ABNORMAL (NORMAL)
[2022-05-05 13:13] LABS: IMMUNOTYPING SERUM LAMBDA ABNORMAL (NORMAL)
== END ==
LOC: M SFHCADAM 09:21
PROVIDERS: ATTEND Family Medicine
DX: E11.22 Type 2 diabetes mellitus with diabetic chronic kidney disease (principal); D50.9 Iron deficiency anemia, unspecified; N18.30 Chronic kidney disease, stage 3 unspecified; I25.10 Atherosclerotic heart disease of native coronary artery without angina pectoris; E78.2 Mixed hyperlipidemia; D47.2 Monoclonal gammopathy; I13.0 Hypertensive heart and chronic kidney disease with heart failure and stage 1 through stage 4 chronic kidney disease, or unspecified chronic kidney disease

== ENCOUNTER → 2022-05-26 | Outpatient (CLI) | payer MEDICARE | LOC: M WHC 14:33 | PROVIDERS: ATTEND Family Medicine | DX: Z12.31 Encounter for screening mammogram for malignant neoplasm of breast (principal) ==

== ENCOUNTER → 2022-10-11 | Outpatient (REF) | payer MEDICARE ==
[2022-10-11 15:11] LABS: HEMATOCRIT 38.9 % (36.0-47.0); HEMOGLOBIN 11.8 g/dl (12.0-15.5); MEAN CORPUSCULAR HEMOGLOBIN 27.4 pg (27.0-33.0); MEAN CORPUSCULAR HGB CONC 30.3 g/dl (32.0-36.5); MEAN CORPUSCULAR VOLUME 90.5 fl (80.0-96.0); PLATELET COUNT, AUTOMATED 268 10^3/uL (150-450)
[2022-10-11 15:30] LABS: HEMOGLOBIN A1c 7.6 % (4.0-6.0)
[2022-10-11 15:40] LABS: PERCENT SATURATION 11.9 % (13.2-45.0)
[2022-10-11 15:46] LABS: ALBUMIN 3.2 G/DL (3.2-5.2); BILIRUBIN,TOTAL 0.2 MG/DL (0.3-1.2); CALCIUM LEVEL 9.7 MG/DL (8.3-10.6); CREATININE FOR GFR 1.47 MG/DL (0.55-1.30); FERRITIN 14.6 NG/ML (7.3-270.7); GLOMERULAR FILTRATION RATE 36.3 (>32); HDL CHOLESTEROL 45.2 MG/DL (>40); POTASSIUM SERUM 5.2 MMOL/L (3.5-5.1); TOTAL PROTEIN 6.8 G/DL (5.7-8.2)
== END ==
LOC: M SFHCADAM 13:22
PROVIDERS: ATTEND Family Medicine
DX: I11.0 Hypertensive heart disease with heart failure (principal); E11.9 Type 2 diabetes mellitus without complications; E78.2 Mixed hyperlipidemia; D50.9 Iron deficiency anemia, unspecified

== ENCOUNTER → 2023-04-26 | Outpatient (REF) | payer MEDICARE ==
[2023-04-26 17:59] LABS: HEMATOCRIT 41.3 % (36.0-47.0); HEMOGLOBIN 12.3 g/dl (12.0-15.5); MEAN CORPUSCULAR HEMOGLOBIN 26.9 pg (27.0-33.0); MEAN CORPUSCULAR HGB CONC 29.8 g/dl (32.0-36.5); MEAN CORPUSCULAR VOLUME 90.2 fl (80.0-96.0); PLATELET COUNT, AUTOMATED 334 10^3/uL (150-450); RED BLOOD COUNT 4.58 10^6/uL (4.00-5.40); WHITE BLOOD COUNT 12.5 10^3/uL (4.0-10.0)
[2023-04-26 18:10] LABS: HEMOGLOBIN A1c 8.4 % (4.0-6.0)
[2023-04-26 18:29] LABS: IRON (FE) 28 UG/DL (50-170)
[2023-04-26 18:30] LABS: PERCENT SATURATION 8.6 % (13.2-45.0); TOTAL IRON BINDING CAPACITY 326 UG/DL (250-425)
[2023-04-26 18:31] LABS: ALBUMIN 3.5 G/DL (3.2-5.2); ALKALINE PHOSPHATASE 103 U/L (46-116); ALT/SGPT 9 U/L (7.0-40); AST/SGOT < 8 U/L (<34); BILIRUBIN,TOTAL 0.3 MG/DL (0.3-1.2); BLOOD UREA NITROGEN 27 MG/DL (9-23); CALCIUM LEVEL 10.1 MG/DL (8.3-10.6); CARBON DIOXIDE LEVEL 26 MMOL/L (20-31); CHLORIDE LEVEL 102 MMOL/L (98-107); CHOLESTEROL LEVEL 141 MG/DL (<200); CHOLESTEROL RISK RATIO 2.94 (<5); FERRITIN 28.5 NG/ML (7.3-270.7); GLOMERULAR FILTRATION RATE 32.9 (>32); GLUCOSE, FASTING 94 MG/DL (74-106); HDL CHOLESTEROL 47.9 MG/DL (>40); LDL CHOLESTEROL 67.3 MG/DL (<100); NON-HDL-C 93.1 MG/DL; POTASSIUM SERUM 4.8 MMOL/L (3.5-5.1); SODIUM LEVEL 139 MMOL/L (136-145); TOTAL PROTEIN 7.4 G/DL (5.7-8.2); TRIGLYCERIDES LEVEL 129 MG/DL (<150)
== END ==
LOC: M SFHCADAM 14:25
PROVIDERS: ATTEND Family Medicine
DX: K62.5 Hemorrhage of anus and rectum (principal); E11.9 Type 2 diabetes mellitus without complications; I25.10 Atherosclerotic heart disease of native coronary artery without angina pectoris; E78.2 Mixed hyperlipidemia

== ENCOUNTER → 2023-07-27 | Outpatient (REF) | payer MEDICARE | LOC: M LAB REF 19:48 | PROVIDERS: ATTEND Physician Assistant | DX: R30.0 Dysuria (principal); R10.30 Lower abdominal pain, unspecified ==

== ENCOUNTER → 2023-10-05 | Outpatient (REF) | payer MEDICARE ==
[2023-10-05 19:00] LABS: APPEARANCE, URINE CLEAR (CLEAR); BACTERIA, URINE AUTO NEGATIVE (NEGATIVE); BILIRUBIN, URINE AUTO NEGATIVE (NEGATIVE); BLOOD, URINE BLOOD NEGATIVE (NEGATIVE); COLOR, URINE YELLOW (YELLOW); GLUCOSE, URINE (UA) AUTO NEGATIVE (NEGATIVE); KETONE, URINE AUTO NEGATIVE (NEGATIVE); LEUKOCYTE ESTERASE, URINE AUTO 2+ (NEGATIVE); MUCUS, URINE SMALL (NEGATIVE); NITRITE, URINE AUTO NEGATIVE (NEGATIVE); PROTEIN, URINE AUTO NEGATIVE (NEGATIVE); RBC, URINE AUTO 1 /HPF (0-3); SPECIFIC GRAVITY URINE AUTO 1.008 (1.002-1.035); SQUAMOUS EPITHELIAL CELL UR AU 0 /HPF (0-6); UROBILINOGEN, URINE AUTO 0.2 mg/dL (0.0-2.0); WBC, URINE AUTO 8 /HPF (0-3)
[2023-10-05 19:10] LABS: HEMATOCRIT 41.8 % (36.0-47.0); HEMOGLOBIN 12.7 g/dl (12.0-15.5); MEAN CORPUSCULAR HEMOGLOBIN 27.1 pg (27.0-33.0); MEAN CORPUSCULAR HGB CONC 30.4 g/dl (32.0-36.5); MEAN CORPUSCULAR VOLUME 89.3 fl (80.0-96.0); PLATELET COUNT, AUTOMATED 315 10^3/uL (150-450); RED BLOOD COUNT 4.68 10^6/uL (4.00-5.40); WHITE BLOOD COUNT 12.7 10^3/uL (4.0-10.0)
[2023-10-05 19:28] LABS: HEMOGLOBIN A1c 7.8 % (4.0-6.0)
[2023-10-05 19:34] LABS: ALBUMIN 3.5 G/DL (3.2-5.2); BILIRUBIN,TOTAL 0.3 MG/DL (0.3-1.2); CALCIUM LEVEL 10.4 MG/DL (8.3-10.6); CREATININE FOR GFR 1.72 MG/DL (0.55-1.30); GLOMERULAR FILTRATION RATE 30.2 (>32); MAGNESIUM LEVEL 1.8 MG/DL (1.8-2.4); PERCENT SATURATION 10.7 % (13.2-45.0); POTASSIUM SERUM 5.4 MMOL/L (3.5-5.1); TOTAL PROTEIN 7.7 G/DL (5.7-8.2)
[2023-10-05 19:36] LABS: FERRITIN 29.6 NG/ML (7.3-270.7); TOTAL 25(OH) VITAMIN D 51.8 NG/ML (20.0-100.0)
== END ==
LOC: M SFHCADAM 14:12
PROVIDERS: ATTEND Family Medicine
DX: N18.32 Chronic kidney disease, stage 3b (principal); D50.9 Iron deficiency anemia, unspecified; E11.9 Type 2 diabetes mellitus without complications; I11.0 Hypertensive heart disease with heart failure; R30.0 Dysuria

== ENCOUNTER 2023-11-09 00:58 | Inpatient (IN) | payer MEDICARE ==
[~2023-11-09] VITALS: Ht 160 cm; Wt 87.0 kg
[2023-11-09 02:15] LABS: BASO % 0.2 % (0.0-1.0); EOS % 0.3 % (0.0-3.0); HEMATOCRIT 34.9 % (36.0-47.0); HEMOGLOBIN 11.2 g/dl (12.0-15.5); LYMPH # 1.2 10^3/uL (1.5-5.0); LYMPH % 8.5 % (24.0-44.0); MEAN CORPUSCULAR HEMOGLOBIN 27.9 pg (27.0-33.0); MEAN CORPUSCULAR HGB CONC 32.1 g/dl (32.0-36.5); MEAN CORPUSCULAR VOLUME 86.8 fl (80.0-96.0); MONO # 1.2 10^3/uL (0.0-0.8); MONO % 8.9 % (2.0-8.0); NEUTROPHILS # 11.3 10^3/uL (1.5-8.5); NEUTROPHILS % 81.7 % (36.0-66.0); PLATELET COUNT, AUTOMATED 264 10^3/uL (150-450); RED BLOOD COUNT 4.02 10^6/uL (4.00-5.40); WHITE BLOOD COUNT 13.8 10^3/uL (4.0-10.0)
[2023-11-09 02:20] LABS: INR 1.13; PARTIAL THROMBOPLASTIN TIME 26.2 SECONDS (24.8-34.2); PROTHROMBIN TIME 14.2 SECONDS (12.5-14.5)
[2023-11-09 02:40] LABS: ALBUMIN 3.3 G/DL (3.2-5.2); BILIRUBIN,DIRECT 0.2 MG/DL (<0.4); BILIRUBIN,TOTAL 0.5 MG/DL (0.3-1.2); CREATININE FOR GFR 1.96 MG/DL (0.55-1.30); POTASSIUM SERUM 4.8 MMOL/L (3.5-5.1); TOTAL PROTEIN 7.1 G/DL (5.7-8.2)
[2023-11-09 02:46] LABS: RSV AMPLIFICATION NEGATIVE (NEGATIVE)
[2023-11-09] MEDS: MORPHINE 2 MG/ML 1ML VIAL IV PRN (04:28)
[2023-11-09] MEDS: ONDANSETRON 4MG 2ML VIAL IV ONE (04:28)
[2023-11-09] MEDS: CIPROFLOXACIN 400 MG in IV 1 EA IV ONE (05:30)
[2023-11-09] MEDS ORDERED: GLUCOSE 4GM CHEW TABLET PO PRN ×2 (06:05→19:15)
[2023-11-09] MEDS ORDERED: DEXTROSE 50% 50ML SYRINGE IV PRN ×2 (06:05→19:15)
[2023-11-09] MEDS ORDERED: GLUCAGON INJ 1MG VIAL SC PRN ×2 (06:05→19:15)
[2023-11-09] MEDS ORDERED: MILKSUS3 PO (06:40)
[2023-11-09] MEDS ORDERED: VIAC1CHW PO (06:40)
[2023-11-09] MEDS ORDERED: CVS2500C PO (06:40)
[2023-11-09] MEDS ORDERED: SLOWTAB2 PO (06:40)
[2023-11-09] MEDS ORDERED: TEMO0.0517 TOP (06:40)
[2023-11-09] MEDS ORDERED: BACI1TAB20 PO (06:40)
[2023-11-09] MEDS ORDERED: MULTCHW12 PO (06:40)
[2023-11-09] MEDS ORDERED: FURO20TA2 PO (06:40)
[2023-11-09] MEDS ORDERED: LOSA100T46 PO (06:40)
[2023-11-09] MEDS ORDERED: MELO7.5T35 PO (06:40)
[2023-11-09] MEDS: metroNIDAZOLE 500 MG in IV 1 EA IV ONE (07:03)
[2023-11-09] MEDS ORDERED: HOME MED LIST COMPLETE! XX SCH (08:10)
[2023-11-09] MEDS: INSULIN LISPRO (NovoLOG) PER UNIT SC SCH ×2 (08:25→21:00)
[2023-11-09] MEDS: LR 1,000 ML IV SCH (08:25)
[2023-11-09 09:19] LABS: BASO % 0.4 % (0.0-1.0); EOS # 0.1 10^3/uL (0.0-0.5); EOS % 0.7 % (0.0-3.0); HEMATOCRIT 33.3 % (36.0-47.0); HEMOGLOBIN 10.3 g/dl (12.0-15.5); LYMPH # 1.5 10^3/uL (1.5-5.0); LYMPH % 12.9 % (24.0-44.0); MEAN CORPUSCULAR HEMOGLOBIN 27.5 pg (27.0-33.0); MEAN CORPUSCULAR HGB CONC 30.9 g/dl (32.0-36.5); MONO # 1.2 10^3/uL (0.0-0.8); MONO % 10.5 % (2.0-8.0); NEUTROPHILS # 8.5 10^3/uL (1.5-8.5); NEUTROPHILS % 75.1 % (36.0-66.0); PLATELET COUNT, AUTOMATED 246 10^3/uL (150-450); RED BLOOD COUNT 3.74 10^6/uL (4.00-5.40); WHITE BLOOD COUNT 11.3 10^3/uL (4.0-10.0)
[2023-11-09 09:39] LABS: CALCIUM LEVEL 9.3 MG/DL (8.3-10.6); CREATININE FOR GFR 1.86 MG/DL (0.55-1.30); GLOMERULAR FILTRATION RATE 27.6 (>32); POTASSIUM SERUM 4.6 MMOL/L (3.5-5.1)
[2023-11-09 10:34] VITALS: BP 172/68; TEMP 97.5; O2SAT 96
[2023-11-09 12:29] VITALS: BP 142/68; TEMP 97.9; O2SAT 97
[2023-11-09 12:56] LABS: HEMATOCRIT 33.2 % (36.0-47.0); HEMOGLOBIN 10.5 g/dl (12.0-15.5)
[2023-11-09] MEDS: NS 1,000 ML IV ONE (15:01)
[2023-11-09] MEDS: D5W/0.45% SODIUM CHLORIDE 1,000 ML IV SCH (15:25)
[2023-11-09] MEDS: metroNIDAZOLE 500 MG in IV 1 EA IV SCH (15:25)
[2023-11-09 16:16] VITALS: BP 157/65; TEMP 97.9; O2SAT 98
[2023-11-09] MEDS: CIPROFLOXACIN 400 MG in IV 1 EA IV SCH (17:14)
[2023-11-09 19:59] VITALS: BP 150/66; TEMP 97.8; O2SAT 99
[2023-11-09 23:39] VITALS: BP 140/62; TEMP 97.2; O2SAT 98
[2023-11-10] VITALS (15 sets, daily range): BP systolic 96–180; BP diastolic 38–83; TEMP 97–98.9; O2SAT 94–99
[2023-11-10] MEDS: ACETAMINOPHEN TAB 650MG DOSE (2X325MG) PO ONE (01:07)
[2023-11-10 05:30] LABS: HEMATOCRIT 28.3 % (36.0-47.0); HEMOGLOBIN 8.7 g/dl (12.0-15.5); MEAN CORPUSCULAR HEMOGLOBIN 27.4 pg (27.0-33.0); MEAN CORPUSCULAR HGB CONC 30.7 g/dl (32.0-36.5); PLATELET COUNT, AUTOMATED 212 10^3/uL (150-450); RED BLOOD COUNT 3.18 10^6/uL (4.00-5.40); WHITE BLOOD COUNT 7.7 10^3/uL (4.0-10.0)
[2023-11-10 05:54] LABS: CALCIUM LEVEL 8.2 MG/DL (8.3-10.6); CREATININE FOR GFR 1.59 MG/DL (0.55-1.30); GLOMERULAR FILTRATION RATE 33.1 (>32); MAGNESIUM LEVEL 1.6 MG/DL (1.8-2.4); POTASSIUM SERUM 4.3 MMOL/L (3.5-5.1)
[2023-11-10] MEDS: INSULIN LISPRO (NovoLOG) PER UNIT SC SCH (08:52)
[2023-11-10] MEDS: MAG SULF 1GM/100ML (MAG RUN) 1 GM in IV 1 EA IV ONE (08:52)
[2023-11-10 11:59] LABS: HEMOGLOBIN 9.2 g/dl (12.0-15.5)
[2023-11-10] MEDS: NS 0.45% 1,000 ML IV SCH (14:16)
[2023-11-10] MEDS: DICYCLOMINE 10 MG CAP PO PRN (14:44)
[2023-11-10] MEDS: OMEPRAZOLE 20MG CAP PO SCH (14:45)
[2023-11-10] MEDS: SPIRONOLACTONE 25 MG TAB PO SCH (14:45)
[2023-11-10] MEDS: LOSARTAN 50MG TABLET PO SCH (14:45)
[2023-11-10] MEDS: ROSUVASTATIN 10 MG TAB (CRESTOR) PO SCH (15:06)
[2023-11-10] MEDS: METOPROLOL TART 25 MG TABLET PO ONE (17:00)
[2023-11-10] MEDS: cloNIDine 0.2 MG TAB PO ONE (17:00)
[2023-11-10] MEDS: MIDODRINE 5 MG TAB PO ONE (18:43)
[2023-11-10] MEDS: NS 1,000 ML IV ONE (18:47)
[2023-11-10] MEDS: PANTOPRAZOLE 40MG VIAL IV SCH (20:03)
[2023-11-10] MEDS: CLOBETASOL PROP 0.05% OINT 30 GM TOP SCH (20:04)
[2023-11-10] MEDS: OCTREOTIDE ACETATE 100MCG/ML VIAL **IV ADMINISTRATION ONLY IV SCH (20:46)
[2023-11-10] MEDS ORDERED: METOPROLOL TART 25 MG TABLET PO SCH (21:00)
[2023-11-10 21:56] LABS: HEMATOCRIT 34.4 % (36.0-47.0); HEMOGLOBIN 10.9 g/dl (12.0-15.5)
[2023-11-11] MEDS: ONDANSETRON 4MG 2ML VIAL IV PRN (04:05)
[2023-11-11 05:55] LABS: BASO % 0.5 % (0.0-1.0); EOS # 0.3 10^3/uL (0.0-0.5); EOS % 4.8 % (0.0-3.0); HEMATOCRIT 35.8 % (36.0-47.0); HEMOGLOBIN 11.1 g/dl (12.0-15.5); LYMPH # 0.6 10^3/uL (1.5-5.0); LYMPH % 9.7 % (24.0-44.0); MEAN CORPUSCULAR HEMOGLOBIN 27.3 pg (27.0-33.0); MEAN CORPUSCULAR VOLUME 88.2 fl (80.0-96.0); MONO # 0.9 10^3/uL (0.0-0.8); MONO % 15.1 % (2.0-8.0); NEUTROPHILS # 4.1 10^3/uL (1.5-8.5); NEUTROPHILS % 69.6 % (36.0-66.0); PLATELET COUNT, AUTOMATED 203 10^3/uL (150-450); RED BLOOD COUNT 4.06 10^6/uL (4.00-5.40); WHITE BLOOD COUNT 5.9 10^3/uL (4.0-10.0)
[2023-11-11 06:00] VITALS: BP 129/96; TEMP 97.9; O2SAT 96
[2023-11-11 06:16] LABS: CALCIUM LEVEL 8.1 MG/DL (8.3-10.6); CREATININE FOR GFR 1.46 MG/DL (0.55-1.30); GLOMERULAR FILTRATION RATE 36.5 (>32); POTASSIUM SERUM 4.1 MMOL/L (3.5-5.1)
[2023-11-11] MEDS ORDERED: METOPROLOL TART 25 MG TABLET PO SCH (09:00)
[2023-11-11 14:32] VITALS: BP 126/64; TEMP 98.4; O2SAT 95
[2023-11-11 16:40] LABS: HEMATOCRIT 34.8 % (36.0-47.0); HEMOGLOBIN 10.8 g/dl (12.0-15.5)
[2023-11-11 19:50] VITALS: BP 132/67; TEMP 98.2; O2SAT 96
[2023-11-12] MEDS: LIDOCAINE 5% (LIDODERM) PATCH TD SCH (04:36)
[2023-11-12] MEDS: ACETAMINOPHEN TAB 650MG DOSE (2X325MG) PO PRN (04:36)
[2023-11-12 06:00] VITALS: BP 133/65; TEMP 98.2; O2SAT 94
[2023-11-12 06:19] LABS: BASO % 0.3 % (0.0-1.0); EOS # 0.2 10^3/uL (0.0-0.5); EOS % 2.6 % (0.0-3.0); HEMATOCRIT 33.4 % (36.0-47.0); HEMOGLOBIN 10.5 g/dl (12.0-15.5); LYMPH # 0.7 10^3/uL (1.5-5.0); LYMPH % 9.8 % (24.0-44.0); MEAN CORPUSCULAR HEMOGLOBIN 27.8 pg (27.0-33.0); MEAN CORPUSCULAR HGB CONC 31.4 g/dl (32.0-36.5); MEAN CORPUSCULAR VOLUME 88.4 fl (80.0-96.0); MONO # 0.9 10^3/uL (0.0-0.8); MONO % 13.1 % (2.0-8.0); NEUTROPHILS # 5.1 10^3/uL (1.5-8.5); NEUTROPHILS % 73.8 % (36.0-66.0); PLATELET COUNT, AUTOMATED 194 10^3/uL (150-450); RED BLOOD COUNT 3.78 10^6/uL (4.00-5.40); WHITE BLOOD COUNT 6.9 10^3/uL (4.0-10.0)
[2023-11-12 06:49] LABS: CALCIUM LEVEL 7.9 MG/DL (8.3-10.6); CREATININE FOR GFR 1.61 MG/DL (0.55-1.30); GLOMERULAR FILTRATION RATE 32.6 (>32); POTASSIUM SERUM 3.9 MMOL/L (3.5-5.1)
[2023-11-12] MEDS: CALCIUM GLUCONATE 1,000 MG in D5W MINI-BAG PLUS 100 ML IV ONE (08:35)
[2023-11-12] MEDS: POTASSIUM CHLORIDE 10MEQ SR TABLET PO ONE (08:37)
[2023-11-12] MEDS: MAG SULF 1GM/100ML (MAG RUN) 1 GM in IV 1 EA IV SCH (09:45)
[2023-11-12] MEDS: metroNIDAZOLE (FLAGYL) 500MG TABLET PO SCH (13:32)
[2023-11-12 14:00] VITALS: BP 144/60; TEMP 97.7; O2SAT 100
[2023-11-12] MEDS: NYSTATIN 100,000 UNITS/GM TOPICAL PWD 15GM TOP SCH (15:10)
[2023-11-12 16:01] LABS: IONIZED CALCIUM 5.1 MG/DL (4.5-5.3)
[2023-11-12 16:28] LABS: POTASSIUM SERUM 3.8 MMOL/L (3.5-5.1)
[2023-11-12] MEDS: CIPROFLOXACIN 500MG TABLET PO SCH (18:00)
[2023-11-12 20:19] VITALS: BP 129/67; TEMP 98.1; O2SAT 99
[2023-11-13 05:30] VITALS: BP 152/67; TEMP 97.9; O2SAT 97
[2023-11-13 06:21] LABS: BASO % 0.3 % (0.0-1.0); EOS # 0.3 10^3/uL (0.0-0.5); EOS % 4.3 % (0.0-3.0); HEMATOCRIT 32.1 % (36.0-47.0); HEMOGLOBIN 10.1 g/dl (12.0-15.5); LYMPH # 1.1 10^3/uL (1.5-5.0); LYMPH % 18.2 % (24.0-44.0); MEAN CORPUSCULAR HEMOGLOBIN 28.1 pg (27.0-33.0); MEAN CORPUSCULAR HGB CONC 31.5 g/dl (32.0-36.5); MEAN CORPUSCULAR VOLUME 89.4 fl (80.0-96.0); MONO # 1.3 10^3/uL (0.0-0.8); MONO % 21.8 % (2.0-8.0); NEUTROPHILS # 3.2 10^3/uL (1.5-8.5); NEUTROPHILS % 54.5 % (36.0-66.0); PLATELET COUNT, AUTOMATED 173 10^3/uL (150-450); RED BLOOD COUNT 3.59 10^6/uL (4.00-5.40); WHITE BLOOD COUNT 5.8 10^3/uL (4.0-10.0)
[2023-11-13 06:48] LABS: CALCIUM LEVEL 7.8 MG/DL (8.3-10.6); CREATININE FOR GFR 1.5 MG/DL (0.55-1.30); GLOMERULAR FILTRATION RATE 35.4 (>32); POTASSIUM SERUM 4.1 MMOL/L (3.5-5.1)
[2023-11-13] MEDS: PANTOPRAZOLE 40MG TAB (PROTONIX) PO SCH (08:13)
[2023-11-13] MEDS ORDERED: AMOX875T2 PO (08:16)
[2023-11-13] MEDS: SODIUM BICARBONATE 325 MG TAB PO ONE (09:13)
[2023-11-13] MEDS: AUGMENTIN 875 MG TAB PO SCH (09:13)
[2023-11-13] MEDS: SODIUM BICARBONATE 150 MEQ in STERILE WATER LITER BAG 1,000 ML IV SCH (11:05)
[2023-11-13 14:00] VITALS: BP 153/75; TEMP 97.7; O2SAT 97
[2023-11-13 14:48] LABS: CALCIUM LEVEL 8.2 MG/DL (8.3-10.6); CREATININE FOR GFR 1.37 MG/DL (0.55-1.30); GLOMERULAR FILTRATION RATE 39.3 (>32); MAGNESIUM LEVEL 1.5 MG/DL (1.8-2.4); POTASSIUM SERUM 3.9 MMOL/L (3.5-5.1)
[2023-11-13 16:40] LABS: CALCIUM LEVEL 7.4 MG/DL (8.3-10.6); CREATININE FOR GFR 1.34 MG/DL (0.55-1.30); GLOMERULAR FILTRATION RATE 40.3 (>32); POTASSIUM SERUM 3.7 MMOL/L (3.5-5.1)
[2023-11-13] MEDS: CALCIUM CARBONATE 500 MG CHEW U/D PO ONE ×2 (17:25→18:07)
[2023-11-13] MEDS: MAG SULF 1GM/100ML (MAG RUN) 1 GM in IV 1 EA IV SCH (17:28)
[2023-11-13] MEDS ORDERED: MAGN64TASA PO (17:59)
[2023-11-13] MEDS ORDERED: OS-CTAB PO (17:59)
[2023-11-13] MEDS: MAGNESIUM OXIDE 400MG TAB (MAG-OX) PO ONE (18:07)
[2023-11-13] MEDS ORDERED: CALCIUM GLUCONATE 1,000 MG in D5W MINI-BAG PLUS 100 ML IV ONE (20:00)
[2023-11-14 15:11] LABS: Chitobioside Carbohydrat (ACCA 5 units (0-90); Laminaribioside Carbohyd (ALCA 3 units (0-60); Mannobioside Carbohydrat (AMCA 7 units (0-100); Saccharomyces cerevisiae IgG A 19 units (0-50)
== END 2023-11-13 19:11 | disposition home or self-care (01) | DRG 378 ==
LOC: EDBD 00:58 → M ED 00:58 → M ED INP 06:02 → ENRESERV 07:56 → M PCU 10:24 → M MSPAV 11-10 16:16
PROVIDERS: ADMIT Internal Medicine; ATTEND General Practice
PROC: 30233N1 Transfusion of Nonautologous Red Blood Cells into Peripheral Vein, Percutaneous Approach (ICD-10-PCS; principal; 2023-11-10)
DX: K57.21 Diverticulitis of large intestine with perforation and abscess with bleeding (principal); D62 Acute posthemorrhagic anemia; I50.32 Chronic diastolic (congestive) heart failure; N17.9 Acute kidney failure, unspecified; Q21.12 Patent foramen ovale; N32.1 Vesicointestinal fistula; I13.0 Hypertensive heart and chronic kidney disease with heart failure and stage 1 through stage 4 chronic kidney disease, or unspecified chronic kidney disease; E87.21 Acute metabolic acidosis; I45.2 Bifascicular block; N18.30 Chronic kidney disease, stage 3 unspecified; E11.22 Type 2 diabetes mellitus with diabetic chronic kidney disease; I16.0 Hypertensive urgency; I27.20 Pulmonary hypertension, unspecified; E66.9 Obesity, unspecified; E78.5 Hyperlipidemia, unspecified; I25.10 Atherosclerotic heart disease of native coronary artery without angina pectoris; D47.2 Monoclonal gammopathy; K21.9 Gastro-esophageal reflux disease without esophagitis; E83.42 Hypomagnesemia; Z95.1 Presence of aortocoronary bypass graft; Z68.35 Body mass index [BMI] 35.0-35.9, adult; M19.90 Unspecified osteoarthritis, unspecified site; E55.9 Vitamin D deficiency, unspecified; Z88.8 Allergy status to other drugs, medicaments and biological substances; Z88.6 Allergy status to analgesic agent; Z79.899 Other long term (current) drug therapy; Z86.73 Personal history of transient ischemic attack (TIA), and cerebral infarction without residual deficits

== ENCOUNTER → 2023-11-22 | Outpatient (REF) | payer MEDICARE ==
[~2023-11-22] MED LIST changes: +AMOX875T2 PO; +BACI1TAB20 PO; +CVS2500C PO; +FURO20TA2 PO; +LOSA100T46 PO; +MELO7.5T35 PO; +MILKSUS3 PO; +MULTCHW12 PO; +OS-CTAB PO; +SLOWTAB2 PO; +TEMO0.0517 TOP; +VIAC1CHW PO
[2023-11-22 17:46] LABS: APPEARANCE, URINE HAZY (CLEAR); BACTERIA, URINE AUTO 1+ (NEGATIVE); BILIRUBIN, URINE AUTO NEGATIVE (NEGATIVE); BLOOD, URINE BLOOD 1+ (NEGATIVE); COLOR, URINE YELLOW (YELLOW); GLUCOSE, URINE (UA) AUTO NEGATIVE (NEGATIVE); KETONE, URINE AUTO NEGATIVE (NEGATIVE); LEUKOCYTE ESTERASE, URINE AUTO 3+ (NEGATIVE); MUCUS, URINE SMALL (NEGATIVE); NITRITE, URINE AUTO NEGATIVE (NEGATIVE); PROTEIN, URINE AUTO 1+ mg/dL (NEGATIVE); RBC, URINE AUTO 19 /HPF (0-3); SPECIFIC GRAVITY URINE AUTO 1.012 (1.002-1.035); SQUAMOUS EPITHELIAL CELL UR AU 2 /HPF (0-6); TRANSITIONAL EPITHELIAL AUTO 1 /HPF; UROBILINOGEN, URINE AUTO 0.2 mg/dL (0.0-2.0); WBC, URINE AUTO 156 /HPF (0-3)
== END ==
LOC: M SFHCADAM 15:24
PROVIDERS: ATTEND Family Medicine
DX: N39.0 Urinary tract infection, site not specified (principal)

== ENCOUNTER → 2023-12-27 | Outpatient (CLI) | payer MEDICARE ==
[~2023-12-27] MED LIST changes: +ISOVUE-300 61% 100ML VIAL As Ordered ONE; +LIDOCAINE 1% MDV 20ML VIAL As Ordered ONE; +TRIAMCINOLONE ACETONIDE SUSP 40MG/ML 1ML VIAL As Ordered ONE
== END ==
LOC: M RAD 13:40
PROVIDERS: ATTEND Orthopaedic Surgery
DX: M16.12 Unilateral primary osteoarthritis, left hip (principal)
CPT/HCPCS: 20610; 77002; J3301; Q9967

== ENCOUNTER 2024-01-02 11:48 | Inpatient (IN) | payer MEDICARE ==
[~2024-01-02] VITALS: Ht 160 cm; Wt 89.2 kg
[~2024-01-02 11:48] MED LIST changes: -ISOVUE-300 61% 100ML VIAL As Ordered ONE; -LIDOCAINE 1% MDV 20ML VIAL As Ordered ONE; -ROSU10TA6 PO; +ROSU10TA61 PO; -TRIAMCINOLONE ACETONIDE SUSP 40MG/ML 1ML VIAL As Ordered ONE
[2024-01-02] MEDS ORDERED: TIZA2TA PO (11:58)
[2024-01-02] MEDS ORDERED: GABA-1171 PO (11:58)
[2024-01-02] MEDS: NS 500 ML IV ONE (12:45)
[2024-01-02] MEDS: NS 1,000 ML IV SCH (12:45)
[2024-01-02 12:48] LABS: BASO % 0.3 % (0.0-1.0); EOS # 0.1 10^3/uL (0.0-0.5); EOS % 1.1 % (0.0-3.0); HEMATOCRIT 40.4 % (36.0-47.0); HEMOGLOBIN 12.6 g/dl (12.0-15.5); LYMPH # 1.6 10^3/uL (1.5-5.0); LYMPH % 12.3 % (24.0-44.0); MEAN CORPUSCULAR HEMOGLOBIN 26.6 pg (27.0-33.0); MEAN CORPUSCULAR HGB CONC 31.2 g/dl (32.0-36.5); MEAN CORPUSCULAR VOLUME 85.2 fl (80.0-96.0); MONO # 1.1 10^3/uL (0.0-0.8); MONO % 8.2 % (2.0-8.0); NEUTROPHILS # 10.3 10^3/uL (1.5-8.5); NEUTROPHILS % 77.5 % (36.0-66.0); PLATELET COUNT, AUTOMATED 294 10^3/uL (150-450); RED BLOOD COUNT 4.74 10^6/uL (4.00-5.40); WHITE BLOOD COUNT 13.2 10^3/uL (4.0-10.0)
[2024-01-02 13:01] LABS: INR 1.05; PARTIAL THROMBOPLASTIN TIME 22.8 SECONDS (24.8-34.2); PROTHROMBIN TIME 13.4 SECONDS (12.5-14.5)
[2024-01-02 13:14] LABS: BILIRUBIN,DIRECT 0.1 MG/DL (<0.4); BILIRUBIN,TOTAL 0.4 MG/DL (0.3-1.2); TOTAL PROTEIN 6.9 G/DL (5.7-8.2)
[2024-01-02 14:50] LABS: CALCIUM LEVEL 9.7 MG/DL (8.3-10.6); CREATININE FOR GFR 1.67 MG/DL (0.55-1.30); GLOMERULAR FILTRATION RATE 31.3 (>32); POTASSIUM SERUM 4.7 MMOL/L (3.5-5.1)
[2024-01-02] MEDS ORDERED: MULT-40 PO (15:14)
[2024-01-02] MEDS ORDERED: VITA200032 PO (15:14)
[2024-01-02] MEDS ORDERED: HOME MED LIST COMPLETE! XX SCH (15:15)
[2024-01-02] MEDS: PIPERACILLIN/TAZOBACTAM SOD 3.375 GM in D5W MINI-BAG PLUS 50 ML IV ONE (15:29)
[2024-01-02] MEDS ORDERED: ACETAMINOPHEN TAB 650MG DOSE (2X325MG) PO PRN (17:20)
[2024-01-02] MEDS ORDERED: hydrALAZINE 20MG/ML 1ML VIAL IV PRN (18:05)
[2024-01-02] MEDS ORDERED: GLUCAGON INJ 1MG VIAL SC PRN (18:15)
[2024-01-02] MEDS ORDERED: DEXTROSE 50% 50ML SYRINGE IV PRN (18:15)
[2024-01-02] MEDS ORDERED: GLUCOSE 4 GM CHEW PO PRN (18:15)
[2024-01-02] MEDS ORDERED: PILL CUTTER 1 EACH XX PRN (18:25)
[2024-01-02] MEDS: hydrALAZINE 20MG/ML 1ML VIAL IV STA (18:54)
[2024-01-02] MEDS ORDERED: OMEPRAZOLE 20MG CAP PO SCH (21:00)
[2024-01-02] MEDS: INSULIN LISPRO (NovoLOG) PER UNIT SC SCH (21:00)
[2024-01-02] MEDS: tiZANidine 4 MG TAB PO SCH (21:38)
[2024-01-02] MEDS: GABAPENTIN 100 MG CAP PO SCH (21:39)
[2024-01-02] MEDS: METOPROLOL TART 25 MG TABLET PO SCH (21:41)
[2024-01-02] MEDS: PANTOPRAZOLE 40MG VIAL IV SCH (21:43)
[2024-01-02] MEDS: PIPERACILLIN/TAZOBACTAM SOD 3.375 GM in D5W MINI-BAG PLUS 50 ML IV SCH (21:43)
[2024-01-03 01:09] VITALS: BP 146/67; TEMP 96.7; O2SAT 98
[2024-01-03 04:27] VITALS: BP 126/59; TEMP 96.7; O2SAT 97
[2024-01-03 06:08] LABS: HEMATOCRIT 36.8 % (36.0-47.0); HEMOGLOBIN 11.5 g/dl (12.0-15.5); MEAN CORPUSCULAR HEMOGLOBIN 26.7 pg (27.0-33.0); MEAN CORPUSCULAR HGB CONC 31.3 g/dl (32.0-36.5); MEAN CORPUSCULAR VOLUME 85.6 fl (80.0-96.0); PLATELET COUNT, AUTOMATED 243 10^3/uL (150-450); WHITE BLOOD COUNT 12.6 10^3/uL (4.0-10.0)
[2024-01-03 06:42] LABS: ALBUMIN 2.8 G/DL (3.2-5.2); BILIRUBIN,TOTAL 0.7 MG/DL (0.3-1.2); CALCIUM LEVEL 9.6 MG/DL (8.3-10.6); CREATININE FOR GFR 1.73 MG/DL (0.55-1.30); POTASSIUM SERUM 5.3 MMOL/L (3.5-5.1); TOTAL PROTEIN 6.2 G/DL (5.7-8.2)
[2024-01-03 07:42] VITALS: BP 154/66; TEMP 97.6; O2SAT 98
[2024-01-03] MEDS ORDERED: SPIRONOLACTONE 25 MG TAB PO SCH (09:00)
[2024-01-03] MEDS: LOSARTAN 50MG TABLET PO SCH (09:09)
[2024-01-03] MEDS: FUROSEMIDE 20 MG TAB PO SCH (09:10)
[2024-01-03] MEDS: INSULIN LISPRO (NovoLOG) PER UNIT SC SCH (09:11)
[2024-01-03 12:03] VITALS: BP 128/60; TEMP 96.6; O2SAT 97
[2024-01-03 15:47] VITALS: BP 132/61; TEMP 97.4; O2SAT 100
[2024-01-03] MEDS: ROSUVASTATIN 10 MG TAB (CRESTOR) PO SCH (17:43)
[2024-01-03 19:42] VITALS: BP 154/64; TEMP 97.5; O2SAT 99
[2024-01-03] MEDS: NS 1,000 ML IV SCH (20:29)
[2024-01-04 03:18] VITALS: BP 148/67; TEMP 97.6; O2SAT 98
[2024-01-04 06:27] LABS: HEMATOCRIT 33.5 % (36.0-47.0); HEMOGLOBIN 10.3 g/dl (12.0-15.5); MEAN CORPUSCULAR HGB CONC 30.7 g/dl (32.0-36.5); MEAN CORPUSCULAR VOLUME 87.7 fl (80.0-96.0); PLATELET COUNT, AUTOMATED 217 10^3/uL (150-450); RED BLOOD COUNT 3.82 10^6/uL (4.00-5.40); WHITE BLOOD COUNT 10.7 10^3/uL (4.0-10.0)
[2024-01-04] MEDS ORDERED: CIPR250T3 PO (06:41)
[2024-01-04] MEDS ORDERED: METR-265 PO (06:41)
[2024-01-04] MEDS ORDERED: PROB250C PO (06:42)
[2024-01-04 07:01] LABS: ALBUMIN 2.3 G/DL (3.2-5.2); ALKALINE PHOSPHATASE 73 U/L (46-116); ALT/SGPT < 9 U/L (7.0-40); AST/SGOT < 8 U/L (<34); BILIRUBIN,TOTAL 0.4 MG/DL (0.3-1.2); BLOOD UREA NITROGEN 38 MG/DL (9-23); CALCIUM LEVEL 8.7 MG/DL (8.3-10.6); CARBON DIOXIDE LEVEL 21 MMOL/L (20-31); CHLORIDE LEVEL 111 MMOL/L (98-107); CREATININE FOR GFR 1.79 MG/DL (0.55-1.30); GLOMERULAR FILTRATION RATE 28.9 (>32); GLUCOSE, FASTING 165 MG/DL (74-106); POTASSIUM SERUM 4.6 MMOL/L (3.5-5.1); SODIUM LEVEL 139 MMOL/L (136-145); TOTAL PROTEIN 5.6 G/DL (5.7-8.2)
[2024-01-04 07:36] VITALS: BP 134/68; TEMP 97.6; O2SAT 97
[2024-01-04 08:29] VITALS: BP 138/68
== END 2024-01-04 12:29 | disposition home or self-care (01) | DRG 378 ==
LOC: M ED 11:48 → M ED INP 11:49 → OBSVTOIN 18:16 → ENRESERV 23:58 → M PCU 01-03 01:45
PROVIDERS: ADMIT Internal Medicine; ATTEND Internal Medicine
DX: K57.33 Diverticulitis of large intestine without perforation or abscess with bleeding (principal); I50.32 Chronic diastolic (congestive) heart failure; N39.0 Urinary tract infection, site not specified; I13.0 Hypertensive heart and chronic kidney disease with heart failure and stage 1 through stage 4 chronic kidney disease, or unspecified chronic kidney disease; I25.10 Atherosclerotic heart disease of native coronary artery without angina pectoris; D47.2 Monoclonal gammopathy; N18.30 Chronic kidney disease, stage 3 unspecified; L89.312 Pressure ulcer of right buttock, stage 2; E78.5 Hyperlipidemia, unspecified; E11.22 Type 2 diabetes mellitus with diabetic chronic kidney disease; M19.90 Unspecified osteoarthritis, unspecified site; I16.0 Hypertensive urgency; K21.9 Gastro-esophageal reflux disease without esophagitis; Z86.73 Personal history of transient ischemic attack (TIA), and cerebral infarction without residual deficits; Z79.899 Other long term (current) drug therapy; Z88.8 Allergy status to other drugs, medicaments and biological substances

== ENCOUNTER → 2024-01-11 | Outpatient (REF) | payer MEDICARE ==
[~2024-01-11] MED LIST changes: +GABA-1171 PO; +METR-265 PO; +MULT-40 PO; +PROB250C PO; +TIZA2TA PO; +VITA200032 PO
[2024-01-11 17:35] LABS: CALCIUM LEVEL 9.2 MG/DL (8.3-10.6); CREATININE FOR GFR 1.72 MG/DL (0.55-1.30); GLOMERULAR FILTRATION RATE 30.2 (>32); POTASSIUM SERUM 4.4 MMOL/L (3.5-5.1)
[2024-01-11 17:40] LABS: BASO % 0.4 % (0.0-1.0); EOS # 0.1 10^3/uL (0.0-0.5); EOS % 0.7 % (0.0-3.0); HEMATOCRIT 40.6 % (36.0-47.0); HEMOGLOBIN 12.3 g/dl (12.0-15.5); LYMPH # 1.1 10^3/uL (1.5-5.0); LYMPH % 13.7 % (24.0-44.0); MEAN CORPUSCULAR HEMOGLOBIN 26.3 pg (27.0-33.0); MEAN CORPUSCULAR HGB CONC 30.3 g/dl (32.0-36.5); MEAN CORPUSCULAR VOLUME 86.8 fl (80.0-96.0); MONO # 1.2 10^3/uL (0.0-0.8); NEUTROPHILS # 5.6 10^3/uL (1.5-8.5); NEUTROPHILS % 69.8 % (36.0-66.0); PLATELET COUNT, AUTOMATED 264 10^3/uL (150-450); RED BLOOD COUNT 4.68 10^6/uL (4.00-5.40); WHITE BLOOD COUNT 8.1 10^3/uL (4.0-10.0)
== END ==
LOC: M SFHCADAM 13:46
PROVIDERS: ATTEND Physician Assistant
DX: E87.5 Hyperkalemia (principal); I11.0 Hypertensive heart disease with heart failure; E11.22 Type 2 diabetes mellitus with diabetic chronic kidney disease

== ENCOUNTER → 2024-01-18 | Outpatient (REF) | payer MEDICARE ==
[2024-01-18 18:04] LABS: HEMOGLOBIN 12.8 g/dl (12.0-15.5); MEAN CORPUSCULAR HEMOGLOBIN 26.4 pg (27.0-33.0); MEAN CORPUSCULAR HGB CONC 30.5 g/dl (32.0-36.5); MEAN CORPUSCULAR VOLUME 86.8 fl (80.0-96.0); PLATELET COUNT, AUTOMATED 318 10^3/uL (150-450); RED BLOOD COUNT 4.84 10^6/uL (4.00-5.40)
[2024-01-18 18:15] LABS: HEMOGLOBIN A1c 8.8 % (4.0-6.0)
[2024-01-18 18:37] LABS: BILIRUBIN,TOTAL 0.3 MG/DL (0.3-1.2); CREATININE FOR GFR 1.73 MG/DL (0.55-1.30); TOTAL PROTEIN 7.1 G/DL (5.7-8.2)
[2024-01-18 18:39] LABS: FERRITIN 26.8 NG/ML (7.3-270.7)
== END ==
LOC: M SFHCADAM 14:29
PROVIDERS: ATTEND Physician Assistant
DX: E11.9 Type 2 diabetes mellitus without complications (principal); R60.0 Localized edema; K57.92 Diverticulitis of intestine, part unspecified, without perforation or abscess without bleeding

== ENCOUNTER → 2024-05-07 | Outpatient (REF) | payer MEDICARE ==
[2024-05-07 13:06] LABS: HEMATOCRIT 36.4 % (36.0-47.0); HEMOGLOBIN 10.8 g/dl (12.0-15.5); MEAN CORPUSCULAR HEMOGLOBIN 24.5 pg (27.0-33.0); MEAN CORPUSCULAR HGB CONC 29.7 g/dl (32.0-36.5); MEAN CORPUSCULAR VOLUME 82.7 fl (80.0-96.0); PLATELET COUNT, AUTOMATED 241 10^3/uL (150-450); WHITE BLOOD COUNT 8.6 10^3/uL (4.0-10.0)
[2024-05-07 13:29] LABS: HEMOGLOBIN A1c 9.3 % (4.0-6.0)
[2024-05-07 13:30] LABS: ALBUMIN 3.2 G/DL (3.2-5.2); BILIRUBIN,TOTAL 0.4 MG/DL (0.3-1.2); CALCIUM LEVEL 9.7 MG/DL (8.3-10.6); CREATININE FOR GFR 1.26 MG/DL (0.55-1.30); GLOMERULAR FILTRATION RATE 43.3 (>32); MAGNESIUM LEVEL 1.6 MG/DL (1.8-2.4); PERCENT SATURATION 9.4 % (13.2-45.0); POTASSIUM SERUM 4.9 MMOL/L (3.5-5.1)
[2024-05-07 13:32] LABS: FERRITIN 27.7 NG/ML (7.3-270.7)
== END ==
LOC: M SFHCADAM 08:24
PROVIDERS: ATTEND Family Medicine
DX: I11.0 Hypertensive heart disease with heart failure (principal); E11.9 Type 2 diabetes mellitus without complications; N18.32 Chronic kidney disease, stage 3b; D50.9 Iron deficiency anemia, unspecified

== ENCOUNTER → 2024-05-20 | Outpatient (REF) | payer MEDICARE ==
[2024-05-20 13:49] LABS: APPEARANCE, URINE HAZY (CLEAR); BACTERIA, URINE AUTO NEGATIVE (NEGATIVE); BILIRUBIN, URINE AUTO NEGATIVE (NEGATIVE); BLOOD, URINE BLOOD NEGATIVE (NEGATIVE); COLOR, URINE YELLOW (YELLOW); GLUCOSE, URINE (UA) AUTO NEGATIVE (NEGATIVE); KETONE, URINE AUTO NEGATIVE (NEGATIVE); LEUKOCYTE ESTERASE, URINE AUTO 3+ (NEGATIVE); MUCUS, URINE SMALL (NEGATIVE); NITRITE, URINE AUTO NEGATIVE (NEGATIVE); PROTEIN, URINE AUTO NEGATIVE (NEGATIVE); RBC, URINE AUTO 4 /HPF (0-3); SPECIFIC GRAVITY URINE AUTO 1.016 (1.002-1.035); SQUAMOUS EPITHELIAL CELL UR AU 0 /HPF (0-6); UROBILINOGEN, URINE AUTO 0.2 mg/dL (0.0-2.0); WBC, URINE AUTO 167 /HPF (0-3)
== END ==
LOC: M SFHCADAM 10:07
PROVIDERS: ATTEND Family Medicine
DX: R30.0 Dysuria (principal)

== ENCOUNTER → 2024-07-01 | Outpatient (CLI) | payer MEDICARE | LOC: M WHC 09:04 | PROVIDERS: ATTEND Family Medicine | DX: Z12.31 Encounter for screening mammogram for malignant neoplasm of breast (principal); R92.323 Mammographic fibroglandular density, bilateral breasts ==

== ENCOUNTER → 2024-09-01 | Outpatient (REF) | payer MEDICARE ==
[2024-09-01 13:07] LABS: BASO % 0.4 % (0.0-1.0); EOS # 0.1 10^3/uL (0.0-0.5); HEMATOCRIT 39.1 % (36.0-47.0); HEMOGLOBIN 11.6 g/dl (12.0-15.5); LYMPH % 19.6 % (24.0-44.0); MEAN CORPUSCULAR HEMOGLOBIN 24.2 pg (27.0-33.0); MEAN CORPUSCULAR HGB CONC 29.7 g/dl (32.0-36.5); MEAN CORPUSCULAR VOLUME 81.5 fl (80.0-96.0); MONO # 0.8 10^3/uL (0.0-0.8); MONO % 7.7 % (2.0-8.0); NEUTROPHILS # 7.1 10^3/uL (1.5-8.5); NEUTROPHILS % 70.9 % (36.0-66.0); PLATELET COUNT, AUTOMATED 272 10^3/uL (150-450)
[2024-09-01 13:43] LABS: ALBUMIN 3.3 G/DL (3.2-5.2); BILIRUBIN,TOTAL 0.5 MG/DL (0.3-1.2); CALCIUM LEVEL 10.6 MG/DL (8.3-10.6); CHOLESTEROL RISK RATIO 3.02 (<5); CREATININE FOR GFR 1.32 MG/DL (0.55-1.30); GLOMERULAR FILTRATION RATE 40.9 (>32); HDL CHOLESTEROL 54.8 MG/DL (>40); LDL CHOLESTEROL 82.2 MG/DL (<100); NON-HDL-C 111.2 MG/DL; POTASSIUM SERUM 4.2 MMOL/L (3.5-5.1); TOTAL PROTEIN 8.1 G/DL (5.7-8.2)
[2024-09-02 13:02] LABS: PROTEIN, TOTAL SO 7.8 g/dL (6.1-8.1)
== END ==
LOC: M SFHCADAM 09:43
PROVIDERS: ATTEND Family Medicine
DX: E11.9 Type 2 diabetes mellitus without complications (principal); E78.2 Mixed hyperlipidemia; D47.2 Monoclonal gammopathy

== ENCOUNTER → 2024-09-11 | Outpatient (REF) | payer MEDICARE ==
[2024-09-11 18:43] LABS: APPEARANCE, URINE MANUAL HAZY (CLEAR)
[2024-09-11 18:44] LABS: BLOOD URINE MANUAL POSITIVE (NEGATIVE); COLOR, URINE MANUAL LT YELLOW (YELLOW); LEUKOCYTE ESTERASE, URINE MAN POSITIVE (NEGATIVE)
[2024-09-11 18:45] LABS: BILIRUBIN, URINE MANUAL NEGATIVE (NEGATIVE); GLUCOSE, URINE (UA) MANUAL NEGATIVE (NEGATIVE); KETONE, URINE MANUAL NEGATIVE (NEGATIVE); NITRITE, URINE MANUAL NEGATIVE (NEGATIVE); PROTEIN, URINE MANUAL TRACE mg/dL (NEGATIVE); UROBILINOGEN, URINE MANUAL NORMAL (NORMAL)
[2024-09-11 19:00] LABS: AMORPHOUS SEDIMENT, URINE SMALL AMOUNT (NEGATIVE); BACTERIA, URINE SMALL AMOUNT; HYALINE CAST, URINE NONE SEEN /lpf (0-1); SQUAMOUS EPITHELIAL CELL URINE SMALL AMOUNT /hpf (SMALL AMT); WBC, URINE 15-20 /hpf (0-3)
== END ==
LOC: M SFHCADAM 14:37
PROVIDERS: ATTEND Family Medicine
DX: N93.9 Abnormal uterine and vaginal bleeding, unspecified (principal); N32.1 Vesicointestinal fistula; Z79.899 Other long term (current) drug therapy

== ENCOUNTER → 2024-11-13 | Outpatient (CLI) | payer MEDICARE | LOC: M ADAMS 15:22 | PROVIDERS: ATTEND Physician Assistant Medical | DX: M25.551 Pain in right hip (principal); M25.552 Pain in left hip; Z53.9 Procedure and treatment not carried out, unspecified reason ==

== ENCOUNTER → 2024-11-17 | Outpatient (CLI) | payer MEDICARE | LOC: M ADAMS 13:06 | PROVIDERS: ATTEND Physician Assistant Medical | DX: M25.551 Pain in right hip (principal); M25.552 Pain in left hip; M16.0 Bilateral primary osteoarthritis of hip; M47.816 Spondylosis without myelopathy or radiculopathy, lumbar region ==

== ENCOUNTER → 2025-04-23 | Outpatient (REF) | payer MEDICARE ==
[~2025-04-23] MED LIST changes: +SLOW1TAB3 PO; -SLOWTAB2 PO
[2025-04-23 17:14] LABS: PLATELET COUNT, AUTOMATED 250 10^3/uL (150-450)
[2025-04-23 17:16] LABS: ALT/SGPT 11.0 U/L (7.0-40); AST/SGOT 15.0 U/L (<34); CALCIUM LEVEL 9.8 MG/DL (8.3-10.6); CARBON DIOXIDE LEVEL 23.0 MMOL/L (20-31); CHLORIDE LEVEL 104.0 MMOL/L (98-107); CREATININE FOR GFR 1.41 MG/DL (0.55-1.30); GLOMERULAR FILTRATION RATE 37.0 (>32); POTASSIUM SERUM 4.5 MMOL/L (3.5-5.1); SODIUM LEVEL 141.0 MMOL/L (136-145)
[2025-04-23 17:43] LABS: ESTIMATED AVERAGE GLUCOSE 192.0 MG/DL (60-110)
== END ==
LOC: M SFHCADAM 13:29
PROVIDERS: ATTEND Family Medicine
DX: N18.32 Chronic kidney disease, stage 3b (principal); R39.9 Unspecified symptoms and signs involving the genitourinary system; E11.9 Type 2 diabetes mellitus without complications; I50.32 Chronic diastolic (congestive) heart failure

== ENCOUNTER → 2025-04-27 | Outpatient (REF) | payer MEDICARE ==
[2025-04-28 13:24] LABS: APPEARANCE, URINE HAZY (CLEAR); BACTERIA, URINE AUTO NEGATIVE (NEGATIVE); BILIRUBIN, URINE AUTO NEGATIVE (NEGATIVE); BLOOD, URINE BLOOD 2+ (NEGATIVE); GLUCOSE, URINE (UA) AUTO NEGATIVE (NEGATIVE); KETONE, URINE AUTO NEGATIVE (NEGATIVE); LEUKOCYTE ESTERASE, URINE AUTO 3+ (NEGATIVE); MUCUS, URINE SMALL (NEGATIVE); NITRITE, URINE AUTO NEGATIVE (NEGATIVE); PROTEIN, URINE AUTO NEGATIVE (NEGATIVE); RBC, URINE AUTO 15 /HPF (0-3); SPECIFIC GRAVITY URINE AUTO 1.010 (1.002-1.035); SQUAMOUS EPITHELIAL CELL UR AU 0 /HPF (0-6); TRANSITIONAL EPITHELIAL AUTO <1 /HPF; UROBILINOGEN, URINE AUTO 0.2 mg/dL (0.0-2.0); WBC, URINE AUTO 157 /HPF (0-3)
[2025-04-28 14:42] LABS: CREATININE, URINE 60.4 MG/DL; MALB URINE SIEMENS 17.0 MG/L; MAU/CREAT RATIO 28.1 MCG/MG (0.0-30.0)
== END ==
LOC: M SFHCADAM 12:56
PROVIDERS: ATTEND Family Medicine
DX: R39.9 Unspecified symptoms and signs involving the genitourinary system (principal); E11.9 Type 2 diabetes mellitus without complications

== ENCOUNTER → 2025-07-03 | Outpatient (REF) | payer MEDICARE ==
[~2025-07-03] MED LIST changes: -ROSU10TA61 PO; +ROSU10TA90 PO
[2025-07-03 14:51] LABS: ESTIMATED AVERAGE GLUCOSE 169.0 MG/DL (60-110)
[2025-07-03 15:12] LABS: CALCIUM LEVEL 9.7 MG/DL (8.3-10.6); CARBON DIOXIDE LEVEL 24.0 MMOL/L (20-31); CHLORIDE LEVEL 105.0 MMOL/L (98-107); CREATININE FOR GFR 1.56 MG/DL (0.55-1.30); GLOMERULAR FILTRATION RATE 32.6 (>32); POTASSIUM SERUM 4.3 MMOL/L (3.5-5.1); SODIUM LEVEL 141.0 MMOL/L (136-145)
== END ==
LOC: M SFHCADAM 09:06
PROVIDERS: ATTEND Family Medicine
DX: E11.9 Type 2 diabetes mellitus without complications (principal)

== ENCOUNTER → 2025-07-09 | Outpatient (REF) | payer MEDICARE ==
[2025-07-09 17:38] LABS: PLATELET COUNT, AUTOMATED 276 10^3/uL (150-450)
[2025-07-09 17:52] LABS: ESTIMATED AVERAGE GLUCOSE 183.0 MG/DL (60-110)
[2025-07-09 18:01] LABS: ALT/SGPT 10 U/L (7.0-40); AST/SGOT 15 U/L (<34); C REACTIVE PROTEIN QUANTITATIV < 0.50 MG/DL (<1.0); CALCIUM LEVEL 9.5 MG/DL (8.3-10.6); CARBON DIOXIDE LEVEL 24 MMOL/L (20-31); CHLORIDE LEVEL 105 MMOL/L (98-107); CHOLESTEROL LEVEL 148 MG/DL (<200); CHOLESTEROL RISK RATIO 2.52 (<5); CREATININE FOR GFR 1.65 MG/DL (0.55-1.30); GLOMERULAR FILTRATION RATE 30.5 (>32); LDL CHOLESTEROL 49.4 MG/DL (<100); NON-HDL-C 89.4 MG/DL; POTASSIUM SERUM 4.1 MMOL/L (3.5-5.1); SODIUM LEVEL 140 MMOL/L (136-145); TRIGLYCERIDES LEVEL 200 MG/DL (<150)
[2025-07-09 18:02] LABS: TOTAL 25(OH) VITAMIN D 51.1 NG/ML (20.0-100.0)
== END ==
LOC: M SFHCADAM 14:16
PROVIDERS: ATTEND Family Medicine
DX: K62.5 Hemorrhage of anus and rectum (principal); E11.22 Type 2 diabetes mellitus with diabetic chronic kidney disease; K64.4 Residual hemorrhoidal skin tags; I50.32 Chronic diastolic (congestive) heart failure; E78.2 Mixed hyperlipidemia; Z79.899 Other long term (current) drug therapy